=== PATIENT | female | born 1940 | race Caucasian/White ===

== ENCOUNTER 2023-05-24 10:51 | Outpatient (OUT) | payer MEDICARE, SELFPAY ==
[2023-05-24 11:10] LABS: Basophils Percent Auto 0.4 % (0.2-2.0); Eosinophils Absolute Auto 0.2 10^3/uL (0.0-0.7); Eosinophils Percent Auto 4.1 % (0.9-7.0); Hematocrit 39.9 % (36.0-48.0); Hemoglobin 12.9 g/dL (12.0-16.0); Lymphocytes Absolute Auto 1.4 10^3/uL (1.2-3.8); Lymphocytes Percent Auto 29.4 % (20.5-60.0); Mean Corpuscular HGB Conc 32.3 g/dL (29.9-35.2); Mean Corpuscular Hemoglobin 27.2 pg (26.7-34.0); Mean Platelet Volume 10.2 fL (9.5-13.5); Monocytes Absolute Auto 0.4 10^3/uL (0.3-0.8); Monocytes Percent Auto 8.8 % (1.7-12.0); Neutrophils Absolute Auto 2.7 10^3/uL (1.4-6.5); Neutrophils Percent Auto 57.3 % (43.0-75.0); Platelet Count 203 10^3/uL (150-450); Red Blood Count 4.75 10^6/uL (4.20-5.40); Red Cell Distribution Width 13.5 % (11.0-15.0); White Blood Count 4.7 10^3/uL (4.0-11.0)
[2023-05-24 11:42] LABS: Estimated Average Glucose 114 mg/dL; Glycohemoglobin A1C 5.6 % (4.5-6.2)
[2023-05-24 11:46] LABS: Microalbumin Urine Random <1.3 mg/dL (<=30.0)
[2023-05-24 11:56] LABS: Alanine Aminotransferase 19 U/L (14-59); Albumin Globulin Ratio 0.9; Albumin Level 3.7 g/dL (3.4-5.0); Alkaline Phosphatase 98 U/L (46-116); Aspartate Amino Transferase 16 U/L (15-37); BUN Creatinine Ratio 12.5; Bilirubin Direct 0.1 mg/dL (0.0-0.2); Bilirubin Total 0.7 mg/dL (0.2-1.0); Calcium 8.9 mg/dL (8.5-10.1); Carbon Dioxide 32.7 mmol/L (21.0-32.0); Chloride 102 mmol/L (98-107); Chol HDL Ratio 2.3; Cholesterol 135 mg/dL (<=200); Estimated GFR (African America >60 (>=60); Estimated GFR (Non-African Ame >60 (>=60); Free T3 2.48 pg/mL (2.18-3.98); Globulin 3.9 g/dL; Glucose 114 mg/dL (74-106); HDL Cholesterol 58 mg/dL (40-60); LDL Cholesterol Calculated 64.4 mg/dL; Potassium 3.7 mmol/L (3.5-5.1); Sodium 138 mmol/L (136-145); Thyroid Stimulating Hormone 3.017 uIU/mL (0.358-3.740); Total Protein 7.6 g/dL (6.4-8.2); Triglycerides 63 mg/dL (<=150); VLDL CHOLESTEROL 12.6 mg/dL
[2023-05-24 13:19] LABS: Free T4 0.99 ng/dL (0.76-1.46)
== END 2023-05-24 10:52 | disposition home or self-care (01) ==
LOC: LAB 10:51
PROVIDERS: PCP Family Medicine; Visit Provider Family Medicine
DX: E11.65 Type 2 diabetes mellitus with hyperglycemia (principal); E55.9 Vitamin D deficiency, unspecified; I10 Essential (primary) hypertension; Z79.899 Other long term (current) drug therapy; E03.9 Hypothyroidism, unspecified
CPT/HCPCS: 36415; 80048; 80061; 80076; 82043; 82306; 83036; 84439; 84443; 84481; 85025

== ENCOUNTER 2023-11-15 10:31 | Outpatient (OUT) | payer MEDICARE, SELFPAY ==
--- NOTE | 2023-11-15 10:36 | XR_ITS ---
The [address] [address] Patient Name: YSEI BRADFORD MRN: [id number] date: 1940 Sex: F Assigned Patient Location: [facility] Current Patient Location: RAD Accession/Order Number: [id number] Exam Date: 11/15/2023 10:40 Report Date: 11/15/2023 11:13 At the request of: DILIP REYES Procedure: XR foot LT min 3V PROCEDURE: XR foot LT min 3V COMPARISON: None. HISTORY: Left Foot Pain M79.672 FINDINGS: BONES:Lucency and cortical discontinuity identified along the distal diaphysis of the third metatarsal best seen on image #3. No additional fracture or dislocation. Mild enthesopathic spurring plantar calcaneus SOFT TISSUES:Negative. No visible soft tissue swelling. EFFUSION:None visible. OTHER: Vascular calcifications. Call results initiated through operations XR/XR foot LT min 3V IMPRESSION: Acute extra-articular fracture neck of the third metatarsal Electronically authenticated by: JASMEET COOL Date: 11/15/2023 11:13
== END 2023-11-15 10:32 | disposition home or self-care (01) ==
PROVIDERS: PCP Family Medicine; Visit Provider Family Medicine
DX: M79.672 Pain in left foot (principal); S92.335A Nondisplaced fracture of third metatarsal bone, left foot, initial encounter for closed fracture
CPT/HCPCS: 73630

== ENCOUNTER 2023-12-08 13:40 | Outpatient (OUT) | payer MEDICARE, SELFPAY ==
--- NOTE | 2023-12-08 | XR_ITS ---
The [address] [address] Patient Name: YESI BRADFORD MRN: [id number] date: 1940 Sex: F Assigned Patient Location: Current Patient Location: Accession/Order Number: [id number] Exam Date: 12/08/2023 13:45 Report Date: 12/09/2023 07:08 At the request of: LIZBET MILIAN Procedure: XR foot LT min 3V PROCEDURE: XR foot LT min 3V HISTORY: LEFT FOOT PAIN COMPARISON: XR foot left 11/15/2023 FINDINGS: BONES:Subacute fracture involving the neck of the third metatarsal with callus formation along the margins. Relatively normal alignment is maintained. Mild degenerative changes of the first metatarsophalangeal joint. Small calcaneal plantar spur and mild flattening of plantar arch. SOFT TISSUES:No visible soft tissue swelling. EFFUSION:None visible. OTHER: Negative. XR/XR foot LT min 3V IMPRESSION: 1. Stable alignment and ongoing changes of early bone healing involving third metatarsal fracture. Electronically authenticated by: KYAW WAHL Date: 12/09/2023 07:08
== END 2023-12-08 13:41 | disposition home or self-care (01) ==
LOC: EC 13:40
PROVIDERS: PCP Family Medicine; Visit Provider Physician Assistant
DX: M84.375D Stress fracture, left foot, subsequent encounter for fracture with routine healing (principal)
CPT/HCPCS: 73630

== ENCOUNTER 2023-12-29 09:51 | Outpatient (OUT) | payer MEDICARE, SELFPAY ==
--- NOTE | 2023-12-29 | XR_ITS ---
The [address] [address] Patient Name: YESI BRADFORD MRN: [id number] date: 1940 Sex: F Assigned Patient Location: Current Patient Location: Accession/Order Number: [id number] Exam Date: 12/29/2023 09:58 Report Date: 12/30/2023 07:18 At the request of: LIZBET MILIAN Procedure: XR foot LT min 3V PROCEDURE: XR foot LT min 3V HISTORY: LEFT FOOT PAIN ; recent third metatarsal stress fracture COMPARISON: XR foot left 12/08/2023 FINDINGS: BONES:Stable alignment and increasing callus formation involving prior fracture of the third metatarsal neck. Multifocal mild degenerative joint disease. SOFT TISSUES:No visible soft tissue swelling. EFFUSION:None visible. OTHER: Negative. XR/XR foot LT min 3V IMPRESSION: 1. Stable alignment and ongoing bone healing of third metatarsal neck fracture. Electronically authenticated by: KYAW WAHL Date: 12/30/2023 07:18
== END 2023-12-29 09:52 | disposition home or self-care (01) ==
LOC: EC 09:51
PROVIDERS: PCP Family Medicine; Visit Provider Physician Assistant
DX: M84.375D Stress fracture, left foot, subsequent encounter for fracture with routine healing (principal)
CPT/HCPCS: 73630

== ENCOUNTER 2024-01-26 09:58 | Outpatient (OUT) | payer MEDICARE, SELFPAY ==
--- NOTE | 2024-01-26 | XR_ITS ---
The [address] [address] Patient Name: YESI BRADFORD MRN: [id number] date: 1940 Sex: F Assigned Patient Location: Current Patient Location: Accession/Order Number: [id number] Exam Date: 01/26/2024 09:59 Report Date: 01/27/2024 06:35 At the request of: LIZBET MILIAN Procedure: XR foot LT min 3V PROCEDURE: XR foot LT min 3V HISTORY: LEFT FOOT PAIN ; follow-up third metatarsal stress fracture COMPARISON: XR foot left 12/29/2023 FINDINGS: BONES:Increasing callus formation along margin of distal third metatarsal and increasing density of the fracture line. Normal alignment is maintained. Grossly stable multifocal mild degenerative joint disease. SOFT TISSUES:No visible soft tissue swelling. EFFUSION:None visible. OTHER: Negative. XR/XR foot LT min 3V IMPRESSION: 1. Stable alignment and ongoing bone healing of third metatarsal fracture. Electronically authenticated by: KYAW WAHL Date: 01/27/2024 06:35
--- OUTSIDE RECORDS SUMMARY | 2024-01-26 10:15 | XMS_ITS | CCD ---
Author Organization [facility] Care Team Providers Care Pulley Mortiser Operator Name Role Phone Chandler Quezada Unavailable ALGHOTHANI, MOHAMAD Admitting Unavailable ALGHOTHANI, MOHAMAD Attending Unavailable NADERER, DR KEN Hughes Primary Care Unavailable [place], DR JASMEET Mcelroy Consulting Unavailable ALGHOTHANI, MOHAMAD Consulting Unavailable FAWWAD, VASQUEZ H Admitting Unavailable FAWWAD, VASQUEZ H Attending Unavailable NADERER, DR KEN Hughes Primary Care Unavailable FAWWAD, VASQUEZ H Consulting Unavailable FAWWAD, VASQUEZ H Admitting Unavailable FAWWAD, VASQUEZ H Attending Unavailable NADERER, DR KEN Hughes Primary Care Unavailable ANJUEBAMIE, DR KYAW Vigil Consulting Unavailable FAWWAD, VASQUEZ H Consulting Unavailable FAWWAD, VASQUEZ H Admitting Unavailable FAWWAD, VASQUEZ H Attending Unavailable NADERER, DR KEN Hughes Primary Care Unavailable SILVINA, DR JASMEET Mcelroy Consulting Unavailable FAWWAD, VASQUEZ H Consulting Unavailable NADERER, DR KEN Hughes Admitting Unavailable NADERER, DR KEN Hughes Attending Unavailable NADERER, DR KEN Hughes Primary Care Unavailable NADERER, DR KEN Hughes Consulting Unavailable NADERER, DR KEN Hughes Admitting Unavailable NADERER, DR KEN Hughes Attending Unavailable NADEREYaritza, DR KEN Hughes Primary Care Unavailable NADEREYaritza, DR KEN Hughes Consulting Unavailable NADEREYaritza, KEN Attending Unavailable Herminio NGUYEN, Seema Hughes Unavailable Ken Reyes MD Primary Care Provider [phone] JODI JIMENEZ Referring Unavailable Allergies Allergy Classification Reported Allergen(s) Allergy Type Date of Onset Reaction(s) Facility (2 sources) atorvastatin; Translations: [ATORVASTATIN] Drug Allergy 2 Unknown [facility] Repository (2 sources) Lisinopril; Translations: [LISINOPRIL] Drug Allergy 2 Unknown [facility] Repository (3 sources) atorvastatin Drug Allergy 4 Diarrhea [facility] (3 sources) Lisinopril Propensity to adverse reactions 4 Cough [facility] Medications Current Medications Medication Drug Class(es) Dates Sig (Normalized) Sig (Original) [id number] actuat albuterol 0.09 mg/actuat metered dose inhaler (5 sources) beta2-Adrenergic Agonist Start: 10-17-2023 take 2 puff(s) by inhalation every four hours for wheezing albuterol HFA (Ventolin HFA) 90 mcg/act inhaler Indications: Mild persistent asthma, uncomplicated (CMS/HCC) Inhale 2 puffs every 4 (four) hours if needed for shortness of breath or wheezing 8.5 g 3 10/17/2023 Active Start: 10-17-2023 take 2 puff(s) by in halation every four hours for wheezing albuterol HFA (Ventolin HFA) 90 mcg/act inhaler Indications: Mild persistent asthma, uncomplicated (CMS/HCC) Inhale 2 puffs every 4 (four) hours if needed for shortness of breath or wheezing 8.5 g 3 10/17/2023 Active End: 10-17-2023 take 2 puff(s) by inhalation every four hours for wheezing albuterol HFA (Ventolin HFA) 90 mcg/act inhaler Inhale 2 puffs every 4 (four) hours if needed for shortness of breath or wheezing 0 10/17/2023 Discontinued (Reorder) amLODIPine 10 mg oral tablet (1 source) Dihydropyridine Calcium Channel Joao take 1 tablet by mouth every twenty-four hours amLODIPine Besylate 10 MG 1 tablet Orally Once a day Active atorvastatin 20 mg oral tablet (2 sources) HMG-CoA Reductase Inhibitor Start: 023 take 1 tablet by mouth at bedtime atorvastatin (Lipitor) 20 MG tablet Take 20 mg by mouth at bedtime 0 05/04/2023 Active betamethasone 0.5 mg/ml / clotrimazole 10 mg/ml topical cream (2 sources) Azole Antifungal, Corticosteroid Start: clotrimazole-betam ethasone (Lotrisone) cream Indications: Candidal skin infection Apply topically 2 (two) times a day 60 g 0 10/17/2023 Active Start: 10-17-2023 clotrimazole-b etamethasone (Lotrisone) cream Indications: Candidal skin infection Apply topically 2 (two) times a day 60 g 0 10/17/2023 Active carvedilol 25 mg oral tablet (4 sources) alpha-Adrenergic Joao, beta-Adrenergic Joao take 1 tablet by mouth in the morning carvedilol (Coreg) 25 MG tablet Take 1 tablet by mouth in the morning and 1 tablet in the evening. Take with meals. 0 Active cetirizine hydrochloride 10 mg oral tablet (3 sources) Histamine-1 Receptor Antagonist take 1 tablet by mouth in the morning cetirizine (ZyrTEC) 10 MG tablet Take 1 tablet by mouth in the morning. 0 Active cholecalciferol 0.05 mg oral tablet (3 sources) Vitamin D take 1 tablet by mouth in the morning cholecalciferol (Vitamin D-3) 50 MCG (2000 UT) tablet Take 1 tablet by mouth in the morning. 0 Active fluconazole 200 mg oral tablet (2 sources) Azole Antifungal Start : 10-17 End: 10-31 take 1 tablet by mouth in the morning fluconazole (Diflucan) 200 MG tablet Indications: Candidal skin infection Take 1 tablet (200 mg) by mouth in the morning for 14 days. 14 tablet 0 10/17/2023 10/31/2023 Active FLUoxetine 10 mg oral capsule (1 source) Serotonin Reuptake Inhibitor take 1 capsule by mouth every twenty-four hours FLUoxetine HCl 10 MG 1 capsule Orally Once a day Active fluticasone propionate 0.05 mg/actuat metered dose nasal spray (3 sources) Corticosteroid take 2 spray(s) nasal route in the morning fluticasone (Flonase) 50 MCG/ACT nasal spray Administer 2 sprays into each nostril in the morning. Shake gently. Before first use, prime pump. After use, clean tip and replace cap.. 0 Active hydroCHLOROthiazide 25 mg oral tablet (1 source) Thiazide Diuretic take 1 tablet by mouth every twenty-four hours hydroCHLOROthiazide 25 MG 1 tablet in the morning Orally Once a day Active levothyroxine sodium 0.05 mg oral tablet (4 sources) l-Thyroxine take 1 tablet by mouth before mealtime levothyroxine (Synthroid, Levoxyl) 50 MCG tablet Take 1 tablet by mouth in the morning. Take before meals. 0 Active take 1 tablet by erika th once daily in the morning Levothyroxine Sodium 50 MCG 1 tablet in the morning on an empty stomach Orally Once a day Active montelukast 10 mg oral tablet (4 sources) Leukotriene Receptor Antagonist take 1 tablet by mouth at bedtime montelukast (Singulair) 10 MG tablet Take 1 tablet by mouth at bedtime 0 Active predniSONE 50 mg oral tablet (2 sources) Start: 4 End: 4 take 1 tablet by mouth in the morning predniSONE (Deltasone) 50 MG tablet Indications: Mild persistent asthma, uncomplicated (CMS/HCC) Take 1 tablet (50 mg) by mouth in the morning for 6 days. 6 tablet 0 10/17/2023 10/23/2023 Active Problems Active Problems Problem Classification Problem Date Documented Date Episodic/Chronic Asthma (5 sources) Uncomplicated mild persistent asthma; Translations: [Mild persistent asthma, uncomplicated] Onset: 4 10-17-2023 Chronic Cardiac dysrhythmias (2 sources) Palpitations; Translations: [Palpitations] Onset: 4 Episodic Conditions associated with dizziness or vertigo (3 sources) Vertigo; Translations: [Dizziness and giddiness] Onset: 4 10-17-2023 Episodic Delirium, dementia, and amnestic and other cognitive disorders (1 source) Postconcussional syndrome; Translations: [POSTCONCUSSIONAL SYNDROME] Onset: 2 Chronic Diabetes mellitus with complications (3 sources) Type 2 diabetes mellitus; Translations: [Type 2 diabetes mellitus with hyperglycemia] Onset: 4 10-17-2023 Chronic Diabetes mellitus without complication (1 source) Type 2 diabetes mellitus without complications; Translations: [TYPE 2 DM WITHOUT COMPLICATIONS] Onset: 2 Chronic Essential hypertension (5 sources) Essential hypertension; Translations: [Essential (primary) hypertension] Onset: 2 10-17-2023 Chronic Heart valve disorders (1 source) Rheumatic tricuspid insufficiency; Translations: [RHEUMATIC TRICUSPID INSUFFICIENCY] Onset: 2 Chronic Hypertension with complications and secondary hypertension (6 sources) Secondary hypertension; Translations: [Secondary hypertension, unspecified] Onset: 2 Resolved: 2 Chronic Mood disorders (3 sources) Recurrent major depressive episodes, mild ; Translations: [Major depressive disorder, recurrent, mild] Onset: 4 10-17-2023 Chronic Mycoses (4 sources) Candidiasis of skin; Translations: [Candidiasis of skin and nail] Onset: 4 10-17-2023 Episodic Nutritional deficiencies (7 sources) Vitamin D deficiency, unspecified; Translations: [Vitamin D deficiency] Onset: 2 Chronic Occlusion or stenosis of precerebral arteries (1 source) Occlusion and stenosis of right carotid artery; Translations: [OCCLUSION AND STENOSIS RT CAROTID ART] Onset: 2 Chronic Other nutritional; endocrine; and metabolic disorders (1 source) Obesity, unspecified; Translations: [OBESITY UNSPECIFIED] Onset: 2 Chronic Other screening for suspected conditions (not mental disorders or infectious disease) (4 sources) Abnormal electrocardiogram [ECG] [EKG]; Translations: [ABNORMAL ELECTROCARDIOGRAM] Onset: 2 Episodic Peripheral and visceral atherosclerosis (5 sources) Bilateral renal artery stenosis; Translations: [Atherosclerosis of renal artery] Onset: 2 Resolved: 2 Chronic Spondylosis; intervertebral disc disorders; other back problems (3 sources) Degeneration of lumbar intervertebral disc; Translations: [Other intervertebral disc degeneration, lumbar region] Onset: 4 10-17-2023 Chronic Syncope (4 sources) Syncope and collapse; Translations: [Syncope and collapse] Onset: 2 10-17-2023 Episodic Thyroid disorders (7 sources) Hypothyroidism, unspecified; Translations: [Hypothyroidism] Onset: 2 Chronic Unclassified (3 sources) CONTACT W/AND (SUSP) EXPOS COVID-19; Translations: [CONTACT W/AND (SUSP) EXPOS COVID-19] Onset: 2 Past or Other Problems Problem Classification Problem Date Documented Da te Episodic/Chronic Other aftercare (1 source) Other buttermaker (current) drug therapy; Translations: [OTH SHELTER CURRENT DRUG THERAPY] Onset: 10-27-2021 Episodic Residual codes; unclassified (4 sources) Disorientation, unspecified; Translations: [DISORIENTATION UNSPECIFIED] Onset: 01-21-2022 Episodic Unclassified (1 source) CONTACT W/AND (SUSP) EXPOS COVID-19; Translations: [CONTACT W/AND (SUSP) EXPOS COVID-19] Onset: 09-28-2021 Results Test Name Value Interpretation Reference Range Facility ECHOCARDIO M/2D COMPLETEon 1 ECHOCARDIO M/2D COMPLETE Patient: RENATE BRADFORD Exam Date: 06/16/2022 : 1940 Gender:F Ordering : LUCI JULES Admission #: [id number] Family : DR KEN REYES . Order #: [id number] CLICK HERE TO VIEW EXAM ECHOCARDIOGRAM REPORT PROCEDURE: CARDIO PULMONARY ECHOCARDIO M/2D COMP INDICATIONS: Syncope, Abnormal EKG COMPARISON: None. DESCRIPTION: COMPLETE ECHOCARDIOGRAM Real-time transthoracic echocardiography with 2D, M-mode, spectral and color flow Doppler performed. QUALITY: Technical quality was good. LEFT VENTRICLE: Normal chamber size. Normal left ventricular wall thickness. LV EF: Global left ventricular systolic function is hyperdynamic; visually estimated ejection fraction is 65 to 70%. No significant wall motion abnormalities. DIASTOLIC: Grade 2, moderate diastolic dysfunction. ATRIAL SEPTUM: Inadequately seen. LEFT ATRIUM: Mild dilatation. RIGHT ATRIUM: Normal chamber size. RIGHT VENTRICLE: Normal chamber size. Normal right ventricular systolic function. TRICUSPID VALVE: Normal mobility and thickness. No stenosis with mild regurgitation. Mild pulmonary hypertension. RVSP 44mmHg MITRAL VALVE: Normal mobility and thickness. No mitral valve prolapse. No evidence of mitral valve stenosis. Mild mitral annular calcification. Trivial mitral regurgitation. AORTIC VALVE: Normal trileaflet appearance. Thickened aortic valve. Normal leaflet mobility. No evidence of aortic valve stenosis. No aortic regurgitation. AORTIC ROOT: Normal diameter and appearance. PULMONIC VALVE: Normal thickness and mobility. No stenosis. Mild regurgitation. PERICARDIUM: Anterior free space; trivial effusion versus fat pad. IVC: Collapses with inspirations. Normal size. CONCLUSION: Global left ventricular systolic function is hyperdynamic; visually estimated ejection fraction 65 to 70%. No significant wall motion abnormalities. Grade 2, moderate diastolic dysfunction. The left atrium is mildly dilated. The right ventricle is normal in size and systolic function. Mild tricuspid regurgitation. Mildly elevated right-sided pressures. Mild pulmonic regurgitation. Anterior free space; trivial effusion versus fat pad. Adult Echocardiography Procedure Report Left Ventricle LVEDD (3.7 - 5.6 cm): 4.14 cm LVESD (2.2 - 4.0 cm): 2.60 cm LVIVS thickness (0.6 - 1.2 cm): 0.73 cm LVPW thickness (0.5 - 1.0 cm): 0.86 cm e': 0.08 m/s E - e': 11.84 LVOT Max Gradient: 2.61 mm[Hg] Peak Velocity (LVOT): 0.81 m/s Mean Velocity (LVOT): 0.54 m/s LVOT Diameter 1.95 cm Left Ventricular Ejection Fraction: 67.66 %, 67.66 % Left Atrium LA Volume Index (2D A2C): 62.12 ml, 62.12 ml Left Atrium Systolic Dimension: 2.38 cm Mitral Valve MV E to A Ratio: 0.81 Mitral Valve A-Wave Peak Velocity: 1.13 m/s Mitral Valve E-Wave Peak Velocity: 0.92 m/s Right Ventricle RV Internal Diastolic Dimension: 3.17 cm Aorta AO Root Diam: 2.22 cm Ascending Ao Diam: 2.46 cm Aortic Valve AoV Area (Peak Cristopher): 1.99 cm2, 1.99 cm2 AoV Area (VTI): 2.30 cm2, 2.30 cm2 Peak Velocity(Antegrade Flow): 1.21 m/s Peak Gradient(Antegrade Flow): 5.90 mm[Hg] Mean Velocity(Antegrade Flow): 0.78 m/s Mean Gradient(Antegrade Flow): 2.86 mm[Hg] Velocity Time Integral: 29.64 cm Tricuspid Valve Peak Velocity (Regurgitant Flow): 2.41 m/s, 2.74 m/s, 3.21 m/s Peak Velocity: 0.58 m/s Pulmonic Valve Mean Gradient: 2.17 mm[Hg], 2.20 mm[Hg] Mean Velocity: 0.67 m/s, 0.72 m/s Peak Velocity: 1.07 m/s, 0.94 m/s Peak Gradient: 4.61 mm[Hg], 3.53 mm[Hg] Right Atrium Right Atrium Systolic Pressure: 40.00 ml, 40.00 ml Dictated by: Monet Walter M.D. on 06/16/2022 at 14:53 Approved by: Monet Walter M.D. on 06/16/2022 at 14:58 Normal [facility] NM STRESS/REST MULTIon 06-16 NM STRESS/REST MULTI Patient: RENATE BRADFORD Exam Date: 06/16/2022 : 1940 Gender:F Ordering : LUCI JULES Admission #: [id number] Family : Order #: [id number] CLICK HERE TO VIEW EXAM RADIOLOGY REPORT PROCEDURE: RADIONUCLIDE IMAGING STRESS/REST MULTI COMPARISON: None. INDICATIONS: Electrocardiogram abnormal 94.31, syncope and collapse R55 TECHNIQUE: Exam Description: Rest/Stress one day protocol gated SPECT Rest Imagin.7 mCi Tc-99m Cardiolite IV on 06/16/2022 Stress Imaging 32.3 mCi Tc-99m Cardiolite IV on 06/16/2022 Exercise Protocol: 0.4 mg Lexiscan given IV Heart Rate (bpm): Rest: 77 Max: 100 PMHR: 72 Blood Pressure: Rest: 140/90 Max: 168/90 Symptoms: Rest and peak stress ECG findings were abnormal and the exercise portion of the study was abnormal per attending physician Dr. Baptiste due to EKG changes, worsening ST segment downsloping and depression in inferolateral leads. For more details please see separate cardiac stress test report. FINDINGS: QUALITY OF STUDY: Excellent. PERFUSION DEFECT: None. LOCATION: N/A SIZE: N/A. SEVERITY: N/A. TYPE: N/A. WALL MOTION: Normal. LV SIZE: Normal. 41 mL. TID / TCD: None; 0.7 LVEF: Normal. Calculated EF 84%. SUMMARY: Myocardial perfusion imaging study is NORMAL. CONCLUSION: 1. No reversible ischemia 2. Abnormal exercise test secondary to EKG changes Dictated by: Jasmeet Cool MD on 06/16/2022 at 12:51 Approved by: Jasmeet Cool MD on 06/16/2022 at 12:52 Normal [facility] US CAROTID ART BILon US CAROTID ART GLENN EXAMINATION: US CAROTID ART GLENN HISTORY: Syncope and collapse COMPARISON: No relevant comparison available. TECHNIQUE: Duplex Doppler ultrasound analysis of carotid and vertebral arteries. . Bilateral carotid arterial duplex examination was performed using B-mode, color flow and spectral analysis. Carotid stenosis is reported according to validated velocity parameters, similar to NASCET criteria. FINDINGS: RIGHT CAROTID ARTERY Minimal atherosclerotic plaque Subclavian: PSV: 98.4 cm/s cm/s EDV: 9.9 cm/s cm/s CCA: Prox: PSV: 68.6 cm/s cm/s EDV: 13.6 cm/s cm/s Mid: PSV: 87.5 cm/s cm/s EDV: 15.0 cm/s cm/s Distal: PSV: 62.9 cm/s cm/s EDV: 11.1 cm/s cm/s BULB: PSV: 51.3 cm/s cm/s EDV: 12.4 cm/s cm/s ICA: Prox: PSV: 117.3 cm/s cm/s EDV: 30.1 cm/s cm/s Mid: PSV: 153.0 cm/s cm/s EDV: 28.8 cm/s cm/s Distal: PSV: 117.5 cm/s cm/s EDV: 36.7 cm/s cm/s ECA: PSV: 62.9 cm/s cm/s EDV: 6.0 cm/s cm/s VERTEBRAL: PSV: 53.8 cm/s cm/s EDV: 16.3 cm/s cm/s ICA/CCA ratio: PSV: 2.4 EDV: 2.6 LEFT CAROTID ARTERY Normal atherosclerotic plaque Subclavian: PSV: 124.0 cm/s cm/s EDV: 12.0 cm/s CCA: Prox: PSV: 80.1 cm/s cm/s EDV: 13.9 cm/s Mid: PSV: 73.7 cm/s cm/s EDV: 15.5 cm/s Distal: PSV: 73.7 cm/s cm/s EDV: 13.9 cm/s BULB: PSV: 51.3 cm/s cm/s EDV: 13.7 cm/s ICA: Prox: PSV: 91.4 cm/s cm/s EDV: 3.4 cm/s Mid: PSV: 78.4 cm/s cm/s EDV: 21.5 cm/s Distal: PSV: 101.7 cm/s cm/s EDV: 35.7 cm/s ECA: PSV: 88.8 cm/s cm/s EDV: 6.0 cm/s VERTEBRAL: PSV: 25.9 cm/s cm/s EDV: 5.1 cm/s ICA/CCA ratio: PSV: 1.4 EDV: 2.6 IMPRESSION: 50% flow stenosis mid right internal carotid artery 0-49% flow stenosis left internal carotid artery Spectral Doppler US Thresholds (Reference: Howie EG, et al. Radiology 2000; 214:247-252) Stenosis (%) PSV (cm/sec) VICA/VCCA 0-49 <150 <2.5 50-69 150-225 2.5-4.0 >70 >225 >4.0 Electronically authenticated by: JASMEET COOL Date: 2022-06-16 16:04 Normal [facility] FREE T3on 03-01-2022 FREE T3 1.97 pg/mlL Critically low 2.18-3.98 [facility] Comment on above: Performed By: #### T SH, FT3 #### [facility] [address] [place] [address] Dr. Dina Gilbert TSHon 03-01-2022 TSH 1.842 uIU/mL Normal 0.358-3.740 [facility] Comment on above: Performed By: #### T SH, FT3 #### [facility] [address] [place] [address] ABDOMEN W CONon 2 CT ABDOMEN W CON EXAMINATION: CT ABDOMEN W CON HISTORY: Secondary hypertension ; abnormal laboratory values for kidneys COMPARISON: No relevant comparison available. TECHNIQUE: CT images were created with IV contrast. Axial, Coronal, and Sagittal images. Dose reduction techniques were achieved by using automated exposure control and/or adjustment of mA and/or kV according to patient size and/or use of iterative reconstruction technique FINDINGS: LUNG BASES: No visible pulmonary or pleural disease. LIVER: No enlargement, atrophy, abnormal density, or significant focal lesion. BILIARY: Cholecystectomy. PANCREAS: No lesion, fluid collection, ductal dilatation, or atrophy. SPLEEN: No enlargement or focal lesion. ADRENALS: No mass or enlargement. KIDNEYS: Mild uniform thinning of the renal cortex bilaterally. No mass, obstruction, or calcification. Moderate marked narrowing of the renal arteries at their origins secondary to atherosclerotic plaque. BOWEL/MESENTERY: No visible mass, obstruction, or bowel wall thickening. AORTA/VASCULAR: Moderate atherosclerotic disease of aorta. Moderate atherosclerotic narrowing at origin of celiac axis; mild at origin of superior mesenteric artery. RETROPERITONEUM: No mass or adenopathy. ABDOMINAL WALL: No mass or hernia. BONES: No bony lesion or fracture. OTHER: Negative. IMPRESSION: 1. Uniform mild thinning of the renal cortex bilaterally. 2. Moderate-marked narrowing of the renal arteries secondary to atherosclerotic plaque. Electronically authenticated by: KYAW WAHL Date: 2022-02-02 10:40 Normal [facility] PROF CHEM 8 (BAS METB)on Anion gap [Moles/Vol] 11.7 mmol/L Normal [facility] Comment on above: Performed By: #### B MP #### [facility] [address] [address] [address] Dina Gilbert Calcium [Mass/Vol] 8.8 mg/dL Normal 8.5-10.1 [facility] Comment on above: Performed By: #### B MP #### [facility] [address] [address] [address] Dina Gilbert Chloride [Moles/Vol] 97 mmol/L Critically low 98-107 [facility] Comment on above: Performed By: #### B MP #### [facility] [address] [address] [address] Dina Gilbert CO2 [Moles/Vol] 31.4 mmol/L Normal 21.0-32.0 [facility] Comment on above: Performed By: #### B MP #### [facility] [address] [address] [address] Dina Gilbert Creatinine [Mass/Vol] 0.84 mg/dL Normal 0.55-1.02 [facility] Comment on above: Performed By: #### B MP #### [facility] [address] [address] [address] Dina Gilbert EGFR-AF MALAWIAN >60 Normal >=60 [facility] Comment on above: Performed By: #### B MP #### [facility] [address] [place] [address] Dr. Dina Gilbert EGFR-NON AF MALAWIAN >60 Normal >=60 [facility] Comment on above: Performed By: #### B MP #### [facility] [address] [address] [address] Dina Gilbert Glucose [Mass/Vol] 126 mg/dL Critically high 74-106 [facility] Comment on above: Performed By: #### B MP #### [facility] [address] [address] [address] Dina Gilbert Potassium [Moles/Vol] 4.1 mmol/L Normal 3.5-5.1 [facility] Comment on above: Performed By: #### B MP #### [facility] [address] [address] [address] Dina Gilbert Sodium [Moles/Vol] 136 mmol/L Normal 136-145 [facility] Comment on above: Performed By: #### B MP #### [facility] [address] [place] [address] Dr. Dina Gilbert Urea nitrogen [Mass/Vol] 23.0 mg/dL Critically high 7.0-18.0 [facility] Comment on above: Performed By: #### B MP #### [facility] [address] [place] [address] Dr. Dina Gilbert Urea nitrogen/Creatinine [Mass ratio] 27.3 mg/mg Normal [facility] Comment on above: Performed By: #### B MP #### [facility] [address] [place] [address] Dr. Dina Gilbert MRI BRAIN WO CONon MRI BRAIN WO CON EXAMINATION: MRI BRA IN WO CON, 01/21/2022 8:23 AM EDT HISTORY: Disorientated , postconcussion vertigo, confusion, head trauma COMPARISON: None. TECHNIQUE: MRI of the brain was performed without IV contrast. FINDINGS: CEREBRUM: No edema, hemorrhage, mass, acute infarction. Moderate, age-appropriate atrophy. Mild to moderate scattered hyperintense foci are present, typical for a patient of this age, most commonly caused by small vessel ischemic changes. CEREBELLUM: No edema, hemorrhage, mass, acute infarction, or inappropriate atrophy. BRAINSTEM: No edema, hemorrhage, mass, acute infarction, or inappropriate atrophy. CSF SPACES: Ventricles, cisterns, and sulci are appropriate for age. No hydrocephalus, subarachnoid hemorrhage, or mass. SKULL: No mass or other significant visible lesion. SINUSES: Limited views demonstrate no significant mucosal thickening or fluid. ORBITS: Limited views are unremarkable. OTHER: Asymmetrically small left vertebral artery. Incidental right grade 1 AICA vascular loop IMPRESSION: No acute infarct Mild to moderate white matter disease and atrophy. Chronic small vessel ischemic changes are favored Electronically authenticated by: JASMEET COOL Date: 2022-01-21 09:32 Normal [facility] CBC AUTO DIFFon 10-22-2021 BASO # 0.0 103/ul Normal 0.0-0.1 [facility] Comment on above: Performed By: #### T MICKIE, FT3 #### [facility] [address] [place] [address] Dr. Dina Gilbert Basophils/100 WBC (Bld) 0.3 % Normal 0.2-2.0 [facility] Comment on above: Performed By: #### T MICKIE, FT3 #### [facility] [address] [place] [address] Dr. Dina Gilbert EO # 0.3 103/ul Normal 0.0-0.7 [facility] Comment on above: Performed By: #### T MICKIE, FT3 #### [facility] [address] [place] [address] Dr. Dina Gilbert Eosinophils/100 WBC (Bld) 3.6 % Normal 0.9-7.0 [facility] Comment on above: Performed By: #### T MICKIE, FT3 #### [facility] [address] [place] [address] Dr. Dina Gilbert Erythrocyte distribution width (RBC) [Ratio] 13.2 % Normal 11.0-15.0 [facility] Comment on above: Performed By: #### T MICKIE, FT3 #### [facility] [address] [place] [address] Dr. Dina Gilbert Hematocrit (Bld) [Volume fraction] 37.5 % Normal 36.0-48.0 [facility] Comment on above: Performed By: #### T SH, FT3 #### [facility] [address] [place] [address] Dr. Dina Gilbert Hemoglobin (Bld) [Mass/Vol] 12.1 g/dL Normal 12.0-16.0 [facility] Comment on above: Performed By: #### T , FT3 #### [facility] [address] [place] [address] Dr. Dina Gilbert IG # 0.01 10e3/ul Normal 0.00-0.03 [facility] Comment on above: Performed By: #### T , FT3 #### [facility] [address] [place] [address] Dr. Dina Gilbert IG % 0.1 % Normal 0.0-0.5 [facility] Comment on above: Performed By: #### T , FT3 #### [facility] [address] [place] [address] Dr. Dina Gilbert LYMPH # 1.8 103/ul Normal 1.2-3.8 [facility] Comment on above: Performed By: #### T , FT3 #### [facility] [address] [place] [address] Dr. Dina Gilbert Lymphocytes/100 WBC (Bld) 24.6 % Normal 20.5-60.0 [facility] Comment on above: Performed By: #### T , FT3 #### [facility] [address] [place] [address] Dr. Dina Gilbert MANUAL DIFF REQ NO Normal [facility] Comment on above: Performed By: #### T , FT3 #### [facility] [address] [place] [address] Dr. Dina Gilbert MCH (RBC) [Entitic mass] 28.1 pg Normal 26.7-34.0 [facility] Comment on above: Performed By: #### T SH, FT3 #### [facility] [address] [place] [address] Dr. Dina Gilbert MCHC (RBC) [Mass/Vol] 32.3 g/dL Normal 29.9-35.2 [facility] Comment on above: Performed By: #### T SH, FT3 #### [facility] [address] [place] [address] Dr. Dina Gilbert MCV (RBC) [Entitic vol] 87.0 fL Normal 81.0-99.0 [facility] Comment on above: Performed By: #### T SH, FT3 #### [facility] [address] [place] [address] Dr. Dina Gilbert MONO # 0.6 103/ul Normal 0.3-0.8 [facility] Comment on above: Performed By: #### T SH, FT3 #### [facility] [address] [place] [address] Dr. Dina Gilbert Monocytes/100 WBC (Bld) 8.0 % Normal 1.7-12.0 [facility] Comment on above: Performed By: #### T SH, FT3 #### [facility] [address] [place] [address] Dr. Dina Gilbert NEUT # 4.5 103/ul Normal 1.4-6.5 [facility] Comment on above: Performed By: #### T SH, FT3 #### [facility] [address] [place] [address] Dr. Dina Gilbert Neutrophils/100 WBC (Bld) 63.4 % Normal 43.0-75.0 [facility] Comment on above: Performed By: #### T SH, FT3 #### [facility] [address] [place] [address] Dr. Dina Gilbert Platelet mean volume (Bld) [Entitic vol] 10.1 fL Normal 9.5-13.5 [facility] Comment on above: Performed By: #### T SH, FT3 #### [facility] [address] [place] [address] Dr. Dina Gilbert PLT 219 103/ul Normal 150-450 [facility] Comment on above: Performed By: #### T SH, FT3 #### [facility] [address] [place] [address] Dr. Dina Gilbert RBC 4.31 106/ul Normal 4.20-5.40 [facility] Comment on above: Performed By: #### T SH, FT3 #### [facility] [address] [place] [address] Dr. Dina Gilbert WBC 7.2 103/ul Normal 4.0-11.0 [facility] Comment on above: Performed By: #### T SH, FT3 #### [facility] [address] [place] [address] Dr. Dina Gilbert GLYCOHEMOGLOBIN A1Con 2021 ADA RECOMMENDATION ADA THERAPEUTIC TARG ET 6.0 - 7.0 ACTION SUGGESTED > 7.0 Normal [facility] Comment on above: Performed By: #### A 1C #### [facility] [address] [place] [address] Dr. Dina Gilbert Glucose [Mass/Vol] 131 mg/dL Normal [facility] Comment on above: Performed By: #### A 1C #### [facility] [address] [place] [address] Dr. Dina Gilbert HbA1c (Bld) [Mass fraction] 6.2 % Critically high <=6.0 [facility] Comment on above: Performed By: #### A 1C #### [facility] [address] [place] [address] Dr. Dina Gilbert LIPID PROFILEon 10-22-2021 CHOL-HDL RATIO NORM SEE BELOW Normal [facility] Comment on above: Result Comment: 3.3 - 4.4 LOW RISK 4.4 - 7.1 AVERAGE RISK 7.1 - 11.0 MODERATE RISK >11.0 HIGH RISK Performed By: #### T SH, FT3 #### [facility] [address] [place] [address] Dr. Dina Gilbert Cholesterol [Mass/Vol] 193 mg/dL Normal <=200 [facility] Comment on above: Performed By: #### T SH, FT3 #### [facility] [address] [address] [address] Dina Gilbert Cholesterol in HDL [Mass/Vol] 53 mg/dL Normal [facility] Comment on above: Performed By: #### T SH, FT3 #### [facility] [address] [address] [address] Dina Gilbert Cholesterol in LDL [Mass/Vol] 114.8 mg/dL Normal [facility] Comment on above: Performed By: #### T SH, FT3 #### [facility] [address] [address] [address] Dina Gilbert Cholesterol.total/Ch olesterol in HDL [Mass ratio] 3.6 {ratio} Normal [facility] Comment on above: Performed By: #### T SH, FT3 #### [facility] [address] [place] [address] Dr. Dina Gilbert HDL NORMAL > or = 60 mg/dl - LO W CARDIOVASCULAR RISK <40 mg/dl - HIGH CARDIOVASCULAR RISK Normal [facility] Comment on above: Performed By: #### T SH, FT3 #### [facility] [address] [place] [address] Dr. Dina Gilbert LDL CALC NORMAL SEE BELOW Normal [facility] Comment on above: Result Comment: <100 mg/dl OPTIMAL 100 - 129 mg/dl NEAR OR ABOVE OPTIMAL 130 - 159 mg/dl BORDERLINE HIGH 160 - 189 mg/dl HIGH >190 mg/dl VERY HIGH Performed By: #### T SH, FT3 #### [facility] [address] [address] [address] Dina Gilbert Triglyceride [Mass/Vol] 126 mg/dL Normal <=150 [facility] Comment on above: Performed By: #### T SH, FT3 #### [facility] [address] [place] [address] Dr. Dina Gilbert VLDL CALC 25.2 mg/dL Normal [facility] Comment on above: Performed By: #### T SH, FT3 #### [facility] [address] [place] [address] Dr. Dina Gilbert LIVER PROFILEon 10-22-2021 Albumin [Mass/Vol] 3.6 g/dL Normal 3.5-5.0 [facility] Comment on above: Performed By: #### T MICKIE, FT3 #### [facility] [address] [place] [address] Dr. Dina Gilbert Albumin/Globulin [Mass ratio] 1.0 {ratio} Normal [facility] Comment on above: Performed By: #### T MICKIE, FT3 #### [facility] [address] [place] [address] Dr. Dina Gilbert ALP [Catalytic activity/Vol] 80 U/L Normal 38-126 [facility] Comment on above: Performed By: #### T MICKIE, FT3 #### [facility] [address] [place] [address] Dr. Dina Gilbert ALT [Catalytic activity/Vol] 16 U/L Normal 9-52 [facility] Comment on above: Performed By: #### Felix CORADO, FT3 #### [facility] [address] [place] [address] Dr. Dina Gilbert AST [Catalytic activity/Vol] 11 U/L Critically low 14-36 [facility] Comment on above: Performed By: #### Felix CORADO, FT3 #### [facility] [address] [place] [address] Dr. Dina Gilbert BILI, CONJUGATED 0.0 mg/dL Normal 0.0-0.3 [facility] Comment on above: Performed By: #### Felix CORADO, FT3 #### [facility] [address] [place] [address] Dr. Dina Gilbert Bilirubin [Mass/Vol] 0.3 mg/dL Normal 0.2-1.3 [facility] Comment on above: Performed By: #### Felix CORADO, FT3 #### [facility] [address] [place] [address] Dr. Dina Gilbert Globulin (S) [Mass/Vol] 3.6 g/dL Normal [facility] Comment on above: Performed By: #### Felix CORADO, FT3 #### [facility] [address] [place] [address] Dr. Dina Gilbert Protein [Mass/Vol] 7.2 g/dL Normal 6.1-8.2 [facility] Comment on above: Performed By: #### T SH, FT3 #### [facility] [address] [place] [address] Dr. Dina Gilbert PROF CHEM 8 (BAS METB)on Anion gap [Moles/Vol] 9.5 mmol/L Normal [facility] Comment on above: Performed By: #### T SH, FT3 #### [facility] [address] [place] [address] Dr. Dina Gilbert Calcium [Mass/Vol] 8.5 mg/dL Normal 8.4-10.2 [facility] Comment on above: Performed By: #### T SH, FT3 #### [facility] [address] [place] [address] Dr. Dina Gilbert Chloride [Moles/Vol] 101 mmol/L Normal 98-107 [facility] Comment on above: Performed By: #### T SH, FT3 #### [facility] [address] [place] [address] Dr. Dina Gilbert CO2 [Moles/Vol] 29.7 mmol/L Normal 22.0-30.0 [facility] Comment on above: Performed By: #### T SH, FT3 #### [facility] [address] [place] [address] Dr. Dina Gilbert Creatinine [Mass/Vol] 0.74 mg/dL Normal 0.52-1.04 [facility] Comment on above: Performed By: #### T SH, FT3 #### [facility] [address] [place] [address] Dr. Dina Gilbert EGFR-AF MALAWIAN >60 Normal >=60 [facility] Comment on above: Performed By: #### T SH, FT3 #### [facility] [address] [place] [address] Dr. Dina Gilbert EGFR-NON AF MALAWIAN >60 Normal >=60 [facility] Comment on above: Performed By: #### T SH, FT3 #### [facility] [address] [place] [address] Dr. Dina Gilbert Glucose [Mass/Vol] 130 mg/dL Critically high 74-106 [facility] Comment on above: Performed By: #### T SH, FT3 #### [facility] [address] [place] [address] Dr. Dina Gilbert Potassium [Moles/Vol] 4.2 mmol/L Normal 3.4-5.0 [facility] Comment on above: Performed By: #### T SH, FT3 #### [facility] [address] [place] [address] Dr. Dina Gilbert Sodium [Moles/Vol] 136 mmol/L Critically low 137-145 [facility] Comment on above: Performed By: #### T SH, FT3 #### [facility] [address] [place] [address] Dr. Dina Gilbert Urea nitrogen [Mass/Vol] 10.0 mg/dL Normal 7.0-17.0 [facility] Comment on above: Performed By: #### T SH, FT3 #### [facility] [address] [place] [address] Dr. Dina Gilbert Urea nitrogen/Creatinine [Mass ratio] 13.5 mg/mg Normal [facility] Comment on above: Performed By: #### T SH, FT3 #### [facility] [address] [place] [address] Dr. Dina Gilbert TSHon 10-22-2021 TSH 5.232 uIU/mL Critically high 0.470-4.680 [facility] Comment on above: Performed By: #### T SH, FT3 #### [facility] [address] [place] [address] Dr. Dina Gilbert TSH RANGE SEE BELOW Normal [facility] Comment on above: Result Comment: <0.3 4 UIU/ml HYPERTHYROID 0.34-5.60 UIU/ml EUTHYROID >5.60 UIU/ml HYPOTHYROID Performed By: #### T SH, FT3 #### [facility] [address] [place] [address] Dr. Dina Gilbert VITAMIN D 25 OHon 10-22-2021 VIT D 25-OH 90.4 ng/mL Normal [facility] Comment on above: Performed By: #### T SH, FT3 #### [facility] [address] [place] [address] Dr. Dina Gilbert VIT D RANGES SEE BELOW Normal [facility] Comment on above: Result Comment: <20 ng/mL Vit D deficient 20 - <30 ng/mL Vit D insufficient 30 - 100 ng/mL Vit D sufficient >100 ng/mL Potential Toxicity Performed By: #### T SH, FT3 #### [facility] [address] [address] [address] Dina Gilbert Covid-19 PCR ([facility])on 09-12 SARS-CoV-2 (COVID-19) RNA OBED+probe Ql (Unsp spec) Not detected Normal NOT DETECTED [facility] Comment on above: Result Comment: This test is not yet approved or cleared by the [place] FDA. When there are no FDA-approved or cleared tests available, and other criteria are met, FDA can make tests available under an emergency access mechanism called an Emergency Use Authorization (EUA). The EUA for this test is supported by the [place] of Health and Human Service's (HHS's) declaration that circumstances exist to justify the emergency use of in vitro diagnostics for the detection and/or diagnosis of the virus that causes COVID-19. This EUA will remain in effect (meaning this test can be used) for the duration of the COVID-19 declaration justifying emergency of IVDs, unless it is terminated or revoked by FDA (after which the test may no longer be used). When diagnostic testing is negative, the possibility of a false negative should be considered in the context of a patient's recent exposures and the presence of clinical signs and symptoms consistent with SARS-CoV-2. Performed By: #### C VDTBH #### [facility] [address] [place] [address] Dr. Dina Gilbert Vital Signs Date Time Vital Sign Value Performing Clinician Facility 10-17-2023 10:19-0500 Body height 154.9 cm Ken Reyes MD Work Phone: [facility] 10-17-2023 10:19-0500 Body mass index (BMI) [Ratio] 31.18 kg/m2 Ken Reyes MD Work Phone: [facility] 10-17-2023 10:19-0500 Body temperature 97.3 [degF] Ken Reyes MD Work Phone: [facility] 10-17-2023 10:19-0500 Body weight 74.84 kg Ken Reyes MD Work Phone: [facility] 10-17-2023 10:19-0500 Diastolic blood pressure 70 mm[Hg] Ken Reyes MD Work Phone: [facility] 10-17-2023 10:19-0500 Heart rate 87 /min Ken Reyes MD Work Phone: [facility] 10-17-2023 10:19-0500 SaO2% (BldA) [Mass fraction] 98 % Ken Reyes MD Work Phone: [facility] 10-17-2023 10:19-0500 Systolic blood pressure 130 mm[Hg] Ken Reyes MD Work Phone: [facility] 03-10-2022 17:00-0400 Body height 154.94 cm Chandler Blevinshunter Other [facility] Other 03-10-2022 17:00-0400 Body mass index (BMI) [Ratio] 32.46 kg/m2 Steveakin Felicityhunter Other [facility] Other 03-10-2022 17:00-0400 Body temperature 96.3 [degF] Chandler Rafynoelle Other [facility] Other 03-10-2022 17:00-0400 Body weight 77.93 kg Steveakin Rafynoelle Other [facility] Other 03-10-2022 17:00-0400 Diastolic blood pressure 81 mm[Hg] Chandler Quezada Other [facility] Other 03-10-2022 17:00-0400 Respiratory rate 20 /min Chandler Quezada Other [facility] Other 03-10-2022 17:00-0400 SaO2% (BldA) [Mass fraction] 99 % Chandler Quezada Other [facility] Other 03-10-2022 17:00-0400 Systolic blood pressure 122 mm[Hg] Chandler Quezada Other [facility] Other Encounters Encounter Date Encounter Type Care Provider Facility Start: 01-16-2024 ambulatory [facility] Start: 10-17-2023 Mayda flowsjohanny Reyes MD Work Phone: [facility] Start: 10-17-2023 Mayda Reyes MD Work Phone: [facility] Start: 10-17-2023 End: 10-17-2023 ambulatory KEN REYES Not Available Start: 10-17-2023 End: 10-17-2023 Office outpatient visit 15 minutes Ken Reyes MD Work Phone: [facility] Comment on above: Candidal skin infect ion (Primary Dx); Mild persistent asthma, uncomplicated (CMS/HCC) Start: 06-16-2022 End: 06-17-2022 ambulatory LUCI JULES Facility:[facility] Start: 03-10-2022 End: 03-10-2022 ambulatory Chandler Quezada Other [facility] Other Start: 03-10-2022 Office outpatient ne w 30 minutes Chandler Quezada [facility] Start: 03-01-2022 End: 03-02-2022 ambulatory SHAIKH Tejas MARTINEZ Facility:[facility] Start: 02-02-2022 End: 02-03-2022 ambulatory SHAIKH Tejas MARTINEZ Facility:[facility] Start: 01-21-2022 End: 01-22-2022 ambulatory SHAIKH Tejas MARTINEZ Facility:[facility] Start: 10-22-2021 End: 10-23-[address] KEN REYES Facility:[facility] Start: 09-28-2021 End: 09-28-[address] KEN REYES Facility:[facility] Plan of Treatment Date Care Activity Detail Author Start: 11-21-2023 End: 11-21-2023 Patient encounter procedure 11/21/2023 10:00 AM EDT Office Visit [facility] [address] [place] [address] Ken Reyes MD [address] [place] [id number] [facility] Start: 10-17-2023 End: 10-17-2023 Patient encounter procedure 10/17/2023 10:15 AM EST Office Visit [facility] [address] [place] [address] Ken Reyes MD [address] [place] [id number] Arrived [facility] Comment on above: Arrived Start: 1958 Urine screening for protein Diabetes: Urine Protein Screening [facility] Start: 1949 Glaucoma screening Diabetes: R etinopathy Screening [facility] Start: 1939 Hemoglobin A1c measurement Diabetes: Hemoglobin A1C [facility] Start: 1939 Medicare Annual Well ness (AWV) Medicare Annual Wellness (AWV) [facility] Payers Date Payer Category Payer Medicare [employer] MEDICARE ADVANTAGE [facility] MEDICARE ADVANTAGE [id number] 2022-Present [address] [place] [address] [id number] 1960 Medicare [id number] 1939 Unknown [id number] 3 1939 Unknown [id number] 3 1939 Unknown [id number] 3 1939 Unknown [id number] 3 1939 Unknown [id number] 3 1939 Unknown [id number] 3 1939 Unknown [id number] 59 Social History Date Type Detail Facility Unknown if ever smoked [facility] Other Start: 10-10-2023 End: 10-17-2023 Sex Assigned At [facility] Other Start: 10-10-2023 Tobacco smoking status [facility] Never smoked tobacco [facility] Start: 10-10-2023 Tobacco use and exposure Smokeless tobacco non-user [facility] Start: 10-10-2023 End: 10-17-2023 History of Social function [facility] Start: 1940 Sex Assigned At Not on file [facility] History of Present illness Narrative 10-17-2023 Ken Reyes MD - 10/17/2023 11:00 AM Elliott Reyes MD - 10/17/2023 10:59 AM Elliott Reyes MD - 10/17/2023 10:15 AM EST Note Date & Type Note Facility 10-17-2023 History of Presen t illness Narrative Associated Problem(s): Mild persistent asthma, uncomplicated ([facility]) Increased SOB and treat with prednisone. Use albuterol PRN. Associated Problem(s): Candidal skin infection Skin appears to be yeast and treat with oral diflucan and cream Subjective Patient ID: Renate Bradford is a 83 y.o. female who presents for Rash (On chest). C/o rash on chest for 2 months. Initially on mid chest and spread. Now rash under breasts and on side. Rash very red and skin irritated. Very itchy and hard to stop scratching. Tried multiple OTC creams and no change in rash. Rash continues to spread and never had in the past. C/o worsening asthma over past few months. Increased SOB with exertion and mild chest tightness. Symptoms worse with activity and exertion. Review of Systems Respiratory: Positive for cough and shortness of breath. Negative for wheezing. Cardiovascular: Negative for chest pain and palpitations. Gastrointestinal: Negative for abdominal pain, diarrhea, nausea and vomiting. Genitourinary: Negative for dysuria. Objective Physical Exam Constitutional: General: She is not in acute distress. Appearance: Normal appearance. HENT: Head: Normocephalic. Right Ear: Tympanic membrane normal. Left Ear: Tympanic membrane normal. Eyes: Extraocular Movements: Extraocular movements intact. Pupils: Pupils are equal, round, and reactive to light. Cardiovascular: Rate and Rhythm: Normal rate and regular rhythm. Heart sounds: No murmur heard. No friction rub. No gallop. Pulmonary: Effort: Pulmonary effort is normal. Breath sounds: Normal breath sounds. No wheezing, rhonchi or rales. Abdominal: General: Bowel sounds are normal. There is no distension. Palpations: Abdomen is soft. Tenderness: There is no abdominal tenderness. There is no guarding or rebound. Musculoskeletal: Cervical back: Neck supple. Right lower leg: No edema. Left lower leg: No edema. Neurological: Mental Status: She is alert. Assessment/Plan Problem List Items Addressed This Visit Mild persistent asthma, uncomplicated (CMS/HCC) Increased SOB and treat with prednisone. Use albuterol PRN. 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 Patient has had normal aldosterone and renin levels as per PCP notes. Patient has been feeling dizzy with readings of blood pressure below 100/60. I will reduce Norvasc to 5 mg p.o. daily. I will continue same other blood pressure medication I will do 24-hour fractionated metanephrine level. I asked the patient to continue monitoring blood pressure at home Feb, Bilateral renal artery stenosis (ICD-10 - I70.1) This was evident by CT IV contrast of pelvis and abdomen. There is no need for angioplasty as of now since her creatinine is stable and her blood pressure is well controlled [facility] Other Evaluation note Note Date & Type Note Facility Evaluation note Diagnosis Candidal skin infection- Primary Mild persistent asthma, uncomplicated (CMS/HCC) documented in this encounter [facility] History general Narrative - Reported Note Date & Type Note Facility History general Narrative - Reported Type Medical History HYPOTHYROIDISM Medical History HYPERTENSION Medical History VITAMIN D DEFICIENCY Medical History SEASONAL ALLERGIC RH INITIS DUE TO POLLEN Medical History MILD ASTHMA Medical History MDD MAJOR DEPRESSIVE DISORDER Medical History TYPE 2 DIABETES JAVID ITUS WITHOUT COMPLICATION WITHOUT LONG-TERM CURRENT USE OF INSULIN Medical History OBESITY Medical History VITAMIN B12 DEFICIENCY Medical History POST CONCUSSION VERTIGO Surgical History HYSTERECTOMY Surgical History RIGHT KNEE REPLACEMENT Surgical History RIGHT ELBOW NERVE Hospitalization History SEE ABOVE [facility] Other Summary Purpose Family History No Family History Records FoundNo Family History Records FoundNo Family History Records Found Advance Directives No Advanced Directives Records FoundNo Advanced Directives Records FoundNo Advanced Directives Records Found Additional Source Comments REASON FOR VISIT (unrecogniz ed section and content) Reason Comments Rash On chest INFORMATION SOURCE (unrecogn ized section and content) DATE CREATED AUTHOR 06/19/2022 [facility] DATE CREATED AUTHOR AUTHOR'S ORGANIZ ATION 10/17/2023 [facility] EPIC DATE CREATED AUTHOR AUTHOR'S ORGANIZ ATION 01/17/2024 [facility] Care Teams (unrecognized sec tion and content) Pulley Mortiser Operator Relationship Specialty Start Date End Date Seema Durham MD [address] [place] [address] PCP - External PCP Family Medicine 02/19/23 Ken Reyes MD [address] [place] [address] PCP - General Family Medicine 10/10/23 Pulley Mortiser Operator Relationship Specialty Start Date End Date Seema Durham MD [address] [place] [address] PCP - External PCP Family Medicine 02/19/23 Ken Reyes MD [address] [place] [address] PCP - General Family Medicine 10/10/23 FOR RECORDS PERTAINING TO PATIENTS WHO ARE OR HAVE BEEN ENROLLED IN A CHEMICAL DEPENDENCY/SUBSTANCEABUSE PROGRAM, SOME INFORMATION MAY BE OMITTED. This clinical summary was aggregated from multiple sources. Caution should be exercised in using it in the provision of clinical care. This summary normalizes information from multiple sources, and as a consequence, information in this document may materially change the coding, format and clinical context of patient data. In addition, data may be omitted in some cases. CLINICAL DECISIONS SHOULD BE BASED ON THE PRIMARY CLINICAL RECORDS. [facility] [employer] [facility]. provides no warranty or guarantee of the accuracy or completeness of information in this document.
== END 2024-01-26 09:59 | disposition home or self-care (01) ==
LOC: EC 09:58
PROVIDERS: PCP Family Medicine; Visit Provider Physician Assistant
DX: M84.375D Stress fracture, left foot, subsequent encounter for fracture with routine healing (principal); S92.335D Nondisplaced fracture of third metatarsal bone, left foot, subsequent encounter for fracture with routine healing
CPT/HCPCS: 73630

== ENCOUNTER 2024-03-22 08:04 | Outpatient (OUT) | payer MEDICARE, SELFPAY ==
--- NOTE | 2024-03-22 | XR_ITS ---
The [address] [address] Patient Name: YESI BRADFORD MRN: [id number] date: 1940 Sex: F Assigned Patient Location: Current Patient Location: Accession/Order Number: [id number] Exam Date: 03/22/2024 10:00 Report Date: 03/23/2024 07:57 At the request of: LIZBET MILIAN Procedure: XR foot LT min 3V PROCEDURE: XR foot LT min 3V COMPARISON: 01/26/2024 HISTORY: LEFT FOOT PAIN FINDINGS: BONES:No acute fracture or dislocation. Hallux valgus. Moderate degenerative changes with joint space narrowing marginal osteophyte formation. Plantar enthesopathic spurring of the calcaneus SOFT TISSUES:Negative. No visible soft tissue swelling. EFFUSION:None visible. OTHER: Negative. XR/XR foot LT min 3V IMPRESSION: Moderate degenerative changes with hallux valgus Electronically authenticated by: JASMEET COOL Date: 03/23/2024 07:57
== END 2024-03-22 08:05 | disposition home or self-care (01) ==
PROVIDERS: PCP Family Medicine; Visit Provider Physician Assistant
DX: M84.375D Stress fracture, left foot, subsequent encounter for fracture with routine healing (principal); M20.12 Hallux valgus (acquired), left foot
CPT/HCPCS: 73630

== ENCOUNTER 2024-05-31 12:49 | Outpatient (OUT) | payer MEDICARE, SELFPAY ==
--- OUTSIDE RECORDS SUMMARY | 2024-05-31 13:03 | XMS_ITS | CCD ---
Author Organization [facility] Care Team Providers Care Overnight Stocker Name Role Phone Chandler Quezada Unavailable ALGHOLEO MOHAMAD Admitting Unavailable JUDAHTHULI MOHAMAD Attending Unavailable NADERER, DR KEN Hughes Primary Care Unavailable SILVINA, DR JASMEET Mcelroy Consulting Unavailable ALGHOTHANI, MOHAMAD Consulting Unavailable FAWWAD, VASQUEZ H Admitting Unavailable FAWWAD, VASQUEZ H Attending Unavailable NADERER, DR KEN Hughes Primary Care Unavailable FAWWAD, VASQEUZ H Consulting Unavailable FAWWAD, VASQUEZ H Admitting Unavailable FAWWAD, VASQUEZ H Attending Unavailable NADERER, DR KEN Hughes Primary Care Unavailable ANJUEBER, DR KYAW Vigil Consulting Unavailable FAWWAD, VASQUEZ [...] Unavailable NADERER, DR KEN Hughes Consulting Unavailable Seema Durham MD Unavailable [phone] Ken Roman MD Primary Care Provider JODI JIMENEZ Referring Unavailable BARBARAJODI Whitehead Referring Unavailable BARBARAJODI Whitehead Referring Unavailable BARBARAJODI Whitehead Referring Unavailable BARBARAJODI Referring Unavailable BARBARA, JODI Referring Unavailable BARBARA, JODI Referring Unavailable JODI JIMENEZ Referring Unavailable KEN REYES Attending Unavailable KEN REYES Attending Unavailable KEN REYES Attending Unavailable Allergies Allergy Classification Reported Allergen(s) Allergy Type Date of Onset Reaction(s) Facility (2 sources) atorvastatin; Translations: [ATORVASTATIN] Drug Allergy 2 Unknown [facility] Repository (2 sources) Lisinopril; Translations: [LISINOPRIL] Drug Allergy 2 Unknown [facility] (3 sources) atorvastatin Drug Allergy 4 Diarrhea [facility] (3 sources) Lisinopril Propensity to adverse reactions 4 Cough [facility] Medications Current Medications Medication Drug Class(es) Dates Sig (Normalized) Sig (Original) [id number] actuat albuterol 0.09 mg/actuat metered dose [...] cream (2 sources) Azole Antifungal, Corticosteroid Start: 024 clotrimazole-betam ethasone (Lotrisone) cream Indications: Candidal skin [...] te Episodic/Chronic Other aftercare (1 source) Other exterminator helper (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 Order #: [id number] CLICK HERE TO VIEW EXAM ECHOCARDIOGRAM REPORT [...] Walter M.D. on 06/16/2022 at 14:58 Normal [facility] NM STRESS/REST MULTIon 06-16 NM STRESS/REST MULTI Patient: RENATE BRADFORD Exam Date: 06/16/2022 : 1940 Gender:F Ordering : LUCI JULES Admission #: [id number] Family : Order #: [id number] CLICK HERE TO VIEW EXAM RADIOLOGY REPORT [...] MD on 06/16/2022 at 12:52 Normal [facility] US CAROTID ART BILon 022 US CAROTID ART GLENN EXAMINATION: US CAROTID [...] JASMEET COOL Date: 2022-06-16 16:04 Normal [facility] FREE T3on 03-01-2022 FREE T3 1.97 pg/mlL Critically low 2.18-3.98 [facility] Comment on above: Performed By: #### T SH, FT3 #### [facility] [address] [place] [address] Dr. Dina Gilbert TSHon 03-01-2022 TSH 1.842 uIU/mL Normal 0.358-3.740 [facility] Comment on above: Performed By: #### T SH, FT3 #### [facility] [id number] Dina Gilbert CT ABDOMEN W CONon [...] by: KYAW WAHL Date: 2022-02-02 10:40 Normal [facility] PROF CHEM 8 (BAS METB)on Anion gap [Moles/Vol] 11.7 mmol/L Normal [facility] Comment on above: Performed By: #### B MP #### [facility] [address] [place] [address] Dr. Dina Gilbert Calcium [Mass/Vol] 8.8 mg/dL Normal 8.5-10.1 [facility] Comment on above: Performed By: #### B MP #### [facility] [address] [address] [address] Dina Gilbert Chloride [Moles/Vol] 97 mmol/L Critically low 98-107 [facility] Comment on above: Performed By: #### B MP #### [facility] [address] [address] [address] Dina Gilbert CO2 [Moles/Vol] 31.4 mmol/L Normal 21.0-32.0 [facility] Comment on above: Performed By: #### B MP #### [facility] [address] [address] [address] Dina Gilbert Creatinine [Mass/Vol] 0.84 mg/dL Normal 0.55-1.02 [facility] Comment on above: Performed By: #### B MP #### [facility] [address] [address] [address] Dina Gilbert EGFR-AF CITIZEN [place] >60 Normal >=60 [facility] Comment on above: Performed By: #### B MP #### [facility] [address] [address] [address] Dina Gilbert EGFR-NON AF CITIZEN OF [place] >60 Normal >=60 [facility] Comment on above: Performed By: #### B MP #### [facility] [address] [address] [address] Dina Gilbert Glucose [Mass/Vol] 126 mg/dL Critically high 74-106 [facility] Comment on above: Performed By: #### B MP #### [facility] [address] [place] [address] Dr. Dina Gilbert Potassium [Moles/Vol] 4.1 mmol/L Normal 3.5-5.1 [facility] Comment on above: Performed By: #### B MP #### [facility] [address] [address] [address] Dina Gilbert Sodium [Moles/Vol] 136 mmol/L Normal 136-145 [facility] Comment on above: Performed By: #### B MP #### [facility] [address] [address] [address] Dina Gilbert Urea nitrogen [Mass/Vol] 23.0 mg/dL Critically high 7.0-18.0 [facility] Comment on above: Performed By: #### B MP #### [facility] [address] [address] [address] Dina Gilbert Urea nitrogen/Creatinine [Mass ratio] 27.3 mg/mg Normal [facility] Comment on above: Performed By: #### B MP #### [facility] [address] [place] [address] Dr. Dina Gilbert MRI BRAIN WO CONon 2 MRI BRAIN WO CON EXAMINATION: MRI BRA [...] JASMEET COOL Date: 2022-01-21 09:32 Normal [facility] CBC AUTO DIFFon 10-22-2021 BASO # 0.0 103/ul Normal 0.0-0.1 [facility] Comment on above: Performed By: #### T MICKIE, FT3 #### [facility] [address] [place] [address] Dr. Dina Gilbert Basophils/100 WBC (Bld) 0.3 % Normal 0.2-2.0 [facility] Comment on above: Performed By: #### T MICKIE, FT3 #### [facility] [address] [place] [address] Dr. Dina Gilbert EO # 0.3 103/ul Normal 0.0-0.7 [facility] Comment on above: Performed By: #### T MICKIE, FT3 #### [facility] [address] [place] [address] Dr. Dina Gilbert Eosinophils/100 WBC (Bld) 3.6 % Normal 0.9-7.0 [facility] Comment on above: Performed By: #### T MICKIE, FT3 #### [facility] [address] [place] [address] Dr. Dina Gilbert Erythrocyte distribution width (RBC) [Ratio] 13.2 % Normal 11.0-15.0 [facility] Comment on above: Performed By: #### T SH, FT3 #### [facility] [address] [place] [address] Dr. Dina Gilbert Hematocrit (Bld) [Volume fraction] 37.5 % Normal 36.0-48.0 [facility] Comment on above: Performed By: #### T SH, FT3 #### [facility] [address] [place] [address] Dr. Dina Gilbert Hemoglobin (Bld) [Mass/Vol] 12.1 g/dL Normal 12.0-16.0 [facility] Comment on above: Performed By: #### T SH, FT3 #### [facility] [address] [place] [address] Dr. Dina Gilbert IG # 0.01 10e3/ul Normal 0.00-0.03 [facility] Comment on above: Performed By: #### T , FT3 #### [facility] [address] [place] [address] Dr. Dina Gilbert IG % 0.1 % Normal 0.0-0.5 [facility] Comment on above: Performed By: #### T , FT3 #### [facility] [address] [place] [address] Dr. Dina Gilbert LYMPH # 1.8 103/ul Normal 1.2-3.8 [facility] Comment on above: Performed By: #### T , FT3 #### [facility] [address] [place] [address] Dr. Dina Gilbert Lymphocytes/100 WBC (Bld) 24.6 % Normal 20.5-60.0 [facility] Comment on above: Performed By: #### T SH, FT3 #### [facility] [address] [place] [address] Dr. Dina Gilbert MANUAL DIFF REQ NO Normal [facility] Comment on above: Performed By: #### T SH, FT3 #### [facility] [address] [place] [address] Dr. Dina Gilbert MCH (RBC) [Entitic mass] 28.1 pg Normal 26.7-34.0 [facility] Comment on above: Performed By: #### T SH, FT3 #### [facility] [address] [place] [address] Dr. Dina Gilbert MCHC (RBC) [Mass/Vol] 32.3 g/dL Normal 29.9-35.2 [facility] Comment on above: Performed By: #### T , FT3 #### [facility] [address] [place] [address] Dr. Dina Gilbert MCV (RBC) [Entitic vol] 87.0 fL Normal 81.0-99.0 [facility] Comment on above: Performed By: #### T , FT3 #### [facility] [address] [place] [address] Dr. Dina Gilbert MONO # 0.6 103/ul Normal 0.3-0.8 [facility] Comment on above: Performed By: #### T , FT3 #### [facility] [address] [place] [address] Dr. Dina Gilbert Monocytes/100 WBC (Bld) 8.0 % Normal 1.7-12.0 [facility] Comment on above: Performed By: #### T , FT3 #### [facility] [address] [place] [address] Dr. Dina Gilbert NEUT # 4.5 103/ul Normal 1.4-6.5 [facility] Comment on above: Performed By: #### T , FT3 #### [facility] [address] [place] [address] Dr. Dina Gilbert Neutrophils/100 WBC (Bld) 63.4 % Normal 43.0-75.0 [facility] Comment on above: Performed By: #### T , FT3 #### [facility] [address] [place] [address] Dr. Dina Gilbert Platelet mean volume (Bld) [Entitic vol] 10.1 fL Normal 9.5-13.5 [facility] Comment on above: Performed By: #### T SH, FT3 #### [facility] [address] [place] [address] Dr. Dina Gilbert PLT 219 103/ul Normal 150-450 [facility] Comment on above: Performed By: #### T SH, FT3 #### [facility] [address] [place] [address] Dr. Dina Gilbert RBC 4.31 106/ul Normal 4.20-5.40 [facility] Comment on above: Performed By: #### T SH, FT3 #### [facility] [address] [place] [address] Dr. Dina Gilbert WBC 7.2 103/ul Normal 4.0-11.0 [facility] Comment on above: Performed By: #### T MICKIE, FT3 #### [facility] [address] [place] [address] Dr. Dina Gilbert GLYCOHEMOGLOBIN A1Con 2021 ADA RECOMMENDATION ADA THERAPEUTIC TARG ET 6.0 - 7.0 ACTION SUGGESTED > 7.0 Normal [facility] Comment on above: Performed By: #### A 1C #### [facility] [address] [place] [address] Dr. Dina Gilbert Glucose [Mass/Vol] 131 mg/dL Normal [facility] Comment on above: Performed By: #### A 1C #### [facility] [address] [place] [address] Dr. Dina Gilbert HbA1c (Bld) [Mass fraction] 6.2 % Critically high <=6.0 [facility] Comment on above: Performed By: #### A 1C #### [facility] [address] [place] [address] Dr. Dina Gilbert LIPID PROFILEon 10-22-2021 CHOL-HDL RATIO NORM SEE BELOW Normal [facility] Comment on above: Result Comment: 3.3 - 4.4 LOW RISK 4.4 - 7.1 AVERAGE RISK 7.1 - 11.0 MODERATE RISK >11.0 HIGH RISK Performed By: #### T SH, FT3 #### [facility] [address] [address] [address] Dina Gilbert Cholesterol [Mass/Vol] 193 mg/dL Normal <=200 [facility] Comment on above: Performed By: #### T SH, FT3 #### [facility] [address] [address] [address] Dina Gilbert Cholesterol in HDL [Mass/Vol] 53 mg/dL Normal [facility] Comment on above: Performed By: #### T SH, FT3 #### [facility] [address] [address] [address] Dina Gilbert Cholesterol in LDL [Mass/Vol] 114.8 mg/dL Normal [facility] Comment on above: Performed By: #### T SH, FT3 #### [facility] [address] [place] [address] Dr. Dina Gilbert Cholesterol.total/Ch olesterol in HDL [Mass ratio] 3.6 {ratio} Normal [facility] Comment on above: Performed By: #### T SH, FT3 #### [facility] [address] [address] [address] Dina Gilbert HDL NORMAL > or = 60 mg/dl - LO W CARDIOVASCULAR RISK <40 mg/dl - HIGH CARDIOVASCULAR RISK Normal [facility] Comment on above: Performed By: #### T SH, FT3 #### [facility] [address] [place] [address] Dr. Dina Gilbert LDL CALC NORMAL SEE BELOW Normal [facility] Comment on above: Result Comment: <100 mg/dl OPTIMAL 100 - 129 mg/dl NEAR OR ABOVE OPTIMAL 130 - 159 mg/dl BORDERLINE HIGH 160 - 189 mg/dl HIGH >190 mg/dl VERY HIGH Performed By: #### T SH, FT3 #### [facility] [address] [place] [address] Dr. Dina Gilbert Triglyceride [Mass/Vol] 126 mg/dL Normal <=150 [facility] Comment on above: Performed By: #### T SH, FT3 #### [facility] [address] [address] [address] Dina Gilbert VLDL CALC 25.2 mg/dL Normal [facility] Comment on above: Performed By: #### T SH, FT3 #### [facility] [address] [place] [address] Dr. Dina Gilbert LIVER PROFILEon 10-22-2021 Albumin [Mass/Vol] 3.6 g/dL Normal 3.5-5.0 [facility] Comment on above: Performed By: #### T MICKIE, FT3 #### [facility] [address] [place] [address] Dr. Dina Gilbert Albumin/Globulin [Mass ratio] 1.0 {ratio} Normal [facility] Comment on above: Performed By: #### T MICKIE, FT3 #### [facility] [address] [place] [address] Dr. Dina Gilbert ALP [Catalytic activity/Vol] 80 U/L Normal 38-126 [facility] Comment on above: Performed By: #### T MICKIE, FT3 #### [facility] [address] [place] [address] Dr. Dina Gilbert ALT [Catalytic activity/Vol] 16 U/L Normal 9-52 [facility] Comment on above: Performed By: #### T MICKIE, FT3 #### [facility] [address] [place] [address] Dr. Dina Gilbert AST [Catalytic activity/Vol] 11 U/L Critically low 14-36 [facility] Comment on above: Performed By: #### T MICKIE, FT3 #### [facility] [address] [place] [address] Dr. Dina Gilbetr BILI, CONJUGATED 0.0 mg/dL Normal 0.0-0.3 [facility] Comment on above: Performed By: #### T MICKIE, FT3 #### [facility] [address] [place] [address] Dr. Dina Gilbert Bilirubin [Mass/Vol] 0.3 mg/dL Normal 0.2-1.3 [facility] Comment on above: Performed By: #### T MICKIE, FT3 #### [facility] [address] [place] [address] Dr. Dina Gilbert Globulin (S) [Mass/Vol] 3.6 g/dL Normal [facility] Comment on above: Performed By: #### T SH, FT3 #### [facility] [address] [place] [address] Dr. Dina Gilbert Protein [Mass/Vol] 7.2 g/dL Normal 6.1-8.2 [facility] Comment on above: Performed By: #### T SH, FT3 #### [facility] [address] [place] [address] Dr. Dina Gilbert PROF CHEM 8 (BAS METB)on Anion gap [Moles/Vol] 9.5 mmol/L Normal [facility] Comment on above: Performed By: #### T SH, FT3 #### [facility] [address] [place] [address] Dr. Dina Gilbert Calcium [Mass/Vol] 8.5 mg/dL Normal 8.4-10.2 [facility] Comment on above: Performed By: #### T SH, FT3 #### [facility] [address] [place] [address] Dr. Dina Gilbert Chloride [Moles/Vol] 101 mmol/L Normal 98-107 [facility] Comment on above: Performed By: #### T SH, FT3 #### [facility] [address] [place] [address] Dr. Dina Gilbert CO2 [Moles/Vol] 29.7 mmol/L Normal 22.0-30.0 [facility] Comment on above: Performed By: #### T SH, FT3 #### [facility] [address] [place] [address] Dr. Dina Gilbert Creatinine [Mass/Vol] 0.74 mg/dL Normal 0.52-1.04 [facility] Comment on above: Performed By: #### T SH, FT3 #### [facility] [address] [place] [address] Dr. Dina Gilbert EGFR-AF CITIZ[place] >60 Normal >=60 [facility] Comment on above: Performed By: #### T SH, FT3 #### [facility] [address] [place] [address] Dr. Dina Gilbert EGFR-NON AF CITIZEN OF [place] >60 Normal >=60 [facility] Comment on above: Performed By: #### T SH, FT3 #### [facility] [address] [place] [address] Dr. Dina Gilbert Glucose [Mass/Vol] 130 mg/dL Critically high 74-106 [facility] Comment on above: Performed By: #### T SH, FT3 #### [facility] [address] [place] [address] Dr. Dina Gilbert Potassium [Moles/Vol] 4.2 mmol/L Normal 3.4-5.0 [facility] Comment on above: Performed By: #### T SH, FT3 #### [facility] [address] [place] [address] Dr. Dina Gilbert Sodium [Moles/Vol] 136 mmol/L Critically low 137-145 [facility] Comment on above: Performed By: #### T SH, FT3 #### [facility] [address] [place] [address] Dr. Dina Gilbert Urea nitrogen [Mass/Vol] 10.0 mg/dL Normal 7.0-17.0 [facility] Comment on above: Performed By: #### T SH, FT3 #### [facility] [address] [place] [address] Dr. Dina Gilbert Urea nitrogen/Creatinine [Mass ratio] 13.5 mg/mg Normal [facility] Comment on above: Performed By: #### T SH, FT3 #### [facility] [address] [place] [address] Dr. Dina Gilbert TSHon 10-22-2021 TSH 5.232 uIU/mL Critically high 0.470-4.680 [facility] Comment on above: Performed By: #### T SH, FT3 #### [facility] [address] [place] [address] Dr. Dina Gilbert TSH RANGE SEE BELOW Normal [facility] Comment on above: Result Comment: <0.3 4 UIU/ml HYPERTHYROID 0.34-5.60 UIU/ml EUTHYROID >5.60 UIU/ml HYPOTHYROID Performed By: #### T SH, FT3 #### [facility] [address] [place] [address] Dr. Dina Gilbert VITAMIN D 25 OHon 10-22-2021 VIT D 25-OH 90.4 ng/mL Normal [facility] Comment on above: Performed By: #### T SH, FT3 #### [facility] [address] [place] [address] Dr. Dina Gilbert VIT D RANGES SEE BELOW Normal [facility] Comment on above: Result Comment: <20 ng/mL Vit D deficient 20 - <30 ng/mL Vit D insufficient 30 - 100 ng/mL Vit D sufficient >100 ng/mL Potential Toxicity Performed By: #### T SH, FT3 #### [facility] [address] [place] [address] Dr. Dina Gilbert Covid-19 PCR (CVDTB)on 09-12 SARS-CoV-2 (COVID-19) RNA OBED+probe Ql (Unsp spec) Not detected Normal NOT DETECTED [facility] Comment on above: Result Comment: This test is not yet approved or cleared by the [place] FDA. When there are no FDA-approved or cleared tests available, and other criteria are met, FDA can make tests available under an emergency access mechanism called an Emergency Use Authorization (EUA). The EUA for this test is supported by the Lead Caregiver of Health and Human Service's (HHS's) declaration [...] SARS-CoV-2. Performed By: #### C VDTBH #### [facility] [address] [address] [address] Dina Gilbert Vital Signs Date Time Vital Sign Value Performing Clinician Facility 10-17-2023 10:19-0500 Body height 154.9 cm Ken Reyes MD Work Phone: [facility] 10-17-2023 10:19-0500 Body mass index (BMI) [Ratio] 31.18 kg/m2 Ken Reyes MD Work Phone: [facility] 10-17-2023 10:19-0500 Body temperature 97.3 [degF] Ken Reyes MD Work Phone: [facility] 10-17-2023 10:19-0500 Body weight 74.84 kg Ken Reyes MD Work Phone: [facility] 10-17-2023 10:19-0500 Diastolic blood pressure 70 mm[Hg] Ken Reyes MD Work Phone: [facility] 10-17-2023 10:19-0500 Heart rate 87 /min Ken Reyes MD Work Phone: [facility] 10-17-2023 10:19-0500 SaO2% (BldA) [Mass fraction] 98 % Ken Reyes MD Work Phone: [facility] 10-17-2023 10:19-0500 Systolic blood pressure 130 mm[Hg] Ken Reyes MD Work Phone: [facility] 03-10-2022 17:00-0400 Body height 154.94 cm [employer] Other [facility] Other 03-10-2022 17:00-0400 Body mass index (BMI) [Ratio] 32.46 kg/m2 [employer] Other [facility] Other 03-10-2022 17:00-0400 Body temperature 96.3 [degF] [employer] Other [facility] Other 03-10-2022 17:00-0400 Body weight 77.93 kg Chandler Quezada Other [facility] Other 03-10-2022 17:00-0400 Diastolic blood pressure 81 mm[Hg] Chandler Quezada Other [facility] Other 03-10-2022 17:00-0400 Respiratory rate 20 /min Chandler Quezada Other [facility] Other 03-10-2022 17:00-0400 SaO2% (BldA) [Mass fraction] 99 % Chandler Quezada Other [facility] Other 03-10-2022 17:00-0400 Systolic blood pressure 122 mm[Hg] Chandler Quezada Other [facility] Other Encounters Encounter Date Encounter Type Care Provider Facility Start: 03-01-2024 End: 03-01-2024 ambulatory KEN REYES Not Available Start: 02-23-2024 ambulatory [facility] Start: 01-16-2024 ambulatory [facility] Start: 11-15-2023 End: 11-15-2023 ambulatory KEN REYES Not Available Start: 10-17-2023 Mayda Reyes MD Work Phone: [facility] Start: 10-17-2023 Mayda Reyes MD Work Phone: [facility] Start: 10-17-2023 End: 10-17-2023 Office outpatient visit 15 minutes Ken Reyes MD Work Phone: [facility] Comment on above: Candidal skin infect ion (Primary Dx); Mild persistent asthma, uncomplicated (CMS/HCC) Start: 10-17-2023 End: 10-17-2023 ambulatory KEN REYES Not Available Start: 06-16-2022 End: 06-17-2022 ambulatory LUCI JULES Facility:[facility] Start: 03-10-2022 End: 03-10-2022 ambulatory Chandler Quezada Other [facility] [facility] Other Start: 03-10-2022 Office outpatient ne w 30 minutes Chandler Quezada [facility] Start: 03-01-2022 End: 03-02-2022 ambulatory VASQUEZ H JOSE ARMANDOWAD Facility:[facility] Start: 02-02-2022 End: 02-03-2022 ambulatory VASQUEZ H FAWWAD Facility:[facility] Start: 01-21-2022 End: 01-22-2022 ambulatory VASQUEZ H BRINDAD Facility:[facility] Start: 10-22-2021 End: 10-23-[address] KEN REYES Facility:[facility] Start: 09-28-2021 End: 09-28-[address] KEN REYES Facility:[facility] Plan of Treatment Date Care Activity Detail Author Start: 11-21-2023 End: 11-21-2023 Patient encounter procedure 11/21/2023 10:00 AM EDT Office Visit [facility] [address] [place] [id number] Ken Reyes MD [address] [place] [id number] [facility] Start: 10-17-2023 End: 10-17-2023 Patient encounter procedure 10/17/2023 10:15 AM EST [facility] [address] [place] [address] Ken Reyes MD [address] [place] [phone] Arrived [facility] Comment on above: Arrived Start: 1958 Urine screening for protein Diabetes: Urine Protein Screening [facility] Start: 1949 Glaucoma screening Diabetes: R etinopathy Screening [facility] Start: 1939 Hemoglobin A1c measurement Diabetes: Hemoglobin A1C [facility] Start: 1940 Medicare Annual Well ness (AWV) Medicare Annual Wellness (AWV) [facility] Payers Date Payer Category Payer Medicare [employer] MEDICARE ADVANTAGE [facility] MEDICARE ADVANTAGE [id number] 2022-Present [address] [place] [address] [id number] 1960 Medicare [id number] 1939 Unknown [id number] 3 1939 Unknown [id number] 2.16.840.1.220401.3.579.2.59 3 1939 Unknown [id number] 2.16.840.1.551673.3.579.2.59 3 1939 Unknown [id number] 2.16.840.1.935274.3.579.2.59 3 1939 Unknown [id number] 2.16.840.1.222928.3.579.2.59 3 1939 Unknown [id number] 2.16.840.1.771127.3.579.2.59 3 1939 Unknown [id number] 2.16.840.1.159406.3.579.2.12 59 1939 Unknown [id number] 2.16.840.1.112673.3.579.2.12 59 1940 Unknown [id number] [id number] 59 Social History Date Type Detail Facility Unknown if ever smoked [facility] Other Start: 10-10-2023 End: 10-17-[address] [facility] Other Start: 10-10-2023 Tobacco smoking status NHIS Never smoked tobacco [facility] Start: 10-10-2023 [...] Narrative Associated Problem(s): Mild persistent asthma, uncomplicated ([facility]) Increased SOB and treat with prednisone. Use [...] clotrimazole-betamethasone (Lotrisone) cream documented in this encounter [facility] Evaluation note 03-10-2022 Note Date & Type [...] and her blood pressure is well controlled [facility] Other Evaluation note Note Date & Type [...] RIGHT ELBOW NERVE Hospitalization History SEE ABOVE [facility] Other Summary Purpose Family History No Family [...] pital DATE CREATED AUTHOR AUTHOR'S ORGANIZ ATION 02/24/2024 [facility] DATE CREATED AUTHOR AUTHOR'S ORGANIZ ATION 03/03/2024 [facility] [employer] Care Teams (unrecognized sec tion and content) Overnight Stocker Relationship Specialty Start Date End Date Seema Durham MD [address] [place] [address] PCP - External PCP Family Medicine 02/19/23 Ken Reyes MD [address] [place] [id number] PCP - General Family Medicine 10/10/23 [employer] Relationship Specialty Start Date End Date Seema Durham MD [address] [place] [address] PCP - External PCP Family Medicine 02/19/23 Ken Reyes MD [address] [place] [address] PCP - General Family Medicine 10/10/23 FOR [...] BE BASED ON THE PRIMARY CLINICAL RECORDS. [employer] [facility]. provides no warranty or guarantee of the accuracy or completeness of information in this document.
[2024-05-31 13:13] LABS: Basophils Percent Auto 0.4 % (0.2-2.0); Eosinophils Absolute Auto 0.4 10^3/uL (0.0-0.7); Eosinophils Percent Auto 5.7 % (0.9-7.0); Hematocrit 36.4 % (36.0-48.0); Hemoglobin 11.9 g/dL (12.0-16.0); Immature Granulocytes Abs Auto 0.01 10^3/uL (0.00-0.03); Immature Granulocytes Pct Auto 0.1 % (0.0-0.5); Lymphocytes Absolute Auto 1.8 10^3/uL (1.2-3.8); Mean Corpuscular HGB Conc 32.7 g/dL (29.9-35.2); Mean Corpuscular Hemoglobin 27.5 pg (26.7-34.0); Mean Corpuscular Volume 84.1 fL (81.0-99.0); Mean Platelet Volume 10.3 fL (9.5-13.5); Monocytes Absolute Auto 0.7 10^3/uL (0.3-0.8); Monocytes Percent Auto 8.9 % (1.7-12.0); Neutrophils Absolute Auto 4.7 10^3/uL (1.4-6.5); Neutrophils Percent Auto 60.9 % (43.0-75.0); Platelet Count 198 10^3/uL (150-450); Red Blood Count 4.33 10^6/uL (4.20-5.40); Red Cell Distribution Width 13.8 % (11.0-15.0); White Blood Count 7.7 10^3/uL (4.0-11.0)
[2024-06-05 10:14] LABS: Immunoglobulin E, Total 104 IU/mL (6-495)
== END 2024-05-31 12:50 | disposition home or self-care (01) ==
LOC: CARD 12:50
PROVIDERS: PCP Family Medicine; Visit Provider Internal Medicine
DX: J45.40 Moderate persistent asthma, uncomplicated (principal)
CPT/HCPCS: 36415; 82785; 85025

== ENCOUNTER 2024-06-26 12:47 | Outpatient (OUT) | payer MEDICARE, SELFPAY ==
--- NOTE | 2024-06-26 13:00 | RT_ITS ---
[facility] Test Date: 2024-06-26 Pat Name: YESI BRADFORD Department: Room: - Gender: Female Manager Production: : 1940 Requested By: Adolfo Baptiste Order Number: [id number] Reading MD: Adolfo Baptiste Interpretive Statements Pulmonary function testing was completed according to ATS criteria. Findings were considered accurate and reproducible, with exception of DLCO which did not meet ATS standards. Spirometry (based on pre-bronchodilator values): -FEV1/FVC: Reduced @ 58% -FEV1: Moderately reduced @ 62% -FVC: Reduced @ 79% -There is no significant bronchodilator response. Lung volumes by plethysmography (based on pre-bronchodilator values): -RV: Increased @ 149% -TLC: High normal @ 119% Diffusion capacity: -DLCO: Mild-moderate reduction @ 67% when corrected for Hb 11.9g/dL Flow-volume loop: -Moderate obstructive pattern Impressions: -Spirometry suggests moderate obstruction. An elevated RV suggests air trapping. There is a mild-moderately reduced diffusion capacity. Overall study is compatible with COPD/emphysema. Clinical correlation required. Electronically Signed On 06-26-2024 14:34:07 EDT by Adolfo Baptiste
--- OUTSIDE RECORDS SUMMARY | 2024-06-26 13:08 | XMS_ITS | CCD ---
Author Organization [facility] Care Team Providers Care Grey Roll Man Name Role Phone Chandler Quezada Unavailable JORGE A MOHAMAD Admitting Unavailable YVONNE JULESD Attending Unavailable NADERER, DR KEN Hughes Primary [...] Consulting Unavailable FAWWAD, VASQUEZ H Consulting Unavailable NADEREYaritza, DR KEN Hughes Admitting Unavailable NADERER, DR KEN Hughes Attending Unavailable NADERER, DR KEN Hughes Primary Care Unavailable NADERER, DR KEN Hughes Consulting Unavailable NADERER, DR KEN Hughes Admitting Unavailable NADERER, DR KEN Hughes Attending Unavailable NADERER, DR KEN Hughes Primary Care Unavailable NADERER, DR KEN Hughes Consulting Unavailable Herminio NGUYEN, Seema Hughes Unavailable [phone] Ken Roman MD Primary Care Provider [phone] KEN REYES Attending Unavailable TYLEREREYaritza, KEN Attending Unavailable TYLEREREYaritza, KEN Attending Unavailable BARBARAJODI Whitehead Referring Unavailable BARBARA, JODI Referring Unavailable BARBARA, JODI Referring Unavailable BARBARA, JODI Referring Unavailable ALEXSANDRA GU Referring Unavailable JODI JIMENEZ Referring Unavailable JODI JIMENEZ Referring Unavailable JODI JIMENEZ Referring Unavailable JODI JIMENEZ Referring Unavailable JODI JIMENEZ Referring Unavailable Allergies Allergy Classification Reported Allergen(s) Allergy Type Date of Onset Reaction(s) Facility (2 sources) atorvastatin; Translations: [ATORVASTATIN] Drug Allergy 2 Unknown [facility] Repository (2 sources) Lisinopril; Translations: [LISINOPRIL] Drug Allergy 2 Unknown [facility] Repository (3 sources) atorvastatin Drug Allergy 4 Diarrhea [facility] (3 sources) Lisinopril Propensity to adverse reactions 4 Cough [facility] Medications Current Medications Medication Drug Class(es) Dates Sig (Normalized) Sig (Original) [id number] 200 actuat albuterol 0.09 mg/actuat metered dose [...] persistent asthma, uncomplicated] Onset: 4 10-17-2023 Chronic Conditions associated with dizziness or vertigo (3 [...] Classification Problem Date Documented Da te Episodic/Chronic Cardiac dysrhythmias (2 sources) Palpitations; Translations: [Palpitations] Onset: 02-23-2024 Episodic Other aftercare (1 source) 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 Order #: [id number] CLICK HERE TO VIEW EXAM ECHOCARDIOGRAM REPORT [...] Walter M.D. on 06/16/2022 at 14:58 Normal [facility] NM STRESS/REST MULTIon 06-16 NM STRESS/REST MULTI Patient: RENATE BRADFORD Exam Date: 06/16/2022 : 1940 Gender:F Ordering : LUCI JULES Admission #: [id number] Family : Order #: [id number] CLICK HERE TO VIEW EXAM RADIOLOGY REPORT [...] MD on 06/16/2022 at 12:52 Normal [facility] US CAROTID ART BILon 022 US CAROTID [...] JASMEET COOL Date: 2022-06-16 16:04 Normal [facility] FREE T3on 03-01-2022 FREE T3 1.97 pg/mlL Critically low 2.18-3.98 [facility] Comment on above: Performed By: #### T MICKIE, FT3 #### [facility] [address] [address] [address] Dina Gilbert TSHon 03-01-2022 TSH 1.842 uIU/mL Normal 0.358-3.740 The [facility] Comment on above: Performed By: #### T MICKIE, FT3 #### [facility] [address] [address] [address] ABDOMEN W CONon [...] to atherosclerotic plaque. Electronically authenticated by: KYAW WALH Date: 2022-02-02 10:40 Normal [facility] PROF CHEM 8 (BAS METB)on Anion gap [Moles/Vol] 11.7 mmol/L Normal [facility] Comment on above: Performed By: #### B MP #### [facility] [address] [address] [address] Dina Gilbert Calcium [Mass/Vol] 8.8 mg/dL Normal 8.5-10.1 The [facility] Comment on above: Performed By: #### B MP #### [facility] [address] [address] [address] Dina Gilbert Chloride [Moles/Vol] 97 mmol/L Critically low 98-107 [facility] Comment on above: Performed By: #### B MP #### [facility] [address] [address] [address] Dina Gilbert CO2 [Moles/Vol] 31.4 mmol/L Normal 21.0-32.0 [facility] Comment on above: Performed By: #### B MP #### [facility] [address] [address] [address] Dina Gilbert Creatinine [Mass/Vol] 0.84 mg/dL Normal 0.55-1.02 [facility] Comment on above: Performed By: #### B MP #### [facility] [address] [address] [address] Dina Gilbert EGFR-AF SCOTTISH >60 Normal >=60 [facility] Comment on above: Performed By: #### B MP #### [facility] [address] [place] [address] Dr. Dina Gilbert EGFR-NON AF SCOTTISH >60 Normal >=60 [facility] Comment on above: Performed By: #### B MP #### [facility] [address] [place] [address] Dr. Dina Gilbert Glucose [Mass/Vol] 126 mg/dL Critically high 74-106 [facility] Comment on above: Performed By: #### B MP #### [facility] [address] [place] [address] Dr. Dina Gilbert Potassium [Moles/Vol] 4.1 mmol/L Normal 3.5-5.1 [facility] Comment on above: Performed By: #### B MP #### [facility] [address] [place] [address] Dr. Dina Gilbert Sodium [Moles/Vol] 136 mmol/L Normal 136-145 [facility] Comment on above: Performed By: #### B MP #### [facility] [address] [address] [address] Dina Gilbert Urea nitrogen [Mass/Vol] 23.0 mg/dL Critically high 7.0-18.0 [facility] Comment on above: Performed By: #### B MP #### [facility] [address] [place] [address] Dr. Dina Gilbert Urea nitrogen/Creatinine [Mass ratio] 27.3 mg/mg Normal [facility] Comment on above: Performed By: #### B MP #### [facility] [address] [place] [address] Dr. Dina Gilbert MRI BRAIN WO CONon [...] JASMEET COOL Date: 2022-01-21 09:32 Normal [facility] CBC AUTO DIFFon 10-22-2021 BASO # 0.0 103/ul Normal 0.0-0.1 [facility] Comment on above: Performed By: #### T , FT3 #### [facility] [address] [place] [address] Dr. Dina Gilbert Basophils/100 WBC (Bld) 0.3 % Normal 0.2-2.0 [facility] Comment on above: Performed By: #### T SH, FT3 #### [facility] [address] [address] [address] Dina Gilbert EO # 0.3 103/ul Normal 0.0-0.7 [facility] Comment on above: Performed By: #### T SH, FT3 #### [facility] [address] [place] [address] Dr. Dina Gilbert Eosinophils/100 WBC (Bld) 3.6 % Normal 0.9-7.0 [facility] Comment on above: Performed By: #### T SH, FT3 #### [facility] [address] [place] [address] Dr. Dina Gilbert Erythrocyte distribution width (RBC) [Ratio] 13.2 % Normal 11.0-15.0 [facility] Comment on above: Performed By: #### T SH, FT3 #### [facility] [address] [place] [address] Dr. Dina Gilbert Hematocrit (Bld) [Volume fraction] 37.5 % Normal 36.0-48.0 [facility] Comment on above: Performed By: #### T SH, FT3 #### [facility] [address] [place] [address] Dr. Dina Gilbert Hemoglobin (Bld) [Mass/Vol] 12.1 g/dL Normal 12.0-16.0 [facility] Comment on above: Performed By: #### T SH, FT3 #### [facility] [address] [place] [address] Dr. Dina Gilbert IG # 0.01 10e3/ul Normal 0.00-0.03 [facility] Comment on above: Performed By: #### T SH, FT3 #### [facility] [address] [place] [address] Dr. Dina Gilbert IG % 0.1 % Normal 0.0-0.5 [facility] Comment on above: Performed By: #### T SH, FT3 #### [facility] [address] [place] [address] Dr. Dina Gilbert LYMPH # 1.8 103/ul Normal 1.2-3.8 [facility] Comment on above: Performed By: #### T SH, FT3 #### [facility] [address] [place] [address] Dr. Dina Gilbert Lymphocytes/100 WBC (Bld) 24.6 % Normal 20.5-60.0 [facility] Comment on above: Performed By: #### T SH, FT3 #### [facility] [address] [place] [address] Dr. Dina Gilbert MANUAL DIFF REQ NO Normal [facility] Comment on above: Performed By: #### T SH, FT3 #### [facility] [address] [place] [address] Dr. Dina Gilbert MCH (RBC) [Entitic mass] 28.1 pg Normal 26.7-34.0 [facility] Comment on above: Performed By: #### T SH, FT3 #### [facility] [address] [place] [address] Dr. Dina Gilbert MCHC (RBC) [Mass/Vol] 32.3 g/dL Normal 29.9-35.2 [facility] Comment on above: Performed By: #### T SH, FT3 #### [facility] [address] [place] [address] Dr. Dina Gilbert MCV (RBC) [Entitic vol] 87.0 fL Normal 81.0-99.0 [facility] Comment on above: Performed By: #### T MICKIE, FT3 #### [facility] [address] [place] [address] Dr. Dina Gilbert MONO # 0.6 103/ul Normal 0.3-0.8 [facility] Comment on above: Performed By: #### T SH, FT3 #### [facility] [address] [place] [address] Dr. Dina Gilbert Monocytes/100 WBC (Bld) 8.0 % Normal 1.7-12.0 [facility] Comment on above: Performed By: #### T SH, FT3 #### [facility] [address] [place] [address] Dr. Dina Gilbert NEUT # 4.5 103/ul Normal 1.4-6.5 [facility] Comment on above: Performed By: #### T SH, FT3 #### [facility] [address] [place] [address] Dr. Dina Gilbert Neutrophils/100 WBC (Bld) 63.4 % Normal 43.0-75.0 [facility] Comment on above: Performed By: #### T SH, FT3 #### [facility] [address] [place] [address] Dr. Dina Gilbert Platelet mean volume (Bld) [Entitic vol] 10.1 fL Normal 9.5-13.5 [facility] Comment on above: Performed By: #### T MICKIE, FT3 #### [facility] [address] [place] [address] Dr. Dina Gilbert PLT 219 103/ul Normal 150-450 [facility] Comment on above: Performed By: #### T MICKIE, FT3 #### [facility] [address] [place] [address] Dr. Dina Gilbert RBC 4.31 106/ul Normal 4.20-5.40 [facility] Comment on above: Performed By: #### T MICKIE, FT3 #### [facility] [address] [place] [address] Dr. Dina Gilbert WBC 7.2 103/ul Normal 4.0-11.0 [facility] Comment on above: Performed By: #### T MICKIE, FT3 #### [facility] [address] [place] [address] Dr. Dina Gilbert GLYCOHEMOGLOBIN A1Con 2021 ADA RECOMMENDATION ADA THERAPEUTIC TARG ET 6.0 - 7.0 ACTION SUGGESTED > 7.0 [facility] Comment on above: Performed By: #### A 1C #### [facility] [address] [place] [address] Dr. Dina Gilbert Glucose [Mass/Vol] 131 mg/dL Normal [facility] Comment on above: Performed By: #### A 1C #### [facility] [address] [place] [address] Dr. Dina Gilbert HbA1c (Bld) [Mass fraction] 6.2 % Critically high <=6.0 [facility] Comment on above: Performed By: #### A 1C #### [facility] [address] [place] [address] Dr. Dina Gilbert LIPID PROFILEon 10-22-2021 CHOL-HDL RATIO NORM SEE BELOW Normal [facility] Comment on above: Result Comment: 3.3 - 4.4 LOW RISK 4.4 - 7.1 AVERAGE RISK 7.1 - 11.0 MODERATE RISK >11.0 HIGH RISK Performed By: #### T SH, FT3 #### [facility] [address] [address] [address] Dina Gilbert Cholesterol [Mass/Vol] 193 mg/dL Normal <=200 [facility] Comment on above: Performed By: #### T SH, FT3 #### [facility] [address] [place] [address] Dr. Dina Gilbert Cholesterol in HDL [Mass/Vol] 53 mg/dL Normal [facility] Comment on above: Performed By: #### T SH, FT3 #### [facility] [address] [place] [address] Dr. Dina Gilbert Cholesterol in LDL [Mass/Vol] 114.8 mg/dL Normal [facility] Comment on above: Performed By: #### T SH, FT3 #### [facility] [address] [place] [address] Dr. Dina Gilbert Cholesterol.total/Ch olesterol in HDL [Mass ratio] 3.6 {ratio} Normal [facility] Comment on above: Performed By: #### T SH, FT3 #### [facility] [address] [place] [address] Dr. Dina Gilbert HDL NORMAL > or = 60 mg/dl - LO W CARDIOVASCULAR RISK <40 mg/dl - HIGH CARDIOVASCULAR RISK Normal [facility] Comment on above: Performed By: #### T SH, FT3 #### [facility] [address] [place] [address] Dr. Dina Gilbert LDL CALC NORMAL SEE BELOW Normal [facility] Comment on above: Result Comment: <100 mg/dl OPTIMAL 100 - 129 mg/dl NEAR OR ABOVE OPTIMAL 130 - 159 mg/dl BORDERLINE HIGH 160 - 189 mg/dl HIGH >190 mg/dl VERY HIGH Performed By: #### T SH, FT3 #### [facility] [address] [place] [address] Dr. Dina Gilbert Triglyceride [Mass/Vol] 126 mg/dL Normal <=150 [facility] Comment on above: Performed By: #### T SH, FT3 #### [facility] [address] [address] [address] Dina Gilbert VLDL CALC 25.2 mg/dL Normal [facility] Comment on above: Performed By: #### T SH, FT3 #### [facility] [address] [address] [address] Dina Gilbert LIVER PROFILEon 10-22-2021 Albumin [Mass/Vol] 3.6 g/dL Normal 3.5-5.0 [facility] Comment on above: Performed By: #### T MICKIE, FT3 #### [facility] [address] [address] [address] Dina Gilbert Albumin/Globulin [Mass ratio] 1.0 {ratio} Normal [facility] Comment on above: Performed By: #### T MICKIE, FT3 #### [facility] [address] [place] [address] Dr. Dina Gilbert ALP [Catalytic activity/Vol] 80 U/L Normal 38-126 [facility] Comment on above: Performed By: #### T MICKIE, FT3 #### [facility] [address] [place] [address] Dr. Dina Gilbert ALT [Catalytic activity/Vol] 16 U/L Normal 9-52 [facility] Comment on above: Performed By: #### T MICKIE, FT3 #### [facility] [address] [place] [address] Dr. Dina Gilbert AST [Catalytic activity/Vol] 11 U/L Critically low 14-36 [facility] Comment on above: Performed By: #### T MICKIE, FT3 #### [facility] [address] [place] [address] Dr. Dina Gilbert BILI, CONJUGATED 0.0 mg/dL Normal 0.0-0.3 [facility] Comment on above: Performed By: #### T SH, FT3 #### [facility] [address] [place] [address] Dr. Dina Gilbert Bilirubin [Mass/Vol] 0.3 mg/dL Normal 0.2-1.3 [facility] Comment on above: Performed By: #### T MICKIE, FT3 #### [facility] [address] [address] [address] Dina Gilbert Globulin (S) [Mass/Vol] 3.6 g/dL Normal [facility] Comment on above: Performed By: #### T SH, FT3 #### [facility] [address] [place] [address] Dr. Dina Gilbert Protein [Mass/Vol] 7.2 g/dL Normal 6.1-8.2 [facility] Comment on above: Performed By: #### T SH, FT3 #### [facility] [address] [place] [address] Dr. Dina Gilbert PROF CHEM 8 (BAS METB)on Anion gap [Moles/Vol] 9.5 mmol/L Normal [facility] Comment on above: Performed By: #### T SH, FT3 #### [facility] [address] [place] [address] Dr. Dina Gilbert Calcium [Mass/Vol] 8.5 mg/dL Normal 8.4-10.2 [facility] Comment on above: Performed By: #### T SH, FT3 #### [facility] [address] [place] [address] Dr. Dina Gilbert Chloride [Moles/Vol] 101 mmol/L Normal 98-107 [facility] Comment on above: Performed By: #### T SH, FT3 #### [facility] [address] [place] [address] Dr. Dina Gilbert CO2 [Moles/Vol] 29.7 mmol/L Normal 22.0-30.0 [facility] Comment on above: Performed By: #### T SH, FT3 #### [facility] [address] [place] [address] Dr. Dina Gilbert Creatinine [Mass/Vol] 0.74 mg/dL Normal 0.52-1.04 [facility] Comment on above: Performed By: #### T SH, FT3 #### [facility] [address] [place] [address] Dr. Dina Gilbert EGFR-AF SCOTTISH >60 Normal >=60 [facility] Comment on above: Performed By: #### T SH, FT3 #### [facility] [address] [address] [address] Dina Gilbert EGFR-NON AF SCOTTISH >60 Normal >=60 [facility] Comment on above: Performed By: #### T SH, FT3 #### [facility] [address] [address] [address] Dina Gilbert Glucose [Mass/Vol] 130 mg/dL Critically high 74-106 [facility] Comment on above: Performed By: #### T SH, FT3 #### [facility] [address] [place] [address] Dr. Dina Gilbert Potassium [Moles/Vol] 4.2 mmol/L Normal 3.4-5.0 [facility] Comment on above: Performed By: #### T SH, FT3 #### [facility] [address] [place] [address] Dr. Dina Gilbert Sodium [Moles/Vol] 136 mmol/L Critically low 137-145 [facility] Comment on above: Performed By: #### T SH, FT3 #### [facility] [address] [place] [address] Dr. Dina Gilbert Urea nitrogen [Mass/Vol] 10.0 mg/dL Normal 7.0-17.0 [facility] Comment on above: Performed By: #### T SH, FT3 #### [facility] [address] [place] [address] Dr. Dina Gilbert Urea nitrogen/Creatinine [Mass ratio] 13.5 mg/mg Normal [facility] Comment on above: Performed By: #### T SH, FT3 #### [facility] [address] [place] [address] Dr. Dina Gilbert TSHon 10-22-2021 TSH 5.232 uIU/mL Critically high 0.470-4.680 [facility] Comment on above: Performed By: #### T SH, FT3 #### [facility] [address] [place] [address] Dr. Dina Gilbert TSH RANGE SEE BELOW Normal [facility] Comment on above: Result Comment: <0.3 4 UIU/ml HYPERTHYROID 0.34-5.60 UIU/ml EUTHYROID >5.60 UIU/ml HYPOTHYROID Performed By: #### T SH, FT3 #### [facility] [address] [place] [address] Dr. Dina Gilbert VITAMIN D 25 OHon 10-22-2021 VIT D 25-OH 90.4 ng/mL Normal [facility] Comment on above: Performed By: #### T SH, FT3 #### [facility] [address] [place] [address] Dr. Dina Gilbert VIT D RANGES SEE BELOW Normal [facility] Comment on above: Result Comment: <20 ng/mL Vit D deficient 20 - <30 ng/mL Vit D insufficient 30 - 100 ng/mL Vit D sufficient >100 ng/mL Potential Toxicity Performed By: #### T SH, FT3 #### [facility] [address] [place] [address] Dr. Dina Gilbert Covid-19 PCR ([facility])on 09-12 SARS-CoV-2 (COVID-19) RNA OBED+probe Ql (Unsp spec) Not detected Normal NOT DETECTED [facility] Comment on above: Result Comment: This test is not yet approved or cleared by the [place] FDA. When there are no FDA-approved or cleared tests available, and other criteria are met, FDA can make tests available under an emergency access mechanism called an Emergency Use Authorization (EUA). The EUA for this test is supported by the [place] of Health and Human Service's (HHS's) declaration [...] SARS-CoV-2. Performed By: #### C VDTBH #### [facility] [address] [place] [address] Dr. Dina Gilbert Vital Signs Date Time Vital Sign Value Performing Clinician Facility 10-17-2023 10:19-0500 Body height 154.9 cm Ken Reyes MD Work Phone: [facility] 10-17-2023 10:19-0500 Body mass index (BMI) [Ratio] 31.18 kg/m2 Ken Reyes MD Work Phone: [facility] 10-17-2023 10:19-0500 Body temperature 97.3 [degF] Ken Reyes MD Work Phone: [facility] 10-17-2023 10:19-0500 Body weight 74.84 kg Ken Reyes MD Work Phone: [facility] 10-17-2023 10:19-0500 Diastolic blood pressure 70 mm[Hg] Ken Reyes MD Work Phone: [facility] 10-17-2023 10:19-0500 Heart rate 87 /min Ken Reyes MD Work Phone: [facility] 10-17-2023 10:19-0500 SaO2% (BldA) [Mass fraction] 98 % Ken Reyes MD Work Phone: [facility] 10-17-2023 10:19-0500 Systolic blood pressure 130 mm[Hg] Ken Reyes MD Work Phone: [facility] 03-10-2022 17:00-0400 Body height 154.94 cm [employer] Withingsnoelle Other [facility] Other 03-10-2022 17:00-0400 Body mass index (BMI) [Ratio] 32.46 kg/m2 [employer] Plastio Other [facility] Other 03-10-2022 17:00-0400 Body temperature 96.3 [degF] [employer] Quezada Other [facility] Other 03-10-2022 17:00-0400 Body weight 77.93 kg Chandler Quezada Other [facility] Other 03-10-2022 17:00-0400 Diastolic blood pressure 81 mm[Hg] Chandler Quezada Other [facility] Other 03-10-2022 17:00-0400 Respiratory rate 20 /min Chandler Quezada Other [facility] Other 03-10-2022 17:00-0400 SaO2% (BldA) [Mass fraction] 99 % Chandler Quezada Other [facility] Other 03-10-2022 17:00-0400 Systolic blood pressure 122 mm[Hg] Chandler Quezada Other [facility] Other Encounters Encounter Date Encounter Type Care Provider Facility Start: [facility] Start[facility] 06-06-2024 ambulatory [facility] Start: 03-01-2024 End: 03-01-2024 ambulatory KEN REYES Not Available Start: 02-23-2024 ambulatory [facility] Start: 01-16-2024 ambulatory [facility] Start: 11-15-2023 End: 11-15-2023 ambulatory KEN REYES Not Available Start: 10-17-2023 Mayda Reyes MD Work Phone: [facility] Start: 10-17-2023 Mayda Reyes MD Work Phone: [facility] Start: 10-17-2023 End: 10-17-2023 Office outpatient visit 15 minutes Ken Reyes MD Work Phone: [facility] Comment on above: Candidal skin infect ion (Primary Dx); Mild persistent asthma, uncomplicated ([facility]/H[facility]) Start: 10-17-2023 End: 10-17-2023 ambulatory KEN REYES Not Available Start: 06-16-2022 End: 06-17-2022 ambulatory LUCI JULES Facility:[facility] Start: 03-10-2022 End: 03-10-2022 ambulatory Chandler Hillmannoelle Other [facility] [employer] Other Start: 03-10-2022 Office outpatient ne w 30 minutes Chandler Quezada [facility] Start: 03-01-2022 End: 03-02-2022 ambulatory VASQUEZ H JUAN Facility:[facility] Start: 02-02-2022 End: 02-03-2022 ambulatory VASQUEZ H JUAN Facility:[facility] Start: 01-21-2022 End: 01-22-2022 ambulatory H JUAN Facility:[facility] Start: 10-22-2021 End: 10-23-[address] KEN REYES Facility:[facility] Start: 09-28-2021 End: 09-28-[address] KEN REYES Facility:[facility] Plan of Treatment Date Care Activity Detail Author Start: 11-21-2023 End: 11-21-2023 Patient encounter procedure 11/21/2023 10:00 AM EDT Office Visit [facility] [address] [place] [address] Ken Reyes MD [address] [place] [id number] [facility] Start: 10-17-2023 End: 10-17-2023 Patient encounter procedure 10/17/2023 10:15 AM EST Office Visit [facility] [address] [place] [phone] Ken Reyes MD [address] [place] [address] Arrived [facility] Comment on above: Arrived Start: 1958 Urine screening for protein Diabetes: Urine Protein Screening [facility] Start: 1949 Glaucoma screening Diabetes: R etinopathy Screening [facility] Start: 1939 Hemoglobin A1c measurement Diabetes: Hemoglobin A1C [facility] Start: 1939 Medicare Annual Well ness (AWV) Medicare Annual Wellness (AWV) [facility] Payers Date Payer Category Payer Medicare [employer] MEDICARE ADVANTAGE [facility] MEDICARE ADVANTAGE [id number] 2022-Present [address] [place] [address] [id number] 1959 Medicare [id number] 1939 Unknown [id number] [id number] 3 1939 Unknown [id number] 2.16.840.1.410421.3.579.2.59 3 1939 Unknown [id number] 2.16.840.1.410367.3.579.2.59 3 1939 Unknown [id number] 2.16.840.1.874805.3.579.2.59 3 1939 Unknown [id number] 2.16.840.1.935601.3.579.2.59 3 1939 Unknown [id number] 2.16.840.1.109757.3.579.2.59 3 1939 Unknown [id number] 2.16.840.1.102377.3.579.2.12 59 1939 Unknown [id number] 2.16.840.1.235061.3.579.2.12 59 1939 Unknown [id number] 2.16.840.1.931955.3.579.2.12 59 Social History Date Type Detail Facility Unknown if ever smoked [facility] [employer] Other Start: 10-10-2023 End: 10-17-2023 Sex Assigned At [facility] [employer] Other Start: 10-10-2023 Tobacco smoking status NHIS [...] Narrative Associated Problem(s): Mild persistent asthma, uncomplicated (CMS/HCC) Increased SOB [...] clotrimazole-betamethasone (Lotrisone) cream documented in this encounter [facility] Evaluation note 03-10-2022 Note Date & Type [...] and her blood pressure is well controlled [facility] Other Evaluation note Note Date & Type [...] RIGHT ELBOW NERVE Hospitalization History SEE ABOVE [facility] Other Summary Purpose Family History No Family History Records FoundNo Family History Records FoundNo Family History Records Found Advance Directives No Advanced Directives Records FoundNo Advanced Directives Records FoundNo Advanced Directives Records Found Additional Source Comments REASON FOR VISIT (unrecogniz ed section and content) Reason Comments Rash On chest INFORMATION SOURCE (unrecogn ized section and content) DATE CREATED AUTHOR 06/19/2022 [facility] pital DATE CREATED AUTHOR AUTHOR'S ORGANIZ ATION 03/03/2024 [facility] EPIC DATE CREATED AUTHOR AUTHOR'S ORGANIZ ATION 06/14/2024 [facility] Care Teams (unrecognized sec tion and content) Grey Roll Man Relationship Specialty Start Date End Date Seema Durham MD [address] [place] [address] PCP - External PCP Family Medicine 02/19/23 Ken Reyes MD [address] [place] [address] PCP - General Family Medicine 10/10/23 [employer] Relationship Specialty Start Date End Date Seema Durham MD [address] [place] [address] PCP - External PCP Family Medicine 02/19/23 Ken Reyes MD [address] [facility] [place] [address] PCP - General Family Medicine 10/10/23 FOR [...] BE BASED ON THE PRIMARY CLINICAL RECORDS. [facility] [facility]. provides no warranty or guarantee of the accuracy or completeness of information in this document.
[2024-06-26] MEDS: ALBUTEROL SULFATE 2.5 MG/3 ML VIAL NEB IH (13:34)
== END 2024-06-26 12:48 | disposition home or self-care (01) ==
LOC: CARD 12:48
PROVIDERS: PCP Family Medicine; Visit Provider Internal Medicine
DX: J45.40 Moderate persistent asthma, uncomplicated (principal)
CPT/HCPCS: 94060; 94726; 94729

== ENCOUNTER 2025-06-13 10:06 | Outpatient (OUT) | payer MEDICARE, SELFPAY ==
--- OUTSIDE RECORDS SUMMARY | 2025-05-02 15:07 | XMS_ITS ---
Author Name Auto Generated Organization OHIP Support Name Relationship Address Phone SHRUTHI BRADFORDE Next of Kin Unknown [phone] VONNIE BRADFORDNIE Next of Kin Unknown [phone] BRADFORD SHERMAN Next of Kin Unknown [phone] SANCHEZ, SHERMAN Next of Kin Unknown [phone] BRADFORD, SHERMAN Next of Kin Unknown [phone] BRADFORD, SHERMAN Next of Kin Unknown [phone] BRADFORD, SHERMAN Next of Kin Unknown [phone] BRADFORD, SHERMAN Next of Kin Unknown [phone] BRADFORD, SHERMAN Next of Kin Unknown [phone] BRADFORD, SHERMAN Next of Kin Unknown [phone] SANCHEZ, SHERMAN Next of Kin Unknown [phone] BRADFORD, SHERMAN Next of Kin Unknown [phone] BRADFORD, SHERMAN Next of Kin Unknown [phone] BRADFORD, SHERMAN Next of Kin Unknown [phone] BRADFORD, SHERMAN Next of Kin Unknown [phone] BRADFROD, SHERMAN Next of Kin Unknown [phone] BRADFORD, SHERMAN Next of Kin Unknown [phone] BRADFORD, SHERMAN Next of Kin Unknown [phone] SANCHEZ, SHERMAN Next of Kin Unknown [phone] SANCHEZ, SHERMAN Next of Kin Unknown [phone] SHERMAN BRADFORD Next of Kin Unknown [phone] SANCHEZ, SHERMAN Next of Kin Unknown [phone] SANCHEZ, SHERMAN Next of Kin Unknown [phone] SANCHEZ, SHERMAN Next of Kin Unknown [phone] SANCHEZ, SHERMAN Next of Kin Unknown [phone] SANCHEZ, SHERMAN Next of Kin Unknown [phone] SANCHEZ, SHERMAN Next of Kin Unknown [phone] Care Team Providers Care Digital Product Specialist Name Role Phone DAVIDR, DILIP Attending Unavailable BENJAMIN, NICOLAS Hughes Attending Unavailable NADERER, DILIP Referring Unavailable TIMMIS, KYLEE Lazaro Attending Unavailable NADERER, DILIP Referring Unavailable NADERER, DILIP Attending Unavailable NADERER, DILIP Attending Unavailable TIMMIS, KYLEE Lazaro Attending Unavailable NADERER, DILIP Attending Unavailable NADERER, DILIP Attending Unavailable NADERER, DILIP Attending Unavailable NADERER, DILIP Attending Unavailable NADERER, DILIP Referring Unavailable NADERER, DILIP Primary Care Unavailable NADERER, DILIP Referring Unavailable NADERER, DILIP Primary Care Unavailable NADERER, DILIP Primary Care Unavailable MILLS, JASMEET Attending Unavailable NADERER, DILIP Referring Unavailable NADERER, DILIP Primary Care Unavailable NADERER, DILIP Referring Unavailable NADERER, DILIP Primary Care Unavailable NADERER, DILIP Referring Unavailable NADERER, DILIP Primary Care Unavailable NADERER, DILIP Referring Unavailable NADERER, DILIP Primary Care Unavailable BARBARA, JODI Referring Unavailable BARBARA, JODI Referring Unavailable BARBARA, JODI Referring Unavailable BARBARA, JODI Referring Unavailable BARBARA, JODI Referring Unavailable BARBARA, JODI Referring Unavailable BARBARA, JODI Referring Unavailable BRITTANIE, ALEXSANDRA Referring Unavailable BRITTANIE, ALEXSANDRA Referring Unavailable BARBARA, JODI Referring Unavailable PROBLEMS DATE TYPE CONDITION / CODE ATTENDING STATUS [facility] 02/27/2025 Unknown Pain in left wri st / M25.532(ICD-10) NA Active [facility] 02/27/2025 Unknown Other chronic pa in / G89.29(ICD-10) NA Active [facility] 10/10/2024 Unknown Type 2 diabetes mellitus with hyperglycemia / E11.65(ICD-10) [facility] 10/10/2024 Unknown Essential (prima ry) hypertension / I10(ICD-10) [facility] 10/10/2024 Unknown Other remote computer terminal operator (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) drug therapy / Z79.899(ICD-10) [facility] 10/10/2024 Unknown Hypothyroidism, unspecified / E03.9(ICD-10) [facility] 10/10/2024 Unknown Obesity, class 1 / E66.811(ICD-10) [facility] 10/10/2024 Unknown Other obesity du e to excess calories / E66.09(ICD-10) [facility] 10/10/2024 Unknown Personal history of gestational diabetes / Z86.32(ICD-10) [facility] 08/31/2024 Unknown Elevated blood-pressure reading, without diagnosis of hypertension / R03.0(ICD-10) [facility] 08/31/2024 Unknown Headache, unspec ified / R51.9(ICD-10) [facility] 08/31/2024 Unknown Dizziness and giddiness / R42(ICD-10) [facility], [facility] 08/31/2024 Unknown Headache / FREETEXT(AOF) [facility], [facility] 08/31/2024 Unknown Anxiety / FREETEXT(AOF) [facility], [facility] 08/31/2024 Unknown Head Pressure, Anixety / UNK(Unknown) [facility], [facility] 07/24/2024 Admitting Diagnosis Palpitations / R00.2(ICD-10) [facility] 07/19/2024 Unknown Meniere's diseas e, bilateral / H81.03(ICD-10) [facility] PROCEDURES No Procedure Records Found RESULTS ORDERS ONLY Observed: 04/30/2025 12:00 AM Status: COMPLETED Source: [facility] [id number] Renate Bradford 01/1941 F Date Provider Department Center 04/30/2025 Olivia-ISAIAH BENDER [facility] CARD UT HeartVAS Family History Problem Relation Age of Onset Stroke Mother Family Status - Relation Status Age at Mother HEMOGLOBIN A1C Collected: 04/09/2025 3:05 PM S tatus: COMPLETED Source: [facility] TYPE CODE TESTS RESULT OUT OF RANGE REFERENCE UNITS LAB HBA1C HEMOGLOBIN A1C 6.1 High 4.4-5.6 % Result Comment: ADA Guidelin es Result HgbA1c Normal : less than 5.7 % Prediabetes : 5.7 % to 6.4 % Diabetes : > 6.4 % Use with caution in patients with abnormal hemoglobin variants as the half-life of red blood cells and in vivo glycation rates are affected. LAB EAG EST. AVERAGE GLUCOSE 128 mg/dL Performed By: #### HA1C #### [facility] (TT) [address] [place] [address] VIR XR WRIST LT 2 VWS Observed: 02/27/2025 3:20 PM Status: COMPLETED Source: [facility] XR WRIST LT 2 VWS XR WRIST LT 2 VWS Clinical history:Chronic pain of left wrist Comparison: None. Findings: There is mild first carpometacarpal radiocarpal joint degenerative change. No acute process fracture or dislocation. Osteopenia. Impression: Degenerative changes, mild with osteopenia. No definitive acute process. Finalized by Adelso Fisher MD on 03/01/2025 5:16 AM BASIC METABOLIC PANL Collected: 10/10/2024 7:50 AM Status: COMPLETED Source: [facility] TYPE CODE TESTS RESULT OUT OF RANGE REFERENCE UNITS LAB NA(LOINC) SODIUM 142 134-146 mmol/L LAB K(LOINC) POTASSIUM 3.6 3.5-5.0 mmol/L LAB CL(LOINC) CHLORIDE 105 98-109 mmol/L LAB CO2(LOINC) CARBON DIOXIDE 29 22-32 mmol/L LAB AGAP(LOINC) ANION GAP 8 5-15 mmol/L LAB BUN(LOINC) BLOOD UREA NITROGEN 17 5-27 mg/dL LAB CRET(LOINC) CREATININE 0.76 0.40-1.00 mg/dL Result Comment: METHOD TRACE ABLE TO IDMS STANDARD LAB GLU(LOINC) GLUCOSE 105 High 65-99 mg/dL LAB CA(LOINC) CALCIUM 8.6 8.5-10.5 mg/dL LAB EGFR(LOINC) eGFR (CKD-EPI) NON-RACE DEPENDENT 77 >59 ml/min/1. 73sq.m Result Comment: Reported eGFR is based on the CKD-EPI 2020 equation that does not use a race coefficient. Performed By: #### LAURYN, 2433 1-, LIVR, THYR, CBCA, HA1C #### [facility] ([id number]) [address] [place] [address], [facility] [address] [place] [address] LIPID PROFILE Collected: 10/10/2024 7:50 AM Status: COMPLETED Source: [facility] TYPE CODE TESTS RESULT OUT OF RANGE REFERENCE UNITS LAB CHOL(LOINC) CHOLESTEROL 114 Low 150-200 mg/dL LAB TRIG(LOINC) TRIGLYCERIDE 65 27-150 mg/dL LAB HDL(LOINC) HDL CHOLESTEROL 48 >39 mg/dL Result Comment: HDL <40 mg/dL - High Risk HDL > or = 40mg/dL- Desirable HDL >60 mg/dL - Negative Risk LAB VLDL(LOINC) VERY LOW LIPOPROTEIN 13 0-30 mg/dL LAB LDL(LOINC) LDL (CALC) 53 <130 mg/dL Result Comment: LDL <100 mg/dL - Desirable LDL >160 mg/dL - High Risk LAB CHDL(LOINC) CHOLESTEROL:HDL 2.4 1.0-5.0 Performed By: #### LAURYN, 2433 1-, LIVR, THYR, CBCA, HA1C #### [facility] ([id number]) [address] [place] [address], [address] [address] LIVER PANEL Collected: 10/10/2024 7:50 AM S tatus: COMPLETED Source: [facility] TYPE CODE TESTS RESULT OUT OF RANGE REFERENCE UNITS LAB ALK2(LOINC) ALKALINE PHOSPHATASE 78 39-130 U/L LAB AST2(LOINC) AST 17 0-41 U/L LAB ALT(LOINC) ALT 11 0-31 U/L LAB TBIL2(LOINC) BILIRUBIN, TOTAL 0.6 0.3-1.2 mg /dL LAB DBIL(LOINC) BILIRUBIN,DIRECT 0.1 0.0-0.4 mg/ dL LAB ALB2(LOINC) ALBUMIN 3.9 3.2-5.3 g/dL LAB TP2(LOINC) TOTAL PROTEIN 6.9 6.0-8.0 g/dL Performed By: #### LAURYN, 2433 1-1, LIVR, THYR, CBCA, HA1C #### [facility] ([id number]) [address] [place] [address] THYROID PROFILE Collected: 10/10/2024 7:50 AM Status: COMPLETED Source: [facility] TYPE CODE TESTS RESULT OUT OF RANGE REFERENCE UNITS LAB TSH(LOINC) TSH 6.78 High 0.49-4.67 uIU/mL LAB FT4(INC) FREE T4 0.91 0.61-1.60 ng/dL Performed By: #### LAURYN, 2433 1-1, LIVR, THYR, CBCA, HA1C #### [facility] ([id number]) [address] [place] [address] CBC AND AUTO DIFF Collected: 10/10/2024 7:50 AM Status: COMPLETED Source: [facility] TYPE CODE TESTS RESULT OUT OF RANGE REFERENCE UNITS LAB WBC(LOINC) WBC COUNT 5.9 4.0-11.0 X10E9/L LAB RBC(LOINC) RBC COUNT 4.38 3.80-5.20 X10E12/L LAB HGB(LOINC) HEMOGLOBIN 12.2 11.7-15.5 g/dL LAB HCT(LOINC) HEMATOCRIT 37.1 35-47 % LAB MCV(LOINC) MCV 85 80-100 fL LAB MCH(LOINC) MCH 27.7 27-34 pg LAB MCHC(LOINC) MCHC 32.8 32-36 g/dL LAB RDW(LOINC) RDW 14.4 11.5-15.0 % LAB PLTC(LOINC) PLATELET COUNT 202 150-450 X10E9 /L LAB MPV(LOINC) MPV 9.0 7-12 fL LAB NEUT(LOINC) % NEUTROPHILS 57.9 % LAB LYMP(LOINC) % LYMPHOCYTES 27.2 % LAB MONO(LOINC) % MONOCYTES 8.9 % LAB EOS(LOINC) % EOSINOPHILS 5.3 % LAB BASO(LOINC) % BASOPHILS 0.7 % LAB ANEUT(LOINC) ABSOLUTE NEUTROPHIL 3.4 1.5-6.6 X10E9/L LAB ALYMP(LOINC) ABSOLUTE LYMPHOCYTE 1.6 1.0-3.5 X10E9/L LAB AMONO(LOINC) ABSOLUTE MONOCYTE 0.5 0-0.9 X10E9/L LAB AEOS(LOINC) ABSOLUTE EOSINOPHIL 0.3 0.0-0.4 X10E9/L LAB ABASO(LOINC) ABSOLUTE BASOPHIL 0.0 0.0-0.2 X10E9/L Performed By: #### BMP, 2433 1-1, LIVR, THYR, CBCA, HA1C #### [facility] ([id number]) [address] [place] [address], [address] [place] [address] HGB A1C (GLYCO-HGB) Collected: 10/10/2024 7:50 AM Status: COMPLETED Source: [facility] TYPE CODE TESTS RESULT OUT OF RANGE REFERENCE UNITS LAB HBA1C(LOINC) HEMOGLOBIN A1C 5.9 High 4.4-5.6 % Result Comment: NOTE ADA Guidelines Result HgbA1c Normal : less than 5.7 % Prediabetes : 5.7 % to 6.4 % Diabetes : > 6.4 % Use with caution in patients with abnormal hemoglobin variants as the half-life of red blood cells and in vivo glycation rates are affected. LAB EAG(LOINC) AVERAGE GLUCOSE 123 mg/dL Performed By: #### BMP, 2433 1-1, LIVR, THYR, CBCA, HA1C #### [facility] ([id number]) [address] [facility], [address] [place] [address] MICROALBUMIN - ALBUMIN:CREAT ININE URINE RATIO Collected: 10/10/2024 7:50 AM Status: COMPLETED Source: [facility] TYPE CODE TESTS RESULT OUT OF RANGE REFERENCE UNITS LAB MALB(LOINC) MICROALBUMIN , URINE 1.4 0.0-1.9 mg/dL LAB UCREAT(LOINC) URINE CREAT 160.37 mg/dL LAB MALBC(LOINC) ALB/CREAT RATIO 8.7 0.0-30.0 mg/g creat Performed By: #### MALBU ### # [facility] ([id number]) [address] [facility], [address] [place] [address] 1 HOUR TROP I, HIGH SENSITIVITY Collected: 08/13 8:35 PM Status: COMPLETED Source: [facility] TYPE CODE TESTS RESULT OUT OF RANGE REFERENCE UNITS LAB TNIHS1(LOINC) 1 HOUR TROP I, HIGH SENSITIVITY 9 <16 ng/L Performed By: #### 06382-6 # ### [facility] ([id number]) [address] [place] [address] CT BRAIN WO CONT Observed: 08/31/2024 8:31 PM Status: COMPLETED Source: [facility] CT BRAIN WO CONT HISTORY: An 83-year-old female with the history of the hypertension and neoplasm. Complaining of the headaches. EXAM/TECHNIQUE: Multidetector spiral CT scan of brain is performed. Multiplanar reconstruction images are reformatted. All CT scans at this facility use dose modulation, iterative reconstruction, and/or weight based dosing when appropriate to reduce radiation dose to as low as reasonably achievable. COMPARISON: Comparison is made with the CT scan of the brain of 01/08/2022. FINDINGS: The ventricular system is normal in size and configuration. There is mild degree of generalized atrophy. There is normal differentiation of diana and white matters. There is no evidence of intracranial hemorrhage or acute pathology. The cerebellum and brainstem are unremarkable. No mass effect, midline shift of the structures or extra-axial fluid collections are noted. The calvarium is intact. There are vascular calcifications. The visualized paranasal sinuses and mastoid air cells are clear. IMPRESSION: * No evidence of intracranial hemorrhage or acute pathology. Finalized by Scottie Parr MD on 08/31/2024 8:43 PM CBC AND AUTO DIFF Collected: 08/31/2024 6:00 PM Status: COMPLETED Source: [facility] TYPE CODE TESTS RESULT OUT OF RANGE REFERENCE UNITS LAB WBC(LOINC) WBC COUNT 9.2 4.0-11.0 X10E9/L LAB RBC(LOINC) RBC COUNT 4.83 3.80-5.20 X10E12/L LAB HGB(LOINC) HEMOGLOBIN 13.5 11.7-15.5 g/dL LAB HCT(LOINC) HEMATOCRIT 40.6 35-47 % LAB MCV(LOINC) MCV 84 80-100 fL LAB MCH(LOINC) MCH 28.0 27-34 pg LAB MCHC(LOINC) MCHC 33.3 32-36 g/dL LAB RDW(LOINC) RDW 14.2 11.5-15.0 % LAB PLTC(LOINC) PLATELET COUNT 215 150-450 X10E9 /L LAB MPV(LOINC) MPV 8.7 7-12 fL LAB NEUT(LOINC) % NEUTROPHILS 70.3 % LAB LYMP(LOINC) % LYMPHOCYTES 19.7 % LAB MONO(LOINC) % MONOCYTES 7.0 % LAB EOS(LOINC) % EOSINOPHILS 2.4 % LAB BASO(LOINC) % BASOPHILS 0.6 % LAB ANEUT(LOINC) ABSOLUTE NEUTROPHIL 6.5 1.5-6.6 X10E9/L LAB ALYMP(LOINC) ABSOLUTE LYMPHOCYTE 1.8 1.0-3.5 X10E9/L LAB AMONO(LOINC) ABSOLUTE MONOCYTE 0.6 0-0.9 X10E9/L LAB AEOS(LOINC) ABSOLUTE EOSINOPHIL 0.2 0.0-0.4 X10E9/L LAB ABASO(LOINC) ABSOLUTE BASOPHIL 0.1 0.0-0.2 X10E9/L Performed By: #### CBCA, CMP , 26740-3, 93582-0 #### [facility] ([id number]) [address] [place] [address] COMPREHENSIVE METABOLIC PANEL Collected: 2023 6:00 PM Status: COMPLETED Source: [facility] TYPE CODE TESTS RESULT OUT OF RANGE REFERENCE UNITS LAB NA(LOINC) SODIUM 137 134-146 mmol/L LAB K(LOINC) POTASSIUM 3.9 3.5-5.0 mmol/L LAB CL(LOINC) CHLORIDE 102 98-109 mmol/L LAB CO2(LOINC) CARBON DIOXIDE 25 22-32 mmol/L LAB AGAP(LOINC) ANION GAP 10 5-15 mmol/L LAB BUN(LOINC) BLOOD UREA NITROGEN 13 5-27 mg/dL LAB CRET(LOINC) CREATININE 0.69 0.40-1.00 mg/dL Result Comment: METHOD TRACE ABLE TO IDMS STANDARD LAB GLU(LOINC) GLUCOSE 119 High 65-99 mg/dL LAB CA(LOINC) CALCIUM 9.3 8.5-10.5 mg/dL LAB TP(LOINC) TOTAL PROTEIN 8.1 High 6.0-8.0 g/dL LAB ALB(LOINC) ALBUMIN 4.5 3.2-5.3 g/dL LAB ALK(LOINC) ALKALINE PHOSPHATASE 89 39-130 U/L LAB AST(LOINC) AST 22 0-41 U/L LAB ALT1(LOINC) ALT 15 0-31 U/L LAB TBIL(LOINC) BILIRUBIN,TOTAL 1.0 0.3-1.2 mg/d L LAB EGFR(LOINC) eGFR (CKD-EPI) NON-RACE DEPENDENT 86 >59 ml/min/1 .73sq.m Result Comment: Reported eGFR is based on the CKD-EPI 202 equation that does not use a race coefficient. Performed By: #### MARGIE REYES , 60003-7, 53340-7 #### [facility] ([id number]) [address] [place] [address] MAGNESIUM Collected: 08/31/2024 6:00 PM S tatus: COMPLETED Source: [facility] TYPE CODE TESTS RESULT OUT OF RANGE REFERENCE UNITS LAB MG(LOINC) MAGNESIUM 2.1 1.8-2.6 mg/dL Performed By: #### CBCSaul, CMP , 41206-6, 88969-2 #### [facility] ([id number]) [address] [place] [address] TROPONIN I, HIGH SENSITIVITY Collected: 024 6:00 PM Status: COMPLETED Source: [facility] TYPE CODE TESTS RESULT OUT OF RANGE REFERENCE UNITS LAB TNIHS(LOINC) TROPONIN I, HIGH SENSITIVITY 8 <16 ng/L Performed By: #### ERIC, CMP , 27578-6, 25266-9 #### [facility] ([id number]) [address] [place] [address] ALLERGIES DATE TYPE / CODE NAME / CODE REACTION SEVERITY SOURCE 05/04/2022 DRUG INGREDI/28882440 3(SNOMED CT) ATORVASTATIN [facility] 05/04/2022 DRUG INGREDI/27810365 3(SNOMED CT) LISINOPRIL [facility] Drug Class/878773004( SNOMED CT) NO KNOWN ALLERGIES [facility] ENCOUNTERS ADMIT/DISCHARGE ACCOUNT NUMBER ADMITTING ENCOUNTER CLASS LOCATION SOURCE 05/02/2025 [id number] Ambulatory Building:[facility] 04/09/2025 [id number] Ambulatory Building:PF M _LAB [facility] 04/09/2025/04/09/20 [id number] Ambulatory Building:[facility] 03/27/2025 [id number] Ambulatory Building:[facility] 02/27/2025/02/28/20 [id number] Ambulatory Building:PFM _XR [facility] 02/27/2025/02/28/20 [id number] Ambulatory Building:[facility] 01/21/2025 [id number] Ambulatory Building:[facility] 01/07/2025/01/08/20 [id number] Ambulatory Building:[facility] 12/13/2024/12/14/19 25 [id number] Ambulatory Building:[facility] 12/12/2024/12/13/19 25 [id number] Ambulatory Building:E NT [facility] 12/11/2024/12/12/19 25 [id number] Ambulatory Building:CIE NT [facility] 12/05/2024/12/06/19 25 [id number] Ambulatory Building:NOM S AUD [facility] 11/30/2024 [id number] Ambulatory Building:[facility] 10/10/2024 [id number] Ambulatory Building:[facility] 10/10/2024/10/10/19 25 [id number] Ambulatory Building:[facility] 10/08/2024/10/08/19 25 [id number] Ambulatory Building:[facility] 10/08/2024/10/08/19 25 [id number] Ambulatory Building:[facility] 09/18/2024/09/18/19 25 [id number] Ambulatory Building:[facility] 08/31/2024/08/31/20 24 [id number] Emergency Building:PBP _ERRoom: EC 11Bed: 11 [facility] 08/29/2024 [id number] Ambulatory Building:[facility] 08/23/2024 [id number] Ambulatory Building:[facility] 08/17/2024 [id number] Ambulatory Building:[facility] 08/07/2024 [id number] Ambulatory Building:[facility] 07/24/2024 [id number] Ambulatory Building:[facility] 07/19/2024 [id number] Ambulatory Building:[address] 07/17/2024 [id number] Ambulatory Building:[facility] 07/05/2024/07/05/20 24 [id number] Ambulatory Building:[facility] Medical [facility] PAYERS ENCOUNTER GUARANTOR PAYER SUBSCRIBER SOURCE 05/02/2025 Primary Insurance:[place] MEDICAREPolicy Number: [id number] Date:2024-09-12 RENATE ALFONSOOB: [id number] [place] [address] [facility] 04/09/2025 RENATE ZAMORAMANDOB: [id number] [address] [place] [address]Oth: (HP) [place] Insurance:[place]ITE[place] Number: [id number] Date:2024-09-12 RENATE ZAMORAMANDOB: [id number] [address] [address] [facility] 04/09/2025 RENATE ZAMORAMANDOB: [id number] STATE [address] [address]Qho: (HP) (WP) Primary Insurance:[place] MEDICARE ADVANTAGEPolicy Number: [id number] Date:2024-09-12 RENATE ZAMORAMANDOB: [id number] STATE [address] [address] [facility] 02/27/2025 RENATEALESHIA ZAMORAMANDOB: [id number] STATE [address] [address]Mcg: (HP) Primary Insurance:LARR[place]ITEPolicy Number: [id number] Date:2024-09-12 RENATE ZAMORAMANDOB: [id number] STATE [address] [address] [facility] 02/27/2025 RENATEALESHIA ZAMORAMANDOB: [id number] STATE [address] [address]Ayn: (HP) (WP) Primary Insurance:[place] MEDICARE ADVANTAGEPolicy Number: [id number] Date:2024-09-12 RENATE ZAMORAMANDOB: [id number] STATE [address] [address] [facility] 01/21/2025 Primary Insurance:[place] MEDICAREPolicy Number: [id number] Date:2024-09-12 RENATE ALFONSOOB: [id number] [place] [address] [facility] 01/07/2025 RENATE ALFONSOOB: [address] [address]Yaa: (HP) (WP) Primary Insurance:[place] MEDICARE ADVANTAGEPolicy Number: [id number] Date:2024-09-12 RENATE ALFONSOOB: [id number] [id number] [place] [address] [facility] 12/13/2024 RENATE ALFONSOOB: [address] [address]Xaj: (HP) (WP) Primary Insurance:[place] MEDICARE ADVANTAGEPolicy Number: [id number] Date:2024-09-12 RENATE ALFONSOOB: [id number] [address] [address] [facility] 12/12/2024 RENATE ZAMORAMANDOB: [address] [address]Szf: (HP) (WP) Primary Insurance:[place] MEDICARE ADVANTAGEPolicy Number: [id number] Date:2024-09-12 RENATE ALFONSOOB: [id number] [address] [place] [address] [facility] 12/11/2024 RENATE ZAMORAMANDOB: [address] [address]Wii: (HP) (WP) Primary Insurance:[place] MEDICARE ADVANTAGEPolicy Number: [id number] Date:2024-09-12 RENATE ZAMORAMANDOB: [id number] [address] [place] [address] [facility] 12/05/2024 RENATEALESHIA ZAMORAMANDOB: [id number] [address] [place] [address]Psz: (HP) (WP) Primary Insurance:[place] MEDICARE ADVANTAGEPolicy Number: [id number] Date:2024-09-12 RENATE ZAMORAMANDOB: [id number] [address] [address] [facility] 11/30/2024 Primary Insurance:[place] MEDICAREPolicy Number: [id number] Date:2024-09-12 RENATE ALFONSOOB: [id number] [place] [address] [facility] 10/10/2024 Primary Insurance:[place] MEDICAREPolicy Number: [id number] Date:2024-09-12 RENATE ZAMORAMANDOB: [id number] [place] [address] [facility] 10/10/2024 RENATE ZAMORAMANDOB: [id number] STATE [address] [address]Zwn: () [place] Number: [id number] Date:2024-09-12 RENATE ZAMORAMANDOB: [id number] [address] [address] [facility] 10/08/2024 RENATE ZAMORAMANDOB: [id number] STATE [address] [address]Lnc: (HP) Primary Insurance:[place]ITEPolicy Number: [id number] Date:2024-09-12 RENATE ZAMORAMANDOB: [id number] [address] [address] [facility] 10/08/2024 RENATE ZAMORAMANDOB: STATE [address] [address]Jgk: (HP) (WP) Primary Insurance:[place] MEDICARE ADVANTAGEPolicy Number: [id number] Date:2024-09-12 RENATEALESHIA ZAMORAMANDOB: [id number] [address] [address] [facility] 09/18/2024 RENATE ZAMORAMANDOB: STATE [address] [address]Yxl: (HP) (WP) Primary Insurance:[employer] MED[employer]ARE ADVANTAGEPolicy Number: [id number] Date:2022-11-10 RENATE ZAMORAMANDOB: [id number] STATE [address] [address] [facility] 08/31/2024 RENATE ZAMORAMANDOB: STATE [address] [address]Ond: (HP) Primary Insurance:[employer] MEDICARE ADVANTAGEPolicy Number: [id number] Date:2021-09-12 RENATE ZAMORAMANDOB: [id number] [address] [address]Cur: (HP) Select [facility] 08/17/2024 RENATE ZAMORAMANDOB: STATE [address] [address]Adk: (HP) Primary Insurance:ANTHEM MEDICARE ADVANTAGEPolicy Number: [id number] Date:2021-09-12 RENATE ZAMORAMANDOB: [id number] [place], [place] [address]Zaw: (HP) [facility] 08/07/2024 Primary Insurance:ANTHEM MEDICARE ADVANTAGEPolicy Number: [id number] Date:2021-09-12 RENATE Jessica NOAHCHRISTIANOOB: [id number] [place] [address] [facility] 07/19/2024 RENATE Jessica NOAHCHRISTIANOOB: [id number] [address] [place] [address]Cah: (HP) Primary Insurance:ANTHEM MEDICARE ADVANTAGEPolicy Number: [id number] Date:2021-09-12 RENATE Jessica NOAHCHRISTIANOOB: [id number] [place], [place] [address]Rsd: (HP) [facility] 07/05/2024 RENATE ALFONSOOB: [id number] STATE [address] [address]Tlo: (HP) (WP) Primary Insurance:ANTHEM MEDICARE ADVANTAGEPolicy Number: [id number] Date:2022-11-10 RENATE ALFONSOOB: [id number] [address] [address] [facility] EPIC
--- OUTSIDE RECORDS SUMMARY | 2025-06-13 10:13 | XMS_ITS | Clinical Summary ---
Author Organization Nanoference tem Address [id number] [address] [place] [address] Care Team Providers Care Kiln Stacker Name Role Phone Ken Quach MD Primary Care Provider [phone] Allergies No known active allergies Medications albuterol (PROVENTIL HFA;VENTOLIN HFA) 90 mcg/actuation inhaler Inhale 2 puffs every 6 (six) hours as needed for wheezing. Active montelukast (SINGULAIR) 10 mg tabletIndications :Mild intermittent asthma without complication Take 1 tablet (10 mg total) by mouth nightly. 30 tablet 5 8 Active levothyroxine (SYNTHROID, LEVOTHROID) 50 MCG tablet Take 1 tablet (50 mcg total) by mouth in the morning. Active aspirin 81 mg Take 1 tablet (81 mg total) by mouth in the morning. Active FLUoxetine (PROzac) 10 mg capsule Take 1 capsule (10 mg total) by mouth in the morning. Active atorvastatin (LIPITOR) 20 mg tablet Take 1 tablet (20 mg total) by mouth in the morning. Active docusate sodium (COLACE) 100 mg capsule Take 1 capsule (100 mg total) by mouth every 12 (twelve) hours. 20 capsule 2 Active ibuprofen (MOTRIN) 600 mg tablet Take 1 tablet (600 mg total) by mouth every 6 (six) hours as needed for pain. 30 tablet 2 Active carvediloL (COREG) 25 mg tablet Take 1 tablet (25 mg total) by mouth every morning before breakfast. Active albuterol (PROVENTIL HFA;VENTOLIN HFA) 90 mcg/actuation inhalerIndication s:Bronchitis Inhale 1-2 puffs every 6 (six) hours as needed for wheezing. With spacer and instruct 18 g 3 Active benzonatate (TESSALON PERLES) 100 mg capsule Take 2 capsules (200 mg total) by mouth 3 (three) times a day as needed for cough. 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 Mild intermittent asthma without complication Pulmonary infiltrate in right lung on CXR 2017 Encounters Date Type Department Care Team Description 04/09/2025 Travel from Last 3 Months Immunizations Immunization Administration Dates Next Due Tdap 12/31/2021 Family History Medical History Relation Name Comments Diabetes Father Heart disease Father Hypertension Father Diabetes Mother Hypertension Mother Relation Name Status Comments Father Mother Social History Tobacco Use Types Packs/Day Years Used Date Smoking Tobacco: Former Smokeless Tobacco: Never Tobacco Cessation:Counseling Given: Not Answered Alcohol Use Standard Drinks/Week Comments No 0 (1 standard drink = 0.6 oz pur e alcohol) Childcare Answer Date Recorded Childcare Unknown 02/21/2019 Employment Answer Date Recorded Employment Unknown 02/21/2019 Hunger Screening Answer Date Recorded Within the past 12 months we worried whether our food would run out before we got money to buy more. Never True 08/31/2024 Within the past 12 months th e food we bought just didn't last and we didn't have money to get more. Never True 08/31/2024 Purpose - Life Answer Date Recorded Purpose and direction in life Unknown Comments No Sex and Gender Information Value Date Recorded Sex Assigned at Not on file Legal Sex Female 11:33 AM EDT Gender Identity Not on file Sexual Orientation Not on file Last Filed Vital Signs Vital Sign Reading Time Taken Comments Blood Pressure 172/86 08/31/2024 9:45 PM EST Pulse 73 08/31/2024 9:15 PM EST Temperature 36.7 C (98.1 F) 08/31/2024 5:50 PM EST Respiratory Rate 18 08/31/2024 9:15 PM EST Oxygen Saturation 95% 08/31/2024 9:45 PM EST Inhaled Oxygen Concentration - - Weight 77.1 kg (170 lb) 08/31/2024 5:50 PM EST Height 154.9 cm (5' 1 ) 08/31/2024 5:50 PM EST Body Mass Index 32.12 08/31/2024 5:50 PM EST Plan of Treatment Health Maintenance Due Date Last Done Comments Depression Screening 1951 Fall Risk Screening 2004 COVID-19 Vaccine (5 - 2024-2 6 season) 2025 08/12/2023, 07/09/2021, 10/23/2020, Additional history exists Influenza Vaccine 05/13/2025 07/31/2023, , 08/01/2017, Additional history exists Tobacco Screening 08/31/2025 08/31/2024 DTaP,Tdap and Td Vaccines (2 - Td or Tdap) 01/01/2032 12/31/2021 Zoster (Shingles) Vaccine Completed 03/19/2024, Medical Devices Not on file Procedures Procedure Name Priority Date/Time Associated Diagnosis Comments HEMOGLOBIN A1C Routine 04/09/2025 3:05 PM EDT Type 2 diabetes mellitus with hyperglycemia ([facility]) from Last 3 Months Results * (ABNORMAL) Hemoglobin A1c (04/09/2025 3:05 PM EDT) HEMOGLOBIN A1C 6.1(H) 4.4 - 5.6 % 04/09/2025 6:47 PM EDT [facility] Comment: ADA Guidelines Result HgbA1c Normal : less than 5.7 % Prediabetes : 5.7 % to 6.4 % Diabetes : > 6.4 % Use with caution in patients with abnormal hemoglobin variants as the half-life of red blood cells and in vivo glycation rates are affected. EST. AVERAGE GLUCOSE 128 mg/dL 04/09/2025 6:47 PM EDT [facility] Blood Venous blood / Unknown Venipuncture / Unknown 04/09/2025 3:05 PM EDT 04/09/2025 3:05 PM EDT us Ken Quach MD LAB BLOOD ORDERABLES Final Resul t [facility] [address] [place] [address], [place] [phone] from Last 3 Months Insurance [facility] MEDICARE Care Teams Kiln Stacker Relationship Specialty Start Date End Date Ken Quach MD [address] [place] [address] PCP - General Family Medicine 04/09/25
--- OUTSIDE RECORDS SUMMARY | 2025-06-13 10:13 | XMS_ITS | Encounter Summary ---
Author Organization [facility] Address [address] [place] [address] Care Team Providers Care Paper Coating Machine Operator Name Role Phone Seema Durham MD Unavailable Ken Quach MD Primary Care Provider [phone] Encounter Details Date Type Department Care Team (Late st Contact Info) Description 03/01/2025 [facility] [address] [place] [address] Ken Quach MD [address] [place] [address] XR wrist 1 or 2 views left Social History Tobacco Use Types Packs/Day Years Used Date Smoking Tobacco: Never Smokeless Tobacco: Never Alcohol Use Standard Drinks/Week Comments Never 0 (1 standard drink = 0.6 oz pur e alcohol) B1300 Health Literacy Answer Date Recor ded How often do you need to hav e someone help you when you read instructions, pamphlets, or other written material from your doctor or pharmacy? Never 02/28/2024 Social Connection and Isolat ion Panel [NHANES] Answer Date Recorded In a typical week, how many times do you talk on the phone with family, friends, or neighbors? More than three times a week 02/28/2024 How often do you get togethe r with friends or relatives? More than three times a week 02/28/2024 How often do you attend [facility] or holiness services? More than 4 times per year 02/28/2024 Do you belong to any clubs o r organizations such as hinduism groups, unions, fraternal or athletic groups, or school groups? Yes 02/28/2024 How often do you attend meet ings of the clubs or organizations you belong to? More than 4 times per year 02/28/2024 Are you , , di vorced, , never , or living with a partner? 02/28/2024 AUDIT-C Answer Date Recorded Q1: How often do you have a drink containing alcohol? Never 02/28/2024 Q2: How many drinks containi ng alcohol do you have on a typical day when you are drinking? Patient does not drink Q3: How often do you have si x or more drinks on one occasion? Never 02/28/2024 Overall Financial Resource Strain (CARDIA) Answe r Date Recorded How hard is it for you to pa y for the very basics like food, housing, medical care, and heating? Not hard at all 02/28/2024 PHQ-2 Answer Date Recorded Patient Health Questionnaire-2 Score 0 10/08/2024 [facility] - Occupational Stress Questionnaire Answer Date Recorded Do you feel stress - tense, restless, nervous, or anxious, or unable to sleep at night because your mind is troubled all the time - these days? Not at all 02/28/2024 Exercise Vital Sign Answer Date Recorde d On average, how many days pe r week do you engage in moderate to strenuous exercise (like a brisk walk)? 3 days 02/28/2024 On average, how many minutes do you engage in exercise at this level? 20 min 02/28/2024 Hunger Vital Sign Answer Date Recorded Within the past 12 months, y ou worried that your food would run out before you got the money to buy more. Never true 02/28/20 24 Within the past 12 months, t he food you bought just didn't last and you didn't have money to get more. Never true 02/28/2024 PRAPARE - Transportation Answer Date Re corded In the past 12 months, has l ack of transportation kept you from medical appointments or from getting medications? No 02/10 In the past 12 months, has l ack of transportation kept you from meetings, work, or from getting things needed for daily living? No 02/28/2024 Housing Stability Vital Sign Answer Rito e Recorded In the last 12 months, was t here a time when you were not able to pay the mortgage or rent on time? No 02/28/2024 Number of Times Moved in the Last Year Not on fi le 02/28/2024 At any time in the past 12 m [facility], were you homeless or living in a skilled nursing (including now)? No 02/28/2024 Comments Unknown Sex and Gender Information Value Date Recorded Sex Assigned at Not on file Legal Sex Female 6:36 PM EDT Gender Identity Not on file Sexual Orientation Not on file documented as of this encounter Plan of Treatment Not on file documented as of this encounter Visit Diagnoses Not on filedocumented in this encounter Additional Health Concerns Assessment Noted Time PHQ-9 Depression Total Score: 0 10/08/19 25 1:00 PM EST documented as of this encounter Care Teams Paper Coating Machine Operator Relationship Specialty Start Date End Date Seema Durham MD [address] [place] [phone] PCP - External PCP Family Medicine 02/19/23 Ken Quach MD [address] [place] [address] PCP - General Family Medicine 10/10/23 documented as of this encounter
--- OUTSIDE RECORDS SUMMARY | 2025-06-13 10:13 | XMS_ITS | Encounter Summary ---
Author Organization [facility] Address [address] [place] [address] Care Team Providers Care Entry Level Java Developer Name Role Phone Seema Durham MD Unavailable [phone] Ken Quach MD Primary Care Provider [phone] Encounter Details Date Type Department Care Team (Late st Contact Info) Description 06/26/2024 Clinisync Result Encounter [facility] External Department Unsolicited Provider, Generic External Data Social History Tobacco Use Types Packs/Day Years Used Date Smoking Tobacco: Never Smokeless Tobacco: Never B1300 Health Literacy Answer Date Recor ded [...] week 02/28/2024 How often do you attend chur ch or jewish services? More than 4 times per year 02/28/2024 Do you belong to any clubs o r organizations such as presybeterian groups, unions, fraternal or athletic groups, or [...] Date Recorded Patient Health Questionnaire-2 Score 0 10/17/2023 [facility] - Occupational Stress Questionnaire Answer Date Recorded [...] any time in the past 12 m [facility], were you homeless or living in a senior living (including now)? No 02/28/2024 Comments Unknown Sex and Gender Information Value Date Recorded Sex Assigned at Not on file Legal Sex Female 6:36 PM EDT Gender Identity Not on file Sexual Orientation Not on file documented as of this encounter Plan of Treatment Not on file documented as of this encounter Procedures Procedure Name Priority Date/Time Associated Diagnosis Comments RT PULMONARY FUNCTION TEST 06/26/2024 12:54 PM EDT documented in this encounter Results * RT PULMONARY FUNCTION TEST (06/26/2024 12:54 PM EDT) Anatomical Region Laterality Modality Other 06/26/2024 12:5 4 PM EDT Narrative 06/26/2024 2:34 PM EDT [place] [id number] Respiratory Report Signed Patient: RENATE BRADFORD MR#: [id number] : 1940 Acct:[id number] Age/Sex: 83 / F ADM Date: 06/26/24 Loc: CARD Attending Dr: Adolfo Baptiste D.O. Ordering Physician: Adolfo Baptiste D.O. Date of Service: 06/26/24 Procedure(s): RT pulmonary function test Accession Number(s): [id number] cc: [facility] Test Date: 2024-06-26 Pat Name: RENATE BRADFORD Department: Room: - Gender: Female Furniture Finisher Helper: : 1940 Requested By: Adolfo Baptiste Order Number: [id number] Reading MD: Adolfo Baptiste Interpretive Statements Pulmonary function testing was completed according to ATS criteria. Findings were considered accurate and reproducible, with exception of DLCO which did not meet ATS standards. Spirometry (based on pre-bronchodilator values): -FEV1/FVC: Reduced @ 58% -FEV1: Moderately reduced @ 62% -FVC: Reduced @ 79% -There is no significant bronchodilator response. Lung volumes by plethysmography (based on pre-bronchodilator values): -RV: Increased @ 149% -TLC: High normal @ 119% Diffusion capacity: -DLCO: Mild-moderate reduction @ 67% when corrected for Hb 11.9g/dL Flow-volume loop: -Moderate obstructive pattern Impressions: -Spirometry suggests moderate obstruction. An elevated RV suggests air trapping. There is a mild-moderately reduced diffusion capacity. Overall study is compatible with COPD/emphysema. Clinical correlation required. Electronically Signed On 06-26-2024 14:34:07 EDT by Adolfo Baptiste Dictated By: Adolfo Baptiste D.O. Signed By: 06/26/24 1434 06/26/24 1434 DD/ 1254 TD/TT: Insurance Risk Surveyor: Procedure Note Radiology, Radiologist, MD - 06/26/2024 [place] [address] Respiratory Report Signed Patient: RENATE BRADFORD R#: [id number] : 1940Acct:[id number] Age/Sex: 83 / FADM Date: 06/26/24 Loc: CARD Attending Dr: Adolfo Baptiste D.O. Ordering Physician: Adolfo Baptiste D.O. Date of Service: 06/26/24 Procedure(s): RT pulmonary function test Accession Number(s): [id number] cc: The [facility] Test Date: 2024-06-26 Pat Name: RENATE BRADFORD Department: Room: - Gender: Female Furniture Finisher Helper: : 1940 Requested By: Adolfo Baptiste Order Number: [id number] Reading MD: Adolfo Baptiste Interpretive Statements Pulmonary function testing was completed according to ATS criteria.Findings were considered accurate and reproducible, with exception of DLCO whichdid not meet ATS standards. Spirometry (based on pre-bronchodilator values): -FEV1/FVC: Reduced @ 58% -FEV1: Moderately reduced @ 62% -FVC: Reduced @ 79% -There is no significant bronchodilator response. Lung volumes by plethysmography (based on pre-bronchodilator values): -RV: Increased @ 149% -TLC: High normal @ 119% Diffusion capacity: -DLCO: Mild-moderate reduction @ 67% when corrected for Hb 11.9g/dL Flow-volume loop: -Moderate obstructive pattern Impressions: -Spirometry suggests moderate obstruction. An elevated RV suggests air trapping. There is a mild-moderately reduced diffusion capacity. Overall study is compatible with COPD/emphysema. Clinical correlation required. Electronically Signed On 06-26-2024 14:34:07 EDT by Adolfo Baptiste Dictated By: Adolfo Baptiste D.O. Signed By:06/26/24 1434 06/26/24 1434 DD/ 1254 TD/TT: Insurance Risk Surveyor: us Generic External Data Provider [facility] Final Result documented in this encounter Visit Diagnoses Not on filedocumented in this encounter Care Teams Entry Level Java Developer Relationship Specialty Start Date End Date Seema Durham MD [address] [place] [address] PCP - External PCP Family Medicine 02/19/23 Ken Quach MD [address] [place] [phone] PCP - General Family Medicine 10/10/23 documented as of this encounter
--- OUTSIDE RECORDS SUMMARY | 2025-06-13 10:13 | XMS_ITS | Encounter Summary ---
Author Organization [facility] Address [address] [place] [address] Care Team Providers Care Service Coordinator Name Role Phone Seema Durham MD Unavailable [phone] Ken Quach MD Primary Care Provider [phone] Aicha Alvarado LPN Unavailable Unavailable Encounter Details Date Type Department Care Team (Late st Contact Info) Description 12/30/2023 Clinisync Result Encounter [facility] External Department Unsolicited Provider, Generic External Data Social History Tobacco Use Types Packs/Day Years Used Date Smoking Tobacco: Never Smokeless Tobacco: Never PHQ-2 Answer Date Recorded Patient Health Questionnaire-2 Score 0 10/17/2023 Comments Unknown Sex and Gender Information Value Date Recorded Sex Assigned at Not on file Legal Sex Female 6:36 PM EDT Gender Identity Not on file Sexual Orientation Not on file documented as of this encounter Plan of Treatment Not on file documented as of this encounter Procedures Procedure Name Priority Date/Time Associated Diagnosis Comments XR FOOT LT MIN 3V 12/30/2023 7:1 8 AM EDT documented in this encounter Results * XR FOOT LT MIN 3V (12/30/2023 7:18 AM EDT) Anatomical Region Laterality Modality Other 12/30/2023 7:18 AM EDT Narrative 12/30/2023 7:20 AM EDT The [address] [address] XRay Report Signed Patient: RENATE BRADFORD MR#: [id number] : 1940 Acct:[id number] Age/Sex: 83 / F ADM Date: 12/29/23 Loc: EC Attending Dr: Lizbet Milian Ordering Physician: Lizbet Milian Date of Service: 12/29/23 Procedure(s): XR foot LT min 3V Accession Number(s): [id number] cc: Lizbet Milian; Ken Quach M.D. The [address] [id number] Patient Name: RENATE BRADFORD MRN: [id number] date: 1940 Sex: F Assigned Patient Location: EC Current Patient Location: Accession/Order Number: [id number] Exam Date: 12/29/2023 09:58 Report Date: 12/30/2023 07:18 At the request of: LIZBET MILIAN Procedure: XR foot LT min 3V PROCEDURE: XR foot LT min 3V HISTORY: LEFT FOOT PAIN ; recent third metatarsal stress fracture COMPARISON: XR foot left 12/08/2023 FINDINGS: BONES:Stable alignment and increasing callus formation involving prior fracture of the third metatarsal neck. Multifocal mild degenerative joint disease. SOFT TISSUES:No visible soft tissue swelling. EFFUSION:None visible. OTHER: Negative. XR/XR foot LT min 3V IMPRESSION: 1. Stable alignment and ongoing bone healing of third metatarsal neck fracture. Electronically authenticated by: OMI GAMBOA Date: 12/30/2023 07:18 Dictated By: Omi Gamboa M.D. Signed By: 12/30/23719 DD/ 7 TD/TT: Account Manager Employee Benefits: Procedure Note Radiology, Radiologist, MD - 12/30/2023 [place] [address] XRay Report Signed Patient: RENATE BRADFORD JMR#: [id number] : 1940Acct:[id number] Age/Sex: 83 / FADM Date: 12/29/23 Loc: EC Attending Dr: Lizbet Milian Ordering Physician: Lizbet Milian Date of Service: 12/29/23 Procedure(s): XR foot LT min 3V Accession Number(s): [id number] cc: Lizbet Milian; Ken Quach M.D. The [place] [id number] Patient Name: RENATE BRADFORD MRN: [id number] date: 1940 Sex: F Assigned Patient Location: Current Patient Location: Accession/Order Number: [id number] Exam Date: 12/29/2023 09:58 Report Date: 12/30/2023 07:18 At the request of: LIZBET MILIAN Procedure: XR foot LT min 3V PROCEDURE: XR foot LT min 3V HISTORY: LEFT FOOT PAIN ; recent third metatarsal stress fracture COMPARISON: XR foot left 12/08/2023 FINDINGS: BONES:Stable alignment and increasing callus formation involving prior fracture of the third metatarsal neck. Multifocal mild degenerative joint disease. SOFT TISSUES:No visible soft tissue swelling. EFFUSION:None visible. OTHER: Negative. XR/XR foot LT min 3V IMPRESSION: 1. Stable alignment and ongoing bone healing of third metatarsal neck fracture. Electronically authenticated by: OMI GAMBOA Date: 12/30/2023 07:18 Dictated By: Omi Gamboa M.D. Signed By:12/30/23719 DD/ 7 TD/TT: Account Manager Employee Benefits: Generic External Data Provider [facility] Final Result documented in this encounter Visit Diagnoses Not on filedocumented in this encounter Care Teams Service Coordinator Relationship Specialty Start Date End Date Seema Durham MD [address] [place] [address] PCP - External PCP Family Medicine 02/19/23 Ken Quach MD [address] [place] [address] PCP - General Family Medicine 10/10/23 Aicha Alvarado LPN Licensed Practical Nurse Family Medicine 12/29/23 documented as of this encounter
--- OUTSIDE RECORDS SUMMARY | 2025-06-13 10:13 | XMS_ITS | Encounter Summary ---
Author Organization [facility] Address [address] [place] [address] Care Team Providers Care Sash Sticker Name Role Phone Seema Durham MD Unavailable [phone] Ken Quach MD Primary Care Provider [phone] Encounter Details Date Type Department Care Team (Late st Contact Info) Description 03/23/2024 Clinisync Result Encounter [facility] External Department Unsolicited [...] often do you attend chur ch or advent services? More than 4 times per year 02/28/2024 Do you belong to any clubs o r organizations such as christianity groups, unions, fraternal or athletic groups, or [...] Recorded Patient Health Questionnaire-2 Score 0 10/17/2023 [facility] - Occupational Stress Questionnaire Answer Date Recorded [...] any time in the past 12 m [facility], were you homeless or living in a assisted (including now)? No 02/28/2024 Comments Unknown Sex [...] Diagnosis Comments XR FOOT LT MIN 3V 03/23/2024 7:5 7 AM EDT documented in this encounter Results * XR FOOT LT MIN 3V (03/23/2024 7:57 AM EDT) Anatomical Region Laterality Modality Other 03/23/2024 7:57 AM EDT Narrative 03/23/2024 8:00 [place] [address] XRay Report Signed Patient: RENATE BRADFORD MR#: [id number] : 1940 Acct:[id number] Age/Sex: 83 / F ADM Date: 03/22/24 Loc: EC Attending Dr: Lizbet Milian Ordering Physician: Lizbet Milian Date of Service: 03/22/24 Procedure(s): XR foot LT min 3V Accession Number(s): [id number] cc: Lizbet Milian; Ken Quach M.D. The [address] [id number] Patient Name: RENATE BRADFORD MRN: [id number] date: 1940 Sex: F Assigned Patient Location: Current Patient Location: Accession/Order Number: [id number] Exam Date: 03/22/2024 10:00 Report Date: 03/23/2024 07:57 At the request of: LIZBET MILIAN Procedure: XR foot LT min 3V PROCEDURE: XR foot LT min 3V COMPARISON: 01/26/2024 HISTORY: LEFT FOOT PAIN FINDINGS: BONES:No acute fracture or dislocation. Hallux valgus. Moderate degenerative changes with joint space narrowing marginal osteophyte formation. Plantar enthesopathic spurring of the calcaneus SOFT TISSUES:Negative. No visible soft tissue swelling. EFFUSION:None visible. OTHER: Negative. XR/XR foot LT min 3V IMPRESSION: Moderate degenerative changes with hallux valgus Electronically authenticated by: JASMEET COOL Date: 03/23/2024 07:57 Dictated By: Jasmeet Cool M.D. Signed By: 03/23/24 0800 DD/ 0757 TD/TT: Dispatcher Radio: Procedure Note Radiology, Radiologist, MD - 03/23/2024 [place] [address] XRay Report Signed Patient: RENATE BRADFORD JMR#: [id number] : 1940Acct:[id number] Age/Sex: 83 / FADM Date: 03/22/24 Loc: Attending Dr: Lizbet Milian Ordering Physician: Lizbet Milian Date of Service: 03/22/24 Procedure(s): XR foot LT min 3V Accession Number(s): [id number] cc: Lizbet Milian; Ken Quach M.D. The [place] [id number] Patient Name: RENATE BRADFORD MRN: [id number] date: 1940 Sex: F Assigned Patient Location: Current Patient Location: Accession/Order Number: [id number] Exam Date: 03/22/2024 10:00 Report Date: 03/23/2024 07:57 At the request of: LIZBET MILIAN Procedure: XR foot LT min 3V PROCEDURE: XR foot LT min 3V COMPARISON: 01/26/2024 HISTORY: LEFT FOOT PAIN FINDINGS: BONES:No acute fracture or dislocation. Hallux valgus. Moderatedegenerative changes with joint space narrowing marginal osteophyte formation. Plantar enthesopathic spurring of the calcaneus SOFT TISSUES:Negative. No visible soft tissue swelling. EFFUSION:None visible. OTHER: Negative. XR/XR foot LT min 3V IMPRESSION: Moderate degenerative changes with hallux valgus Electronically authenticated by: JASMEET COOL Date: 03/23/2024 07:57 Dictated By: Jasmeet Cool M.D. Signed By:03/23/24 0800 DD/ 0757 TD/TT: Dispatcher Radio: us Generic External Data Provider [facility] Final Result documented in this encounter Visit Diagnoses Not on filedocumented in this encounter Care Teams Sash Sticker Relationship Specialty Start Date End Date Seema Durham MD [address] [place] [address] PCP - External PCP Family Medicine 02/19/23 Ken Quach MD [address] [place] [phone] PCP - General Family Medicine 10/10/23 documented as of this encounter
--- OUTSIDE RECORDS SUMMARY | 2025-06-13 10:13 | XMS_ITS | Encounter Summary ---
Author Organization [facility] Address [address] [place] [address] Care Team Providers Care Ball Fringe Machine Operator Name Role Phone Seema Durham MD Unavailable [phone] Ken Quach MD Primary Care Provider [phone] Encounter Details Date Type Department Care Team (Late st Contact Info) Description 03/01/2025 External Result Encounter [facility] [address] [place] [address] Ken Quach MD [address] [facility] [place] [address] Social History Tobacco Use Types Packs/Day Years [...] week 02/28/2024 How often do you attend [facility] or jew services? More than 4 times per year 02/28/2024 Do you belong to any clubs o r organizations such as oriental orthodox groups, unions, fraternal or athletic groups, or [...] Recorded Patient Health Questionnaire-2 Score 0 10/08/2024 [facility] - Occupational Stress Questionnaire Answer Date [...] any time in the past 12 m [facility], were you homeless or living in a longterm (including now)? No 02/28/2024 Comments Unknown Sex and Gender Information Value Date Recorded Sex Assigned at Not on file Legal Sex Female 6:36 PM EDT Gender Identity Not on file Sexual Orientation Not on file documented as of this encounter Plan of Treatment Not on file documented as of this encounter Procedures Procedure Name Priority Date/Time Associated Diagnosis Comments XR WRIST 1-2 VIEWS LEFT 03/01/2025 5:17 AM EDT documented in this encounter Results * XR wrist 1 or 2 views left (03/01/2025 5:17 AM EDT) Anatomical Region Laterality Modality Upper Extremities, Wrist Left Radiogr aphic Imaging 03/01/2025 5:17 AM EDT Narrative 03/01/2025 5:16 AM EDT THIS EXAM WAS PERFORMED AT [facility] XR WRIST LT 2 VWS Clinical history:Chronic pain of left wrist Comparison: None. Findings: There is mild first carpometacarpal radiocarpal joint degenerative change. No acute process fracture or dislocation. Osteopenia. Impression: Degenerative changes, mild with osteopenia. No definitive acute process. Finalized by Adelso Fisher MD on 03/01/2025 5:16 AM Procedure Note Radiology, Radiologist, MD - 03/01/2025 THIS EXAM WAS PERFORMED AT [facility] XR WRIST LT 2 VWS Clinical history:Chronic pain of left wrist Comparison: None. Findings: There is mild first carpometacarpal radiocarpal joint degenerative change.No acute process fracture or dislocation. Osteopenia. Impression: Degenerative changes, mild with osteopenia. No definitive acute process. Finalized by Adelso Fisher MD on 03/01/2025 5:16 AM Ken Quach MD IMG XR PROCEDURES Final Result documented in this encounter Visit Diagnoses Not on filedocumented in this encounter Additional Health Concerns Assessment Noted Time PHQ-9 Depression Total Score: 0 10/08/19 25 1:00 PM EST documented as of this encounter Care Teams Ball Fringe Machine Operator Relationship Specialty Start Date End Date Seema Durham MD [address] [place] [address] PCP - External PCP Family Medicine 02/19/23 Ken Quach MD [address] [place] [address] PCP - General Family Medicine 10/10/23 documented as of this encounter
--- OUTSIDE RECORDS SUMMARY | 2025-06-13 10:13 | XMS_ITS | Clinical Summary ---
Author Organization [facility] Address [address] [place] [address] Care Team Providers Care Graphic Production Artist Name Role Phone Seema Durham MD Unavailable [phone] Ken Quach MD Primary Care Provider [phone] Allergies Active Allergy Reactions Criticality Noted Date Comments Lisinopril Cough 10/10/2023 Medications cholecalciferol (Vitamin D-3) 50 MCG (1999) tabletIndications: Vitamin D deficiency Take 1 tablet (50 mcg) by mouth Daily 90 tablet 3 4 Active losartan (Cozaar) 50 MG tabletIndications: Essential hypertension, benign Take 1 tablet (50 mg) by mouth in the morning and 1 tablet (50 mg) before bedtime. 60 tablet 5 5 Active NIFEdipine XL (Procardia XL) 30 MG 24 hr tabletIndications: Essential hypertension, benign Take 1 tablet (30 mg) by mouth Daily Do not crush, chew, or split. 30 tablet 2 5 Active levothyroxine (Synthroid, Levoxyl) 50 MCG tabletIndications: Adult hypothyroidism TAKE 1 TABLET BY MOUTH IN THE MORNING BEFORE MEAL 90 tablet 5 Active carvedilol (Coreg) 25 MG tabletIndications: Essential hypertension, benign Take 1 tablet by mouth twice daily 180 tablet 5 Active atorvastatin (Lipitor) 20 MG tabletIndications: Type 2 diabetes mellitus with hyperglycemia, without long-term current use of insulin (HCC) TAKE 1 TABLET BY MOUTH AT BEDTIME 90 tablet 5 Active Fluticasone-Umecli din-Vilant (Trelegy Ellipta) 100-62.5-25 MCG/ACT aerosol powder Inhale Active meclizine (Antivert) 25 MG tabletIndications: Vertigo TAKE 1 TABLET BY MOUTH 4 TIMES DAILY NEEDED FOR DIZZINESS 60 tablet Active Active Problems Problem Noted Date Diagnosed Date DDD (degenerative disc disease), cervical 2024 Assessment & Plan (04/09/2025 2:37 PM EDT): Pain stable and continue with increased activity. Use OTC PRN. Postmenopausal 04/09/2025 Primary osteoarthritis, left wrist 02/27/2025 Assessment & Plan (04/09/2025 2:37 PM EDT): Pain stable and continue with increased activity. Use OTC PRN. Assessment & Plan (02/27/2025 2:43 PM EDT): Increased pain and bump at base of wrist. Likely OA. Check x-ray. Start prednisone. Use OTC PRN. Calcified granuloma of lung 12/12/2024 Calcified lymph nodes 12/12/2024 Diastolic dysfunction 12/12/2024 emt intermediate (current) use of inhaled steroids 10/2024 Non-allergic rhinitis 12/12/2024 Assessment & Plan (12/13/2024 5:09 PM EDT): Continued symptoms and add nasal steroid. Other secondary pulmonary hypertension Medicare annual wellness visit, subsequent 10/08 Assessment & Plan (10/08/2024 2:06 PM EST): Due for labs. Discussed proper diet and regular aerobic exercise. Need aerobic exercise 5-6 days a week for 30 minutes at a time. Smaller portions and limit total calories. Tetanus every 10 years. Advised not to smoke. Encounter for long-term current use of medicatio n 07/05/2024 Class 1 obesity due to exces s calories with serious comorbidity and body mass index (BMI) of 32.0 to 32.9 in adult 07/05/2024 Assessment & Plan (07/05/2024 3:21 PM EDT): Weight loss indicated Seasonal allergic rhinitis due to pollen 024 Assessment & Plan (11/15/2023 10:07 AM EST): Symptoms recently worse and resume medication. Adult hypothyroidism 10/17/2023 Assessment & Plan (01/07/2025 2:30 PM EDT): No signs of low thyroid and continue medication. Assessment & Plan (07/05/2024 3:21 PM EDT): No signs of low thyroid and continue medication. Assessment & Plan (03/01/2024 1:59 PM EDT): No signs of low thyroid and continue medication. Essential hypertension, benign 10/17/2023 Assessment & Plan (02/27/2025 2:43 PM EDT): BP elevated and add procardia. Continue to monitor PRN. Discussed DASH diet. Assessment & Plan (01/07/2025 2:30 PM EDT): BP slowly improving and continue medication. Continue to monitor PRN. Discussed DASH diet. Assessment & Plan (12/13/2024 5:09 PM EDT): BP elevated and increase losartan to BID. Continue to monitor PRN. Discussed DASH diet. Assessment & Plan (10/08/2024 2:06 PM EST): BP remains elevated and increase losartan. Continue to monitor PRN. Discussed DASH diet. Assessment & Plan (09/18/2024 12:16 PM EST): BP elevated and potential side effects with norvasc and stop. Add losartan and continue coreg. Monitor BP PRN. Discussed DASH diet. Assessment & Plan (07/05/2024 3:22 PM EDT): BP elevated today but previously controlled and monitor PRN. Assessment & Plan (03/01/2024 1:59 PM EDT): BP elevated today but previously controlled and monitor PRN. Assessment & Plan (11/15/2023 10:07 AM EST): BP slightly elevated likely related to pain. Monitor PRN. DDD (degenerative disc disease), lumbar 10/17/19 Assessment & Plan (04/09/2025 2:37 PM EDT): Pain stable and continue with increased activity. Use OTC PRN. Mild persistent asthma, uncomplicated 10/17/2023 Assessment & Plan (04/09/2025 2:41 PM EDT): Symptoms controlled with trelegy. Follow with pulmonology. Assessment & Plan (01/07/2025 2:30 PM EDT): Symptoms controlled with trelegy. Follow with pulmonology. Assessment & Plan (07/05/2024 3:22 PM EDT): Symptoms controlled with trelegy. Follow with pulmonology. Assessment & Plan (03/01/2024 1:59 PM EDT): Symptoms controlled with trelegy. Check PFTs and refer to pulmonology. Assessment & Plan (10/17/2023 11:00 AM EST): Increased SOB and treat with prednisone. Use albuterol PRN. Renal artery stenosis 10/17/2023 Type 2 diabetes mellitus wit h hyperglycemia, without long-term current use of insulin 10/17/2023 Assessment & Plan (04/09/2025 2:41 PM EDT): Reports BS controlled and due for A1C. Stick to ADA diet and limit carbs. Assessment & Plan (01/07/2025 2:30 PM EDT): Not checking BS but last A1C 5.9. Stick to ADA diet and limit carbs. Assessment & Plan (10/08/2024 2:06 PM EST): Not checking BS and due for A1C. Stick to ADA diet and limit carbs. Assessment & Plan (07/05/2024 3:22 PM EDT): Not checking BS and due for A1C. Stick to ADA diet and limit carbs. Assessment & Plan (03/01/2024 1:59 PM EDT): Not checking BS and due for A1C. Stick to ADA diet and limit carbs. Vertigo 10/17/2023 Assessment & Plan (09/18/2024 12:17 PM EST): Continued symptoms and start meclizine daily in am. Use PRN during the day. Refer to ENT. Assessment & Plan (07/05/2024 3:22 PM EDT): Recent symptoms and start meclizine. Refer to vestibular rehab. Vitamin D deficiency 10/17/2023 Resolved Problems Problem Noted Date Diagnosed Date Resolved Date Left foot pain 11/15/2023 03/01/2024 Assessment & Plan (11/15/2023 10:05 AM EST): Pain after increased activity and likely OA. Check x-ray. Start prednisone. Ice and elevated PRN. If no improvement will need PT. Major depressive disorder, r ecurrent episode, mild 10/17/2023 03/01/2024 Syncope and collapse 10/17/2023 024 Candidal skin infection 10/17/2023 03/0 01/2024 Assessment & Plan (10/17/2023 10:59 AM EST): Skin appears to be yeast and treat with oral diflucan and cream Encounters Date Type Department Care Team Description 05/01/2025 Refill [facility] [address] [place] [address] Ken Quach MD Vertigo 04/10/2025 Results Follow-Up [facility] [address] [place] [address] Ken Quach MD Hemoglobin A1c 04/09/2025 2:00 PM EDT Office Visit [facility] [address] [facility] [place] [place] [phone] Ken Quach MD Type 2 diabetes mellitus with hyperglycemia, without long-term current use of insulin (HCC) (Primary Dx); Primary osteoarthritis, left wrist; DDD (degenerative disc disease), cervical; Degeneration of intervertebral disc of lumbar region with discogenic back pain; Mild persistent asthma, uncomplicated (HCC); Postmenopausal 04/09/2025 External Result Encounter [facility] External Department Unsolicited Ken Quach MD 04/09/2025 Bamboo flowsheet [facility] [address] [place] [address] Ken Quach MD 03/29/2025 [facility] [address] [facility] [place] [phone] Ken Quach MD Vertigo from Last 3 Months Family History Medical History Relation Name Comments Diabetes Father Heart failure Father Diabetes Mother Hypertension Mother Stroke Mother Relation Name Status Comments Father Mother Social History Tobacco Use Types Packs/Day Years Used Date Smoking Tobacco: Never Smokeless Tobacco: Never Tobacco Cessation:Counseling Given: Not Answered Alcohol Use Standard Drinks/Week Comments Never 0 [...] week 02/28/2024 How often do you attend [facility] or church services? More than 4 times per year 02/28/2024 Do you belong to any clubs o r organizations such as lutheran groups, unions, fraternal or athletic groups, or [...] Recorded Patient Health Questionnaire-2 Score 0 10/08/2024 [facility] - Occupational Stress Questionnaire Answer Date Recorded [...] any time in the past 12 m [facility], were you homeless or living in a jail (including now)? No 02/28/2024 Comments Unknown Sex and Gender Information Value Date Recorded Sex Assigned at Not on file Legal Sex Female 6:36 PM EDT Gender Identity Not on file Sexual Orientation Not on file Last Filed Vital Signs Vital Sign Reading Time Taken Comments Blood Pressure 140/78 04/09/2025 1:56 PM EDT Pulse 82 04/09/2025 1:56 PM EDT Temperature 36.2 C (97.1 F) 04/09/2025 1:56 PM EDT Respiratory Rate 18 04/09/2025 1:56 PM EDT Oxygen Saturation 96% 04/09/2025 1:56 PM EDT Inhaled Oxygen Concentration - - Weight 79.8 kg (176 lb) 04/09/2025 1:56 PM EDT Height 154.9 cm (5' 1 ) 04/09/2025 1:56 PM EDT Body Mass Index 33.25 04/09/2025 1:56 PM EDT Plan of Treatment Health Maintenance Due Date Last Done Comments Influenza Vaccine (#1) 2025 3, 06/20/2019, 08/01/2017, Additional history exists Pneumococcal Vaccine: 65+ Years Completed 3, 11/01/2016 Procedures Procedure Name Priority Date/Time Associated Diagnosis Comments HEMOGLOBIN A1C Routine 04/09/2025 3:05 PM EDT from Last 3 Months Results * (ABNORMAL) Hemoglobin A1c (04/09/2025 3:05 PM EDT) HEMOGLOBIN A1C 6.1(H) 4.4 - 5.6 % [facility] Comment: ADA Guidelines Result HgbA1c Normal : less than 5.7 % Prediabetes : 5.7 % to 6.4 % Diabetes : > 6.4 % Use with caution in patients with abnormal hemoglobin variants as the half-life of red blood cells and in vivo glycation rates are affected. AVERAGE GLUCOSE 128 mg/dL [facility] Comment: PERFORMED AT [facility] [address],[place] [address] 04/09/2025 3:05 PM EDT 04/09/2025 5:49 PM EDT us Ken Quach MD LAB BLOOD ORDERABLES Final Resul t [facility] from Last 3 Months Insurance [employer] Care Teams Graphic Production Artist Relationship Specialty Start Date End Date Seema Durham MD [address] [place] [address] PCP - External PCP Family Medicine 02/19/23 Ken Quach MD [address] [place] [address] PCP - General Family Medicine 10/10/23
--- OUTSIDE RECORDS SUMMARY | 2025-06-13 10:13 | XMS_ITS | Encounter Summary ---
Author Organization [facility] Address [address] [place] [address] Care Team Providers Care Blister Packaging Machine Operator Name Role Phone Seema Durham MD Unavailable [phone] Ken Quach MD Primary Care Provider [phone] Encounter Details Date Type Department Care Team (Late st Contact Info) Description 04/10/2025 Results [facility] [address] [place] [address] Ken Quach MD [address] [facility] [place] [address] Hemoglobin A1c Social History Tobacco Use Types Packs/Day Years [...] week 02/28/2024 How often do you attend [facility] or adventism services? More than 4 times per year 02/28/2024 Do you belong to any clubs o r organizations such as buddhism groups, unions, fraternal or athletic groups, or [...] Recorded Patient Health Questionnaire-2 Score 0 10/08/2024 [facility]at [facility] - Occupational Stress Questionnaire Answer Date Recorded [...] any time in the past 12 m [facility], were you homeless or living in a retirement (including now)? No 02/28/2024 Comments Unknown Sex [...] documented as of this encounter Care Teams Blister Packaging Machine Operator Relationship Specialty Start Date End Date Seema Durham MD [address] [place] [phone] PCP - External PCP Family Medicine 02/19/23 Ken Quach MD [address] [place] [address] PCP - General Family Medicine 10/10/23 documented as of this encounter
--- OUTSIDE RECORDS SUMMARY | 2025-06-13 10:14 | XMS_ITS | Encounter Summary ---
Author Organization [facility] Address [address] [place] [address] Care Team Providers Care Objective C Developer Name Role Phone Seema Durham MD Unavailable [phone] Ken Quach MD Primary Care Provider Aicha Alvarado LPN Unavailable Unavailable Encounter Details Date Type Department Care Team (Late st Contact Info) Description 11/24/2023 Orders Only [facility] [address] [place] [address] Ken Quach MD [address] [place] [address] Social History Tobacco Use Types Packs/Day Years [...] on filedocumented in this encounter Care Teams Objective C Developer Relationship Specialty Start Date End Date Seema Durham MD [address] [place] [address] PCP - External PCP Family Medicine 02/19/23 Ken Quach MD [address] [place] [address] PCP - General Family Medicine 10/10/23 Aicha Alvarado LPN Licensed Practical Nurse Family Medicine 12/29/23 documented as of this encounter
--- OUTSIDE RECORDS SUMMARY | 2025-06-13 10:14 | XMS_ITS | Encounter Summary ---
Author Organization [facility] Address [address] [place] [address] Care Team Providers Care Unload Associate Name Role Phone Seema Durham MD Unavailable [phone] Dilip Reyes MD Primary Care Provider Aicha Alvarado LPN Unavailable Unavailable Encounter Details Date Type Department Care Team (Late st Contact Info) Description 11/15/2023 Clinisync Result Encounter [facility] External Department Unsolicited Dilip Reyes MD [address] [place] [address] Social History Tobacco Use Types Packs/Day Years [...] Diagnosis Comments XR FOOT LT MIN 3V 11/15/2023 11: 13 AM EST documented in this encounter Results * XR FOOT LT MIN 3V (11/15/2023 11:13 AM EST) Anatomical Region Laterality Modality Other 11/15/2023 11:1 3 AM EST Narrative 11/15/2023 11:15 AM EST The [place] [id number] XRay Report Signed Patient: RENATE BRADFORD MR#: [id number] : 1940 Acct:[id number] Age/Sex: 83 / F ADM Date: 11/15/23 Loc: [facility] Attending Dr: Dilip Reyes M.D. Ordering Physician: Dilip Reyes M.D. Date of Service: 11/15/23 Procedure(s): XR foot LT min 3V Accession Number(s): [id number] cc: Dilip Reyes M.D. The [place] [address] Patient Name: RENATE BRADFORD MRN: [id number] date: 1940 Sex: F Assigned Patient Location: [facility] Current Patient Location: [facility] Accession/Order Number: [id number] Exam Date: 11/15/2023 10:40 Report Date: 11/15/2023 11:13 At the request of: DILIP REYES Procedure: XR foot LT min 3V PROCEDURE: XR foot LT min 3V COMPARISON: None. HISTORY: Left Foot Pain M79.672 FINDINGS: BONES:Lucency and cortical discontinuity identified along the distal diaphysis of the third metatarsal best seen on image #3. No additional fracture or dislocation. Mild enthesopathic spurring plantar calcaneus SOFT TISSUES:Negative. No visible soft tissue swelling. EFFUSION:None visible. OTHER: Vascular calcifications. Call results initiated through operations XR/XR foot LT min 3V IMPRESSION: Acute extra-articular fracture neck of the third metatarsal Electronically authenticated by: JASMEET COOL Date: 11/15/2023 11:13 Dictated By: Jasmeet Cool M.D. Signed By: 11/15/23 1115 DD/ 1113 TD/TT: Ear Nose Throat Physician: Procedure Note Radiology, Radiologist, MD - 11/15/[address] [address] XRay Report Signed Patient: RENATE BRADFORD JMR#: [id number] : 1940Acct:[id number] Age/Sex: 83 / FADM Date: 11/15/23 Loc: RAD Attending Dr: Dilip Reyes M.D. Ordering Physician: Dilip Reyes M.D. Date of Service: 11/15/23 Procedure(s): XR foot LT min 3V Accession Number(s): [id number] cc: Dilip Reyes M.D. [place] [id number] Patient Name: RENATE BRADFORD MRN: [id number] date: 1940 Sex: F Assigned Patient Location: RAD Current Patient Location: RAD Accession/Order Number: [id number] Exam Date: 11/15/2023 10:40 Report Date: 11/15/2023 11:13 At the request of: DILIP REYES Procedure: XR foot LT min 3V PROCEDURE: XR foot LT min 3V COMPARISON: None. HISTORY: Left Foot Pain M79.672 FINDINGS: BONES:Lucency and cortical discontinuity identified along the distaldiaphysis of the third metatarsal best seen on image #3. No additional fracture or dislocation. Mild enthesopathic spurring plantar calcaneus SOFT TISSUES:Negative. No visible soft tissue swelling. EFFUSION:None visible. OTHER: Vascular calcifications. Call results initiated through operations XR/XR foot LT min 3V IMPRESSION: Acute extra-articular fracture neck of the third metatarsal Electronically authenticated by: JASMEET COOL Date: 11/15/2023 11:13 Dictated By: Jasmeet Cool M.D. Signed By:11/15/23 1115 DD/ 1113 TD/TT: Ear Nose Throat Physician: Dilip Reyes MD [facility] Final Result documented in this encounter Visit Diagnoses Not on filedocumented in this encounter Care Teams Unload Associate Relationship Specialty Start Date End Date Seema Durham MD [address] [place] [phone] PCP - External PCP Family Medicine 02/19/23 Dilip Reyes MD [address] [place] [address] PCP - General Family Medicine 10/10/23 Aicha Alvarado LPN Licensed Practical Nurse Family Medicine 12/29/23 documented as of this encounter
--- OUTSIDE RECORDS SUMMARY | 2025-06-13 10:14 | XMS_ITS | Encounter Summary ---
Author Organization [facility] Address [address] [place] [address] Care Team Providers Care Metal Patternmaker Name Role Phone Seema Durham MD Unavailable [phone] Ken Quach MD Primary Care Provider [phone] Aicha Alvarado LPN Unavailable Unavailable Encounter Details Date Type Department Care Team (Late st Contact Info) Description 12/09/2023 Clinisync Result Encounter [facility] External Department Unsolicited [...] Diagnosis Comments XR FOOT LT MIN 3V 12/09/2023 7:0 8 AM EDT documented in this encounter Results * XR FOOT LT MIN 3V (12/09/2023 7:08 AM EDT) Anatomical Region Laterality Modality Other 12/09/2023 7:08 AM EDT Narrative 12/09/2023 7:11 AM EDT The [address] [address] XRay Report Signed Patient: RENATE BRADFORD MR#: [id number] : 1940 Acct:[id number] Age/Sex: 83 / F ADM Date: 12/08/23 Loc: EC Attending Dr: Lizbet Milian Ordering Physician: Lizbet Milian Date of Service: 12/08/23 Procedure(s): XR foot LT min 3V Accession Number(s): [id number] cc: Lizbet Milian; Ken Quach M.D. The [place] [id number] Patient Name: RENATE BRADFORD MRN: [id number] date: 1940 Sex: F Assigned Patient Location: Current Patient Location: Accession/Order Number: [id number] Exam Date: 12/08/2023 13:45 Report Date: 12/09/2023 07:08 At the request of: LIZBET MILIAN Procedure: XR foot LT min 3V PROCEDURE: XR foot LT min 3V HISTORY: LEFT FOOT PAIN COMPARISON: XR foot left 11/15/2023 FINDINGS: BONES:Subacute fracture involving the neck of the third metatarsal with callus formation along the margins. Relatively normal alignment is maintained. Mild degenerative changes of the first metatarsophalangeal joint. Small calcaneal plantar spur and mild flattening of plantar arch. SOFT TISSUES:No visible soft tissue swelling. EFFUSION:None visible. OTHER: Negative. XR/XR foot LT min 3V IMPRESSION: 1. Stable alignment and ongoing changes of early bone healing involving third metatarsal fracture. Electronically authenticated by: OMI GAMBOA Date: 12/09/2023 07:08 Dictated By: Omi Gamboa M.D. Signed By: 12/09/2311 DD/ 0708 TD/TT: Billboard Poster Helper: Procedure Note Radiology, Radiologist, - 12/09/2023 [place] [address] XRay Report Signed Patient: RENATE BRADFORD JMR#: [id number] : 1940Acct:[id number] Age/Sex: 83 / FADM Date: 12/08/23 Loc: EC Attending Dr: Lizbet Milian Ordering Physician: Lizbet Milian Date of Service: 12/08/23 Procedure(s): XR foot LT min 3V Accession Number(s): [id number] cc: Lizbet Milian; Ken Quach M.D. [place] [id number] Patient Name: RENATE BRADFORD MRN: [facility]:[id number] date: 1940 Sex: F Assigned Patient Location: EC Current Patient Location: Accession/Order Number: [id number] Exam Date: 12/08/2023 13:45 Report Date: 12/09/2023 07:08 At the request of: LIZBET MILIAN Procedure: XR foot LT min 3V PROCEDURE: XR foot LT min 3V HISTORY: LEFT FOOT PAIN COMPARISON: XR foot left 11/15/2023 FINDINGS: BONES:Subacute fracture involving the neck of the third metatarsal withcallus formation along the margins. Relatively normal alignment is maintained.Mild degenerative changes of the first metatarsophalangeal joint. Smallcalcaneal plantar spur and mild flattening of plantar arch. SOFT TISSUES:No visible soft tissue swelling. EFFUSION:None visible. OTHER: Negative. XR/XR foot LT min 3V IMPRESSION: 1. Stable alignment and ongoing changes of early bone healing involvingthird metatarsal fracture. Electronically authenticated by: OMI GAMBOA Date: 12/09/2023 07:08 Dictated By: Omi Gamboa M.D. Signed By:12/09/23710 DD/ 7 TD/TT: Billboard Poster Helper: us Generic External Data Provider [facility] Final Result documented in this encounter Visit Diagnoses Not on filedocumented in this encounter Care Teams Metal Patternmaker Relationship Specialty Start Date End Date Seema Durham MD [address] [place] [address] PCP - External PCP Family Medicine 02/19/23 Ken Quach MD [address] [place] [address] PCP - General Family Medicine 10/10/23 Aicha Alvarado LPN Licensed Practical Nurse Family Medicine 12/29/23 documented as of this encounter
== END 2025-06-13 10:07 | disposition home or self-care (01) ==
PROVIDERS: PCP Family Medicine; Visit Provider Family Medicine
DX: M85.88 Other specified disorders of bone density and structure, other site (principal); Z78.0 Asymptomatic menopausal state
CPT/HCPCS: 77080

== ENCOUNTER 2025-06-25 10:29 | Outpatient (OUT) | payer MEDICARE, SELFPAY ==
--- OUTSIDE RECORDS SUMMARY | 2025-06-25 10:33 | XMS_ITS | Clinical Summary ---
Author Organization [employer] Address [id number] [address] [place] [address] Care Team Providers Care Galvanizer Zinc Name Role Phone Ken Quach MD Primary Care Provider Allergies No known active allergies Medications albuterol [...] 2 diabetes mellitus with hyperglycemia ([facility]) from Last 3 Months Results * (ABNORMAL) Hemoglobin A1c (04/09/2025 3:05 PM EDT) HEMOGLOBIN A1C 6.1(H) 4.4 - 5.6 % 04/09/2025 6:47 PM EDT [facility] Comment: ADA Guidelines Result HgbA1c Normal : less than 5.7 % Prediabetes : 5.7 % to 6.4 % Diabetes : > 6.4 % Use with caution in patients with abnormal hemoglobin variants as the half-life of red blood cells and in vivo glycation rates are affected. EST. AVERAGE GLUCOSE 128 mg/dL 04/09/2025 6:47 PM EDT [facility] Blood Venous blood / Unknown Venipuncture / Unknown 04/09/2025 3:05 PM EDT 04/09/2025 3:05 PM EDT us Ken Quach MD LAB BLOOD ORDERABLES Final Resul t [facility] [address] [place] [address], [place] [phone] from Last 3 Months Insurance [facility] MEDICARE Care Teams Galvanizer Zinc Relationship Specialty Start Date End Date Ken Quach MD [address] [place] [address] PCP - General Family Medicine 04/09/25
--- OUTSIDE RECORDS SUMMARY | 2025-06-25 10:33 | XMS_ITS | Encounter Summary ---
Author Organization [facility] Address [address] [place] [address] Care Team Providers Care Corn Crop Supervisor Name Role Phone Seema Durham MD Unavailable [phone] Ken Quach MD Primary Care Provider [phone] Aicha Alvarado LPN Unavailable Unavailable Encounter Details [...] EDT Narrative 12/30/2023 7:20 AM EDT The [address] [address] XRay Report Signed Patient: RENATE BRADFORD MR#: [id number] : 1940 Acct:[id number] Age/Sex: 83 / F ADM Date: 12/29/23 Loc: EC Attending Dr: Lizbet Milian Ordering Physician: Lizbet Milian Date of Service: 12/29/23 Procedure(s): XR foot LT min 3V Accession Number(s): [id number] cc: Lizbet Milian; Ken Quach M.D. The [address] [id number] Patient Name: RENATE BRADFORD MRN: [id number] date: 1940 Sex: F Assigned Patient Location: EC Current Patient Location: Accession/Order Number: [id number] Exam Date: 12/29/2023 09:58 Report Date: 12/30/2023 [...] M.D. Signed By: 12/30/23719 DD/ 7 TD/TT: Poured Wall Foreman: Procedure Note Radiology, Radiologist, MD - 12/30/2023 [place] [address] XRay Report Signed Patient: RENATE BRADFORD JMR#: [id number] : 1940Acct:[id number] Age/Sex: 83 / FADM Date: 12/29/23 Loc: EC Attending Dr: Lizbet Milian Ordering Physician: Lizbet Milian Date of Service: 12/29/23 Procedure(s): XR foot LT min 3V Accession Number(s): [id number] cc: Lizbet Milian; Ken Quach M.D. The [place] [id number] Patient Name: RENATE BRADFORD MRN: [id number] date: 1940 Sex: F Assigned Patient Location: Current Patient Location: Accession/Order Number: [id number] Exam Date: 12/29/2023 09:58 Report Date: 12/30/2023 [...] Gamboa M.D. Signed By:12/30/23719 DD/ 7 TD/TT: Poured Wall Foreman: Generic External Data Provider [facility] Final Result documented in this encounter Visit Diagnoses Not on filedocumented in this encounter Care Teams Corn Crop Supervisor Relationship Specialty Start Date End Date Seema Durham MD [address] [place] [address] PCP - External PCP Family Medicine 02/19/23 Ken Quach MD [address] [place] [address] PCP - General Family Medicine 10/10/23 Aicha Alvarado LPN Licensed Practical Nurse Family Medicine 12/29/23 documented as of this encounter
--- OUTSIDE RECORDS SUMMARY | 2025-06-25 10:33 | XMS_ITS | Clinical Summary ---
Author Organization [facility] Address [address] [place] [address] Care Team Providers Care Cutter And Paster Press Clippings Name Role Phone Ken Quach MD Primary Care Provider Allergies Active Allergy Reactions Criticality Noted Date Comments Atorvastatin 05/04/2022 Lisinopril 05/04/2022 Medications amLODIPine (Norvasc) 5 mg tablet Take by mouth 1 (one) time each day. Active aspirin 81 mg EC tablet Take 81 mg by mouth in the morning. Active carvedilol (Coreg) 25 mg tablet Take by mouth in the morning. Active FLUoxetine (PROzac) 10 mg capsule Take 10 mg by mouth in the morning. Active hydroCHLOROthiazid e (HYDRODiuril) 25 mg tablet Take 25 mg by mouth in the morning. Active levothyroxine (Synthroid, Levoxyl) 50 mcg tablet Take 50 mcg by mouth before breakfast. Active montelukast (Singulair) 10 mg tablet Take 10 mg by mouth at bedtime. Active cholecalciferol, vitamin D3, (VITAMIN D3 ORAL) Take 125 mg by mouth. Active albuterol 90 mcg/actuation inhaler Inhale 1-2 puffs every 6 (six) hours if needed. 3 Active albuterol 2.5 mg /3 mL (0.083 %) nebulizer solution 3 Active aspirin 81 mg chewable tabletIndications: Coronary artery disease, unspecified vessel or lesion type, unspecified whether angina present, unspecified whether [place] or transplanted heart CHEW ONE TABLET BY MOUTH DAILY 90 tablet 3 3 Active atorvastatin (Lipitor) 20 mg tabletIndications: Hyperlipidemia, unspecified hyperlipidemia type Take 1 tablet (20 mg) by mouth at bedtime. 90 tablet 3 3 Active cetirizine (ZyrTEC) 10 mg tablet Take 1 tablet by mouth in the morning. Active clotrimazole-betam ethasone (Lotrisone) cream Apply topically twice a day. 4 Active fluticasone (Flonase) 50 mcg/actuation nasal spray 2 sprays in the morning. Active Active Problems Problem Noted Date Diagnosed Date Left foot pain 11/15/2023 Overview (05/02/2024): Last Assessment & Plan: Pain after increased activity and likely OA. Check x-ray. Start prednisone. Ice and elevated PRN. If no improvement will need PT. Candidal skin infection 10/17/2023 11/08/19 24 Overview (11/08/2023): Last Assessment & Plan: Skin appears to be yeast and treat with oral diflucan and cream Major depressive disorder, recurrent episode, mi ld 10/17/2023 11/08/2023 Renal artery stenosis 10/17/2023 11/08/2023 Vitamin D deficiency 10/17/2023 11/08/2023 Pleuritic chest pain 08/18/2022 Overview (08/18/2022): Labs Reviewed CBC WITH AUTO DIFFERENTIAL - Abnormal; Notable for the following components: Result Value Hematocrit 34.7 (*) All other components within normal limits COMPREHENSIVE METABOLIC PANEL - Abnormal; Notable for the following components: Sodium 133 (*) Chloride 94 (*) Glucose 122 (*) All other components within normal limits D-DIMER - Abnormal; Notable for the following components: D-dimer 288 (*) All other components within normal limits POCT NURSING URINE MACROSCOPIC UA - Abnormal; Notable for the following components: Hemoglobin JOAO Trace (*) All other components within normal limits SARS/FLU A+B/RSV BY NAAT/MOLECULAR (M4RT COLLECTION TUBE) MAGNESIUM TROPONIN I B-TYPE NATRIURETIC PEPTIDE TROPONIN I ER EXTRA URINE POCT NURSING URINE MACROSCOPIC UA Assessment & Plan (08/18/2022 2:12 PM EST): Recent evaluation in ED for pleuritic chest pain, troponin levels were normal, no acute changes noted on diagnostic testing- EKG, CT chest, CXR F/U with PCP Encounter for loop recorder check 08/18/2022 Assessment & Plan (08/18/2022 3:16 PM EST): Loop recorder site well healed Message sent to Device nurse Servando Gonzalez RN at [facility] to see if there are any transmissions or concerns for this pt. Paroxysmal ventricular tachycardia 07/02/2022 Overview (07/02/2022): Added automatically from request for surgery [id number] Assessment & Plan (08/18/2022 1:47 PM EST): Continue coreg Essential hypertension, benign 05/04/2022 Assessment & Plan (08/18/2022 2:12 PM EST): Hypertension is uncontrolled today in office- but she states at home b/p was getting low and causing lightheadedness/ pre syncope therefore she stopped amlodipine. States at home b/p is 110-120/60-70 Renal function normal at recent ED evaluation Vertigo 05/04/2022 Assessment & Plan (08/18/2022 3:16 PM EST): No syncope since last visit Mild persistent asthma 05/04/2022 Obesity 05/04/2022 Syncope and collapse 05/04/2022 Degeneration of intervertebral disc 04/07/2022 Hypothyroidism 04/07/2022 Major depressive disorder 04/07/2022 Type 2 diabetes mellitus 04/07/2022 Hypertensive disorder 04/07/2022 Lightheadedness 04/07/2022 Chronic seasonal allergic rhinitis 12/08/2017 11/08/2023 Pulmonary granuloma 12/08/2017 11/08/2023 Pulmonary infiltrate in right lung on CXR 201711/08/2023 Encounters Date Type Department Care Team Description 04/30/2025 1:30 PM EDT Ancillary Procedure [facility] [address] [place] [address] Awareness of heartbeats 04/30/2025 Orders Only [facility] [address] [place] [address] Frank Martines MD from Last 3 Months Immunizations Immunization Administration Dates Next Due Influenza Whole 06/21/2012 Influenza, injectable, quadrivalent, preservativ e free 06/20/2019,07/14/2015 Influenza, seasonal, injectable 08/01/2017 Pneumococcal Conjugate PCV 13 11/01/2016 Tdap 12/31/2021 Family History Medical History Relation Name Comments Stroke Mother Relation Name Status Comments Mother Social History Tobacco Use Types Packs/Day Years Used Date Smoking Tobacco: Former Cigarettes Smokeless Tobacco: Never Alcohol Use Standard Drinks/Week Comments Not Currently 0 (1 standard drink = 0.6 oz pur e alcohol) [place] Safety & Environment Answer Date Rec orded Fear of Current or Ex-Partner Not on file Emotionally Abused Not on file 11/03/2023 Physically Abused Not on file 11/03/2023 Sexually Abused Not on file 11/03/2023 Physically or Sexually Abused Not on file Comments No Sex and Gender Information Value Date Recorded Sex Assigned at Choose not to disclose 9:48 PM EDT Legal Sex Female 10:31 PM EDT Gender Identity Choose not to disclose 9:48 PM EDT Sexual Orientation Choose not to disclose 2024 9:48 PM EDT Last Filed Vital Signs Vital Sign Reading Time Taken Comments Blood Pressure 169/89 11/09/2022 11:08 AM EST Pulse 87 11/09/2022 11:08 AM EST Temperature - - Respiratory Rate 16 07/19/2022 2:38 PM EST Oxygen Saturation 97% 07/19/2022 2:38 PM EST Inhaled Oxygen Concentration - - Weight 77.3 kg (170 lb 6.4 oz) 11/09/2022 11:08 AM EST Height 154.9 cm (5' 1 ) 11/09/2022 11:08 AM EST Body Mass Index 32.2 11/09/2022 11:08 AM EST Plan of Treatment Health Maintenance Due Date Last Done Comments Medicare Annual Wellness (AWV) 1940 Diabetes: Retinopathy Screening 1949 Depression Screening 1951 Zoster Vaccines (1 of 2) 1989 Fall Risk Screening 2004 Pneumococcal Vaccine: 50+ Years (2 of 2 - PPSV23, PCV20, or PCV21) 12/27/2016 11/01/2016 COVID-19 Vaccine ( season) 2025 Influenza Vaccine (#1) 2025 9, 08/01/2017, 07/14/2015, Additional history exists Diabetes: Hemoglobin A1C 07/10/2025 04/09/2025, 09/13 Diabetes: Urine Protein Screening 10/10/2025 10/10/2024 Adult Tetanus 01/01/2032 12/31/2021 HIB Vaccines Aged Out No longer eligi ble based on patient's age to complete this topic HPV Vaccines Aged Out No longer eligi ble based on patient's age to complete this topic IPV Vaccines Aged Out No longer eligi ble based on patient's age to complete this topic Meningococcal B Vaccine Aged Out No l onger eligible based on patient's age to complete this topic Meningococcal Vaccine Aged Out No jaquan ethan eligible based on patient's age to complete this topic Rotavirus Vaccines Aged Out No longer eligible based on patient's age to complete this topic Medical Devices Implanted Type Area Manager Recovery Device Identifier Shelf Expiration Date Model / Serial / Lot Monitor,Cardi ac,Mobile,Lux dx - [id number] - [id number] Implanted:Qty : 1 on 07/19/2022 by Deepak Baker MD at [facility] Implantable Loop Recorder [employer] [id number] 12/18/2023 [id number] / [id number] / Procedures Procedure Name Priority Date/Time Associated Diagnosis Comments CARDIAC DEVICE CHECK CHECK - REMOTE Routine 05/02/2025 3:08 PM EDT Awareness of heartbeats CARDIAC DEVICE CHECK - REMOTE - LOOP RECORDER (ILR) Routine 04/30/2025 12:00 AM EDT CARDIAC DEVICE CHECK CHECK - REMOTE Routine 03/27/2025 4:50 PM EDT Awareness of heartbeats from Last 3 Months Results * CARDIAC DEVICE CHECK - REMOTE - LOOP RECORDER (ILR) (05/02/2025 3:08 PM EDT) Only the most recent of2 resultswithin the time period is included. us Derick Hussein MD CV IMPLANTABLE CARDIAC DEVICE ME OCEDURES Final Result CPACS * Cardiac device check - Remote loop recorder (ILR) (04/30/2025 12:00 AM EDT) Anatomical Region Laterality Modality Other 04/30/2025 us Frank Martines MD CV IMPLANTABLE CARDIAC DEVICE PROCEDURES Final Result from Last 3 Months Insurance [employer] MEDICARE Care Teams Cutter And Paster Press Clippings Relationship Specialty Start Date End Date Ken Quach MD [address] [place] [address] PCP - General 05/04/22
--- OUTSIDE RECORDS SUMMARY | 2025-06-25 10:33 | XMS_ITS | Encounter Summary ---
Author Organization [facility] Address [address] [place] [address] Care Team Providers Care Plastic Surgery Manager Name Role Phone Ken Quach MD Primary Care Provider [phone] Encounter Details Date Type Department Care Team (Late st Contact Info) Description 02/27/2025 Orders Only [facility] [address] [place] [address] Frank Martines MD [address] [place] [address] Social History Tobacco Use Types Packs/Day Years [...] not to disclose 2024 9:48 PM EDT documented as of this encounter Plan of Treatment Not on file documented as of this encounter Procedures Procedure Name Priority Date/Time Associated Diagnosis Comments CARDIAC DEVICE CHECK - REMOTE - LOOP RECORDER (ILR) Routine 02/27/2025 12:00 AM EDT documented in this encounter Results * Cardiac device check - Remote loop recorder (ILR) (02/27/2025 12:00 AM EDT) Anatomical Region Laterality Modality Other 02/27/2025 Frank Martines MD CV IMPLANTABLE CARDIAC DEVICE PROCEDURES Final Result documented in this encounter Visit Diagnoses Not on filedocumented in this encounter Care Teams Plastic Surgery Manager Relationship Specialty Start Date End Date Ken Quach MD [address] [place] [address] PCP - General 05/04/22 documented as of this encounter
--- OUTSIDE RECORDS SUMMARY | 2025-06-25 10:33 | XMS_ITS | Encounter Summary ---
Author Organization [facility] Address [address] [place] [address] Care Team Providers Care Machine Rigger Name Role Phone Seema Durham MD Unavailable [phone] Ken Quach MD Primary Care Provider [phone] Encounter Details Date Type Department Care Team (Late st Contact Info) Description 03/01/2025 External Result Encounter [facility] [address] [place] [address] Ken Quach MD [address] [facility] [place] [address] Social History Tobacco Use Types Packs/Day Years [...] or pharmacy? Never 02/28/2024 Social Connection and Isolation Panel Answer Date Recorded In a typical week, how many times do you talk on the phone with family, friends, or neighbors? More than three times a week 02/28/2024 How often do you get togethe r with friends or relatives? More than three times a week 02/28/2024 How often do you attend [facility] or tenriism services? More than 4 times per year 02/28/2024 Do you belong to any clubs o r organizations such as mormon groups, unions, fraternal or athletic groups, or [...] Recorded Patient Health Questionnaire-2 Score 0 10/08/2024 [facility] - Occupational Stress [...] any time in the past 12 m [facility], were you homeless or living in a group home (including now)? No 02/28/2024 Comments Unknown Sex [...] AM EDT THIS EXAM WAS PERFORMED AT [facility] XR WRIST LT 2 VWS Clinical history:Chronic pain of left wrist Comparison: None. Findings: There is mild first carpometacarpal radiocarpal joint degenerative change. No acute process fracture or dislocation. Osteopenia. Impression: Degenerative changes, mild with osteopenia. No definitive acute process. Finalized by Adelso Fisher MD on 03/01/2025 5:16 AM Procedure Note Radiology, Radiologist, MD - 03/01/2025 THIS EXAM WAS PERFORMED AT [facility] XR WRIST LT 2 VWS Clinical history:Chronic [...] documented as of this encounter Care Teams Machine Rigger Relationship Specialty Start Date End Date Seema Durham MD [address] [place] [address] PCP - External PCP Family Medicine 02/19/23 Ken Quach MD [address] [place] [address] PCP - General Family Medicine 10/10/23 documented as of this encounter
--- OUTSIDE RECORDS SUMMARY | 2025-06-25 10:33 | XMS_ITS | Encounter Summary ---
Author Organization [facility] Address [address] [place] [address] Care Team Providers Care Attendant Lodging Facilities Name Role Phone Seema Durham MD Unavailable [phone] Ken Quach MD Primary Care Provider [phone] Encounter Details Date Type Department Care Team (Late st Contact Info) Description 04/10/2025 Results Follow-Up [facility] [address] [place] [address] Ken Quach MD [address] [facility] [place] [address] Hemoglobin A1c Social History Tobacco Use Types [...] 02/28/2024 How often do you attend [facility] or judaism services? More than 4 times per year 02/28/2024 Do you belong to any clubs o r organizations such as zoroastrian groups, unions, fraternal or athletic groups, or [...] Recorded Patient Health Questionnaire-2 Score 0 10/08/2024 [facility] Occupat ional Health - Occupational [...] any time in the past 12 m [facility], were you homeless or living in a long-term (including now)? No 02/28/2024 Comments Unknown Sex [...] documented as of this encounter Care Teams Attendant Lodging Facilities Relationship Specialty Start Date End Date Seema Durham MD [address] [place] [address] PCP - External PCP Family Medicine 02/19/23 Ken Quach MD [address] [place] [address] PCP - General Family Medicine 10/10/23 documented as of this encounter
--- OUTSIDE RECORDS SUMMARY | 2025-06-25 10:33 | XMS_ITS | Encounter Summary ---
Author Organization [facility] Address [address] [place] [address] Care Team Providers Care Cleaner Signs Name Role Phone Seema Durham MD Unavailable [phone] Ken Quach MD Primary Care Provider [phone] Aicha Alvarado LPN Unavailable Unavailable Encounter Details [...] EDT Narrative 12/09/2023 7:11 AM EDT The [address] [address] XRay Report Signed Patient: RENATE BRADFORD MR#: [id number] : 1940 Acct:[id number] Age/Sex: 83 / F ADM Date: 12/08/23 Loc: EC Attending Dr: Lizbet Milian Ordering Physician: Lizbet Milian Date of Service: 12/08/23 Procedure(s): XR foot LT min 3V Accession Number(s): [id number] cc: Lizbet Milian; Ken Quach M.D. The [place] [id number] Patient Name: RENATE BRADFORD MRN: TBH:[id number] date: 1940 Sex: F Assigned Patient Location: Current Patient Location: Accession/Order Number: [id number] Exam Date: 12/08/2023 13:45 Report Date: 12/09/2023 [...] M.D. Signed By: 12/09/2311 DD/ 0708 TD/TT: Chief Merchandising Officer: Procedure Note Radiology, Radiologist, - 12/09/2023 [place] [address] XRay Report Signed Patient: RENATE BRADFORD JMR#: [id number] : 1940Acct:[id number] Age/Sex: 83 / FADM Date: 12/08/23 Loc: EC Attending Dr: Lizbet Milian Ordering Physician: Lizbet Milian Date of Service: 12/08/23 Procedure(s): XR foot LT min 3V Accession Number(s): [id number] cc: Lizbet Milian; Ken Quach M.D. [place] [id number] Patient Name: RENATE BRADFORD MRN: [facility]:[id number] date: 1940 Sex: F Assigned Patient Location: EC Current Patient Location: Accession/Order Number: [id number] Exam Date: 12/08/2023 13:45 Report Date: 12/09/2023 [...] [place] M.D. Signed By:12/09/23710 DD/ 7 TD/TT: Chief Merchandising Officer: us Generic External Data Provider [facility] Final Result documented in this encounter Visit Diagnoses Not on filedocumented in this encounter Care Teams Cleaner Signs Relationship Specialty Start Date End Date Seema Durham MD [address] [place] [address] PCP - External PCP Family Medicine 02/19/23 Ken Quach MD [address] [place] [address] PCP - General Family Medicine 10/10/23 Aicha Alvarado LPN Licensed Practical Nurse Family Medicine 12/29/23 documented as of this encounter
--- OUTSIDE RECORDS SUMMARY | 2025-06-25 10:33 | XMS_ITS | Encounter Summary ---
Author Organization [facility] Address [address] [place] [address] Care Team Providers Care Food Dehydrator Operator Name Role Phone Seema Durham MD Unavailable [phone] Ken Quach MD Primary Care Provider [phone] Encounter Details Date Type Department Care Team (Late st Contact Info) Description 01/27/2024 Clinisync Result Encounter [facility] External Department Unsolicited [...] Diagnosis Comments XR FOOT LT MIN 3V 01/27/2024 6:3 5 AM EDT documented in this encounter Results * XR FOOT LT MIN 3V (01/27/2024 6:35 AM EDT) Anatomical Region Laterality Modality Other 01/27/2024 6:35 AM EDT Narrative 01/27/2024 6:38 AM EDT The [address] [address] XRay Report Signed Patient: RENATE BRADFORD MR#: [id number] : 1940 Acct:[id number] Age/Sex: 83 / F ADM Date: 01/26/24 Loc: EC Attending Dr: Lizbet Milian Ordering Physician: Lizbet Milian Date of Service: 01/26/24 Procedure(s): XR foot LT min 3V Accession Number(s): [id number] cc: Lizbet Milian; Ken Quach M.D. The [address] [address] Patient Name: RENATE BRADFORD MRN: TBH:[id number] date: 1940 Sex: F Assigned Patient Location: Current Patient Location: Accession/Order Number: [id number] Exam Date: 01/26/2024 09:59 Report Date: 01/27/2024 06:35 At the request of: LIZBET MILIAN Procedure: XR foot LT min 3V PROCEDURE: XR foot LT min 3V HISTORY: LEFT FOOT PAIN ; follow-up third metatarsal stress fracture COMPARISON: XR foot left 12/29/2023 FINDINGS: BONES:Increasing callus formation along margin of distal third metatarsal and increasing density of the fracture line. Normal alignment is maintained. Grossly stable multifocal mild degenerative joint disease. SOFT TISSUES:No visible soft tissue swelling. EFFUSION:None visible. OTHER: Negative. XR/XR foot LT min 3V IMPRESSION: 1. Stable alignment and ongoing bone healing of third metatarsal fracture. Electronically authenticated by: OMI GAMBOA Date: 01/27/2024 06:35 Dictated By: Omi Gamboa M.D. Signed By: 01/27/24 0638 DD/ 0635 TD/TT: Television Maintenance Worker: Procedure Note Radiology, Radiologist, MD - 01/27/2024 [place] [address] XRay Report Signed Patient: RENATE BRADFORD JMR#: [id number] : 1940Acct:[id number] Age/Sex: 83 / FADM Date: 01/26/24 Loc: EC Attending Dr: Lizbet Milian Ordering Physician: Lizbet Milian Date of Service: 01/26/24 Procedure(s): XR foot LT min 3V Accession Number(s): [id number] cc: Lizbet Milian; Ken Quach M.D. The [place] [id number] Patient Name: RENATE BRADFORD MRN: TBH:[id number] date: 1940 Sex: F Assigned Patient Location: Current Patient Location: Accession/Order Number: [id number] Exam Date: 01/26/2024 09:59 Report Date: 01/27/2024 06:35 At the request of: LIZBET MILIAN Procedure: XR foot LT min 3V PROCEDURE: XR foot LT min 3V HISTORY: LEFT FOOT PAIN ; follow-up third metatarsal stress fracture COMPARISON: XR foot left 12/29/2023 FINDINGS: BONES:Increasing callus formation along margin of distal third metatarsaland increasing density of the fracture line. Normal alignment is maintained. Grossly stable multifocal mild degenerative joint disease. SOFT TISSUES:No visible soft tissue swelling. EFFUSION:None visible. OTHER: Negative. XR/XR foot LT min 3V IMPRESSION: 1. Stable alignment and ongoing bone healing of third metatarsal fracture. Electronically authenticated by: OMI GAMBOA Date: 01/27/2024 06:35 Dictated By: Omi Gamboa M.D. Signed By:01/27/2438 DD/ TD/TT: Television Maintenance Worker: Generic External Data Provider [facility] Final Result documented in this encounter Visit Diagnoses Not on filedocumented in this encounter Care Teams Food Dehydrator Operator Relationship Specialty Start Date End Date Seema Durham MD [address] [place] [address] PCP - External PCP Family Medicine 02/19/23 Ken Quach MD [address] [place] [address] PCP - General Family Medicine 10/10/23 documented as of this encounter
--- OUTSIDE RECORDS SUMMARY | 2025-06-25 10:33 | XMS_ITS | Encounter Summary ---
Author Organization [facility] Address [address] [place] [address] Care Team Providers Care Laborer Cook House Name Role Phone Seema Durham MD Unavailable [phone] Ken Quach MD Primary Care Provider [phone] Encounter Details Date Type Department Care Team (Late st Contact Info) Description 03/01/2025 Results Follow-Up [facility] [address] [place] [address] Ken Quach MD [address] [place] [address] XR wrist 1 or 2 views left [...] week 02/28/2024 How often do you attend [facility] or congregation services? More than 4 times per year 02/28/2024 Do you belong to any clubs o r organizations such as mandaeism groups, unions, fraternal or athletic groups, or [...] Recorded Patient Health Questionnaire-2 Score 0 10/08/2024 [facility] of Occupat ional [facility] - Occupational Stress Questionnaire Answer [...] documented as of this encounter Care Teams Laborer Cook House Relationship Specialty Start Date End Date Seema Durham MD [address] [place] [address] PCP - External PCP Family Medicine 02/19/23 Ken Quach MD [address] [place] [address] PCP - General Family Medicine 10/10/23 documented as of this encounter
--- OUTSIDE RECORDS SUMMARY | 2025-06-25 10:33 | XMS_ITS | Encounter Summary ---
Author Organization [facility] Address [address] [place] [address] Care Team Providers Care Top Polisher Name Role Phone Seema Durham MD Unavailable [phone] Ken Quach MD Primary Care Provider [phone] Encounter Details Date Type Department Care Team [...] often do you attend chur ch or buddhism services? More than 4 times per year 02/28/2024 Do you belong to any clubs o r organizations such as mosque groups, unions, fraternal or athletic groups, or [...] Recorded Patient Health Questionnaire-2 Score 0 10/17/2023 [facility] - Occupational Stress Questionnaire Answer Date [...] any time in the past 12 m [facility], were you homeless or living in a fdc (including now)? No 02/28/2024 Comments Unknown Sex [...] EDT Narrative 03/23/2024 8:00 [place] [address] XRay Report Signed Patient: RENATE BRADFORD MR#: [id number] : 1940 Acct:[id number] Age/Sex: 83 / F ADM Date: 03/22/24 Loc: Attending Dr: Lizbet Milian Ordering Physician: Lizbet Milian Date of Service: 03/22/24 Procedure(s): XR foot LT min 3V Accession Number(s): [id number] cc: Lizbet Milian; Ken Quach M.D. The [place] [address] Patient Name: RENATE BRADFORD MRN: TBH:[id number] date: 1940 Sex: F Assigned Patient Location: Current Patient Location: Accession/Order Number: [id number] Exam Date: 03/22/2024 10:00 Report Date: 03/23/2024 [...] Signed By: 03/23/24 0800 DD/ 0757 TD/TT: Transportation Aid: Procedure Note Radiology, Radiologist, MD - 03/23/2024 [place] [address] XRay Report Signed Patient: RENATE BRADFORD JMR#: [id number] : 1940Acct:[id number] Age/Sex: 83 / FADM Date: 03/22/24 Loc: Attending Dr: Lizbet Milian Ordering Physician: Lizbet Milian Date of Service: 03/22/24 Procedure(s): XR foot LT min 3V Accession Number(s): [id number] cc: Lizbet Milian; Ken Quach M.D. The [place] [id number] Patient Name: RENATE BRADFORD MRN: [id number] date: 1940 Sex: F Assigned Patient Location: Current Patient Location: Accession/Order Number: [id number] Exam Date: 03/22/2024 10:00 Report Date: 03/23/2024 [...] M.D. Signed By:03/23/24 0800 DD/ 0757 TD/TT: Transportation Aid: us Generic External Data Provider [facility] Final Result documented in this encounter Visit Diagnoses Not on filedocumented in this encounter Care Teams Top Polisher Relationship Specialty Start Date End Date Seema Durham MD [address] [place] [address] PCP - External PCP Family Medicine 02/19/23 Ken Quach MD [address] [place] [address] PCP - General Family Medicine 10/10/23 documented as of this encounter
--- OUTSIDE RECORDS SUMMARY | 2025-06-25 10:33 | XMS_ITS | Encounter Summary ---
Author Organization [facility] Address [address] [place] [address] Care Team Providers Care Topper Press Operator Automatic Name Role Phone Seema Durham MD Unavailable [phone] Ken Quach MD Primary Care Provider [phone] Encounter Details Date Type Department Care Team [...] often do you attend chur ch or scientologist services? More than 4 times per year 02/28/2024 Do you belong to any clubs o r organizations such as yarsani groups, unions, fraternal or athletic groups, or [...] Recorded Patient Health Questionnaire-2 Score 0 10/17/2023 [facility] - Occupational Stress Questionnaire Answer Date [...] any time in the past 12 m [facility], were you homeless or living in a alf (including now)? No 02/28/2024 Comments Unknown Sex [...] PM EDT Narrative 06/26/2024 2:34 [place] [address] Respiratory Report Signed Patient: RENATE BRADFORD MR#: [id number] : 1940 Acct:[id number] Age/Sex: 83 / F ADM Date: 06/26/24 Loc: CARD Attending Dr: Adolfo Baptiste D.O. Ordering Physician: Adolfo Baptiste D.O. Date of Service: 06/26/24 Procedure(s): RT pulmonary function test Accession Number(s): [id number] cc: [facility] Test Date: 2024-06-26 Pat Name: RENATE BRADFORD Department: Room: - Gender: Female Warehouse Stocker: : 1940 Requested By: Adolfo Baptiste Order Number: [id number] Reading MD: Adolfo Baptiste Interpretive Statements Pulmonary [...] 06/26/24 1434 06/26/24 1434 DD/ 1254 TD/TT: Analytical Engineer: Procedure Note Radiology, Radiologist, MD - 06/26/2024 [place] [address] Respiratory Report Signed Patient: RENATE BRADFORD R#: [id number] : 1940Acct:[id number] Age/Sex: 83 / FADM Date: 06/26/24 Loc: CARD Attending Dr: Adolfo Baptiste D.O. Ordering Physician: Adolfo Baptiste D.O. Date of Service: 06/26/24 Procedure(s): RT pulmonary function test Accession Number(s): [id number] cc: The [facility] Test Date: 2024-06-26 Pat Name: RENATE BRADFORD Department: Room: - Gender: Female Warehouse Stocker: : 1940 Requested By: Adolfo Baptiste Order Number: [id number] Reading MD: Adolfo Baptiste Interpretive Statements Pulmonary [...] By:06/26/24 1434 06/26/24 1434 DD/ 1254 TD/TT: Analytical Engineer: us Generic External Data Provider [facility] Final Result documented in this encounter Visit Diagnoses Not on filedocumented in this encounter Care Teams Topper Press Operator Automatic Relationship Specialty Start Date End Date Seema Durham MD [address] [place] [address] PCP - External PCP Family Medicine 02/19/23 Ken Quach MD [address] [place] [address] PCP - General Family Medicine 10/10/23 documented as of this encounter
--- OUTSIDE RECORDS SUMMARY | 2025-06-25 10:33 | XMS_ITS | Encounter Summary ---
Author Organization [facility] Address [address] [place] [address] Care Team Providers Care Jerker Name Role Phone Ken Quach MD Primary Care Provider [phone] Reason for Visit * Reason Comments Med Refill Encounter Details Date Type Department Care Team (Late st Contact Info) Description 03/31/2023 Refill [facility] at [facility] [address] [place] [address] Krzysztof Salinas MD [address] [facility] [address] [place] [address] Hyperlipidemia, unspecified hyperlipidemia type Social History Tobacco Use Types Packs/Day Years Used Date Smoking Tobacco: Former Cigarettes Smokeless Tobacco: Never Alcohol Use Standard Drinks/Week Comments Not Currently 0 (1 standard drink = 0.6 oz pur e alcohol) Comments No Sex and Gender Information Value Date Recorded Sex Assigned at Choose not to disclose 9:48 PM EDT Legal Sex Female 10:31 PM EDT Gender Identity Choose not to disclose 9:48 PM EDT Sexual Orientation Choose not to disclose 2024 9:48 PM EDT documented as of this encounter Plan of Treatment Not on file documented as of this encounter Visit Diagnoses Diagnosis Hyperlipidemia, unspecified hyperlipidemia type documented in this encounter Care Teams Jerker Relationship Specialty Start Date End Date Ken Quach MD [address] [place] [address] PCP - General 05/04/22 documented as of this encounter
--- OUTSIDE RECORDS SUMMARY | 2025-06-25 10:33 | XMS_ITS | Encounter Summary ---
Author Organization [facility] Address [address] [place] [address] Care Team Providers Care Stonemason Helper Name Role Phone Seema Durham MD Unavailable [phone] Ken Quach MD Primary Care Provider [phone] Aicha Alvarado LPN Unavailable Unavailable Encounter Details Date Type Department Care Team (Late st Contact Info) Description 11/24/2023 Orders Only [facility] [address] [place] [address] Ken Quach MD [address] [place] [address] Social History Tobacco Use Types Packs/Day Years [...] on filedocumented in this encounter Care Teams Stonemason Helper Relationship Specialty Start Date End Date Seema Durham MD [address] [place] [address] PCP - External PCP Family Medicine 02/19/23 Ken Quach MD [address] [place] [address] PCP - General Family Medicine 10/10/23 Aicha Alvarado LPN Licensed Practical Nurse Family Medicine 12/29/23 documented as of this encounter
--- OUTSIDE RECORDS SUMMARY | 2025-06-25 10:33 | XMS_ITS | Encounter Summary ---
Author Organization [facility] Address [address] [place] [address] Care Team Providers Care Immigration Manager Name Role Phone Ken Quach MD Primary Care Provider [phone] Reason for Visit * Reason Comments Med Refill Encounter Details Date Type Department Care Team (Late st Contact Info) Description 04/01/2023 Refill [facility] Heart at [facility] [address] [place] [address] Krzysztof Salinas MD [address] [facility] [address] [place] [address] Coronary artery disease, unspecified vessel or lesion type, unspecified whether angina present, unspecified whether [place] or transplanted heart Social History Tobacco Use Types Packs/Day Years [...] as of this encounter Visit Diagnoses Diagnosis Coronary artery disease, unspecified vessel or lesion type, unspecified whether angina present, unspecified whether [place] or transplanted heart documented in this encounter Care Teams Immigration Manager Relationship Specialty Start Date End Date Ken Quach MD [address] [place] [address] PCP - General 05/04/22 documented as of this encounter
--- OUTSIDE RECORDS SUMMARY | 2025-06-25 10:33 | XMS_ITS | Encounter Summary ---
Author Organization [facility] Address [address] [place] [address] Care Team Providers Care Donkey Engine Firer/Fireman Name Role Phone Seema Durham MD Unavailable [phone] Dilip Reyes MD Primary Care Provider [phone] Aicha Alvarado LPN Unavailable Unavailable Encounter Details Date Type Department Care Team (Late st Contact Info) Description 11/15/2023 Clinisync Result Encounter [facility] External Department Unsolicited Dilip Reyes MD [address] [place] [address] Social History Tobacco Use Types Packs/Day Years [...] EST Narrative 11/15/2023 11:15 AM EST The [place] [id number] XRay Report Signed Patient: RENATE BRADFORD MR#: [id number] : 1940 Acct:[id number] Age/Sex: 83 / F ADM Date: 11/15/23 Loc: [facility] Attending Dr: Dilip Reyes M.D. Ordering Physician: Dilip Reyes M.D. Date of Service: 11/15/23 Procedure(s): XR foot LT min 3V Accession Number(s): [id number] cc: Dilip Reyes M.D. The [place] [address] Patient Name: RENATE BARDFORD MRN: [id number] date: 1940 Sex: F Assigned Patient Location: [facility] Current Patient Location: [facility] Accession/Order Number: [id number] Exam Date: 11/15/2023 10:40 Report Date: 11/15/2023 [...] Signed By: 11/15/23 1115 DD/ 1113 TD/TT: Accounting Methods Analyst: Procedure Note Radiology, Radiologist, MD - 11/15/[address] [address] XRay Report Signed Patient: RENATE BRADFORD JMR#: [id number] : 1940Acct:[id number] Age/Sex: 83 / FADM Date: 11/15/23 Loc: RAD Attending Dr: Dilip Reyes M.D. Ordering Physician: Dilip Reyes M.D. Date of Service: 11/15/23 Procedure(s): XR foot LT min 3V Accession Number(s): [id number] cc: Dilip Reyes M.D. [place] [id number] Patient Name: RENATE BRADFORD MRN: [id number] date: 1940 Sex: F Assigned Patient Location: RAD Current Patient Location: RAD Accession/Order Number: [id number] Exam Date: 11/15/2023 10:40 Report Date: 11/15/2023 [...] M.D. Signed By:11/15/23 1115 DD/ 1113 TD/TT: Accounting Methods Analyst: Dilip Reyes MD [facility] Final Result documented in this encounter Visit Diagnoses Not on filedocumented in this encounter Care Teams Donkey Engine Firer/Fireman Relationship Specialty Start Date End Date Seema Durham MD [address] [place] [address] PCP - External PCP Family Medicine 02/19/23 Dilip Reyes MD [address] [place] [address] PCP - General Family Medicine 10/10/23 Aicha Alvarado LPN Licensed Practical Nurse Family Medicine 12/29/23 documented as of this encounter
--- OUTSIDE RECORDS SUMMARY | 2025-06-25 10:33 | XMS_ITS | Encounter Summary ---
Author Organization [facility] Address [address] [place] [address] Care Team Providers Care Water Taxi Ferry Operator Name Role Phone Ken Quach MD Primary Care Provider [phone] Encounter Details Date Type Department Care Team (Late st Contact Info) Description 12/27/2024 Orders Only [facility] [address] [place] [address] Frank Martines MD [address] [place] [address] Social History Tobacco Use Types [...] - REMOTE - LOOP RECORDER (ILR) Routine 12/27/2024 12:00 AM EDT documented in this encounter Results * Cardiac device check - Remote loop recorder (ILR) (12/27/2024 12:00 AM EDT) Anatomical Region Laterality Modality Other 12/27/2024 Frank Martines MD CV IMPLANTABLE CARDIAC DEVICE PROCEDURES Final Result documented in this encounter Visit Diagnoses Not on filedocumented in this encounter Care Teams Water Taxi Ferry Operator Relationship Specialty Start Date End Date Ken Quach MD [address] [place] [address] PCP - General 05/04/22 documented as of this encounter
--- OUTSIDE RECORDS SUMMARY | 2025-06-25 10:33 | XMS_ITS | Clinical Summary ---
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 10/2024 Non-allergic [...] Care Team Description 05/01/2025 Refill [facility] [address] [place] [address] Ken Quach MD Vertigo 04/10/2025 Results Follow-Up [facility] [address] [place] [address] Ken Quach MD Hemoglobin A1c 04/09/2025 2:00 PM EDT Office Visit [facility] [address] [facility] [place] [place] [phone] Ken Quach MD Type 2 diabetes mellitus with hyperglycemia, without long-term current use of insulin (HCC) (Primary Dx); Primary osteoarthritis, left wrist; DDD (degenerative disc disease), cervical; Degeneration of intervertebral disc of lumbar region with discogenic back pain; Mild persistent asthma, uncomplicated (HCC); Postmenopausal 04/09/2025 External Result Encounter [facility] External Department Unsolicited Ken Quach MD 04/09/2025 Bamboo flowsheet [facility] [address] [place] [phone] Ken Quach MD 03/29/2025 [facility] [address] [facility] [place] [phone] Ken Quach MD Vertigo from Last 3 [...] week 02/28/2024 How often do you attend [facility] or church services? More than 4 times per year 02/28/2024 Do you belong to any clubs o r organizations such as sikhism groups, unions, fraternal or athletic groups, or [...] Recorded Patient Health Questionnaire-2 Score 0 10/08/2024 [facility] - Occupational Stress Questionnaire Answer [...] any time in the past [address] [facility], were you homeless or living in a correction (including now)? No 02/28/2024 Comments Unknown Sex [...] GLUCOSE 128 mg/dL [facility] Comment: PERFORMED AT [facility] [address],[place] [address] 04/09/2025 3:05 PM EDT 04/09/2025 5:49 PM EDT us Ken Quach MD LAB BLOOD ORDERABLES Final Resul t [facility] from Last 3 Months Insurance [employer] Care Teams Dealmaker Relationship Specialty Start Date End Date Seema Durham MD [address] [place] [address] PCP - External PCP Family Medicine 02/19/23 Ken Quach MD [address] [place] [address] PCP - General Family Medicine 10/10/23
--- OUTSIDE RECORDS SUMMARY | 2025-06-25 10:34 | XMS_ITS | CCD ---
Author Organization [facility] Care Team Providers Care Equestrian Trainer Name Role Phone Chandler Quezada Unavailable JORGE A MOHAMAD Admitting Unavailable YVONNE JULESD Attending Unavailable NADEREYaritza, DR KEN Hughes Primary Care Unavailable HIALEAH, DR JASMEET Mcelroy Consulting Unavailable ALGHOTHANI, MOHAMAD Consulting Unavailable FAWWAD, VASQUEZ H Admitting Unavailable FAWWAD, VASQUEZ H Attending Unavailable NADERER, DR KEN Hughes Primary Care Unavailable FAWWAD, VASQUEZ H Consulting Unavailable FAWWAD, VASQUEZ H Admitting Unavailable FAWWAD, VASQUEZ H Attending Unavailable NADERER, DR KEN Hughes Primary Care Unavailable VISH, DR KYAW Vigil Consulting Unavailable FAWWAD, VASQUEZ H Consulting Unavailable FAWWAD, VASQUEZ H Admitting Unavailable FAWWAD, VASQUEZ H Attending Unavailable NADERER, DR KEN Hughes Primary Care Unavailable SILVINA, DR JASMEET Mcelroy Consulting Unavailable FAWWAD, VASQUEZ H Consulting Unavailable NADEREYaritza, DR KEN Hughes Admitting Unavailable NADERER, DR KEN Hughes Attending Unavailable NADERER, DR KEN Hughes Primary Care Unavailable NADERER, DR KEN Hughes Consulting Unavailable NADEREYaritza, DR KEN Hughes Admitting Unavailable NADERER, DR KEN Hughes Attending Unavailable NADEREYaritza, DR KEN Hughes Primary Care Unavailable NADERER, DR KEN Hughes Consulting Unavailable Herminio NGUYEN, Seema Hughes Unavailable [phone] Ken Roman MD Primary Care Provider KEN REYES Primary Care Unavailable JASMEET MILLS Attending Unavailable NADEZEKIEL, KEN Attending Unavailable VANDANA WANG Attending Unavailable NADEREKEN Vigil Referring Unavailable SAVITA ARELLANO Attending Unavailable NADERER, KEN Referring Unavailable TIMMIS, SAVITA Lazaro Attending Unavailable NADERER, KEN Attending Unavailable NADERER, KEN Attending Unavailable NADERER, KEN Attending Unavailable NADERER, KEN Attending Unavailable NADERER, KEN Attending Unavailable NADERER, KEN Attending Unavailable NADERER, KEN Referring Unavailable NADERER, KEN Primary Care Unavailable NADERER, KEN Referring Unavailable NADERER, KEN Primary Care Unavailable NADERER, KEN Referring Unavailable NADERER, KEN Primary Care Unavailable NADERER, KEN Referring Unavailable NADERER, KEN Primary Care Unavailable NADERER, KEN Referring Unavailable NADERER, KEN Primary Care Unavailable NADERER, KEN Referring Unavailable NADERER, KEN Primary Care Unavailable BRITTANIE, ALEXSANDRA Referring Unavailable BARBARA, JODI Referring Unavailable BARBARA, JODI Referring Unavailable BARBARA, JODI Referring Unavailable BARBARA, JODI Referring Unavailable BARBARA, JODI Referring Unavailable BARBARA, JODI Referring Unavailable BARBARA, JODI Referring Unavailable BARBARA, JODI Referring Unavailable BRITTANIE, ALEXSANDRA Referring Unavailable BRITTANIE, ALEXSANDRA Referring Unavailable BARBARA, JODI Referring Unavailable Allergies Allergy Classification Reported Allergen(s) Allergy Type Date of Onset Reaction(s) Facility (2 sources) atorvastatin; Translations: [ATORVASTATIN] Drug Allergy 2 Unknown [facility] Repository (2 sources) Lisinopril; Translations: [LISINOPRIL] Drug Allergy 2 Unknown [facility] Repository (17 sources) atorvastatin Drug Allergy 4 Diarrhea [facility] (20 sources) Lisinopril Propensity to adverse reactions 4 Cough [facility] Medications Current Medications Medication Drug Class(es) Dates Sig (Normalized) Sig (Original) [id number] 200 actuat albuterol 0.09 mg/actuat metered dose [...] or wheezing 0 10/17/2023 Discontinued (Reorder) amLODIPine 5 mg oral tablet (4 sources) Dihydropyridine Calcium Channel Joao Start: 09-01-2024 End: 09-18-2024 take 1 tablet by mouth once daily amLODIPine (Norvasc) 5 MG tablet Take 5 mg by mouth Daily 09/01/2024 09/18/2024 Discontinued take 1 tablet by erika th every twenty-four hours amLODIPine Besylate 10 MG 1 tablet Orall y Once a day Active atorvastatin 20 mg oral tablet (20 sources) HMG-CoA Reductase Inhibitor Start: 03-08-2025 take 1 tablet by mouth at bedtime atorvastatin (Lipitor) 20 MG tablet Indications: Type 2 diabetes mellitus with hyperglycemia, without long-term current use of insulin ([facility]) TAKE 1 TABLET BY MOUTH AT BEDTIME 90 tablet 03/08/2025 Active Start: 03-01-2024 take 1 tablet by erika th at bedtime atorvastatin (Lipitor) 20 MG tablet Indications: Type 2 diabetes mellitus with hyperglycemia, without long-term current use of insulin ([facility]) Take 1 tablet (20 mg) by mouth at bedtime 90 tablet 3 03/01/2024 Active Start: 05-04-2023 take 1 tablet by erika th at bedtime atorvastatin (Lipitor) 20 MG tablet Take 20 mg by mouth at bedtime 0 05/04/2023 Active betamethasone 0.5 mg/ml / clotrimazole 10 mg/ml topical cream (2 sources) Azole Antifungal, Corticosteroid Start: 10-17-2023 clotrimazole-betamethasone (Lotrisone) cream Indications: Candidal skin infection Apply topically 2 (two) times a day 60 g 0 10/17/2023 Active Start: 10-17-2023 clotrimazole-b etamethasone (Lotrisone) cream Indications: Candidal skin infection Apply topically 2 (two) times a day 60 g 0 10/17/2023 Active carvedilol 25 mg oral tablet (20 sources) alpha-Adrenergic Joao, beta-Adrenergic Joao Start: 03-08-2025 take 1 tablet by mouth twice daily carvedilol (Coreg) 25 MG tablet Indications: Essential hypertension, benign Take 1 tablet by mouth twice daily 180 tablet 03/08/2025 Active Start: 03-01-2024 take 1 tablet by erika th in the morning carvedilol (Coreg) 25 MG tablet Indications: Essential hypertension, benign Take 1 tablet (25 mg) by mouth in the morning and 1 tablet (25 mg) in the evening. Take with meals. 180 tablet 3 03/01/2024 Active take 1 tablet by erika th in the morning carvedilol (Coreg) 25 MG [...] 0 Active cholecalciferol 0.05 mg oral tablet (20 sources) Vitamin D Start: 024 take 1 tablet by mouth once daily cholecalciferol (Vitamin D-3) 50 MCG (1999 UT) tablet Indications: Vitamin D deficiency Take 1 tablet (50 mcg) by mouth Daily 90 tablet 3 03/01/2024 Active take 1 tablet by mouth in the mo rning cholecalciferol (Vitamin D-3) 50 MCG (2000 UT) tablet Take 1 tablet by mouth in the morning. 0 Active fluconazole 200 mg oral tablet (2 sources) Azole Antifungal Start: 10-17-2023 End: 10-31-2023 take 1 tablet by mouth in the [...] clean tip and replace cap.. 0 Active 30 actuat fluticasone furoate 0.1 mg/actuat / umeclidinium 0.0625 mg/actuat / vilanterol 0.025 mg/actuat dry powder inhaler (3 sources) Anticholinergic, Corticosteroid, beta2-Adrenergic Agonist Fluticasone-Umeclidi n- Vilant (Trelegy Ellipta) 100-62.5-25 MCG/ACT aerosol powder Inhale Active hydroCHLOROthiazide 25 mg oral tablet (1 source) Thiazide Diuretic take 1 tablet by mouth every twenty-four hours hydroCHLOROthiazide 25 MG 1 tablet in the morning Orally Once a day Active levothyroxine sodium 0.05 mg oral tablet (20 sources) l-Thyroxine Start: 03-08-2025 take 1 tablet by mouth before mealtime levothyroxine (Synthroid, Levoxyl) 50 MCG tablet Indications: Adult hypothyroidism TAKE 1 TABLET BY MOUTH IN THE MORNING BEFORE MEAL 90 tablet 03/08/2025 Active Start: 03-01-2024 take 1 tablet by erika th before mealtime levothyroxine (Synthroid) 50 MCG tablet Indications: Adult hypothyroidism Take 1 tablet (50 mcg) by mouth in the morning. Take before meals. 90 tablet 3 03/01/2024 Active take 1 tablet by erika th before mealtime levothyroxine (Synthroid, Levoxyl) 50 MCG tablet Take 1 tablet by mouth in the morning. Take before meals. 0 Active take 1 tablet by erika th once daily in the morning Levothyroxine Sodium 50 MCG 1 tablet in the morning on an empty stomach Orally Once a day Active losartan potassium 50 mg oral tablet (20 sources) Angiotensin 2 Receptor Joao Start: 10-08-2024 End: 12-13-2024 take 1 tablet by mouth in the morning losartan (Cozaar) 50 MG tablet Indications: Essential hypertension, benign Take 1 tablet (50 mg) by mouth in the morning and 1 tablet (50 mg) before bedtime. 60 tablet 5 12/13/2024 Active Start: 09-18-2024 End: 10-08-2024 take 1 tablet by mouth once daily losartan (Cozaar) 25 MG tablet Indications: Essential hypertension, benign (CMS/HCC) Take 1 tablet (25 mg) by mouth Daily 30 tablet 5 09/18/2024 10/08/2024 Discontinued (Reorder) meclizine hydrochloride 25 mg oral tablet (20 sources) Antiemetic Start: 04-01-2025 take 1 tablet by mouth four times daily as needed for dizziness meclizine (Antivert) 25 MG tablet Indications: Vertigo TAKE 1 TABLET BY MOUTH 4 TIMES DAILY NEEDED FOR DIZZINESS 60 tablet 04/01/2025 Active Start: 02-11-2025 take 1 tablet by erika th four times daily as needed for dizziness meclizine (Antivert) 25 MG tablet Indications: Vertigo TAKE 1 TABLET BY MOUTH 4 TIMES DAILY NEEDED FOR DIZZINESS 60 tablet 02/11/2025 Active Start: 07-05-2024 End: 09-18-2024 take 1 tablet by mouth four times daily as needed for dizziness meclizine (Antivert) 25 MG tablet Indications: Vertigo Take 1 tablet (25 mg) by mouth 4 (four) times a day as needed for dizziness 60 tablet 2 09/18/2024 Active montelukast 10 mg oral tablet (4 sources) Leukotriene Receptor Antagonist take 1 tablet by mouth at bedtime montelukast (Singulair) 10 MG tablet Take 1 tablet by mouth at bedtime 0 Active NIFEdipine 30 mg osmotic 24 hr extended release oral tablet (6 sources) Dihydropyridine Calcium Channel Joao Start: 02-28-20 take 1 tablet by mouth once daily NIFEdipine XL (Procardia XL) 30 MG 24 hr tablet Indications: Essential hypertension, benign Take 1 tablet (30 mg) by mouth Daily Do not crush, chew, or split. 30 tablet 2 02/27/2025 Active predniSONE 50 mg oral tablet (4 sources) Start: 02-28-20 End: 03-05-20 take 1 tablet by mouth once daily predniSONE (Deltasone) 50 MG tablet Indications: Chronic pain of left wrist Take 1 tablet (50 mg) by mouth Daily for 6 days 6 tablet 02/27/2025 03/05/2025 Active Start: 10-17-2023 End: 10-23-2023 take 1 tablet by mouth in the morning predniSONE (Deltasone) 50 MG tablet Indications: Mild persistent asthma, uncomplicated (CMS/HCC) Take 1 tablet (50 mg) by mouth in the morning for 6 days. 6 tablet 0 10/17/2023 10/23/2023 Active Trelegy Ellipta 200-62.5-25 MCG/ACT aerosol powder (7 sources) Start: 02-02-2024 End: 09-18-2024 take 1 puff(s) by inhalation once daily Trelegy Ellipta 200-62.5-25 MCG/ACT aerosol powder INHALE 1 PUFF ONCE DAILY 02/02/2024 09/18/2024 Discontinued Start: 02-02-2024 take 1 puff(s) by in halation once daily Trelegy Ellipta 200-62.5-25 MCG/ACT aerosol powder INHALE 1 PUFF ONCE DAILY 02/02/2024 Active Problems Active Problems Problem Classification Problem Date Documented Date Episodic/Chronic Anxiety disorders (1 source) Anxiety Onset: 4 Chronic Asthma (20 sources) Uncomplicated mild persistent asthma; Translations: [Mild persistent asthma, uncomplicated] Onset: 4 10-17-2023 Chronic Conditions associated with dizziness or vertigo (1 source) Meniere's disease, bilateral; Translations: [Meniere's disease, bilateral] Onset: 4 Chronic Delirium, dementia, and amnestic and other cognitive disorders (1 source) Postconcussional syndrome; Translations: [POSTCONCUSSIONAL SYNDROME] Onset: 2 Chronic Diabetes mellitus with complications (20 sources) Type 2 diabetes mellitus; Translations: [Type 2 diabetes mellitus with hyperglycemia] Onset: 4 10-17-2023 Chronic Diabetes mellitus without complication (1 source) Type 2 diabetes mellitus without complications; Translations: [TYPE 2 DM WITHOUT COMPLICATIONS] Onset: 2 Chronic Essential hypertension (20 sources) Essential hypertension; Translations: [Essential (primary) hypertension] Onset: 2 10-17-2023 Chronic Headache; including migraine (1 source) Headache Onset: 4 Episodic Headache; including migraine (1 source) Headache; including migraine; Translations: [Headache, unspecified] Onset: 4 Heart valve disorders (1 source) Rheumatic tricuspid insufficiency; Translations: [RHEUMATIC TRICUSPID INSUFFICIENCY] Onset: 2 Chronic Hypertension with complications and secondary hypertension (6 sources) Secondary hypertension; Translations: [Secondary hypertension, unspecified] Onset: 2 Resolved: 2 Chronic Nutritional deficiencies (20 sources) Vitamin D deficiency, unspecified; Translations: [Vitamin D deficiency] Onset: 2 Chronic Occlusion or stenosis of precerebral arteries (1 source) Occlusion and stenosis of right carotid artery; Translations: [OCCLUSION AND STENOSIS RT CAROTID ART] Onset: 2 Chronic Osteoarthritis (5 sources) Osteoarthritis of joint of left wrist; Translations: [Primary osteoarthritis, left wrist] Onset: 5 04-09-2025 Chronic Other and ill-defined heart disease (14 sources) Diastolic dysfunction; Translations: [Other ill-defined heart diseases] Onset: 5 12-12-2024 Chronic Other circulatory disease (1 source) Elevated blood-pressure reading, without diagnosis of hypertension; Translations: [Elevated blood-pressure reading, without diagnosis of hypertension] Onset: 4 Episodic Other diseases of veins and lymphatics (14 sources) Calcified lymph nodes; Translations: [Other specified noninfective disorders of lymphatic vessels and lymph nodes] Onset: 5 12-12-2024 Chronic Other ear and sense organ disorders (1 source) Sensorineural hearing loss, bilateral; Translations: [Sensorineural hearing loss, bilateral] 12-05-2024 Chronic Other nervous system disorders (1 source) Other chronic pain; Translations: [Other chronic pain] Onset: 5 Chronic Other non-traumatic joint disorders (5 sources) Chronic pain of left upper limb; Translations: [Pain in left wrist] Onset: 5 02-27-2025 Episodic Other non-traumatic joint disorders (1 source) Pain in left wrist; Translations: [Pain in left wrist] Onset: 5 Episodic Other nutritional; endocrine; and metabolic disorders (1 source) Obesity, unspecified; Translations: [OBESITY UNSPECIFIED] Onset: 2 Chronic Other nutritional; endocrine; and metabolic disorders (20 sources) Obesity caused by energy imbalance; Translations: [Class 1 obesity due to excess calories with serious comorbidity and body mass index (BMI) of 33.0 to 33.9 in adult] Onset: 4 07-05-2024 Chronic Other nutritional; endocrine; and metabolic disorders (1 source) Other obesity due to excess calories; Translations: [Other obesity due to excess calories] Onset: 5 Chronic Other screening for suspected conditions (not mental disorders or infectious disease) (4 sources) Abnormal electrocardiogram [ECG] [EKG]; Translations: [ABNORMAL ELECTROCARDIOGRAM] Onset: 2 Episodic Other upper respiratory disease (20 sources) Allergic rhinitis due to pollen; Translations: [Allergic rhinitis due to pollen] Onset: 4 11-15-2023 Chronic Other upper respiratory disease (16 sources) Non-allergic rhinitis; Translations: [Chronic rhinitis] Onset: 5 12-12-2024 Chronic Peripheral and visceral atherosclerosis (20 sources) Bilateral renal artery stenosis; Translations: [Atherosclerosis of renal artery] Onset: 2 Resolved: 2 Chronic Pulmonary heart disease (14 sources) Secondary pulmonary hypertension; Translations: [Other secondary pulmonary hypertension] Onset: 5 12-12-2024 Chronic Residual codes; unclassified (5 sources) Postmenopausal state; Translations: [Asymptomatic menopausal state] Onset: 5 04-09-2025 Episodic Spondylosis; intervertebral disc disorders; other back problems (20 sources) Degeneration of lumbar intervertebral disc; Translations: [Other intervertebral disc degeneration, lumbar region] Onset: 4 10-17-2023 Chronic Thyroid disorders (20 sources) Hypothyroidism, unspecified; Translations: [Hypothyroidism] Onset: 2 Chronic Unclassified (3 sources) CONTACT W/AND (SUSP) EXPOS COVID-19; Translations: [CONTACT W/AND (SUSP) EXPOS COVID-19] Onset: 2 Unclassified (1 source) Head Pressure, Anixety Onset: 4 Unclassified (1 source) Obesity, class 1; Translations: [Obesity, class 1] Onset: 5 Past or Other Problems Problem Classification Problem Date Documented Da te Episodic/Chronic Cardiac dysrhythmias (2 sources) Palpitations; Translations: [Palpitations] Onset: 06-12-2024 Episodic Conditions associated with dizziness or vertigo (20 sources) Vertigo; Translations: [Dizziness and giddiness] Onset: 10-17-2023 Resolved: 03-01-2024 10-17-2023 Episodic Diabetes or abnormal glucose tolerance complicating ; childbirth; or the puerperium (1 source) Personal history of gestational diabetes; Translations: [Personal history of gestational diabetes] Onset: 10-10-2024 Episodic Mood disorders (20 sources) Recurrent major depressive episodes, mild ; Translations: [Major depressive disorder, recurrent, mild] Onset: 10-17-2023 Resolved: 03-01-2024 10-17-2023 Chronic Mood disorders (20 sources) Mood disorders Onset: 10-08-2024 10-08-2024 Mycoses (20 sources) Candidiasis of skin; Translations: [Candidiasis of skin and nail] Onset: 10-17-2023 Resolved: 11-15-2023 10-17-2023 Episodic Other aftercare (2 sources) Other lobsterman (current) drug therapy; Translations: [OTH MCC CURRENT DRUG THERAPY] Onset: 10-27-2021 Episodic Other aftercare (20 sources) Long-term current use of drug therapy; Translations: [Other lobsterman (current) drug therapy] Onset: 07-05-2024 07-05-2024 Episodic Other aftercare (14 sources) Long-term current use of inhaled steroid; Translations: [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] Onset: 12-12-2024 12-12-2024 Episodic Other connective tissue disease (20 sources) Pain in left foot; Translations: [Pain in left foot] Onset: 11-15-2023 Resolved: 03-01-2024 03-01-2024 Episodic Other lower respiratory disease (14 sources) Calcified granuloma of lung; Translations: [Other disorders of lung] Onset: 12-12-2024 12-12-2024 Episodic Residual codes; unclassified (4 sources) Disorientation, unspecified; Translations: [DISORIENTATION UNSPECIFIED] Onset: 01-21-2022 Episodic Syncope (20 sources) Syncope and collapse; Translations: [Syncope and collapse] Onset: 06-18-2022 Resolved: 03-01-2024 10-17-2023 Episodic Unclassified (1 source) CONTACT W/AND (SUSP) EXPOS COVID-19; Translations: [CONTACT W/AND (SUSP) EXPOS COVID-19] Onset: 09-28-2021 Results Test Name Value Interpretation Reference Range Facility Orders Onlyon 04-30-2025 Orders Only [id number] Loreta Bradford 1940 F Date Provider Department [place] 04/30/2025 [facility] CARD [facility] Family History Problem Relation Age of Onset Stroke Mother Family Status - Relation Status Age at Mother Normal [facility] HEMOGLOBIN A1Con 04-09-2025 Glucose [Mass/Vol] 128 mg/dL Normal [facility] Comment on above: Performed By: #### H A1C #### [facility] ([facility]) [address] [place] [address] VIR HbA1c (Bld) [Mass fraction] 6.1 % High 4.4-5.6 [facility] Comment on above: Result Comment: ADA Guidelines Result HgbA1c Normal : less than 5.7 % Prediabetes : 5.7 % to 6.4 % Diabetes : > 6.4 % Use with caution in patients with abnormal hemoglobin variants as the half-life of red blood cells and in vivo glycation rates are affected. Performed By: #### H A1C #### [facility] ([facility]) [address] [place] [address] VIR HbA1c (Bld) [Mass fraction]o n 04-09-2025 Average glucose Estimated from glycated hemoglobin (Bld) [Mass/Vol] 128 mg/dL [facility] Comment on above: PERFORMED AT [place] [address],[place] [address] Interpretation and review of laboratory results Abnormal [facility] Hemoglobin A1con 04-09-2025 HbA1c (Bld) [Mass fraction] 6.1 % High 4.4 - 5.6 % [facility] Comment on above: ADA Guidelines Result HgbA1c Normal : less than 5.7 % Prediabetes : 5.7 % to 6.4 % Diabetes : > 6.4 % Use with caution in patients with abnormal hemoglobin variants as the half-life of red blood cells and in vivo glycation rates are affected. XR WRIST LT 2 VWSon 03-01-20 25 XR WRIST LT 2 VWS XR WRIST LT 2 VWS XR WRIST LT 2 VWS Clinical history:Chronic pain of left wrist Comparison: None. Findings: There is mild first carpometacarpal radiocarpal joint degenerative change. No acute process fracture or dislocation. Osteopenia. Impression: Degenerative changes, mild with osteopenia. No definitive acute process. Finalized by Adelso Fisher MD on 03/01/2025 5:16 AM Normal [facility] Auditory function testson Right Ear: Mild to moderate sensorineural hearing loss above 4K Hz Left Ear: Mild sensorineural hearing loss at 250 Hz and above 4K Hz [facility] BASIC METABOLIC PANLon 10-10 Anion gap [Moles/Vol] 8 mmol/L Normal 5-15 [facility] Comment on above: Performed By: #### T HYR, BMP, 84781-6, LIVR, CBCA, HA1C #### [facility] ([id number]) [address], [address] [place] [address] Calcium [Mass/Vol] 8.6 mg/dL Normal 8.5-10.5 [facility] Comment on above: Performed By: #### T HYR, BMP, 67117-6, LIVR, CBCA, HA1C #### [facility] ([id number]) [address] [place] [address] Chloride [Moles/Vol] 105 mmol/L Normal 98-109 [facility] Comment on above: Performed By: #### T HYR, BMP, 63779-7, LIVR, CBCA, HA1C #### [facility] ([id number]) [address] [address] [address] [address] [address] [place] [address] CO2 [Moles/Vol] 29 mmol/L Normal 22-32 [facility] Comment on above: Performed By: #### T HYR, BMP, 73906-4, LIVR, CBCA, HA1C #### [facility] ([id number]) [address] [place] [address] Creatinine [Mass/Vol] 0.76 mg/dL Normal 0.40-1.00 [facility] Comment on above: Result Comment: METH OD TRACEABLE TO IDMS STANDARD Performed By: #### T HYR, BMP, 86656-5, LIVR, CBCA, HA1C #### [facility] ([id number]) [address] [facility] [address] [address] [place] [address] GFR/1.73 sq M.predicted among non-blacks MDRD (S/P/Bld) [Vol rate/Area] 77 mL/min/{1.73_m2} Normal >59 [facility] Comment on above: Result Comment: Reported eGFR is based on the CKD-EPI 2020 equation that does not use a race coefficient. Performed By: #### T HYR, BMP, 11692-7, LIVR, CBCA, HA1C #### [facility] ([id number]) [address] [address] [place] [address] Glucose [Mass/Vol] 105 mg/dL High 65-99 [facility] Comment on above: Performed By: #### T HYR, BMP, 62555-3, LIVR, CBCA, HA1C #### [facility] ([id number]) [address] [address] [place] [address] Potassium [Moles/Vol] 3.6 mmol/L Normal 3.5-5.0 [facility] Comment on above: Performed By: #### T HYR, BMP, 73900-9, LIVR, CBCA, HA1C #### [facility] ([id number]) [address] [place] [address] Sodium [Moles/Vol] 142 mmol/L Normal 134-146 [facility] Comment on above: Performed By: #### T HYR, BMP, 23349-0, LIVR, CBCA, HA1C #### [facility] ([id number]) [address] [place] [address] Urea nitrogen [Mass/Vol] 17 mg/dL Normal 5-27 [facility] Comment on above: Performed By: #### T HYR, BMP, 40123-6, LIVR, CBCA, HA1C #### [facility] ([id number]) [address] [place] [address] Basic metabolic 1998 panelon 10-10-2024 Anion gap [Moles/Vol] 8 mmol/L 5 - 15 mmol/L [facility] Calcium [Mass/Vol] 8.6 mg/dL 8.5 - 10. 5 mg/dL [facility] Chloride [Moles/Vol] 105 mmol/L 98 - 10 9 mmol/L [facility] CO2 [Moles/Vol] 29 mmol/L 22 - 32 mmol/L [facility] Creatine [Mass/Vol] 0.76 mg/dL 0.40 - 1 .00 mg/dL [facility] Comment on above: METHOD TRACEABLE TO IDCT STANDARD GFR/1.73 sq M.predicted among non-blacks MDRD (S/P/Bld) [Vol rate/Area] 77 mL/min/{1.73_m2} - PINF [facility] Comment on above: Reported eGFR is based on the CKD-EPI 2020 equation that does not use a race coefficient. PERFORMED AT [facility] [address],[place] [address] Glucose [Mass/Vol] 105 mg/dL High 65 - 99 mg/dL [facility] Potassium [Moles/Vol] 3.6 mmol/L 3.5 - 5.0 mmol/L [facility] Sodium [Moles/Vol] 142 mmol/L 134 - 146 mmol/L [facility] Urea nitrogen [Mass/Vol] 17 mg/dL 5 - 27 mg/dL [facility] CBC AND AUTO DIFFon 10-10-19 ABSOLUTE BASOPHIL 0.0 X10E9/L Normal 0.0-0.2 [facility] Comment on above: Performed By: #### T HYR, BMP, 30253-6, LIVR, CBCA, HA1C #### [facility] ([id number]) [address], [address] [place] [address] ABSOLUTE NEUTROPHIL 3.4 X10E9/L Normal 1.5-6.6 [facility] Comment on above: Performed By: #### T HYR, BMP, 74424-5, LIVR, CBCA, HA1C #### [facility] ([id number]) [address], [address] [place] [address] Basophils/100 WBC (Bld) 0.7 % Normal [facility] Comment on above: Performed By: #### T HYR, BMP, 05268-4, LIVR, CBCA, HA1C #### [facility] ([id number]) [address], [facility] [address] [place] [address] Eosinophils (Bld) [#/Vol] 0.3 10*3/uL Normal 0.0-0.4 [facility] Comment on above: Performed By: #### T HYR, BMP, 52257-9, LIVR, CBCA, HA1C #### [facility] ([id number]) [address], [address] [place] [address] Eosinophils/100 WBC (Bld) 5.3 % Normal [facility] Comment on above: Performed By: #### T HYR, BMP, 55453-9, LIVR, CBCA, HA1C #### [facility] ([id number]) [address], [address] [place] [address] Erythrocyte distribution width (RBC) [Ratio] 14.4 % Normal 11.5-15.0 [facility] Comment on above: Performed By: #### T HYR, BMP, 35614-3, LIVR, CBCA, HA1C #### [facility] ([id number]) [address] [address] [place] [address] Hematocrit (Bld) [Volume fraction] 37.1 % Normal 35-47 [facility] Comment on above: Performed By: #### T HYR, BMP, 87994-9, LIVR, CBCA, HA1C #### [facility] ([id number]) [address] [address] [place] [address] Hemoglobin (Bld) [Mass/Vol] 12.2 g/dL Normal 11.7-15.5 [facility] Comment on above: Performed By: #### T HYR, BMP, 95884-2, LIVR, CBCA, HA1C #### [facility] ([id number]) [address], [address] [address] Lymphocytes (Bld) [#/Vol] 1.6 10*3/uL Normal 1.0-3.5 [facility] Comment on above: Performed By: #### T HYR, BMP, 05121-3, LIVR, CBCA, HA1C #### [facility] ([id number]) [address] [address] Lymphocytes/100 WBC (Bld) 27.2 % Normal [facility] Comment on above: Performed By: #### T HYR, BMP, 87822-4, LIVR, CBCA, HA1C #### [facility] ([id number]) [address] [address] [place] [address] MCH (RBC) [Entitic mass] 27.7 pg Normal 27-34 [facility] Comment on above: Performed By: #### T HYR, BMP, 46182-1, LIVR, CBCA, HA1C #### [facility] ([id number]) [address], [address] [place] [address] MCHC (RBC) [Mass/Vol] 32.8 g/dL Normal 32-36 [facility] Comment on above: Performed By: #### T HYR, BMP, 58576-8, LIVR, CBCA, HA1C #### [facility] ([id number]) [address], [address] [place] [address] MCV (RBC) [Entitic vol] 85 fL Normal 80-100 [facility] Comment on above: Performed By: #### T HYR, BMP, 87013-6, LIVR, CBCA, HA1C #### [facility] ([id number]) [address], [facility] [address] [place] [address] Monocytes (Bld) [#/Vol] 0.5 10*3/uL Normal 0-0.9 [facility] Comment on above: Performed By: #### T HYR, BMP, 03018-9, LIVR, CBCA, HA1C #### [facility] ([id number]) [address] [address] [place] [address] Monocytes/100 WBC (Bld) 8.9 % Normal [facility] Comment on above: Performed By: #### T HYR, BMP, 80847-0, LIVR, CBCA, HA1C #### [facility] ([id number]) [address], [address] [place] [address] Neutrophils/100 WBC (Bld) 57.9 % Normal [facility] Comment on above: Performed By: #### T HYR, BMP, 75009-0, LIVR, CBCA, HA1C #### [facility] ([id number]) [address], [address] [place] [address] Platelet mean volume (Bld) [Entitic vol] 9.0 fL Normal 7-12 [facility] Comment on above: Performed By: #### T HYR, BMP, 22174-6, LIVR, CBCA, HA1C #### [facility] ([id number]) [address], [address] [place] [address] Platelets (Bld) [#/Vol] 202 10*3/uL Normal 150-450 [facility] Comment on above: Performed By: #### T HYR, BMP, 24808-1, LIVR, CBCA, HA1C #### [facility] ([id number]) [address], [address] [place] [address] RBC COUNT 4.38 X10E12/L Normal 3.80-5.20 [facility] Comment on above: Performed By: #### T HYR, BMP, 97407-3, LIVR, CBCA, HA1C #### [facility] ([id number]) [address], [address] [address] WBC (Bld) [#/Vol] 5.9 10*3/uL Normal 4.0-11.0 [facility] Comment on above: Performed By: #### T HYR, BMP, 82988-1, LIVR, CBCA, HA1C #### [facility] ([id number]) [address], [address] [place] [address] HGB A1C (GLYCO-HGB)on 2024 Glucose [Mass/Vol] 123 mg/dL Normal [facility] Comment on above: Performed By: #### T HYR, BMP, 78458-6, LIVR, CBCA, HA1C #### [facility] ([id number]) [address] [address] [place] [address] HbA1c (Bld) [Mass fraction] 5.9 % High 4.4-5.6 [facility] Comment on above: Result Comment: NOTE ADA Guidelines Result HgbA1c Normal : less than 5.7 % Prediabetes : 5.7 % to 6.4 % Diabetes : > 6.4 % Use with caution in patients with abnormal hemoglobin variants as the half-life of red blood cells and in vivo glycation rates are affected. Performed By: #### T HYR, BMP, 72416-9, LIVR, CBCA, HA1C #### [facility] ([id number]) [address], [address] [place] [address] Hepatic function 2000 panelo n 10-10-2024 Albumin [Mass/Vol] 3.9 g/dL 3.2 - 5.3 g/dL [facility] ALP [Catalytic activity/Vol] 78 U/L 39 - 130 U/L [facility] ALT No additional P-5'-P [Catalytic activity/Vol] 11 U/L 0 - 31 U/L [facility] AST [Catalytic activity/Vol] 17 U/L 0 - 41 U/L [facility] Bilirubin [Mass/Vol] 0.6 mg/dL 0.3 - 1 .2 mg/dL [facility] Bilirubin.direct [Mass/Vol] 0.1 mg/dL 0.0 - 0.4 mg/dL [facility] Protein [Mass/Vol] 6.9 g/dL 6.0 - 8.0 g/dL [facility] Comment on above: PERFORMED AT [facility] [address],[place] [address] LIVER PANELon 10-10-2024 Albumin [Mass/Vol] 3.9 g/dL Normal 3.2-5.3 [facility] Comment on above: Performed By: #### T HYR, BMP, 25673-9, LIVR, CBCA, HA1C #### [facility] ([id number]) [address], [address] [place] [address] ALP [Catalytic activity/Vol] 78 U/L Normal 39-130 [facility] Comment on above: Performed By: #### T HYR, BMP, 68177-7, LIVR, CBCA, HA1C #### [facility] ([id number]) [address], [address] [place] [address] ALT [Catalytic activity/Vol] 11 U/L Normal 0-31 [facility] Comment on above: Performed By: #### T HYR, BMP, 77188-6, LIVR, CBCA, HA1C #### [facility] ([id number]) [address] [address] AST [Catalytic activity/Vol] 17 U/L Normal 0-41 [facility] Comment on above: Performed By: #### T HYR, BMP, 60003-8, LIVR, CBCA, HA1C #### [facility] ([id number]) [address] [address] Bilirubin [Mass/Vol] 0.6 mg/dL Normal 0.3-1.2 [facility] Comment on above: Performed By: #### T HYR, BMP, 28021-0, LIVR, CBCA, HA1C #### [facility] ([id number]) [address] [address] Bilirubin.direct [Mass/Vol] 0.1 mg/dL Normal 0.0-0.4 [facility] Comment on above: Performed By: #### T HYR, BMP, 98675-7, LIVR, CBCA, HA1C #### [facility] ([id number]) [address] [address] Protein [Mass/Vol] 6.9 g/dL Normal 6.0-8.0 [facility] Comment on above: Performed By: #### T HYR, BMP, 70790-2, LIVR, CBCA, HA1C #### [facility] ([id number]) [address] [address] Lipid 1996 panelon 5 Cholesterol [Mass/Vol] 114 mg/dL Low 150 - 200 mg/dL [facility] Cholesterol in HDL [Mass/Vol] 48 mg/dL 39 - PINF mg/dL [facility] Comment on above: HDL <40 mg/dL - High Risk HDL > or = 40mg/dL- Desirable HDL >60 mg/dL - Negative Risk Cholesterol in HDL/Total Cholesterol [Mass ratio] 2.4 {ratio} 1.0 - 5.0 [facility] Comment on above: PERFORMED AT [facility] [address] [facility],[place] [address] Cholesterol in LDL [Mass/Vol] 53 mg/dL NINF - 130 mg/dL [facility] Comment on above: LDL <100 mg/dL - Desirable LDL >160 mg/dL - High Risk Cholesterol in VLDL [Mass/Vol] 13 mg/dL 0 - 30 mg/dL [facility] Triglyceride [Mass/Vol] 65 mg/dL 27 - 150 mg/dL [facility] Cholesterol [Mass/Vol] 114 mg/dL Low 150-200 [facility] Comment on above: Performed By: ###Dennis GALEANO, LAURYN, 54696-1, LIVR, CBCA, HA1C #### [facility] ([id number]) [address], [address] [place] [address] Cholesterol in HDL [Mass/Vol] 48 mg/dL Normal >39 [facility] Comment on above: Result Comment: HDL <40 mg/dL - High Risk HDL > or = 40mg/dL- Desirable HDL >60 mg/dL - Negative Risk Performed By: #### T HYR, BMP, 62374-4, LIVR, CBCA, HA1C #### [facility] ([id number]) [address], [address] [place] [address] Cholesterol in LDL [Mass/Vol] 53 mg/dL Normal <130 [facility] Comment on above: Result Comment: LDL <100 mg/dL - Desirable LDL >160 mg/dL - High Risk Performed By: #### T HYR, BMP, 28395-0, LIVR, CBCA, HA1C #### [facility] ([id number]) [address] [address] [place] [address] Cholesterol in VLDL [Mass/Vol] 13 mg/dL Normal 0-30 [facility] Comment on above: Performed By: #### T HYR, BMP, 23406-7, LIVR, CBCA, HA1C #### [facility] ([id number]) [address], [facility] [address] [place] [address] CHOLESTEROL:HDL 2.4 Normal 1.0-5.0 [facility] Comment on above: Performed By: #### T HYR, BMP, 69477-2, LIVR, CBCA, HA1C #### [facility] ([id number]) [address] [address] [place] [address] Triglyceride [Mass/Vol] 65 mg/dL Normal 27-150 [facility] Comment on above: Performed By: #### T HYR, BMP, 09431-4, LIVR, CBCA, HA1C #### [facility] ([id number]) [address] [address] [place] [address] MICROALBUMIN - ALBUMIN:CREAT ININE URINE RATIOon 10-10-2024 ALB/CREAT RATIO 8.7 mg/g creat Normal 0.0-30.[address] [facility] Comment on above: Performed By: #### M ALBU #### [facility] ([id number]) [address] [place] [address] Albumin DL <= 20 mg/L (U) [Mass/Vol] 1.4 mg/dL Normal 0.0-1.9 [facility] Comment on above: Performed By: #### M ALBU #### [facility] ([id number]) [address] [facility] [address] [place] [address] URINE CREAT 160.37 mg/dL Normal [facility] Comment on above: Performed By: #### M ALBU #### [facility] ([id number]) [address] [facility] [address] [place] [address] No Panel Informationon 10-10 Interpretation and review of laboratory results Abnormal [facility] THYROID PROFILEon 10-10-2024 Free T4 [Mass/Vol] 0.91 ng/dL Normal 0.61-1.60 [facility] Comment on above: Performed By: #### T HYR, BMP, 42350-4, LIVR, CBCA, HA1C #### [facility] ([id number]) [address] [facility] [address] [place] [address] TSH 6.78 uIU/mL High 0.49-4.67 [facility] Comment on above: Performed By: #### T HYR, BMP, 12711-1, LIVR, CBCA, HA1C #### [facility] ([id number]) [address] [address] [place] [address] CBC AND AUTO DIFFon 12-20-20 24 ABSOLUTE BASOPHIL 0.1 X10E9/L Normal 0.0-0.2 [facility] Comment on above: Performed By: #### C BCA, CMP, 48618-4, 58403-0 #### [facility] ([id number]) [address] [facility] [place] [address] ABSOLUTE NEUTROPHIL 6.5 X10E9/L Normal 1.5-6.6 [facility] Comment on above: Performed By: #### C BCA, CMP, , 56930-2 #### [facility] ([id number]) [address] [place] [address] Basophils/100 WBC (Bld) 0.6 % Normal [facility] Comment on above: Performed By: #### C BCA, CMP, 99412-3, 48281-3 #### [facility] ([id number]) [address] [place] [address] Eosinophils (Bld) [#/Vol] 0.2 10*3/uL Normal 0.0-0.4 [facility] Comment on above: Performed By: #### C BCA, CMP, , 14661-9 #### [facility] ([id number]) [address] [place] [address] Eosinophils/100 WBC (Bld) 2.4 % Normal [facility] Comment on above: Performed By: #### C BCA, CMP, , 38997-7 #### [facility] ([id number]) [address] [place] [address] Erythrocyte distribution width (RBC) [Ratio] 14.2 % Normal 11.5-15.0 [facility] Comment on above: Performed By: #### C BCA, CMP, , 04094-9 #### [facility] ([id number]) [address] [place] [address] Hematocrit (Bld) [Volume fraction] 40.6 % Normal 35-47 [facility] Comment on above: Performed By: #### C BCA, CMP, , 62756-9 #### [facility] ([id number]) [address] [place] [address] Hemoglobin (Bld) [Mass/Vol] 13.5 g/dL Normal 11.7-15.5 [facility] Comment on above: Performed By: #### C BCA, CMP, 28427-2, 98425-3 #### [facility] ([id number]) [address] [place] [address] Lymphocytes (Bld) [#/Vol] 1.8 10*3/uL Normal 1.0-3.5 [facility] Comment on above: Performed By: #### C MARGIE CHAWLA, , 51806-3 #### [facility] ([id number]) [address] [place] [address] Lymphocytes/100 WBC (Bld) 19.7 % Normal [facility] Comment on above: Performed By: #### C MARGIE CHAWLA, , 02559-1 #### [facility] ([id number]) [address] [place] [address] MCH (RBC) [Entitic mass] 28.0 pg Normal 27-34 [facility] Comment on above: Performed By: #### C MARGIE CHAWLA, , 35604-1 #### [facility] ([id number]) [address] [place] [address] MCHC (RBC) [Mass/Vol] 33.3 g/dL Normal 32-36 [facility] Comment on above: Performed By: #### C MARGIE CHAWLA, , 92889-3 #### [facility] ([id number]) [address] [address] MCV (RBC) [Entitic vol] 84 fL Normal 80-100 [facility] Comment on above: Performed By: #### C MARGIE CHAWLA, , 71517-3 #### [facility] ([id number]) [address] [address] Monocytes (Bld) [#/Vol] 0.6 10*3/uL Normal 0-0.9 [facility] Comment on above: Performed By: #### C BCA CMP, , 87344-4 #### [facility] ([id number]) [address] [place] [address] Monocytes/100 WBC (Bld) 7.0 % Normal [facility] Comment on above: Performed By: #### C MARGIE CHAWLA, , 83348-5 #### [facility] ([id number]) [address] [place] [address] Neutrophils/100 WBC (Bld) 70.3 % Normal [facility] Comment on above: Performed By: #### C BCA, CMP, , 27875-9 #### [facility] ([id number]) [address] [address] Platelet mean volume (Bld) [Entitic vol] 8.7 fL Normal 7-12 [facility] Comment on above: Performed By: #### C BCA, CMP, , 37485-7 #### [facility] ([id number]) [address] [place] [address] Platelets (Bld) [#/Vol] 215 10*3/uL Normal 150-450 [facility] Comment on above: Performed By: #### C BCA, CMP, , 97298-2 #### [facility] ([id number]) [address] [place] [address] RBC COUNT 4.83 X10E12/L Normal 3.80-5.20 [facility] Comment on above: Performed By: #### C BCA, CMP, , 44433-9 #### [facility] ([id number]) [address] [place] [address] WBC (Bld) [#/Vol] 9.2 10*3/uL Normal 4.0-11.0 [facility] Comment on above: Performed By: #### C BCA, CMP, , 25770-2 #### [facility] ([id number]) [address] [place] [address] COMPREHENSIVE METABOLIC PANE Ciro 08-31-2024 Albumin [Mass/Vol] 4.5 g/dL Normal 3.2-5.3 [facility] Comment on above: Performed By: #### C BCA, CMP, , 05390-7 #### [facility] ([id number]) [address] [place] [address] ALP [Catalytic activity/Vol] 89 U/L Normal 39-130 [facility] Comment on above: Performed By: #### C BCA, CMP, , 10719-6 #### [facility] ([id number]) [address] [address] ALT [Catalytic activity/Vol] 15 U/L Normal 0-31 [facility] Comment on above: Performed By: #### C BCA, CMP, , 28584-5 #### [facility] ([id number]) [address] [address] Anion gap [Moles/Vol] 10 mmol/L Normal 5-15 [facility] Comment on above: Performed By: #### C BCA, CMP, , 52394-4 #### [facility] ([id number]) [address] [place] [address] AST [Catalytic activity/Vol] 22 U/L Normal 0-41 [facility] Comment on above: Performed By: #### C BCA, CMP, , 93139-8 #### [facility] ([id number]) [address] [place] [address] Bilirubin [Mass/Vol] 1.0 mg/dL Normal 0.3-1.2 [facility] Comment on above: Performed By: #### C BCA, CMP, , 78850-9 #### [facility] ([id number]) [address] [place] [address] Calcium [Mass/Vol] 9.3 mg/dL Normal 8.5-10.5 [facility] Comment on above: Performed By: #### C BCA, CMP, , 25320-8 #### [facility] ([id number]) [address] [place] [address] Chloride [Moles/Vol] 102 mmol/L Normal 98-109 [facility] Comment on above: Performed By: #### C BCA, CMP, , 22420-5 #### [facility] ([id number]) [address] [facility] [place] [address] CO2 [Moles/Vol] 25 mmol/L Normal 22-32 [facility] Comment on above: Performed By: #### C MARGIE CHAWLA, , 82025-4 #### [facility] ([id number]) [address] [facility] [place] [place] [address] Creatinine [Mass/Vol] 0.69 mg/dL Normal 0.40-1.00 [facility] Comment on above: Result Comment: METH OD TRACEABLE TO IDMS STANDARD Performed By: #### C CAMMY [facility], , 56541-8 #### [facility] ([id number]) [address] [facility] [place] [place] [address] GFR/1.73 sq M.predicted among non-blacks MDRD (S/P/Bld) [Vol rate/Area] 86 mL/min/{1.73_m2} Normal >59 [facility] Comment on above: Result Comment: Reported eGFR is based on the CKD-EPI 2020 equation that does not use a race coefficient. Performed By: #### C CAMMY [facility], , 22091-2 #### [facility] ([id number]) [address] [facility] [place] [address] Glucose [Mass/Vol] 119 mg/dL High 65-99 [facility] Comment on above: Performed By: #### C CAMMY [facility], , 28031-3 #### [facility] ([id number]) [address] [place] [address] Potassium [Moles/Vol] 3.9 mmol/L Normal 3.5-5.0 [facility] Comment on above: Performed By: #### C CAMMY [facility], , 30812-3 #### [facility] ([id number]) [address] [place] [address] Protein [Mass/Vol] 8.1 g/dL High 6.0-8.0 [facility] Comment on above: Performed By: #### C BCA, CMP, 45922-2, 81797-3 #### [facility] ([id number]) [address] [facility] [place] [place] [address] Sodium [Moles/Vol] 137 mmol/L Normal 134-146 [facility] Comment on above: Performed By: #### C BCA, CMP, 79770-7, 87660-1 #### [facility] ([id number]) [address] [facility] [place] [address] Urea nitrogen [Mass/Vol] 13 mg/dL Normal 5-27 [facility] Comment on above: Performed By: #### C BCA, CMP, 53455-5, 50355-4 #### [facility] ([id number]) [address] [facility] [place] [place] [address] CT BRAIN WO CONTon CT BRAIN WO CONT CT BRAIN WO CONT HISTORY: An 83-year-old [...] Scottie Parr MD on 08/31/2024 8:43 PM Normal [facility] MAGNESIUMon 08-31-2024 Magnesium [Mass/Vol] 2.1 mg/dL Normal 1.8-2.6 [facility] Comment on above: Performed By: #### C BCA, CMP, 24471-0, 70121-8 #### [facility] ([id number]) [address] [facility] [place] [address] Troponin I.cardiac High sens itivity method [Mass/Vol]on 08-31-2024 1 HOUR TROP I, HIGH SENSITIVITY 9 ng/L Normal <16 [facility] Comment on above: Performed By: #### 8 [id number] #### [facility] ([id number]) [address] [facility] [place] [address] TROPONIN I, HIGH SENSITIVITY 8 ng/L Normal <16 [facility] Comment on above: Performed By: #### C CAMMY, CMP, 03975-0, 59525-8 #### [facility] ([id number]) [address] [facility] [place] [address] ALL CBC WITH AUTO DIFFon BASOPHILS ABSOLUTE AUTO 0.0 [facility] Basophils/100 WBC (Bld) 0.4 % 0.2 - 2.0 % [facility] Eosinophils/100 WBC (Bld) 5.7 % 0.9 - 7.0 % [facility] Erythrocyte distribution width (RBC) [Ratio] 13.8 % 11.0 - 15.0 % [facility] Hematocrit (Bld) [Volume fraction] 36.4 % 36.0 - 48.0 % [facility] Hemoglobin (Bld) [Mass/Vol] 11.9 g/dL Low 12.0 - 16.0 g/dL [facility] IMMATURE GRANULOCYTES ABS AUTO 0.01 [facility] Immature granulocytes/100 WBC (Bld) 0.1 % 0.0 - 0.5 % [facility] Interpretation and review of laboratory results Abnormal [facility] LYMPHOCYTES ABSOLUTE AUTO 1.8 [facility] Lymphocytes/100 WBC (Bld) 24.0 % 20.5 - 60.0 % [facility] MCH (RBC) [Entitic mass] 27.5 pg 26.7 - 34.0 pg [facility] MCHC (RBC) [Mass/Vol] 32.7 g/dL 29.9 - 35.2 g/dL [facility] MCV (RBC) [Entitic vol] 84.1 fL 81.0 - 99.0 fL [facility] MONOCYTES ABSOLUTE AUTO 0.7 [facility] Monocytes/100 WBC (Bld) 8.9 % 1.7 - 12.0 % [facility] NEUTROPHILS ABSOLUTE AUTO 4.7 [facility] Neutrophils/100 WBC (Bld) 60.9 % 43.0 - 75.0 % [facility] System Platelet mean volume (Bld) [Entitic vol] 10.3 fL 9.5 - 13.5 fL [facility] EO # 0.4 [facility] TBH PLT 198 [facility] TB RBC 4.33 [facility] WBC 7.7 [facility] CLINISYNC [facility] ECHOCARDIO M/2D COMPLETEon 1 ECHOCARDIO M/2D COMPLETE Patient: RENATE BRADFORD Exam Date: 06/16/2022 : 1940 Gender:F Ordering : LUCI JULES Admission #: [id number] Family : DR KEN REYES . Order #: [id number] CLICK HERE TO VIEW EXAM ECHOCARDIOGRAM REPORT [...] Walter M.D. on 06/16/2022 at 14:58 Normal [facility] NM STRESS/REST MULTIon 06-16 NM STRESS/REST MULTI Patient: RENATE BRADFORD Exam Date: 06/16/2022 : 1940 Gender:F Ordering : LUCI JULES Admission #: [id number] Family : Order #: [id number] CLICK HERE TO VIEW EXAM RADIOLOGY REPORT [...] MD on 06/16/2022 at 12:52 Normal [facility] US CAROTID ART BILon -05-2 022 US CAROTID ART GLENN EXAMINATION: US [...] JASMEET COOL Date: 2022-06-16 16:04 Normal [facility] FREE T3on 03-01-2022 FREE T3 1.97 pg/mlL Critically low 2.18-3.98 [facility] Comment on above: Performed By: #### T MICKIE, FT3 #### [facility] [address] [place] [address] Dr. Dina Gilbert TSHon 03-01-2022 TSH 1.842 uIU/mL Normal 0.358-3.[address] [facility] Comment on above: Performed By: #### T MICKIE, FT3 #### [facility] [address] [place] [address] ABDOMEN W CONon [...] KYAW WAHL Date: 2022-02-02 10:40 Normal [facility] PROF CHEM 8 (BAS METB)on Anion gap [Moles/Vol] 11.7 mmol/L Normal [facility] Comment on above: Performed By: #### B MP #### [facility] [address] [address] [address] Dina Gilbert Calcium [Mass/Vol] 8.8 mg/dL Normal 8.5-10.1 [facility] Comment on above: Performed By: #### B MP #### [facility] [address] [address] [address] Dina Gilbert Chloride [Moles/Vol] 97 mmol/L Critically low 98-107 [facility] Comment on above: Performed By: #### B MP #### [facility] [address] [address] [address] Dina Gilbert CO2 [Moles/Vol] 31.4 mmol/L Normal 21.0-32.0 [facility] Comment on above: Performed By: #### B MP #### [facility] [address] [address] [address] Dina Gilbert Creatinine [Mass/Vol] 0.84 mg/dL Normal 0.55-1.02 [facility] Comment on above: Performed By: #### B MP #### [facility] [address] [address] [address] Dina Gilbert EGFR-AF SWAZI >60 Normal >=60 [facility] Comment on above: Performed By: #### B MP #### [facility] [address] [address] [address] Dina Giblert EGFR-NON AF SWAZI >60 Normal >=60 [facility] Comment on above: Performed By: #### B MP #### [facility] [address] [address] [address] Dina Gilbert Glucose [Mass/Vol] 126 mg/dL Critically high 74-106 [facility] Comment on above: Performed By: #### B MP #### [facility] [address] [address] [address] Dina Gilbert Potassium [Moles/Vol] 4.1 mmol/L Normal 3.5-5.1 [facility] Comment on above: Performed By: #### B MP #### [facility] [address] [address] [address] Dina Gilbert Sodium [Moles/Vol] 136 mmol/L Normal 136-145 [facility] Comment on above: Performed By: #### B MP #### [facility] [address] [address] [address] Dina Gilbert Urea nitrogen [Mass/Vol] 23.0 mg/dL Critically high 7.0-18.0 [facility] Comment on above: Performed By: #### B MP #### [facility] [address] [address] [address] Dina Gilbert Urea nitrogen/Creatinine [Mass ratio] 27.3 mg/mg Normal [facility] Comment on above: Performed By: #### B MP #### [facility] [address] [place] [address] Dr. Dina Gilbert MRI BRAIN WO CONon [...] JASMEET COOL Date: 2022-01-21 09:32 Normal [facility] CBC AUTO DIFFon 10-22-2021 BASO # 0.0 103/ul Normal 0.0-0.1 [facility] Comment on above: Performed By: #### T , FT3 #### [facility] [address] [place] [address] Dr. Dian Gilbert Basophils/100 WBC (Bld) 0.3 % Normal 0.2-2.0 [facility] Comment on above: Performed By: #### T , FT3 #### [facility] [address] [place] [address] Dr. Dina Gilbert EO # 0.3 103/ul Normal 0.0-0.7 [facility] Comment on above: Performed By: #### T SH, FT3 #### [facility] [address] [address] [address] Dina Gilbert Eosinophils/100 WBC (Bld) 3.6 % Normal 0.9-7.0 [facility] Comment on above: Performed By: #### T , FT3 #### [facility] [address] [place] [address] Dr. Dina Gilbert Erythrocyte distribution width (RBC) [Ratio] 13.2 % Normal 11.0-15.0 [facility] Comment on above: Performed By: #### T SH, FT3 #### [facility] [address] [place] [address] Dr. Dina Gilbert Hematocrit (Bld) [Volume fraction] 37.5 % Normal 36.0-48.0 [facility] Comment on above: Performed By: #### T SH, FT3 #### [facility] [address] [place] [address] Dr. Dina Gilbert Hemoglobin (Bld) [Mass/Vol] 12.1 g/dL Normal 12.0-16.0 [facility] Comment on above: Performed By: #### T SH, FT3 #### [facility] [address] [place] [address] Dr. Dina Gilbert IG # 0.01 10e3/ul Normal 0.00-0.03 [facility] Comment on above: Performed By: #### T SH, FT3 #### [facility] [address] [place] [address] Dr. Dina Gilbert IG % 0.1 % Normal 0.0-0.5 [facility] Comment on above: Performed By: #### T SH, FT3 #### [facility] [address] [place] [address] Dr. Dina Gilbert LYMPH # 1.8 103/ul Normal 1.2-3.8 [facility] Comment on above: Performed By: #### T MICKIE, FT3 #### [facility] [address] [place] [address] Dr. Dina Gilbert Lymphocytes/100 WBC (Bld) 24.6 % Normal 20.5-60.0 [facility] Comment on above: Performed By: #### T SH, FT3 #### [facility] [address] [place] [address] Dr. Dina Gilbert MANUAL DIFF REQ NO Normal [facility] Comment on above: Performed By: #### T SH, FT3 #### [facility] [address] [place] [address] Dr. Dina Gilbert MCH (RBC) [Entitic mass] 28.1 pg Normal 26.7-34.0 [facility] Comment on above: Performed By: #### T MICKIE, FT3 #### [facility] [address] [place] [address] Dr. Dina Gilbert MCHC (RBC) [Mass/Vol] 32.3 g/dL Normal 29.9-35.2 [facility] Comment on above: Performed By: #### T MICKIE, FT3 #### [facility] [address] [place] [address] Dr. Dina Gilbert MCV (RBC) [Entitic vol] 87.0 fL Normal 81.0-99.0 [facility] Comment on above: Performed By: #### T MICKIE, FT3 #### [facility] [address] [place] [address] Dr. Dina Gilbert MONO # 0.6 103/ul Normal 0.3-0.8 [facility] Comment on above: Performed By: #### T MICKIE, FT3 #### [facility] [address] [place] [address] Dr. Dina Gilbert Monocytes/100 WBC (Bld) 8.0 % Normal 1.7-12.0 [facility] Comment on above: Performed By: #### T MICKIE, FT3 #### [facility] [address] [place] [address] Dr. Dina Gilbert NEUT # 4.5 103/ul Normal 1.4-6.5 [facility] Comment on above: Performed By: #### T MICKIE, FT3 #### [facility] [address] [place] [address] Dr. Dina Gilbert Neutrophils/100 WBC (Bld) 63.4 % Normal 43.0-75.0 [facility] Comment on above: Performed By: #### T MICKIE, FT3 #### [facility] [address] [place] [address] Dr. Dina Gilbert Platelet mean volume (Bld) [Entitic vol] 10.1 fL Normal 9.5-13.5 [facility] Comment on above: Performed By: #### T MICKIE, FT3 #### [facility] [address] [place] [address] Dr. Dina Gilbert PLT 219 103/ul Normal 150-450 [facility] Comment on above: Performed By: #### T MICKIE, FT3 #### [facility] [address] [place] [address] Dr. Dina Gilebrt RBC 4.31 106/ul Normal 4.20-5.40 [facility] Comment on above: Performed By: #### T MICKIE, FT3 #### [facility] [address] [place] [address] Dr. Dina Gilbert WBC 7.2 103/ul Normal 4.0-11.0 [facility] Comment on above: Performed By: #### T MICKIE, FT3 #### [facility] [address] [place] [address] Dr. Dina Gilbert GLYCOHEMOGLOBIN A1Con 2021 ADA RECOMMENDATION ADA THERAPEUTIC TARG ET 6.0 - 7.0 ACTION SUGGESTED > 7.0 Normal [facility] Comment on above: Performed By: #### A 1C #### [facility] [address] [place] [address] Dr. Dina Gilbert Glucose [Mass/Vol] 131 mg/dL Normal [facility] Comment on above: Performed By: #### A 1C #### [facility] [address] [place] [address] Dr. Dina Gilbert HbA1c (Bld) [Mass fraction] 6.2 % Critically high <=6.0 [facility] Comment on above: Performed By: #### A 1C #### [facility] [address] [place] [address] Dr. Dina Gilbert LIPID PROFILEon 10-22-2021 CHOL-HDL RATIO NORM SEE BELOW Normal [facility] Comment on above: Result Comment: 3.3 - 4.4 LOW RISK 4.4 - 7.1 AVERAGE RISK 7.1 - 11.0 MODERATE RISK >11.0 HIGH RISK Performed By: #### T MICKIE, FT3 #### [facility] [address] [place] [address] Dr. Dina Gilbert Cholesterol [Mass/Vol] 193 mg/dL Normal <=200 [facility] Comment on above: Performed By: #### T SH, FT3 #### [facility] [address] [address] [address] Dina Gilbert Cholesterol in HDL [Mass/Vol] 53 mg/dL Normal [facility] Comment on above: Performed By: #### T SH, FT3 #### [facility] [address] [address] [address] Dina Gilbert Cholesterol in LDL [Mass/Vol] 114.8 mg/dL Normal [facility] Comment on above: Performed By: #### T SH, FT3 #### [facility] [address] [place] [address] Dr. Dina Gilbert Cholesterol.total/Ch olesterol in HDL [Mass ratio] 3.6 {ratio} Normal [facility] Comment on above: Performed By: #### T SH, FT3 #### [facility] [address] [place] [address] Dr. Dina Gilbert HDL NORMAL > or = 60 mg/dl - LO W CARDIOVASCULAR RISK <40 mg/dl - HIGH CARDIOVASCULAR RISK Normal [facility] Comment on above: Performed By: #### T SH, FT3 #### [facility] [address] [place] [address] Dr. Dina Gilbert LDL CALC NORMAL SEE BELOW Normal [facility] Comment on above: Result Comment: <100 mg/dl OPTIMAL 100 - 129 mg/dl NEAR OR ABOVE OPTIMAL 130 - 159 mg/dl BORDERLINE HIGH 160 - 189 mg/dl HIGH >190 mg/dl VERY HIGH Performed By: #### T SH, FT3 #### [facility] [address] [place] [address] Dr. Dina Gilbert Triglyceride [Mass/Vol] 126 mg/dL Normal <=150 [facility] Comment on above: Performed By: #### T SH, FT3 #### [facility] [address] [place] [address] Dr. Dina Gilbert VLDL CALC 25.2 mg/dL Normal [facility] Comment on above: Performed By: #### T SH, FT3 #### [facility] [address] [place], [place] [id number] Dr. Dina Gilbert LIVER PROFILEon 10-22-2021 Albumin [Mass/Vol] 3.6 g/dL Normal 3.5-5.0 [facility] Comment on above: Performed By: #### T SH, FT3 #### [facility] [address] [place] [address] Dr. Dina Gilbert Albumin/Globulin [Mass ratio] 1.0 {ratio} Normal [facility] Comment on above: Performed By: #### T MICKIE, FT3 #### [facility] [address] [address] [address] Dina Gilbert ALP [Catalytic activity/Vol] 80 U/L Normal 38-126 [facility] Comment on above: Performed By: #### T MICKIE, FT3 #### [facility] [address] [place] [address] Dr. Dina Gilbert ALT [Catalytic activity/Vol] 16 U/L Normal 9-52 [facility] Comment on above: Performed By: #### T MICKIE, FT3 #### [facility] [address] [place] [address] Dr. Dina Gilbert AST [Catalytic activity/Vol] 11 U/L Critically low 14-36 [facility] Comment on above: Performed By: #### T MICKIE, FT3 #### [facility] [address] [place] [address] Dr. Dina Gilbert BILI, CONJUGATED 0.0 mg/dL Normal 0.0-0.3 [facility] Comment on above: Performed By: #### T MICKIE, FT3 #### [facility] [address] [place] [address] Dr. Dina Gilbert Bilirubin [Mass/Vol] 0.3 mg/dL Normal 0.2-1.3 [facility] Comment on above: Performed By: #### T MICKIE, FT3 #### [facility] [address] [place] [address] Dr. Dina Gilbert Globulin (S) [Mass/Vol] 3.6 g/dL Normal [facility] Comment on above: Performed By: #### T MICKIE, FT3 #### [facility] [address] [place] [address] Dr. Dina Gilbert Protein [Mass/Vol] 7.2 g/dL Normal 6.1-8.2 [facility] Comment on above: Performed By: #### T SH, FT3 #### [facility] [address] [place] [address] Dr. Dina Gilbert PROF CHEM 8 (BAS METB)on Anion gap [Moles/Vol] 9.5 mmol/L Normal [facility] Comment on above: Performed By: #### T SH, FT3 #### [facility] [address] [place] [address] Dr. Dina Gilbert Calcium [Mass/Vol] 8.5 mg/dL Normal 8.4-10.2 [facility] Comment on above: Performed By: #### T SH, FT3 #### [facility] [address] [place] [address] Dr. Dina Gilbert Chloride [Moles/Vol] 101 mmol/L Normal 98-107 [facility] Comment on above: Performed By: #### T SH, FT3 #### [facility] [address] [place] [address] Dr. Dina Gilbert CO2 [Moles/Vol] 29.7 mmol/L Normal 22.0-30.0 [facility] Comment on above: Performed By: #### T SH, FT3 #### [facility] [address] [place] [address] Dr. Dina Gilbert Creatinine [Mass/Vol] 0.74 mg/dL Normal 0.52-1.04 [facility] Comment on above: Performed By: #### T SH, FT3 #### [facility] [address] [place] [address] Dr. Dina Gilbert EGFR-AF SWAZI >60 Normal >=60 [facility] Comment on above: Performed By: #### T SH, FT3 #### [facility] [address] [place] [address] Dr. Dina Gilbert EGFR-NON AF SWAZI >60 Normal >=60 [facility] Comment on above: Performed By: #### T SH, FT3 #### [facility] [address] [place] [address] Dr. Dina Gilbert Glucose [Mass/Vol] 130 mg/dL Critically high 74-106 [facility] Comment on above: Performed By: #### T SH, FT3 #### [facility] [address] [place] [address] Dr. Dina Gilbert Potassium [Moles/Vol] 4.2 mmol/L Normal 3.4-5.0 [facility] Comment on above: Performed By: #### T SH, FT3 #### [facility] [address] [place] [address] Dr. Dina Gilbert Sodium [Moles/Vol] 136 mmol/L Critically low 137-145 [facility] Comment on above: Performed By: #### T SH, FT3 #### [facility] [address] [place] [address] Dr. Dina Gilbert Urea nitrogen [Mass/Vol] 10.0 mg/dL Normal 7.0-17.0 [facility] Comment on above: Performed By: #### T SH, FT3 #### [facility] [address] [place] [address] Dr. Dina Gilbert Urea nitrogen/Creatinine [Mass ratio] 13.5 mg/mg Normal [facility] Comment on above: Performed By: #### T SH, FT3 #### [facility] [address] [place] [address] Dr. Dina Gilbert TSHon 10-22-2021 TSH 5.232 uIU/mL Critically high 0.470-4.680 [facility] Comment on above: Performed By: #### T SH, FT3 #### [facility] [address] [place] [address] Dr. Dina Gilbert TSH RANGE SEE BELOW Normal [facility] Comment on above: Result Comment: <0.3 4 UIU/ml HYPERTHYROID 0.34-5.60 UIU/ml EUTHYROID >5.60 UIU/ml HYPOTHYROID Performed By: #### T SH, FT3 #### [facility] [address] [place] [address] Dr. Dina Gilbert VITAMIN D 25 OHon 10-22-2021 VIT D 25-OH 90.4 ng/mL Normal [facility] Comment on above: Performed By: #### T SH, FT3 #### [facility] [address] [place], [place] [address] Dr. Dina Gilbert VIT D RANGES SEE BELOW Normal [facility] Comment on above: Result Comment: <20 ng/mL Vit D deficient 20 - <30 ng/mL Vit D insufficient 30 - 100 ng/mL Vit D sufficient >100 ng/mL Potential Toxicity Performed By: #### T SH, FT3 #### [facility] [address] [place] [address] Dr. Dina Gilbert [facility]12 SARS-CoV-2 (COVID-19) RNA OBED+probe Ql (Unsp spec) Not detected Normal NOT DETECTED [facility] Comment on above: Result Comment: This test is not yet approved or cleared by the [place] FDA. When there are no FDA-approved or cleared tests available, and other criteria are met, FDA can make tests available under an emergency access mechanism called an Emergency Use Authorization (EUA). The EUA for this test is supported by the Retail Shift Supervisor of Health and Human Service's (HHS's) declaration [...] SARS-CoV-2. Performed By: #### C VDTBH #### [facility] [address] [place] [address] Dr. Dina Gilbert Vital Signs Date Time Vital Sign Value Performing Clinician Facility 04-09-2025 13:56-0400 Body height 154.9 cm Ken Reyes MD Work Phone: [facility] 04-09-2025 13:56-0400 Body mass index (BMI) [Ratio] 33.25 kg/m2 Ken Reyes MD Work Phone: [facility] 04-09-2025 13:56-0400 Body temperature 97.11 [degF] Ken Reyes MD Work Phone: [facility] 04-09-2025 13:56-0400 Body weight 79.83 kg Ken Reyes MD Work Phone: [facility] 04-09-2025 13:56-0400 Diastolic blood pressure 78 mm[Hg] Ken Reyes MD Work Phone: [facility] 04-09-2025 13:56-0400 Heart rate 82 /min Ken Reyes MD Work Phone: [facility] 04-09-2025 13:56-0400 Respiratory rate 18 /min Ken Reyes MD Work Phone: [facility] 04-09-2025 13:56-0400 SaO2% (BldA) [Mass fraction] 96 % Ken Reyes MD Work Phone: [facility] 04-09-2025 13:56-0400 Systolic blood pressure 140 mm[Hg] Ken Reyes MD Work Phone: [facility] 02-27-2025 13:53-0400 Body height 154.9 cm Ken Reyes MD Work Phone: [facility] 02-27-2025 13:53-0400 Body mass index (BMI) [Ratio] 33.82 kg/m2 Ken Reyes MD Work Phone: [facility] 02-27-2025 13:53-0400 Body temperature 97.11 [degF] Ken Reyes MD Work Phone: [facility] 02-27-2025 13:53-0400 Body weight 81.19 kg Ken Reyes MD Work Phone: [facility] 02-27-2025 13:53-0400 Diastolic blood pressure 94 mm[Hg] Ken Reyes MD Work Phone: [facility] 02-27-2025 13:53-0400 Heart rate 82 /min Ken Reyes MD Work Phone: [facility] 02-27-2025 13:53-0400 Respiratory rate 20 /min Ken Reyes MD Work Phone: [facility] 02-27-2025 13:53-0400 SaO2% (BldA) [Mass fraction] 95 % Ken Reyes MD Work Phone: [facility] 02-27-2025 13:53-0400 Systolic blood pressure 200 mm[Hg] Ken Reyes MD Work Phone: [facility] 01-07-2025 13:52-0400 Body height 154.9 cm Ken Reyes MD Work Phone: [facility] 01-07-2025 13:52-0400 Body mass index (BMI) [Ratio] 33.07 kg/m2 Ken Reyes MD Work Phone: [facility] 01-07-2025 13:52-0400 Body temperature 97.3 [degF] Ken Reyes MD Work Phone: [facility] 01-07-2025 13:52-0400 Body weight 79.38 kg Ken Reyes MD Work Phone: [facility] 01-07-2025 13:52-0400 Diastolic blood pressure 80 mm[Hg] Ken Reyes MD Work Phone: [facility] 01-07-2025 13:52-0400 Heart rate 85 /min Ken Reyes MD Work Phone: [facility] 01-07-2025 13:52-0400 Respiratory rate 20 /min Ken Reyes MD Work Phone: [facility] 01-07-2025 13:52-0400 SaO2% (BldA) [Mass fraction] 96 % Ken Reyes MD Work Phone: [facility] 01-07-2025 13:52-0400 Systolic blood pressure 156 mm[Hg] Ken Reyes MD Work Phone: [facility] 12-13-2024 14:09-0400 Body height 154.9 cm Ken Reyes MD Work Phone: [facility] 12-13-2024 14:09-0400 Body mass index (BMI) [Ratio] 32.69 kg/m2 Ken Reyes MD Work Phone: [facility] 12-13-2024 14:09-0400 Body temperature 97.11 [degF] Ken Reyes MD Work Phone: [facility] 12-13-2024 14:09-0400 Body weight 78.47 kg Ken Reyes MD Work Phone: [facility] 12-13-2024 14:09-0400 Diastolic blood pressure 84 mm[Hg] Ken Reyes MD Work Phone: [facility] 12-13-2024 14:09-0400 Heart rate 56 /min Ken Reyes MD Work Phone: [facility] 12-13-2024 14:09-0400 Respiratory rate 20 /min Ken Reyes MD Work Phone: [facility] 12-13-2024 14:09-0400 SaO2% (BldA) [Mass fraction] 97 % Ken Reyes MD Work Phone: [facility] 12-13-2024 14:09-0400 Systolic blood pressure 168 mm[Hg] Ken Reyes MD Work Phone: [facility] 12-12-2024 14:45-0400 Body height 154.9 cm Savita Arellano MD Work Phone: [facility] 12-12-2024 14:45-0400 Body mass index (BMI) [Ratio] 33.25 kg/m2 Savita Arellano MD Work Phone: [facility] 12-12-2024 14:45-0400 Body weight 79.83 kg Savita Arellano MD Work Phone: [facility] 12-12-2024 14:45-0400 Diastolic blood pressure 100 mm[Hg] Savita Arellano MD Work Phone: [facility] 12-12-2024 14:45-0400 Heart rate 88 /min Savita Arellano MD Work Phone: [facility] 12-12-2024 14:45-0400 Systolic blood pressure 222 mm[Hg] Savita Arellano MD Work Phone: [facility] 12-11-2024 13:49-0400 Body height 154.9 cm Savita Arellano MD Work Phone: [facility] 12-11-2024 13:49-0400 Body mass index (BMI) [Ratio] 33.25 kg/m2 Savita Arellano MD Work Phone: [facility] 12-11-2024 13:49-0400 Body weight 79.83 kg Savita Arellano MD [facility] System 12-11-2024 13:49-0400 Diastolic blood pressure 80 mm[Hg] Savita Arellano MD Work Phone: [facility] 12-11-2024 13:49-0400 Heart rate 75 /min Savita Arellano MD Work Phone: [facility] 12-11-2024 13:49-0400 Systolic blood pressure 159 mm[Hg] Savita Arellano MD Work Phone: [facility] 10-08-2024 13:34-0500 Body height 154.9 cm Ken Reyes MD Work Phone: [facility] 10-08-2024 13:34-0500 Body mass index (BMI) [Ratio] 32.69 kg/m2 Ken Reyes MD Work Phone: [facility] 10-08-2024 13:34-0500 Body temperature 97.11 [degF] Ken Reyes MD Work Phone: [facility] 10-08-2024 13:34-0500 Body weight 78.47 kg Ken Reyes MD Work Phone: [facility] 10-08-2024 13:34-0500 Diastolic blood pressure 68 mm[Hg] Ken Reyes MD Work Phone: [facility] 10-08-2024 13:34-0500 Heart rate 87 /min Ken Reyes MD Work Phone: [facility] 10-08-2024 13:34-0500 Respiratory rate 22 /min Ken Reyes MD Work Phone: [facility] 10-08-2024 13:34-0500 SaO2% (BldA) [Mass fraction] 97 % Ken Reyes MD Work Phone: [facility] 10-08-2024 13:34-0500 Systolic blood pressure 164 mm[Hg] Ken Reyes MD Work Phone: [facility] 09-18-2024 11:54-0500 Body height 154.9 cm Ken Reyes MD Work Phone: [facility] 09-18-2024 11:54-0500 Body mass index (BMI) [Ratio] 32.31 kg/m2 Ken Reyes MD Work Phone: [facility] 09-18-2024 11:54-0500 Body temperature 96.01 [degF] Ken Reyes MD Work Phone: [facility] 09-18-2024 11:54-0500 Body weight 77.56 kg Ken Reyes MD Work Phone: [facility] 09-18-2024 11:54-0500 Diastolic blood pressure 70 mm[Hg] Ken Reyes MD Work Phone: [facility] 09-18-2024 11:54-0500 Heart rate 86 /min Ken Reyes MD Work Phone: [facility] 09-18-2024 11:54-0500 Respiratory rate 20 /min Ken Reyes MD Work Phone: [facility] 09-18-2024 11:54-0500 SaO2% (BldA) [Mass fraction] 97 % Ken Reyes MD Work Phone: [facility] 09-18-2024 11:54-0500 Systolic blood pressure 150 mm[Hg] Ken Reyes MD Work Phone: [facility] 07-05-2024 14:54-0400 Body height 154.9 cm Ken Reyes MD Work Phone: [facility] 07-05-2024 14:54-0400 Body mass index (BMI) [Ratio] 33.25 kg/m2 Ken Reyes MD Work Phone: [facility] 07-05-2024 14:54-0400 Body temperature 97.3 [degF] Ken Reyes MD Work Phone: [facility] 07-05-2024 14:54-0400 Body weight 79.83 kg Ken Reyes MD Work Phone: [facility] 07-05-2024 14:54-0400 Diastolic blood pressure 40 mm[Hg] Ken Reyes MD Work Phone: [facility] 07-05-2024 14:54-0400 Heart rate 88 /min Ken Reyes MD Work Phone: [facility] 07-05-2024 14:54-0400 Respiratory rate 22 /min Ken Reyes MD Work Phone: [facility] 07-05-2024 14:54-0400 SaO2% (BldA) [Mass fraction] 95 % Ken Reyes MD Work Phone: [facility] 07-05-2024 14:54-0400 Systolic blood pressure 168 mm[Hg] Ken Reyes MD Work Phone: [facility] 10-17-2023 10:19-0500 Body height 154.9 cm Ken Reyes MD Work Phone: [facility] 10-17-2023 10:19-0500 Body mass index (BMI) [Ratio] 31.18 kg/m2 Ken Reyes MD Work Phone: [facility] 10-17-2023 10:19-0500 Body temperature 97.3 [degF] Ken Reyes MD Work Phone: [facility] 10-17-2023 10:19-0500 Body weight 74.84 kg Ken Reyes MD Work Phone: [facility] 10-17-2023 10:19-0500 Diastolic blood pressure 70 mm[Hg] Ken Reyes MD Work Phone: [facility] 10-17-2023 10:19-0500 Heart rate 87 /min Ken Reyes MD Work Phone: [facility] 10-17-2023 10:19-0500 SaO2% (BldA) [Mass fraction] 98 % Ken Reyes MD Work Phone: [facility] 10-17-2023 10:19-0500 Systolic blood pressure 130 mm[Hg] Ken Reyes MD Work Phone: [facility] 03-10-2022 17:00-0400 Body height 154.94 cm [employer] Other [employer] Other 03-10-2022 17:00-0400 Body mass index (BMI) [Ratio] 32.46 kg/m2 [employer] Other [facility] Other 03-10-2022 17:00-0400 Body temperature 96.3 [degF] [employer] Other [facility] Other 03-10-2022 17:00-0400 Body weight 77.93 kg Chandler Quezada Other [facility] Other 03-10-2022 17:00-0400 Diastolic blood pressure 81 mm[Hg] Chandler Quezada Other [facility] Other 03-10-2022 17:00-0400 Respiratory rate 20 /min Chandler Quezada Other [facility] Other 03-10-2022 17:00-0400 SaO2% (BldA) [Mass fraction] 99 % Chandler Quezada Other [employer] Other 03-10-2022 17:00-0400 Systolic blood pressure 122 mm[Hg] Chandler Quezada Other [employer] Other Encounters Encounter Date Encounter Type Care Provider Facility Start: [facility]02[facility] Start: 04-09-2025 ambulatory KEN REYES [facility] Start: 04-09-2025 End: 04-09-2025 Bamboo flowsheet Ken Reyes MD Work Phone: [facility] Start: 04-09-2025 End: 04-09-2025 [facility] flowsheet Ken Reyes MD Work Phone: [facility] Start: 04-09-2025 End: 04-09-2025 External Result Encounter Ken Reyes MD Work Phone: [facility] Unsolicited Start: 04-09-2025 End: 04-09-2025 Office outpatient visit 25 minutes Ken Reyes MD Work Phone: [facility] Comment on above: Type 2 diabetes kristen itus with hyperglycemia, without long-term current use of insulin (HCC) (Primary Dx); Primary osteoarthritis, left wrist; DDD (degenerative disc disease), cervical; Degeneration of intervertebral disc of lumbar region with discogenic back pain; Mild persistent asthma, uncomplicated (HCC); Postmenopausal Start: 04-09-2025 End: 04-09-2025 ambulatory KEN REYES Not Available Start: 03-27-2025 ambulatory ALEXSANDRA GU [facility] Start: 02-27-2025 End: 02-27-2025 ambulatory KEN REYES [facility] Start: 02-27-2025 End: 02-27-2025 Bamboo flowsheet Ken Reyes MD Work Phone: [facility] Start: 02-27-2025 End: 02-27-2025 Bamboo flowsheet Ken Reyes MD Work Phone: [facility] Start: 02-27-2025 End: 02-27-2025 Office outpatient visit 15 minutes Ken Reyes MD Work Phone: [facility] Comment on above: Essential hypertensi on, benign (Primary Dx); Chronic pain of left wrist Start: 02-27-2025 End: 02-27-2025 ambulatory KEN REYES Not Available Start: 01-21-2025 ambulatory JODI JIMENEZ [facility] Start: 01-07-2025 End: 01-07-2025 Bamboo flowsheet Ken Reyes MD Work Phone: [facility] Start: 01-07-2025 End: 01-07-2025 Bamboo flowsjohanny Reyes MD Work Phone: [facility] Start: 01-07-2025 End: 01-07-2025 Office outpatient visit 25 minutes Ken Reyes MD Work Phone: [facility] Comment on above: Type 2 diabetes kristen itus with hyperglycemia, without long-term current use of insulin (CMS/HCC) (Primary Dx); Essential hypertension, benign (CMS/HCC); Mild persistent asthma, uncomplicated (CMS/HCC); Adult hypothyroidism (CMS/HCC) Start: 01-07-2025 End: 01-07-2025 ambulatory KEN REYES Not Available Start: 12-13-2024 End: 12-13-2024 Office outpatient visit 15 minutes Ken Reyes MD Work Phone: [facility] Comment on above: Essential hypertensi on, benign (CMS/HCC) (Primary Dx); Non-allergic rhinitis Start: 12-13-2024 End: 12-13-2024 ambulatory KEN REYES Not Available Start: 12-12-2024 End: 12-12-2024 Office outpatient visit 15 minutes Savita Arellano MD Work Phone: [facility] Comment on above: Dizziness and giddin ess (Primary Dx); Essential hypertension, benign (CMS/HCC) Start: 12-12-2024 End: 12-12-2024 ambulatory SAVITA H TIMMIS Not Available Start: 12-12-2024 End: 12-12-2024 Bamboo flowsjohanny Arellano MD Work Phone: [facility] Start: 12-12-2024 End: 12-12-2024 Bamboo flowsheet Savita Arellano MD Work Phone: [facility] Start: 12-11-2024 End: 12-11-2024 Bamboo flowsjohanny Arellano MD Work Phone: [facility] Start: 12-11-2024 End: 12-11-2024 Bamboo flowsjohanny Arellano MD Work Phone: [facility] Start: 12-11-2024 End: 12-11-2024 Office outpatient new 45 minutes Savita Arellano MD Work Phone: [facility] Comment on above: Vertigo Start: 12-11-2024 End: 12-11-2024 ambulatory SAVITA H TIMMIS Not Available Start: 12-05-2024 End: 12-05-2024 Bamboo flowsheet Vandana Wang [facility] Work Phone: [facility] Start: 12-05-2024 End: 12-05-2024 Bamboo flowsheet Vandana Saul Wang [facility]-A Work Phone: [facility] Start: 12-05-2024 End: 12-05-2024 Clinical Support Vandana A Kathleen CCC-A Work Phone: [facility] Comment on above: 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 (Primary Dx); Dizziness Start: 11-30-2024 ambulatory [facility] Start: 10-10-2024 End: 10-10-2024 External Result Encounter Ken Reyes MD Work Phone: [facility] Unsolicited Start: 10-10-2024 End: 10-10-2024 External Result Encounter Ken Reyes MD Work Phone: [facility] Unsolicited Start: 10-10-2024 ambulatory [facility] Start: 10-10-2024 End: 10-10-2024 ambulatory [facility] Start: 10-08-2024 End: 10-08-2024 [facility] Start: 10-08-2024 End: 10-08-2024 Bamboo flowsheet Ken Reyes MD Work Phone: [facility] Start: 10-08-2024 End: 10-08-2024 Bamboo flowsheet Ken Reyes MD Work Phone: [facility] Start: 10-08-2024 End: 10-08-2024 Patient encounter procedure Ken Reyes MD Work Phone: [facility] Work Phone: Start: 10-08-2024 End: 10-08-2024 Postop follow up visit related to original px Ken Reyes MD Work Phone: [facility] Comment on above: Medicare annual well ness visit, subsequent (Primary Dx); Type 2 diabetes mellitus with hyperglycemia, without long-term current use of insulin (CMS/HCC); Adult hypothyroidism (CMS/HCC); Class 1 obesity due to excess calories with serious comorbidity and body mass index (BMI) of 32.0 to 32.9 in adult; Encounter for long-term current use of medication; Essential hypertension, benign (CMS/HCC) Start: 10-08-2024 End: 10-08-2024 ambulatory KEN REYES Not Available Start: 09-18-2024 End: 09-18-2024 BamCoverooo TappInheet Ken Reyes MD Work Phone: [facility] Start: 09-18-2024 End: 09-18-2024 GoodGuideheet Ken Reyes MD Work Phone: [facility] Start: 09-18-2024 End: 09-18-2024 Office outpatient visit 25 minutes Ken Reyes MD Work Phone: [facility] Comment on above: Essential hypertensi on, benign (CMS/HCC) (Primary Dx); Vertigo Start: 09-18-2024 End: 09-18-2024 ambulatory KEN REYES Not Available Start: 08-31-2024 End: 08-31-2024 Emergency department patient visit [facility] Start: 08-29-2024 ambulatory [facility] Start: 08-23-2024 ambulatory [facility] Start: 08-17-2024 ambulatory [facility] Start: 08-07-2024 ambulatory [facility] Start: 07-24-2024 ambulatory [facility] Start: 07-19-2024 ambulatory [facility] Start: 07-17-2024 [facility] Start: 07-05-2024 End: 07-05-2024 Office outpatient visit 25 minutes Ken Reyes MD Work Phone: [facility] Comment on above: Type 2 diabetes kristen itus with hyperglycemia, without long-term current use of insulin (CMS/HCC) (Primary Dx); Essential hypertension, benign (CMS/HCC); Vertigo; Mild persistent asthma, uncomplicated (CMS/HCC); Adult hypothyroidism (CMS/HCC); Encounter for long-term current use of medication; Class 1 obesity due to excess calories with serious comorbidity and body mass index (BMI) of 33.0 to 33.9 in adult Start: 07-05-2024 End: 07-05-2024 ambulatory KEN REYES Not Available Start: 07-05-2024 End: 07-05-2024 Bamboo flowsheet Ken Reyes MD Work Phone: [facility] Start: 07-05-2024 End: 07-05-2024 Bamboo flowsheet Ken Reyes MD Work Phone: [facility] Start: 06-12-2024 ambulatory ALEXSANDRA GU [facility] Start: 06-06-2024 ambulatory JODI [facility] Start: 05-31-2024 End: 05-31-2024 Clinisync Result Encounter Generic External Data Provider [facility] Unsolicited Start: 05-31-2024 End: 05-31-2024 Clinisync Result Encounter Generic External Data Provider [facility] Unsolicited Start: 10-17-2023 Bamboo flowsheet Ken Reyes MD Work Phone: [facility] Start: 10-17-2023 Bamboo flowsheet Ken Reyes MD Work Phone: [facility] Start: 10-17-2023 End: 10-17-2023 Office outpatient visit 15 minutes Ken Reyes MD Work Phone: [facility] Comment on above: Candidal skin infect ion (Primary Dx); Mild persistent asthma, uncomplicated (CMS/HCC) Start: 06-16-2022 End: 06-17-2022 ambulatory LUCI JULES Facility:[facility] Start: 03-10-2022 End: 03-10-2022 ambulatory Chandler Quezada Other [facility] Other Start: 03-10-2022 Office outpatient ne w 30 minutes Chandler Quezada [facility] Start: 03-01-2022 End: 03-02-2022 ambulatory SHAIKH Tejas MARTINEZ Facility:[facility] Start: 02-02-2022 End: 02-03-2022 ambulatory SHAIKH Tejas MARTINEZ Facility:[facility] Start: 01-21-2022 End: 01-22-2022 ambulatory SHAIKH Tejas MARTINEZ Facility:[facility] Start: 10-22-2021 End: 10-23-[address] KEN REYES Facility:[facility] Start: 09-28-2021 End: 09-28-[address] KEN REYES Facility:[facility] Procedures Date Procedure Procedure Detail Performing Clinician Start: 04-09-2025 Hemoglobin glycosyla marcus a1c Ken Reyes MD Work Phone: Start: 12-05-2024 AUDITORY FUNCTION TESTS Vandana Saul Wang [facility] Work Phone: Start: 10-10-2024 Basic metabolic pane l calcium total Ken Reyes MD Work Phone: Start: 10-10-2024 Lipid panel Ken beltran MD Work Phone: Start: 05-31-2024 ALL CBC WITH AUTO DIFF Generic External Data Provider Plan of Treatment Date Care Activity Detail Author Start: 10-14-2025 End: 10-14-2025 Patient encounter procedure 10/14/2025 1:00 PM EST Office Visit [facility] [address] [place] [phone] Ken Reyes MD [address] [place] [phone] [facility] Start: 10-10-2025 Urine screening for protein Diabetes: Urine Protein Screening [facility] Start: 10-08-2025 Medicare Annual Well ness (AWV) Medicare Annual Wellness (AWV) [facility] Start: 07-05-2025 Medicare Annual Well ness (AWV) Medicare Annual Wellness (AWV) [facility] Start: 05-13-2025 Influenza vaccination [facility] Start: 04-09-2025 End: 04-09-2026 DXA Skeletal system Views for bone density DEXA bone density Imaging Routine Postmenopausal Expected: 04/09/2025, Expires: 04/09/2026 [facility] Comment on above: Expected: 04/09/2025 , Expires: 04/09/2026 Start: 04-09-2025 Hemoglobin A1c measurement Selene betes: Hemoglobin A1C [facility] Start: 04-09-2025 End: 04-09-2026 Hemoglobin A1c/Hemoglobin.total in Blood Hemoglobin A1c Lab Routine Type 2 diabetes mellitus with hyperglycemia, without long-term current use of insulin (HCC) Expected: 04/09/2025 (Approximate), Expires: 04/09/2026 [facility] Work Phone: Comment on above: Expected: 04/09/2025 (Approximate), Expires: 04/09/2026 Start: 04-09-2025 End: 04-09-2025 Patient encounter procedure [facility] Comment on above: Arrived Start: 04-08-2025 End: 04-08-2025 Patient encounter procedure 04/08/2025 1:15 PM EDT Office Visit [facility] [address] [place] [phone] Ken Reyes MD [address] [place] [phone] [facility] Start: 02-27-2025 End: 02-27-2026 XR Wrist - left 2 Views XR wrist 1 or 2 views left Imaging Routine Chronic pain of left wrist Expected: 02/27/2025, Expires: 02/27/2026 [facility] Work Phone: Comment on above: Expected: 02/27/2025 , Expires: 02/27/2026 Start: 02-27-2025 End: 02-27-2025 Patient encounter procedure 02/27/2025 1:45 PM EDT Office Visit [facility] [address] [place] [phone] Ken Reyes MD [address] [place] [address] Arrived [facility] Comment on above: Arrived Start: 01-07-2025 End: 01-07-2025 Patient encounter procedure [facility] Comment on above: Arrived Start: 12-12-2024 End: 12-12-2024 Patient encounter procedure 12/12/2024 3:00 PM EDT Office Visit [facility] [address] [place] [address] Savita Arellano MD [address] [facility] [address] [place] [address] Arrived [facility] Comment on above: Arrived Start: 12-11-2024 End: 12-11-2024 Patient encounter procedure [facility] Comment on above: Vertigo Start: 12-05-2024 End: 12-05-2024 Clinical Support [facility] Comment on above: Arrived Start: 10-08-2024 End: 10-08-2025 Basic metabolic 1998 panel - Serum or Plasma Basic metabolic panel Lab Routine Essential hypertension, benign (CMS/HCC) Expected: 10/08/2024 (Approximate), Expires: 10/08/2025 [facility] Comment on above: Expected: 10/08/2024 (Approximate), Expires: 10/08/2025 Start: 10-08-2024 End: 10-08-2025 CBC W Auto Differential panel - Blood CBC and differential Lab Routine Encounter for long-term current use of medication Expected: 10/08/2024 (Approximate), Expires: 10/08/2025 [facility] Comment on above: Expected: 10/08/2024 (Approximate), Expires: 10/08/2025 Start: 10-08-2024 End: 10-08-2025 Hemoglobin A1c/Hemoglobin.total in Blood Hemoglobin A1c Lab Routine Type 2 diabetes mellitus with hyperglycemia, without long-term current use of insulin (CMS/HCC) Expected: 10/08/2024 (Approximate), Expires: 10/08/2025 [facility] Comment on above: Expected: 10/08/2024 (Approximate), Expires: 10/08/2025 Start: 10-08-2024 End: 10-08-2025 Hepatic function 2000 panel - Serum or Plasma Hepatic function panel Lab Routine Encounter for long-term current use of medication Expected: 10/08/2024 (Approximate), Expires: 10/08/2025 [facility] Comment on above: Expected: 10/08/2024 (Approximate), Expires: 10/08/2025 Start: 10-08-2024 End: 10-08-2025 Lipid 1996 panel - Serum or Plasma Lipid panel Lab Routine Type 2 diabetes mellitus with hyperglycemia, without long-term current use of insulin ([facility]) Expected: 10/08/2024 (Approximate), Expires: 10/08/2025 [facility] Comment on above: Expected: 10/08/2024 (Approximate), Expires: 10/08/2025 Start: 10-08-2024 End: 10-08-2025 Microalbumin/Creatinine panel in random Urine Microalbumin / creatinine, urine ratio Lab Routine Type 2 diabetes mellitus with hyperglycemia, without long-term current use of insulin (CMS/HCC) Expected: 10/08/2024 (Approximate), Expires: 10/08/2025 [facility] Work Phone: Comment on above: Expected: 10/08/2024 (Approximate), Expires: 10/08/2025 Start: 10-08-2024 End: 10-08-2025 Thyrotropin [Units/volume] in Serum or Plasma TSH Lab Routine Adult hypothyroidism ([facility]) Class 1 obesity due to excess calories with serious comorbidity and body mass index (BMI) of 32.0 to 32.9 in adult Expected: 10/08/2024 (Approximate), Expires: 10/08/2025 [facility] Comment on above: Expected: 10/08/2024 (Approximate), Expires: 10/08/2025 Start: 10-08-2024 End: 10-08-2025 Thyroxine (T4) free [Mass/volume] in Serum or Plasma T4, free Lab Routine Adult hypothyroidism (CMS/HCC) Expected: 10/08/2024 (Approximate), Expires: 10/08/2025 [facility] Comment on above: Expected: 10/08/2024 (Approximate), Expires: 10/08/2025 Start: 10-08-2024 End: 10-08-2024 Patient encounter procedure [facility] Comment on above: Arrived Start: 09-18-2024 End: 09-18-2024 Patient encounter procedure 09/18/2024 11:45 AM EST Office Visit [facility] [address] [place] [address] Ken Reyes MD [address] [place] [phone] Arrived [facility] Comment on above: Arrived Start: 08-21-2024 End: 08-21-2024 Patient encounter procedure 08/21/2024 9:45 AM EST Office Visit [facility] [address] [place] [address] Ken Reyes MD [address] [place] [phone] [facility] Start: 07-05-2024 End: 07-05-2024 Patient encounter procedure 07/05/2024 2:30 PM EDT Office Visit [facility] [address] [place] [address] Kne Reyes MD [address] [place] [phone] Arrived [facility] Comment on above: Arrived Start: 07-05-2024 End: 07-05-2025 Albumin, urine, random Albumin, urine, random Lab Routine Type 2 diabetes mellitus with hyperglycemia, without long-term current use of insulin ([facility]) Expected: 07/05/2024 (Approximate), Expires: 07/05/2025 [facility] Work Phone: Comment on above: Expected: 07/05/2024 (Approximate), Expires: 07/05/2025 Start: 07-05-2024 End: 07-05-2025 Basic metabolic 1998 panel - Serum or Plasma Basic metabolic panel Lab Routine Encounter for long-term current use of medication Expected: 07/05/2024 (Approximate), Expires: 07/05/2025 [facility] Comment on above: Expected: 07/05/2024 (Approximate), Expires: 07/05/2025 Start: 07-05-2024 End: 07-05-2025 CBC W Auto Differential panel - Blood CBC and differential Lab Routine Encounter for long-term current use of medication Expected: 07/05/2024 (Approximate), Expires: 07/05/2025 [facility] Comment on above: Expected: 07/05/2024 (Approximate), Expires: 07/05/2025 Start: 07-05-2024 End: 07-05-2025 Hemoglobin A1c/Hemoglobin.total in Blood Hemoglobin A1c Lab Routine Type 2 diabetes mellitus with hyperglycemia, without long-term current use of insulin (CMS/HCC) Expected: 07/05/2024 (Approximate), Expires: 07/05/2025 [facility] Comment on above: Expected: 07/05/2024 (Approximate), Expires: 07/05/2025 Start: 07-05-2024 End: 07-05-2025 Hepatic function 2000 panel - Serum or Plasma Hepatic function panel Lab Routine Encounter for long-term current use of medication Expected: 07/05/2024 (Approximate), Expires: 07/05/2025 [facility] Comment on above: Expected: 07/05/2024 (Approximate), Expires: 07/05/2025 Start: 07-05-2024 End: 07-05-2025 Lipid 1996 panel - Serum or Plasma Lipid panel Lab Routine Type 2 diabetes mellitus with hyperglycemia, without long-term current use of insulin (CMS/HCC) Expected: 07/05/2024 (Approximate), Expires: 07/05/2025 [facility] Comment on above: Expected: 07/05/2024 (Approximate), Expires: 07/05/2025 Start: 07-05-2024 End: 07-05-2025 Thyrotropin [Units/volume] in Serum or Plasma TSH Lab Routine Adult hypothyroidism (CMS/HCC) Class 1 obesity due to excess calories with serious comorbidity and body mass index (BMI) of 33.0 to 33.9 in adult Expected: 07/05/2024 (Approximate), Expires: 07/05/2025 [facility] Comment on above: Expected: 07/05/2024 (Approximate), Expires: 07/05/2025 Start: 07-05-2024 End: 07-05-2025 Thyroxine (T4) free [Mass/volume] in Serum or Plasma T4, free Lab Routine Adult hypothyroidism (CMS/HCC) Expected: 07/05/2024 (Approximate), Expires: 07/05/2025 [facility] Comment on above: Expected: 07/05/2024 (Approximate), Expires: 07/05/2025 Start: 07-05-2024 End: 07-05-2025 Triiodothyronine (T3) Free [Mass/volume] in Serum or Plasma T3, free Lab Routine Adult hypothyroidism (CMS/HCC) Expected: 07/05/2024 (Approximate), Expires: 07/05/2025 [facility] Comment on above: Expected: 07/05/2024 (Approximate), Expires: 07/05/2025 Start: 05-24-2024 Urine screening for protein Diabetes: Urine Protein Screening [facility] Start: 05-13-2024 Influenza vaccination Influenza Vacc ine (#1) [facility] Start: 11-21-2023 End: 11-21-2023 Patient encounter procedure 11/21/2023 10:00 AM EDT Office Visit [facility] [address] [place] [address] Ken Reyes MD [address] [place] [phone] [facility] Start: 10-17-2023 End: 10-17-2023 Patient encounter procedure 10/17/2023 10:15 AM EST Office Visit [facility] [address] [place] [address] Ken Reyes MD [address] [place] [phone] Arrived [facility] Comment on above: Arrived Start: 1958 Urine screening for protein Diabetes: Urine Protein Screening [facility] Start: 1949 Glaucoma screening Diabetes: R etinopathy Screening [facility] Start: 1939 Hemoglobin A1c measurement Selene betes: Hemoglobin A1C [facility] Start: 1939 Medicare Annual Well ness (AWV) Medicare Annual Wellness (AWV) [facility] Healthcare Immunizations Immunization Date Immunization Notes Care Provider Fa cility 07-31-2023 influenza virus vacc ine, unspecified formulation Generic Provider [facility] Payers Date Payer Category Payer Medicare [id number] 2022 Medicare (Managed Care) 1.2. [id number] 2004 Medicare [id number] 1959 Medicare [id number] 2. [id number] 1939 Unknown [id number] 2.16.84 0.1.277193.3.579.2.593 1939 Unknown [id number] 2.16.84 0.1.808360.3.579.2.593 1939 Unknown [id number] 2.16.84 0.1.516127.3.579.2.593 1939 Unknown [id number] 2.16.84 0.1.162097.3.579.2.593 1939 Unknown [id number] 2.16.84 0.1.608182.3.579.2.593 1939 Unknown [id number] 2.16.84 0.1.162111.3.579.2.593 1939 Unknown [id number] 2.16.8 40.1.603844.3.579.2.1286 1939 Unknown [id number] 2.16.8 40.1.555114.3.579.2.1259 1939 Unknown [id number] 2.16.8 40.1.967411.3.579.2.1258 1939 Unknown [id number] 2.16.84 0.1.234805.3.579.2.1259 1939 Unknown [id number] 2.16.84 0.1.590827.3.579.2.1258 1939 Unknown [id number] 2.16.84 0.1.572741.3.579.2.1258 1939 Unknown [id number] 2.16.84 0.1.299176.3.579.2.1258 1939 Unknown [id number] 2.16.84 0.1.071709.3.579.2.1258 1939 Unknown [id number] 2.16.84 0.1.123301.3.579.2.1258 1939 Unknown [id number] 2.16.84 0.1.257196.3.579.2.1258 1939 Unknown [id number] 2.16.84 0.1.735132.3.579.2.1258 1939 Unknown [id number] 2.16. 840.1.817990.3.579.2.1285 1939 Unknown [id number] 2.16. 840.1.017834.3.579.2.1285 1939 Unknown [id number] 2.16. 840.1.898863.3.579.2.1285 1939 Unknown [id number] 2.16. 840.1.312731.3.579.2.1285 1939 Unknown [id number] 2.16.8 40.1.951437.3.579.2.1285 1939 Unknown [id number] 2.16.8 40.1.529636.3.579.2.1286 Social History Date Type Detail Facility Unknown if ever smoked [id number] Start: 10-10-2023 End: 02-28-2024 Sex Assigned At [id number] Start: 10-10-2023 Tobacco smoking status NHIS Never smoked tobacco [facility] Start: 10-10-2023 Tobacco use and exposure Smokeless tobacco non-user [facility] Start: 10-10-2023 End: 02-28-2024 History of Social function [facility] Start: 1940 Sex Assigned At Not on file [facility] How often do you nee d to have someone help you when you read instructions, pamphlets, or other written material from your doctor or pharmacy [SILS] Never [facility] Do you belong to any clubs or organizations such as protestant groups, unions, fraternal or athletic groups, or school groups? Yes [facility] Are you now , , , , never or living with a partner? [facility] How often to you hav e a drink containing alcohol? Never [facility] Do you feel stress - tense, restless, nervous, or anxious, or unable to sleep at night because your mind is troubled all the time - these days [OSQ] Not at all [facility] (I/We) worried wheth er (my/our) food would run out before (I/we) got money to buy more. Never true [facility] In the past 12 month s, was there a time when you were not able to pay the mortgage or rent on time? No [facility] Start: 12-11-2024 End: 04-09-2025 Alcoholic beverage intake Lifetime non-drinker (finding) [facility] Clinical Notes 03-10-2022 to 04-09-2025 Ken Reyes MD - 04/09/2025 2:41 PM Bharati Reyes MD - 04/09/2025 2:41 PM Bharati Reyes MD - 04/09/2025 2:37 PM Bharati Reyes MD - 04/09/2025 2:37 PM EDT Note Date & Type Note Facility 04-09-2025 History of Presen t illness Narrative Associated Problem(s): Mild persistent asthma, uncomplicated (HCC) Symptoms controlled with trelegy. Follow with pulmonology. Associated Problem(s): Type 2 diabetes mellitus with hyperglycemia, without long-term current use of insulin (HCC) Reports BS controlled and due for A1C. Stick to ADA diet and limit carbs. Associated Problem(s): Primary osteoarthritis, left wrist Pain stable and continue with increased activity. Use OTC PRN. Associated Problem(s): DDD (degenerative disc disease), lumbar Pain stable and continue with increased activity. Use OTC PRN. Associated Problem(s): DDD (degenerative disc disease), cervical Pain stable and continue with increased activity. Use OTC PRN. Images from the original note were not included. Subjective Patient ID: Renate Bradford is a 84 y.o. female who presents for Arm Pain (From wrist to shoulder blade). Follow up DM, HTN, OA, and asthma. Patient stable today. Checking BS and thinks okay but forgot log. Tries to eat well and stick to ADA diet. Denies signs of elevated BS such as polyuria, polyphagia or polydipsia. Checking BP PRN and typically controlled. BP normal today. Taking medication daily and tolerating without side effects. OA unchanged. Pain in wrist, neck, and low back. Pain worse with activity. Using aleve PRN and tolerable. Asthma controlled with trelegy. No SOB or cough with exertion. Using albuterol PRN and helps. Review of Systems Respiratory: Negative for cough, shortness of breath and wheezing. Cardiovascular: Negative for chest pain and [...] Assessment/Plan Problem List Items Addressed This Visit DDD (degenerative disc disease), lumbar Pain stable and continue with increased activity. Use OTC PRN. Type 2 diabetes mellitus with hyperglycemia, without long-term current use of insulin (HCC) - Primary Reports BS controlled and due for A1C. Stick to ADA diet and limit carbs. Relevant Orders Hemoglobin A1c Primary osteoarthritis, left wrist Pain stable and continue with increased activity. Use OTC PRN. DDD (degenerative disc disease), cervical Pain stable and continue with increased activity. Use OTC PRN. Postmenopausal Relevant Orders DEXA bone density documented in this encounter [facility] 02-27-2025 History of Presen t illness Narrative Associated Problem(s): Essential hypertension, benign BP elevated and add procardia. Continue to monitor PRN. Discussed DASH diet. Associated Problem(s): Chronic pain of left wrist Increased pain and bump at base of wrist. Likely OA. Check x-ray. Start prednisone. Use OTC PRN. Images from the original note were not included. Subjective Patient ID: Renate Bradford is a 84 y.o. female who presents for Follow-up (Losing use of left arm and hand). C/o elevated BP and pain in left wrist. Checking BP PRN and typically elevated. BP very elevated today. Taking medication daily and tolerating without side effects. BP was improving but now starting to elevate again. C/o pain in left wrist for weeks. Noticed a bump over wrist at base of thumb. Very tender with touch or bump. Pain to lift and avoiding use of arm. No numbness or tingling but often pain shoots into hand and fingers. Review of Systems Respiratory: Negative for cough, shortness of breath and wheezing. Cardiovascular: Negative for chest pain and [...] Assessment/Plan Problem List Items Addressed This Visit Essential hypertension, benign - Primary BP elevated and add procardia. Continue to monitor PRN. Discussed DASH diet. Relevant Medications NIFEdipine XL (Procardia XL) 30 MG 24 hr tablet Chronic pain of left wrist Increased pain and bump at base of wrist. Likely OA. Check x-ray. Start prednisone. Use OTC PRN. Relevant Medications predniSONE (Deltasone) 50 MG tablet Other Relevant Orders XR wrist 1 or 2 views left documented in this encounter [facility] 01-07-2025 History of Presen t illness Narrative Associated Problem(s): Type 2 diabetes mellitus with hyperglycemia, without long-term current use of insulin (CMS/HCC) Not checking BS but last A1C 5.9. Stick to ADA diet and limit carbs. Associated Problem(s): Mild persistent asthma, uncomplicated (CMS/HCC) Symptoms controlled with trelegy. Follow with pulmonology. Associated Problem(s): Essential hypertension, benign (CMS/HCC) BP slowly improving and continue medication. Continue to monitor PRN. Discussed DASH diet. Associated Problem(s): Adult hypothyroidism (CMS/HCC) No signs of low thyroid and continue medication. Images from the original note were not included. Subjective Patient ID: Renate Bradford is a 84 y.o. female who presents for Follow-up (3m/) and Arm Pain (Arthritis pain in left arm and wrist). Follow up DM, HTN, asthma, and hypothyroid. Not checking BS away from office. Tries to eat well and stick to ADA diet. Denies signs of elevated BS such as polyuria, polyphagia or polydipsia. Last A1C 5.9. Checking BP PRN and improving. BP elevated today at 156/80. Typically 130-150 at home with diastolic in 70-80s. Taking medication daily and tolerating without side effects. Asthma controlled. Taking inhalers daily. Mild SOB with exertion but no cough. Seen by pulmonology and recently had PFTs. No signs of low thyroid. Denies fatigue or change in nails, hair, or skin. Taking medication daily. Arm Pain Pertinent negatives include no chest pain. Review of Systems Respiratory: Negative for cough, shortness of breath and wheezing. Cardiovascular: Negative for chest pain and [...] Assessment/Plan Problem List Items Addressed This Visit Adult hypothyroidism (CMS/HCC) No signs of low thyroid and continue medication. Essential hypertension, benign (CMS/HCC) BP slowly improving and continue medication. Continue to monitor PRN. Discussed DASH diet. Mild persistent asthma, uncomplicated (CMS/HCC) Symptoms controlled with trelegy. Follow with pulmonology. Type 2 diabetes mellitus with hyperglycemia, without long-term current use of insulin (CMS/HCC) - Primary Not checking BS but last A1C 5.9. Stick to ADA diet and limit carbs. documented in this encounter [facility] 12-13-2024 History of Presen t illness Narrative Associated Problem(s): Non-allergic rhinitis Continued symptoms and add nasal steroid. Associated Problem(s): Essential hypertension, benign (CMS/HCC) BP elevated and increase losartan to BID. Continue to monitor PRN. Discussed DASH diet. Images from the original note were not included. Subjective Patient ID: Renate Bradford is a 84 y.o. female who presents for Hypertension (Bp running high). Concerned of elevated blood pressure. Seen at ENT and BP 239/79 on wrist cuff. Repeat on automated arm cuff and 220/100. Advised to follow up with PCP. Checking at home and elevated. BP 139-153/81-90. BP elevated today at 168/84. Taking medication daily and tolerating without side effects. C/o worsening allergy symptoms. Increased congestion and rhinorrhea. MARCIAL and sinus pressure along with postnasal drip. Taking zyrtec but still symptoms. Review of Systems Respiratory: Negative for cough, shortness of breath and wheezing. Cardiovascular: Negative for chest pain and [...] Assessment/Plan Problem List Items Addressed This Visit Essential hypertension, benign (CMS/HCC) - Primary BP elevated and increase losartan to BID. Continue to monitor PRN. Discussed DASH diet. Relevant Medications losartan (Cozaar) 50 MG tablet Non-allergic rhinitis Continued symptoms and add nasal steroid. documented in this encounter [facility] 12-12-2024 History of Presen t illness Narrative Subjective Patient ID: Renate Bradford is a 84 y.o. female who presents for Vertigo F/U for [place]-Hallpike after stopping meclizine Family History Problem Relation Name Age of Onset Hypertension Mother Stroke Mother Diabetes Mother Heart failure Father Diabetes Father Active Ambulatory Problems Diagnosis Date Noted Adult hypothyroidism (CMS/HCC) 10/17/2023 Essential hypertension, benign (CMS/HCC) 10/17/2023 DDD (degenerative disc disease), lumbar 10/17/2023 Mild persistent asthma, uncomplicated (CMS/HCC) 10/17/2023 Renal artery stenosis (CMS/HCC) 10/17/2023 Type 2 diabetes mellitus with hyperglycemia, without long-term current use of insulin (CMS/HCC) 10/17/2023 Vertigo 10/17/2023 Vitamin D deficiency 10/17/2023 Seasonal allergic rhinitis due to pollen 11/15/2023 Encounter for long-term current use of medication 07/05/2024 Class 1 obesity due to excess calories with serious comorbidity and body mass index (BMI) of 32.0 to 32.9 in adult 07/05/2024 Medicare annual wellness visit, subsequent 10/08/2024 Calcified granuloma of lung 12/12/2024 Calcified lymph nodes 12/12/2024 Diastolic dysfunction 12/12/2024 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 12/12/2024 Non-allergic rhinitis 12/12/2024 Other secondary pulmonary hypertension 12/12/2024 Resolved Ambulatory Problems Diagnosis Date Noted Major depressive disorder, recurrent episode, mild (HCC) (CMS/HCC) 10/17/2023 Syncope and collapse 10/17/2023 Candidal skin infection 10/17/2023 Left foot pain 11/15/2023 Past Medical History: Diagnosis Date At standard risk for fall Benign essential hypertension (CMS/HCC) Chronic left shoulder pain Encounter for long-term (current) use of medications MDD (major depressive disorder), recurrent episode, mild (HCC) (CMS/HCC) Mild persistent asthma without complication (CMS/HCC) Neck pain, chronic Obesity with body mass index (BMI) of 30.0 to 39.9 Renal artery stenosis, [place], bilateral (CMS/HCC) Statin declined Past Surgical History: Procedure Laterality Date CT ANGIOGRAM HEART CORONARY 08/07/2022 CT ANGIOGRAM TAVR 08/07/2022 CT ANGIOGRAM HEART CORONARY 01/15/2022 CT ANGIOGRAM TAVR 01/15/2022 HYSTERECTOMY 2003 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 Take with meals. 180 tablet 3 cholecalciferol (Vitamin D-3) 50 MCG (1999) tablet Take 1 tablet (50 mcg) by mouth Daily 90 tablet 3 levothyroxine (Synthroid) 50 MCG tablet Take 1 tablet (50 mcg) by mouth in the morning. Take before meals. 90 tablet 3 losartan (Cozaar) 50 MG tablet Take 1 tablet (50 mg) by mouth Daily 30 tablet 5 meclizine (Antivert) 25 MG tablet Take 1 tablet (25 mg) by mouth 4 (four) times a day as needed for dizziness 60 tablet 2 No current facility-administered medications on file prior to visit. Objective Last Recorded Vitals Vitals: 12/12/24 1445 BP: (!) 239/79 Pulse: 88 ENT Physical Exam Constitutional Appearance: patient appears well-developed, well-nourished and well-groomed, Communication/Voice: communication appropriate for developmental age; vocal quality normal; Constitutional comments: [place]-Hallpike negative. Assessment/Plan Diagnoses and all orders for this visit: Dizziness and giddiness Essential hypertension, benign (CMS/HCC) Clyde Hallpike negative. Given instructions for Hernandez-Darhoff exercises. F/U if recurs. Will have Sergio Dacosta evaluate if recurs as well. BP 220/100 today. Pt to contact Dr Reyes for tx. documented in this encounter [facility] 12-11-2024 History of Presen t illness Narrative Subjective Patient ID: Renate Bradford is a 84 y.o. female who presents for Vertigo (Audio 12/05/24) Pt reports when she rolls to the RT in bed she gets vertigo. Pt has had a couple months. Had similar spells in the past. Had 7 weeks vest rehab at [facility]. 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 Review of Systems All other systems reviewed and are negative. Family History Problem Relation Name Age of Onset Hypertension Mother Stroke Mother Diabetes Mother Heart failure Father Diabetes Father Active Ambulatory Problems Diagnosis Date Noted Adult hypothyroidism ([facility]) 10/17/2023 Essential hypertension, benign (CMS/HCC) 10/17/2023 DDD (degenerative disc disease), lumbar 10/17/2023 Mild persistent asthma, uncomplicated (CMS/HCC) 10/17/2023 Renal artery stenosis (CMS/HCC) 10/17/2023 Type 2 diabetes mellitus with hyperglycemia, without long-term current use of insulin (CMS/HCC) 10/17/2023 Vertigo 10/17/2023 Vitamin D deficiency 10/17/2023 Seasonal allergic rhinitis due to pollen 11/15/2023 Encounter for long-term current use of medication 07/05/2024 Class 1 obesity due to excess calories with serious comorbidity and body mass index (BMI) of 32.0 to 32.9 in adult 07/05/2024 Medicare annual wellness visit, subsequent 10/08/2024 Resolved Ambulatory Problems Diagnosis Date Noted Major depressive disorder, recurrent episode, mild (HCC) (CMS/HCC) 10/17/2023 Syncope and collapse 10/17/2023 Candidal skin infection 10/17/2023 Left foot pain 11/15/2023 Past Medical History: Diagnosis Date At standard risk for fall Benign essential hypertension (CMS/HCC) Chronic left shoulder pain Encounter for long-term (current) use of medications MDD (major depressive disorder), recurrent episode, mild (HCC) (CMS/HCC) Mild persistent asthma without complication (CMS/HCC) Neck pain, chronic Obesity with body mass index (BMI) of 30.0 to 39.9 Renal artery stenosis, [place], bilateral (CMS/HCC) Statin declined Past Surgical History: Procedure Laterality Date CT ANGIOGRAM HEART CORONARY 08/07/2022 CT ANGIOGRAM TAVR 08/07/2022 CT ANGIOGRAM HEART CORONARY 01/15/2022 CT ANGIOGRAM TAVR 01/15/2022 HYSTERECTOMY 2004 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 Take with meals. 180 tablet 3 cholecalciferol (Vitamin D-3) 50 MCG (2000 UT) tablet Take 1 tablet (50 mcg) by mouth Daily 90 tablet 3 levothyroxine (Synthroid) 50 MCG tablet Take 1 tablet (50 mcg) by mouth in the morning. Take before meals. 90 tablet 3 losartan (Cozaar) 50 MG tablet Take 1 tablet (50 mg) by mouth Daily 30 tablet 5 meclizine (Antivert) 25 MG tablet Take 1 tablet (25 mg) by mouth 4 (four) times a day as needed for dizziness 60 tablet 2 No current facility-administered medications on file prior to visit. Objective Last Recorded Vitals Vitals: 12/11/24 1349 BP: 159/80 Pulse: 75 ENT Physical Exam Constitutional Appearance: patient appears well-developed, well-nourished and well-groomed, Constitutional comments: [place]-Hallpike - <1sec self-limited vertigo with a single beat of nystagmus Head and Face Appearance: head appears normal and face appears atraumatic; Ear Ear Canals: right ear canal normal; left ear canal normal; Tympanic Membranes: right tympanic membrane normal; left tympanic membrane normal; Nose External Nose: nares patent bilaterally; external nose normal; Internal Nose: septum normal; Oral Cavity/Oropharynx Tongue: normal; Oral mucosa: normal; Hard palate: normal; Soft palate: normal; Tonsils: normal; Neck Neck: neck normal; neck palpation normal; Thyroid: thyroid normal; Respiratory Inspection: breathing unlabored; normal breathing rate; Auscultation: breath sounds are clear; Cardiovascular Inspection: extremities are warm and well perfused; no peripheral edema present; Auscultation: regular rate and rhythm; Assessment/Plan Diagnoses and all orders for this visit: Vertigo - Ambulatory referral to ENT [facility], but her [place]-Hallpike is equivocal at best, but pt took meclizine this morning. I will see he back when she has not taken any meclizine before initiating tx. documented in this encounter [facility] 12-05-2024 History of Presen t illness Narrative History: Pt was referred to ENT because of vertigo. Pt had vertigo years ago and had therapy that worked. Recently the vertigo returned. Pt went back to the same therapist but it took 7 weeks before the therapy helped her vertigo. Shortly after this she had a medical procedure and had to lay on her back. This position caused the vertigo to returned. Pt decided to stop therapy and is using meclizine to help control the vertigo. Pt has not noticed any difficulty hearing. Pt denies tinnitus, otalgia, frequent ear infections, and exposure to loud noise. Otoscopic Exam: Ear canal clear and TM intact AU Pure Tone Audiometry Right Ear: Mild to moderate sensorineural hearing loss above 4K Hz Left Ear: Mild sensorineural hearing loss at 250 Hz and above 4K Hz Speech Audiometry Right SRT = 15 dB and word discrimination score at 50 dBHL = 100% Left SRT = 25 dB and word discrimination score at 50 dBHL = 100% Tympanometry Right Ear: Type A tympanogram Left Ear: Type A tympanogram documented in this encounter [facility] 10-08-2024 History of Presen t illness Narrative Associated Problem(s): Type 2 diabetes mellitus with hyperglycemia, without long-term current use of insulin ([facility]) Not checking BS and due for A1C. Stick to ADA diet and limit carbs. Associated Problem(s): Essential hypertension, benign (CMS/HCC) BP remains elevated and increase losartan. Continue to monitor PRN. Discussed DASH diet. Associated Problem(s): Medicare annual wellness visit, subsequent Due for labs. Discussed proper diet and regular aerobic exercise. Need aerobic exercise 5-6 days a week for 30 minutes at a time. Smaller portions and limit total calories. Tetanus every 10 years. Advised not to smoke. Images from the original note were not included. Subjective Patient ID: Renate Bradford is a 84 y.o. female who presents for Medicare Annual Wellness Visit Subsequent (welllness). Presents for medicare annual wellness visit. Feels well today. Weight up 8 pounds in the past year. Active around house and outside but no regular exercise. Tries to watch diet and eat healthy. Increased fruits and vegetables. Smaller portions and limits snacking. Tries to limit total daily calories. Due for labs. Reports BP remains elevated. BP 134-159 systolic and 81-100 diastolic. Not checking BS away from office. Review of Systems Respiratory: Negative for cough, shortness of breath and wheezing. Cardiovascular: Negative for chest pain and [...] There is no guarding or rebound. Musculoskeletal: General: No swelling or tenderness. Cervical back: Neck supple. Right lower leg: No edema. Left lower leg: No edema. Skin: Findings: No erythema or rash. Neurological: General: No focal deficit present. Mental Status: She is alert and oriented to person, place, and time. Cranial Nerves: No cranial nerve deficit. Motor: No weakness. Gait: Gait normal. Assessment/Plan Problem List Items Addressed This Visit Adult hypothyroidism (CMS/HCC) Relevant Orders TSH T4, free Essential hypertension, benign (CMS/HCC) BP remains elevated and increase losartan. Continue to monitor PRN. Discussed DASH diet. Relevant Medications losartan (Cozaar) 50 MG tablet Other Relevant Orders Basic metabolic panel Type 2 diabetes mellitus with hyperglycemia, without long-term current use of insulin (CMS/HCC) Not checking BS and due for A1C. Stick to ADA diet and limit carbs. Relevant Orders Microalbumin / creatinine, urine ratio Hemoglobin A1c Lipid panel Encounter for long-term current use of medication Relevant Orders CBC and differential Hepatic function panel Class 1 obesity due to excess calories with serious comorbidity and body mass index (BMI) of 32.0 to 32.9 in adult Relevant Orders TSH Medicare annual wellness visit, subsequent - Primary Due for labs. Discussed proper diet and regular aerobic exercise. Need aerobic exercise 5-6 days a week for 30 minutes at a time. Smaller portions and limit total calories. Tetanus every 10 years. Advised not to smoke. documented in this encounter [facility] 09-18-2024 History of Presen t illness Narrative Associated Problem(s): Vertigo Continued symptoms and start meclizine daily in am. Use PRN during the day. Refer to ENT. Associated Problem(s): Essential hypertension, benign (CMS/HCC) BP elevated and potential side effects with norvasc and stop. Add losartan and continue coreg. Monitor BP PRN. Discussed DASH diet. Images from the original note were not included. Subjective Patient ID: Renate Bradfodr is a 84 y.o. female who presents for Follow-up ([facility] er f/u). ER follow up from 08/31 for HTN. Patient has been dealing with vertigo off and on for months. Went to vestibular rehab and seemed to help then symptoms return. Still having symptoms if bend over or roll over in bed. Using meclizine PRN and mild relief. Wasn't feeling well and developed MARCIAL and pressure in head. To ER and BP initially 200/100. Given IV medication and improved. Added norvasc and discharged. Monitoring BP and often elevated. BP 118-152 systolic and 67-93 diastolic. On norvasc in past but stopped because cardiology felt causing vertigo. Continues to have vertigo and frequent symptoms. Stopped driving because feels too unsteady. Review of Systems Respiratory: Negative for cough, shortness of breath and wheezing. Cardiovascular: Negative for chest pain and [...] Assessment/Plan Problem List Items Addressed This Visit Essential hypertension, benign (CMS/HCC) - Primary BP elevated and potential side effects with norvasc and stop. Add losartan and continue coreg. Monitor BP PRN. Discussed DASH diet. Relevant Medications losartan (Cozaar) 25 MG tablet Vertigo Continued symptoms and start meclizine daily in am. Use PRN during the day. Refer to ENT. Relevant Medications meclizine (Antivert) 25 MG tablet Other Relevant Orders Ambulatory referral to ENT documented in this encounter [facility] 07-05-2024 History of Presen t illness Narrative Associated Problem(s): Vertigo Recent symptoms and start meclizine. Refer to vestibular rehab. Associated Problem(s): Type 2 diabetes mellitus with hyperglycemia, without long-term current use of insulin (CMS/HCC) Not checking BS and due for A1C. Stick to ADA diet and limit carbs. Associated Problem(s): Mild persistent asthma, uncomplicated (CMS/HCC) Symptoms controlled with trelegy. Follow with pulmonology. Associated Problem(s): Essential hypertension, benign (CMS/HCC) BP elevated today but previously controlled and monitor PRN. Associated Problem(s): Class 1 obesity due to excess calories with serious comorbidity and body mass index (BMI) of 33.0 to 33.9 in adult Weight loss indicated Associated Problem(s): Adult hypothyroidism (CMS/HCC) No signs of low thyroid and continue medication. Images from the original note were not included. Subjective Patient ID: Renate Bradford is a 83 y.o. female who presents for Dizziness (Started w/ covid not going away). Follow up DM, HTN, asthma, and hypothyroid. Not checking BS away from office. Tries to eat well and stick to ADA diet. Denies signs of elevated BS such as polyuria, polyphagia or polydipsia. Checking BP PRN and typically controlled. BP elevated today but not feeling well. Taking medication daily and tolerating without side effects. C/o severe vertigo. Frequent sensation of motion and room spinning. Symptoms worse when up and moving Severe symptoms if roll over in bed. Not tried OTC. Symptoms started after covid. Prior vestibular rehab helped. Asthma controlled. Taking inhalers daily. Mild SOB with exertion but no cough. Seen by pulmonology and recently had PFTs. No signs of low thyroid. Denies fatigue or change in nails, hair, or skin. Taking medication daily. Dizziness Pertinent negatives include no abdominal pain, chest pain, coughing, nausea or vomiting. Review of Systems Respiratory: Negative for cough, shortness of breath and wheezing. Cardiovascular: Negative for chest pain and palpitations. Gastrointestinal: Negative for abdominal pain, diarrhea, nausea and vomiting. Genitourinary: Negative for dysuria. Neurological: Positive for dizziness. Objective Physical Exam Constitutional: General: She is [...] Assessment/Plan Problem List Items Addressed This Visit Adult hypothyroidism (CMS/HCC) No signs of low thyroid and continue medication. Relevant Orders TSH T4, free T3, free Essential hypertension, benign (CMS/HCC) BP elevated today but previously controlled and monitor PRN. Mild persistent asthma, uncomplicated (CMS/HCC) Symptoms controlled with trelegy. Follow with pulmonology. Type 2 diabetes mellitus with hyperglycemia, without long-term current use of insulin (CMS/HCC) - Primary Not checking BS and due for A1C. Stick to ADA diet and limit carbs. Relevant Orders Albumin, urine, random Hemoglobin A1c Lipid panel Vertigo Recent symptoms and start meclizine. Refer to vestibular rehab. Relevant Medications meclizine (Antivert) 25 MG tablet Encounter for long-term current use of medication Relevant Orders Basic metabolic panel CBC and differential Hepatic function panel Class 1 obesity due to excess calories with serious comorbidity and body mass index (BMI) of 33.0 to 33.9 in adult Weight loss indicated Relevant Orders TSH vv documented in this encounter [facility] 10-17-2023 History of Presen t illness Narrative [...] clotrimazole-betamethasone (Lotrisone) cream documented in this encounter [facility] 03-10-2022 Evaluation note Encounter Date Diagnosis Assessment [...] and her blood pressure is well controlled [id number] Other Evaluation note* Diagnosis Candidal skin infection- Primary Mild persistent asthma, uncomplicated (CMS/HCC) documented in this encounter [facility] HealthcareEvaluation note* Diagnosis Candidal skin infection- Primary Mild persistent asthma, uncomplicated (CMS/HCC) Left foot pain- Primary Pain in soft tissues of limb Essential hypertension, benign (CMS/HCC) Essential hypertension, benign Seasonal allergic rhinitis due to pollen Type 2 diabetes mellitus with hyperglycemia, without long-term current use of insulin (CMS/HCC)- Primary Essential hypertension, benign (CMS/HCC) Essential hypertension, benign Mild persistent asthma, uncomplicated (CMS/HCC) Adult hypothyroidism ([facility]/HCC) Unspecified hypothyroidism Vitamin D deficiency Type 2 diabetes mellitus with hyperglycemia, without long-term current use of insulin (CMS/HCC)- Primary Essential hypertension, benign (CMS/HCC) Essential hypertension, benign Vertigo Dizziness and giddiness Mild persistent asthma, uncomplicated (CMS/HCC) Adult hypothyroidism (CMS/HCC) Unspecified hypothyroidism Encounter for long-term current use of medication Class 1 obesity due to excess calories with serious comorbidity and body mass index (BMI) of 33.0 to 33.9 in adult documented in this encounter [facility] HealthcareEvaluation note* Diagnosis Candidal skin infection- Primary Mild persistent asthma, uncomplicated (CMS/HCC) Left foot pain- Primary Pain in soft tissues of limb Essential hypertension, benign (CMS/HCC) Essential hypertension, benign Seasonal allergic rhinitis due to pollen Type 2 diabetes mellitus with hyperglycemia, without long-term current use of insulin (CMS/HCC)- Primary Essential hypertension, benign (CMS/HCC) Essential hypertension, benign Mild persistent asthma, uncomplicated (CMS/HCC) Adult hypothyroidism (CMS/HCC) Unspecified hypothyroidism Vitamin D deficiency Type 2 diabetes mellitus with hyperglycemia, without long-term current use of insulin ([facility]/HCC)- Primary Essential hypertension, benign (CMS/HCC) Essential hypertension, benign Vertigo Dizziness and giddiness Mild persistent asthma, uncomplicated (CMS/HCC) Adult hypothyroidism (CMS/HCC) Unspecified hypothyroidism Encounter for long-term current use of medication Class 1 obesity due to excess calories with serious comorbidity and body mass index (BMI) of 33.0 to 33.9 in adult Essential hypertension, benign (CMS/HCC)- Primary Essential hypertension, benign Vertigo Dizziness and giddiness documented in this encounter [facility] HealthcareEvaluation note* Diagnosis Candidal skin infection- Primary Mild persistent asthma, uncomplicated (CMS/HCC) Left foot pain- Primary Pain in soft tissues of limb Essential hypertension, benign (CMS/HCC) Essential hypertension, benign Seasonal allergic rhinitis due to pollen Type 2 diabetes mellitus with hyperglycemia, without long-term current use of insulin ([facility]/HCC)- Primary Essential hypertension, benign (CMS/HCC) Essential hypertension, benign Mild persistent asthma, uncomplicated (CMS/HCC) Adult hypothyroidism ([facility]) Unspecified hypothyroidism Vitamin D deficiency Type 2 diabetes mellitus with hyperglycemia, without long-term current use of insulin ([facility])- Primary Essential hypertension, benign (CMS/HCC) Essential hypertension, benign Vertigo Dizziness and giddiness Mild persistent asthma, uncomplicated ([facility]) Adult hypothyroidism ([facility]) Unspecified hypothyroidism Encounter for long-term current use of medication Class 1 obesity due to excess calories with serious comorbidity and body mass index (BMI) of 33.0 to 33.9 in adult Essential hypertension, benign ([facility]/HCC)- Primary Essential hypertension, benign Vertigo Dizziness and giddiness Medicare annual wellness visit, subsequent- Primary Type 2 diabetes mellitus with hyperglycemia, without long-term current use of insulin ([facility]) Adult hypothyroidism ([facility]) Unspecified hypothyroidism Class 1 obesity due to excess calories with serious comorbidity and body mass index (BMI) of 32.0 to 32.9 in adult Encounter for long-term current use of medication Essential hypertension, benign ([facility]/HCC) Essential hypertension, benign documented in this encounter [facility] HealthcareEvaluation note* Diagnosis Candidal skin infection- Primary Mild persistent asthma, uncomplicated (CMS/HCC) Left foot pain- Primary Pain in soft tissues of limb Essential hypertension, benign (CMS/HCC) Essential hypertension, benign Seasonal allergic rhinitis due to pollen Type 2 diabetes mellitus with hyperglycemia, without long-term current use of insulin ([facility])- Primary Essential hypertension, benign (CMS/HCC) Essential hypertension, benign Mild persistent asthma, uncomplicated (CMS/HCC) Adult hypothyroidism ([facility]) Unspecified hypothyroidism Vitamin D deficiency Type 2 diabetes mellitus with hyperglycemia, without long-term current use of insulin ([facility])- Primary Essential hypertension, benign (CMS/HCC) Essential hypertension, benign Vertigo Dizziness and giddiness Mild persistent asthma, uncomplicated ([facility]) Adult hypothyroidism ([facility]) Unspecified hypothyroidism Encounter for long-term current use of medication Class 1 obesity due to excess calories with serious comorbidity and body mass index (BMI) of 33.0 to 33.9 in adult Essential hypertension, benign ([facility]/HCC)- Primary Essential hypertension, benign Vertigo Dizziness and giddiness Medicare annual wellness visit, subsequent- Primary Type 2 diabetes mellitus with hyperglycemia, without long-term current use of insulin ([facility]) Adult hypothyroidism ([facility]) Unspecified hypothyroidism Class 1 obesity due to excess calories with serious comorbidity and body mass index (BMI) of 32.0 to 32.9 in adult Encounter for long-term current use of medication Essential hypertension, benign ([facility]) Essential hypertension, benign Sensorineural hearing loss (SNHL) of both ears- Primary Dizziness Dizziness and giddiness documented in this encounter [facility] HealthcareEvaluation note* Diagnosis Candidal skin infection- Primary Mild persistent asthma, uncomplicated ([facility]) Left foot pain- Primary Pain in soft tissues of limb Essential hypertension, benign ([facility]) Essential hypertension, benign Seasonal allergic rhinitis due to pollen Type 2 diabetes mellitus with hyperglycemia, without long-term current use of insulin ([facility])- Primary Essential hypertension, benign ([facility]) Essential hypertension, benign Mild persistent asthma, uncomplicated ([facility]) Adult hypothyroidism ([facility]) Unspecified hypothyroidism Vitamin D deficiency Type 2 diabetes mellitus with hyperglycemia, without long-term current use of insulin ([facility])- Primary Essential hypertension, benign ([facility]) Essential hypertension, benign Vertigo Dizziness and giddiness Mild persistent asthma, uncomplicated ([facility]) Adult hypothyroidism ([facility]) Unspecified hypothyroidism Encounter for long-term current use of medication Class 1 obesity due to excess calories with serious comorbidity and body mass index (BMI) of 33.0 to 33.9 in adult Essential hypertension, benign ([facility])- Primary Essential hypertension, benign Vertigo Dizziness and giddiness Medicare annual wellness visit, subsequent- Primary Type 2 diabetes mellitus with hyperglycemia, without long-term current use of insulin ([facility]) Adult hypothyroidism ([facility]) Unspecified hypothyroidism Class 1 obesity due to excess calories with serious comorbidity and body mass index (BMI) of 32.0 to 32.9 in adult Encounter for long-term current use of medication Essential hypertension, benign (CMS/HCC) Essential hypertension, benign Vertigo Dizziness and giddiness documented in this encounter [facility] HealthcareEvaluation note* Diagnosis Candidal skin infection- Primary Mild persistent asthma, uncomplicated (CMS/HCC) Left foot pain- Primary Pain in soft tissues of limb Essential hypertension, benign (CMS/HCC) Essential hypertension, benign Seasonal allergic rhinitis due to pollen Type 2 diabetes mellitus with hyperglycemia, without long-term current use of insulin (CMS/HCC)- Primary Essential hypertension, benign (CMS/HCC) Essential hypertension, benign Mild persistent asthma, uncomplicated (CMS/HCC) Adult hypothyroidism ([facility]) Unspecified hypothyroidism Vitamin D deficiency Type 2 diabetes mellitus with hyperglycemia, without long-term current use of insulin ([facility])- Primary Essential hypertension, benign (CMS/HCC) Essential hypertension, benign Vertigo Dizziness and giddiness Mild persistent asthma, uncomplicated (CMS/HCC) Adult hypothyroidism ([facility]) Unspecified hypothyroidism Encounter for long-term current use of medication Class 1 obesity due to excess calories with serious comorbidity and body mass index (BMI) of 33.0 to 33.9 in adult Essential hypertension, benign (CMS/HCC)- Primary Essential hypertension, benign Vertigo Dizziness and giddiness Medicare annual wellness visit, subsequent- Primary Type 2 diabetes mellitus with hyperglycemia, without long-term current use of insulin ([facility]) Adult hypothyroidism ([facility]) Unspecified hypothyroidism Class 1 obesity due to excess calories with serious comorbidity and body mass index (BMI) of 32.0 to 32.9 in adult Encounter for long-term current use of medication Essential hypertension, benign (CMS/HCC) Essential hypertension, benign Dizziness and giddiness- Primary Essential hypertension, benign (CMS/HCC) Essential hypertension, benign documented in this encounter [facility] HealthcareEvaluation note* Diagnosis Candidal skin infection- Primary Mild persistent asthma, uncomplicated (CMS/HCC) Left foot pain- Primary Pain in soft tissues of limb Essential hypertension, benign (CMS/HCC) Essential hypertension, benign Seasonal allergic rhinitis due to pollen Type 2 diabetes mellitus with hyperglycemia, without long-term current use of insulin ([facility])- Primary Essential hypertension, benign (CMS/HCC) Essential hypertension, benign Mild persistent asthma, uncomplicated (CMS/HCC) Adult hypothyroidism ([facility]) Unspecified hypothyroidism Vitamin D deficiency Type 2 diabetes mellitus with hyperglycemia, without long-term current use of insulin ([facility])- Primary Essential hypertension, benign ([facility]) Essential hypertension, benign Vertigo Dizziness and giddiness Mild persistent asthma, uncomplicated ([facility]) Adult hypothyroidism ([facility]) Unspecified hypothyroidism Encounter for long-term current use of medication Class 1 obesity due to excess calories with serious comorbidity and body mass index (BMI) of 33.0 to 33.9 in adult Essential hypertension, benign ([facility])- Primary Essential hypertension, benign Vertigo Dizziness and giddiness Medicare annual wellness visit, subsequent- Primary Type 2 diabetes mellitus with hyperglycemia, without long-term current use of insulin ([facility]) Adult hypothyroidism ([facility]) Unspecified hypothyroidism Class 1 obesity due to excess calories with serious comorbidity and body mass index (BMI) of 32.0 to 32.9 in adult Encounter for long-term current use of medication Essential hypertension, benign ([facility]) Essential hypertension, benign Essential hypertension, benign ([facility]/HCC)- Primary Essential hypertension, benign Non-allergic rhinitis documented in this encounter [facility] HealthcareEvaluation note* Diagnosis Candidal skin infection- Primary Mild persistent asthma, uncomplicated ([facility]) Left foot pain- Primary Pain in soft tissues of limb Essential hypertension, benign ([facility]) Essential hypertension, benign Seasonal allergic rhinitis due to pollen Type 2 diabetes mellitus with hyperglycemia, without long-term current use of insulin ([facility])- Primary Essential hypertension, benign ([facility]) Essential hypertension, benign Mild persistent asthma, uncomplicated ([facility]) Adult hypothyroidism ([facility]) Unspecified hypothyroidism Vitamin D deficiency Type 2 diabetes mellitus with hyperglycemia, without long-term current use of insulin ([facility])- Primary Essential hypertension, benign ([facility]) Essential hypertension, benign Vertigo Dizziness and giddiness Mild persistent asthma, uncomplicated ([facility]) Adult hypothyroidism ([facility]) Unspecified hypothyroidism Encounter for long-term current use of medication Class 1 obesity due to excess calories with serious comorbidity and body mass index (BMI) of 33.0 to 33.9 in adult Essential hypertension, benign ([facility])- Primary Essential hypertension, benign Vertigo Dizziness and giddiness Medicare annual wellness visit, subsequent- Primary Type 2 diabetes mellitus with hyperglycemia, without long-term current use of insulin ([facility]) Adult hypothyroidism ([facility]) Unspecified hypothyroidism Class 1 obesity due to excess calories with serious comorbidity and body mass index (BMI) of 32.0 to 32.9 in adult Encounter for long-term current use of medication Essential hypertension, benign (CMS/HCC) Essential hypertension, benign Essential hypertension, benign (CMS/HCC)- Primary Essential hypertension, benign Non-allergic rhinitis Type 2 diabetes mellitus with hyperglycemia, without long-term current use of insulin (CMS/HCC)- Primary Essential hypertension, benign (CMS/HCC) Essential hypertension, benign Mild persistent asthma, uncomplicated (CMS/HCC) Adult hypothyroidism (CMS/HCC) Unspecified hypothyroidism documented in this encounter [facility] HealthcareEvaluation note* Diagnosis Candidal skin infection- Primary Mild persistent asthma, uncomplicated (HCC) Left foot pain- Primary Pain in soft tissues of limb Essential hypertension, benign Essential hypertension, benign Seasonal allergic rhinitis due to pollen Type 2 diabetes mellitus with hyperglycemia, without long-term current use of insulin (HCC)- Primary Essential hypertension, benign Essential hypertension, benign Mild persistent asthma, uncomplicated (HCC) Adult hypothyroidism Unspecified hypothyroidism Vitamin D deficiency Type 2 diabetes mellitus with hyperglycemia, without long-term current use of insulin (HCC)- Primary Essential hypertension, benign Essential hypertension, benign Vertigo Dizziness and giddiness Mild persistent asthma, uncomplicated (HCC) Adult hypothyroidism Unspecified hypothyroidism Encounter for long-term current use of medication Class 1 obesity due to excess calories with serious comorbidity and body mass index (BMI) of 33.0 to 33.9 in adult Essential hypertension, benign- Primary Essential hypertension, benign Vertigo Dizziness and giddiness Medicare annual wellness visit, subsequent- Primary Type 2 diabetes mellitus with hyperglycemia, without long-term current use of insulin (HCC) Adult hypothyroidism Unspecified hypothyroidism Class 1 obesity due to excess calories with serious comorbidity and body mass index (BMI) of 32.0 to 32.9 in adult Encounter for long-term current use of medication Essential hypertension, benign Essential hypertension, benign Essential hypertension, benign- Primary Essential hypertension, benign Non-allergic rhinitis Type 2 diabetes mellitus with hyperglycemia, without long-term current use of insulin (HCC)- Primary Essential hypertension, benign Essential hypertension, benign Mild persistent asthma, uncomplicated (HCC) Adult hypothyroidism Unspecified hypothyroidism Essential hypertension, benign- Primary Essential hypertension, benign Chronic pain of left wrist documented in this encounter [facility] HealthcareEvaluation note* Diagnosis Candidal skin infection- Primary Mild persistent asthma, uncomplicated (HCC) Left foot pain- Primary Pain in soft tissues of limb Essential hypertension, benign Essential hypertension, benign Seasonal allergic rhinitis due to pollen Type 2 diabetes mellitus with hyperglycemia, without long-term current use of insulin (HCC)- Primary Essential hypertension, benign Essential hypertension, benign Mild persistent asthma, uncomplicated (HCC) Adult hypothyroidism Unspecified hypothyroidism Vitamin D deficiency Type 2 diabetes mellitus with hyperglycemia, without long-term current use of insulin (HCC)- Primary Essential hypertension, benign Essential hypertension, benign Vertigo Dizziness and giddiness Mild persistent asthma, uncomplicated (HCC) Adult hypothyroidism Unspecified hypothyroidism Encounter for long-term current use of medication Class 1 obesity due to excess calories with serious comorbidity and body mass index (BMI) of 33.0 to 33.9 in adult Essential hypertension, benign- Primary Essential hypertension, benign Vertigo Dizziness and giddiness Medicare annual wellness visit, subsequent- Primary Type 2 diabetes mellitus with hyperglycemia, without long-term current use of insulin (HCC) Adult hypothyroidism Unspecified hypothyroidism Class 1 obesity due to excess calories with serious comorbidity and body mass index (BMI) of 32.0 to 32.9 in adult Encounter for long-term current use of medication Essential hypertension, benign Essential hypertension, benign Essential hypertension, benign- Primary Essential hypertension, benign Non-allergic rhinitis Type 2 diabetes mellitus with hyperglycemia, without long-term current use of insulin (HCC)- Primary Essential hypertension, benign Essential hypertension, benign Mild persistent asthma, uncomplicated (HCC) Adult hypothyroidism Unspecified hypothyroidism Essential hypertension, benign- Primary Essential hypertension, benign Chronic pain of left wrist Type 2 diabetes mellitus with hyperglycemia, without long-term current use of insulin (HCC)- Primary Primary osteoarthritis, left wrist DDD (degenerative disc disease), cervical Degeneration of cervical intervertebral disc Degeneration of intervertebral disc of lumbar region with discogenic back pain Mild persistent asthma, uncomplicated (HCC) Postmenopausal Asymptomatic postmenopausal status (age-related) (natural) documented in this encounter [facility] HealthcareHistory general Narrative - Reported* Type Description Date Medical History HYPOTHYROIDISM Medical History HYPERTENSION Medical History VITAMIN D DEFICIENCY Medical History SEASONAL ALLERGIC RHINITIS DUE T O POLLEN Medical History MILD ASTHMA Medical History MDD MAJOR DEPRESSIVE DISORDER Medical History TYPE 2 DIABETES KRISTEN ITUS WITHOUT COMPLICATION WITHOUT LONG-TERM CURRENT USE OF INSULIN Medical History OBESITY Medical History VITAMIN B12 DEFICIENCY Medical History POST CONCUSSION VERTIGO Surgical History HYSTERECTOMY Surgical History RIGHT KNEE REPLACEMENT Surgical History RIGHT ELBOW NERVE Hospitalization History SEE ABOVE Mark43 Other Summary Purpose Family History No Family [...] and content) Reason Comments Rash On chest Reason Comments Dizziness Started w/ covid not going away Reason Comments Follow-up [facility] er f/u Reason Comments Medicare Annual Wellness Visit Subsequen t welllness Reason Comments Vertigo Audio 12/05/24 Specialty Diagnoses / Procedures Referred By Contac t Referred To Contact Otolaryngology Diagnoses Vertigo Procedures [place] OFFICE/OUTPATIENT NEW HIGH MDM 60 MINUTES Ken Reyes MD [address] [place] [address] Phone: tel: fax: Savita Arellano MD [address] [place] [address] Phone: tel: fax: Referral ID Status Reason Start Date Expiration Date V isits Requested Visits Authorized [id number] Closed Specialty Services Required 09/18/2024 03/17/2025 1 1 Reason Comments Vertigo Reason Comments Hypertension Bp running high Reason Comments Follow-up 3m Arm Pain Arthritis pain in le ft arm and wrist Reason Comments Follow-up Losing use of left a rm and hand Reason Comments Arm Pain From wrist to should er blade INFORMATION SOURCE (unrecogn ized section and content) DATE CREATED AUTHOR [facility]/19/2022 [facility] DATE CREATED AUTHOR AUTHOR'S ORGANIZ ATION 09/04/2024 [facility] DATE CREATED AUTHOR AUTHOR'S ORGANIZ ATION 04/11/2025 [facility] EPIC DATE CREATED AUTHOR AUTHOR'S ORGANIZ ATION 04/11/2025 [facility] DATE CREATED AUTHOR AUTHOR'S ORGANIZ ATION 05/04/2025 [facility] Care Teams (unrecognized sec tion and content) Equestrian Trainer Relationship Specialty Start Date End Date Seema Durham MD [address] [place] [phone] PCP - External PCP Family Medicine 02/19/23 Ken Reyes MD [address] [place] [address] PCP - General Family Medicine 10/10/23 Equestrian Trainer Relationship Specialty Start Date End Date Seema Durham MD [address] [place] [phone] PCP - External PCP Family Medicine 02/19/23 Ken Reyes MD [address] [place] [address] PCP - General Family Medicine 10/10/23 Equestrian Trainer Relationship Specialty Start Date End Date Seema Durham MD [address] [place] [address] PCP - External PCP Family Medicine 02/19/23 Ken Reyes MD [address] [place] [phone] PCP - General Family Medicine 10/10/23 Equestrian Trainer Relationship Specialty Start Date End Date Seema Durham MD [address] [phone] PCP - External PCP Family Medicine 02/19/23 Ken Reyes MD [address] [place] [address] PCP - General Family Medicine 10/10/23 Equestrian Trainer Relationship Specialty Start Date End Date Seema Durham MD [address] [place] [address] PCP - External PCP Family Medicine 02/19/23 Ken Reyes MD [address] [place] [address] PCP - General Family Medicine 10/10/23 Equestrian Trainer Relationship Specialty Start Date End Date Seema Durham MD [address] [place] [address] PCP - External PCP Family Medicine 02/19/23 Ken Reyes MD [address] [place] [address] PCP - General Family Medicine 10/10/23 Equestrian Trainer Relationship Specialty Start Date End Date Seema Durham MD [address] [place] [address] PCP - External PCP Family Medicine 02/19/23 Ken Reyes MD [address] [place] [address] PCP - General Family Medicine 10/10/23 Equestrian Trainer Relationship Specialty Start Date End Date Seema Durham MD [address] [phone] PCP - External PCP Family Medicine 02/19/23 Ken Reyes MD [address] [place] [address] PCP - General Family Medicine 10/10/23 Equestrian Trainer Relationship Specialty Start Date End Date Seema Durham MD [address] [place] [address] PCP - External PCP Family Medicine 02/19/23 Ken Reyes MD [address] [place] [phone] PCP - General Family Medicine 10/10/23 Equestrian Trainer Relationship Specialty Start Date End Date Seema Durham MD [address] [place] [address] PCP - External PCP Family Medicine 02/19/23 Ken Reyes MD [address] [place] [address] PCP - General Family Medicine 10/10/23 Equestrian Trainer Relationship Specialty Start Date End Date Seema Durham MD [address] [place] [address] PCP - External PCP Family Medicine 02/19/23 Ken Reyes MD [address] [place] [address] PCP - General Family Medicine 10/10/23 Equestrian Trainer Relationship Specialty Start Date End Date Seema Durham MD [address] [place] [address] PCP - External PCP Family Medicine 02/19/23 Ken Reyes MD [address] [place] [address] PCP - General Family Medicine 10/10/23 Equestrian Trainer Relationship Specialty Start Date End Date Seema Durham MD [address] [place] [address] PCP - External PCP Family Medicine 02/19/23 Ken Reyes MD [address] [place] [address] PCP - General Family Medicine 10/10/23 Equestrian Trainer Relationship Specialty Start Date End Date Seema Durham MD [address] PCP - External PCP Family Medicine 02/19/23 Ken Reyes MD [address] [place] [address] PCP - General Family Medicine 10/10/23 Equestrian Trainer Relationship Specialty Start Date End Date Seema Durham MD [address] PCP - External PCP Family Medicine 02/19/23 Ken Reyes MD [address] [place] [address] PCP - General Family Medicine 10/10/23 Equestrian Trainer Relationship Specialty Start Date End Date Seema Durham MD [address] [place] [address] PCP - External PCP Family Medicine 02/19/23 Ken Reyes MD [address] [place] [address] PCP - General Family Medicine 10/10/23 Equestrian Trainer Relationship Specialty Start Date End Date Seema Durham MD [address] PCP - External PCP Family Medicine 02/19/23 Ken Reyes MD [address] [place] [phone] PCP - General Family Medicine 10/10/23 Equestrian Trainer Relationship Specialty Start Date End Date Seema Durham MD [address] PCP - External PCP Family Medicine 02/19/23 eKn Reyes MD [address] [place] [phone] PCP - General Family Medicine 10/10/23 Equestrian Trainer Relationship Specialty Start Date End Date Seema Durham MD [address] [place] [phone] PCP - External PCP Family Medicine 02/19/23 Ken Reyes MD [address] [place] [phone] PCP - General Family Medicine 10/10/23 Equestrian Trainer Relationship Specialty Start Date End Date Seema Durham MD [address] [place] [phone] PCP - External PCP Family Medicine 02/19/23 Ken Reyes MD [address] [place] [address] PCP - General Family Medicine 10/10/23 Equestrian Trainer Relationship Specialty Start Date End Date Seema Durham MD [address] [place] [address] PCP - External PCP Family Medicine 02/19/23 Ken Reyes MD [address] [place] [address] PCP - General Family [facility] 10/10/23 Equestrian Trainer Relationship Specialty Start Date End Date Seema Durham MD [address] [place] [address] PCP - External PCP Family [facility] 02/19/23 Ken Reyes MD [address] [place] [address] PCP - General Family [facility] 10/10/23 FOR RECORDS PERTAINING TO PATIENTS WHO [...] BE BASED ON THE PRIMARY CLINICAL RECORDS. [facility]. provides no warranty or guarantee of the accuracy or completeness of information in this document.
[2025-06-25 11:13] LABS: Hematocrit 37.0 % (36.0-48.0); Hemoglobin 12.3 g/dL (12.0-16.0); Immature Granulocytes Abs Auto 0.02 10^3/uL (0.00-0.03); Immature Granulocytes Pct Auto 0.3 % (0.0-0.5); Lymphocytes Absolute Auto 1.7 10^3/uL (1.2-3.8); Mean Corpuscular HGB Conc 33.2 g/dL (29.9-35.2); Mean Corpuscular Hemoglobin 27.8 pg (26.7-34.0); Mean Corpuscular Volume 83.5 fL (81.0-99.0); Platelet Count 191 10^3/uL (150-450); Red Blood Count 4.43 10^6/uL (4.20-5.40); White Blood Count 7.2 10^3/uL (4.0-11.0)
[2025-06-25 11:51] LABS: Alanine Aminotransferase 20 U/L (14-59); Albumin Globulin Ratio 0.9; Albumin Level 3.6 g/dL (3.4-5.0); Alkaline Phosphatase 102 U/L (46-116); Anion Gap 13.0; Aspartate Amino Transferase 14 U/L (15-37); Blood Urea Nitrogen 17.0 mg/dL (7.0-18.0); Calcium 8.5 mg/dL (8.5-10.1); Carbon Dioxide 27.8 mmol/L (21.0-32.0); Chloride 103 mmol/L (98-107); Estimated GFR (African America >60 (>=60 mL/min/1.73m^2); Estimated GFR (Non-African Ame >60 (>=60 mL/min/1.73m^2); Globulin 3.9 g/dL; Glucose 122 mg/dL (74-106); Potassium 3.8 mmol/L (3.5-5.1); Sodium 140 mmol/L (136-145); Total Protein 7.5 g/dL (6.4-8.2)
== END 2025-06-25 10:30 | disposition home or self-care (01) ==
LOC: LAB 10:30
PROVIDERS: PCP Family Medicine; Visit Provider Family Medicine
DX: Z79.899 Other long term (current) drug therapy (principal); R10.13 Epigastric pain
CPT/HCPCS: 36415; 80053; 85025

== ENCOUNTER 2025-07-12 08:43 | Outpatient (OUT) | payer MEDICARE, SELFPAY ==
--- OUTSIDE RECORDS SUMMARY | 2024-05-09 10:00 | XMS_ITS ---
Author Organization [facility] [place] Address [address] [place] [address] Care Team Providers Care Lpn Or Medical Assistant Name Role Phone Ken Quach MD Primary Care Provider Unavailab Adolfo Albert Unavailable [phone] REASON FOR VISIT COPD Encounters Encounter Location Date Provider Diagnosis Pulmonary Medicine [address] [address] 05/09/2024 Adolfo Baptiste Plan Of Treatment No Information Progress Notes * SANCHEZ Renate [birth year]DOB:[birth year] (84 yo F)Acc No.[id number]:05/09/2024 UNLOCKED PROGRESS NOTE New Patient Patient: Renate GARDNER :?Adolfo Baptiste DODOB:1940???Age:83 Y ???Sex:FemaleDate:05/09/2024hone:[phone]:[facility] [address]-[id number]:Ken Quach MD Subjective: * Chief Complaints: * 1 . COPD. * Medical History: Objective: * Vitals: Assessment: Plan: * Treatment: * * Electronic signature of Adolfo Baptiste DO on 07/12/2025 at 08:45 AM EDTSign off status: PendingVisit Status:?R/S (Rescheduled) * Provider: David Baptiste DO Date: 0 05/09/2024 Generated for Printing/Faxing/eTransmitting on:?07/12/2025 08:45 AM EDT
--- OUTSIDE RECORDS SUMMARY | 2024-08-22 09:30 | XMS_ITS ---
Author Organization [facility] in [place] Address [address] [place] [address] Care Team Providers Care Pulp Press Tender Name Role Phone Philomena NGUYEN, Ken Primary Care Provider Unavailab Adolfo Albert Unavailable [phone] REASON FOR VISIT 3 Mos F/U COPD Encounters Encounter Location Date Provider Diagnosis Pulmonary Medicine [address] [address] 08/22/2024 Adolfo Baptiste Plan Of Treatment No Information Progress Notes * Renate BRAD[birth year]ORDDOB:[birth year] (84 yo F)Acc No.[id number]:08/22/2024 UNLOCKED PROGRESS NOTE Follow Up Patient: Renate GARDNER :?Adolfo Baptiste, DODOB:1940???Age:83 Y ???Sex:FemaleDate:4Phone:[phone]:[address] [place] [phone]:Ken Quach MD Subjective: * Chief Complaints: * 1 . 3 Mos F/U COPD. * Medical History: Objective: * Vitals: Assessment: Plan: * Treatment: * * Electronic signature of Adolfo Baptiste DO on 07/12/2025 at 08:45 AM EDTSign off status: PendingVisit Status:?CANC (Cancelled) * Provider: David Baptiste DO Date: 1 10/23/2023 Generated for Printing/Faxing/eTransmitting on:?07/12/2025 08:45 AM EDT
--- OUTSIDE RECORDS SUMMARY | 2025-07-12 08:45 | XMS_ITS | Encounter Summary ---
Author Organization [facility] Address [address] [place] [address] Care Team Providers Care Social Media Developer Name Role Phone Ken Quach MD Primary Care Provider [phone] Encounter Details DateTypeDepartmentCare Team (Latest Contact Info)Wzickwcrdks74/20/2025Orders Only [facility] [address] [place] [address] Frank Martines MD [address] [place] [address] Social History Tobacco UseTypesPacks/DayYears UsedDateSmoking Tobacco: FormerCigarettes Smokeless Tobacco: NeverAlcohol UseStandard Drinks/WeekCommentsNot Currently0 (1 standard drink = 0.6 oz pure alcohol)UT Safety & EnvironmentAnswerDate Recorded Fear of Current or Ex-PartnerNot on file11/03/2023Emotionally AbusedNot on file 11/03/2023hysically AbusedNot on file11/03/2023Sexually AbusedNot on file 11/03/2023hysically or Sexually AbusedNot on file11/03/2023CommentsNo Sex and Gender InformationValueDate RecordedSex Assigned at BirthChoose not to nfdbsiex26/21/2025 9:48 PM EDTLegal AynGxdgao09/29/2022 10:31 PM EDTGender IdentityChoose not to vijutnpy41/21/2025 9:48 PM EDTSexual OrientationChoose not to dptwdumn93/21/2025 9:48 PM EDTdocumented as of this encounter Plan of Treatment Not on file documented as of this encounter Procedures Procedure NamePriorityDate/TimeAssociated DiagnosisCommentsCARDIAC DEVICE CHECK - REMOTE - LOOP RECORDER (ILR)Ikfdnnb0607/01/2025 12:00 AM EDTdocumented in this encounter Results * Cardiac device check - Remote loop recorder (ILR) (07/01/2025 12:00 AM EDT) Anatomical RegionLateralityModalityOtherSpecimen (Source)Anatomical Location / LateralityCollection Method / VolumeCollection TimeReceived Time07/01/2025 Narrative Authorizing ProviderResult TypeResult StatusSahakan Martines [facility] [place] IMPLANTABLE CARDIAC DEVICE PROCEDURESFinal Result documented in this encounter Visit Diagnoses Not on filedocumented in this encounter Care Teams Team MemberRelationshipSpecialtyStart DateEnd Date Ken Quach MD [address] [place] [address] PCP - General05/04/22documented as of this encounter
--- OUTSIDE RECORDS SUMMARY | 2025-07-12 08:45 | XMS_ITS | Clinical Summary ---
Author Organization [facility] Address [address] [place] [address] Care Team Providers Care Project Manager Name Role Phone Seema Durham MD Unavailable [phone] Ken Quach MD Primary Care Provider [phone] Allergies Active AllergyReactionsCriticalityNoted YtunPygbqxtkDanhxrycakGwvat08/29/2024 Medications MedicationSigDispense QuantityRefillsLast FilledStart DateEnd DateStatus cholecalciferol (Vitamin D-3) 50 MCG (1999) tablet Indications:Vitamin D deficiencyTake 1 tablet (50 mcg) by mouth Daily 90 tablet 4Active losartan (Cozaar) 50 MG tablet Indications:Essential hypertension, benignTake 1 tablet (50 mg) by mouth in the morning and 1 tablet (50 mg) before bedtime. 60 tablet 5Active NIFEdipine XL (Procardia XL) 30 MG 24 hr tablet Indications:Essential hypertension, benignTake 1 tablet (30 mg) by mouth Daily Do not crush, chew, or split. 30 tablet 5Active levothyroxine (Synthroid, Levoxyl) 50 MCG tablet Indications:Adult hypothyroidismTAKE 1 TABLET BY MOUTH IN THE MORNING BEFORE MEAL 90 tablet 5Active carvedilol (Coreg) 25 MG tablet Indications:Essential hypertension, benignTake 1 tablet by mouth twice daily 180 tablet 5Active atorvastatin (Lipitor) 20 MG tablet Indications:Type 2 diabetes mellitus with hyperglycemia, without long-term current use of insulin (HCC)TAKE 1 TABLET BY MOUTH AT BEDTIME 90 tablet 5Active Lsvcbipxejc-Xbhtqfphp-Lzeqct (Trelegy Ellipta) 100-62.5-25 MCG/ACT aerosol powder InhaleActive meclizine (Antivert) 25 MG tablet Indications:VertigoTAKE 1 TABLET BY MOUTH 4 TIMES DAILY NEEDED FOR DIZZINESS 60 tablet 5Active Active Problems ProblemNoted DateDiagnosed DateDDD (degenerative disc disease), cervical 04/09/2025 Assessment & Plan (04/09/2025 2:37 PM EDT): Pain stable and continue with increased activity. Use OTC PRN. Veizqzslfacoef79/29/2025Primary osteoarthritis, left wrist02/27/2025 Assessment & Plan (04/09/2025 2:37 PM EDT): Pain stable and continue with increased activity. Use OTC PRN. Assessment & Plan (02/27/2025 2:43 PM EDT): Increased pain and bump at base of wrist. Likely OA. Check x-ray. Start prednisone. Use OTC PRN. Calcified granuloma of lung12/12/2024alcified lymph nodes12/12/2024Diastolic hkfbugtgayg63/02/2025Long term (current) use of inhaled mwcwazsg74/02/2025Non- allergic iglvkcwk55/02/2025 Assessment & Plan (12/13/2024 5:09 PM EDT): Continued symptoms and add nasal steroid. Other secondary pulmonary ephjimzzzzhv84/02/2025Medicare annual wellness visit, hatuzqfaux17/27/2025 Assessment & Plan (10/08/2024 2:06 PM EST): Due for labs. Discussed proper diet and regular aerobic exercise. Need aerobic exercise 5-6 days a week for 30 minutes at a time. Smaller portions and limit total calories. Tetanus every 10 years. Advised not to smoke. Encounter for long-term current use of /24/2024Class 1 obesity due to excess calories with serious comorbidity and body mass index (BMI) of 32.0 to 32.9 in adult07/05/2024 Assessment & Plan (07/05/2024 3:21 PM EDT): Weight loss indicated Seasonal allergic rhinitis due to yobymv6511/15/2023 Assessment & Plan (11/15/2023 10:07 AM EST): Symptoms recently worse and resume medication. Adult rlideqqbxqqtyq31/05/2024 Assessment & Plan (01/07/2025 2:30 PM EDT): No signs of low thyroid and continue medication. Assessment & Plan (07/05/2024 3:21 PM EDT): No signs of low thyroid and continue medication. Assessment & Plan (03/01/2024 1:59 PM EDT): No signs of low thyroid and continue medication. Essential hypertension, ryvavc6910/17/2023 Assessment & Plan (02/27/2025 2:43 PM EDT): [...] pain. Monitor PRN. DDD (degenerative disc disease), ywloca5110/17/2023 Assessment & Plan (04/09/2025 2:37 PM EDT): Pain stable and continue with increased activity. Use OTC PRN. Mild persistent asthma, rtfgahjjvsjbx74/05/2024 Assessment & Plan (04/09/2025 2:41 PM EDT): [...] with prednisone. Use albuterol PRN. Renal artery evugkzfo21/05/2024Type 2 diabetes mellitus with hyperglycemia, without long-term current use of nzgnkns0010/17/2023 Assessment & Plan (04/09/2025 2:41 PM EDT): [...] Stick to ADA diet and limit carbs. Pyqisdw3410/17/2023 Assessment & Plan (09/18/2024 12:17 PM EST): Continued symptoms and start meclizine daily in am. Use PRN during the day. Refer to ENT. Assessment & Plan (07/05/2024 3:22 PM EDT): Recent symptoms and start meclizine. Refer to vestibular rehab. Vitamin D tgscfpxesq67/05/2024 Resolved Problems ProblemNoted DateDiagnosed DateResolved DateLeft foot pain Assessment & Plan (11/15/2023 10:05 AM EST): Pain after increased activity and likely OA. Check x-ray. Start prednisone. Ice and elevated PRN. If no improvement will need PT. Major depressive disorder, recurrent episode, mildSyncope and lcbzdakq74andidal skin xnwaycajg00 Assessment & Plan (10/17/2023 10:59 AM EST): Skin appears to be yeast and treat with oral diflucan and cream Encounters DateTypeDepartmentCare HrftDndlzzkqchs30/20/2025Refill [facility] [address] [place] [address] Ken Quach MD Vertigofrom Last 3 Months Family History Medical HistoryRelationNameCommentsDiabetesFatherHeart failureFatherDiabetes MotherHypertensionMotherStrokeMotherRelationNameStatusCommentsFatherDeceased MotherDeceased Social History Tobacco UseTypesPacks/DayYears UsedDateSmoking Tobacco: NeverSmokeless Tobacco: Never Tobacco Cessation:Counseling Given: Not Answered Alcohol UseStandard Drinks/WeekCommentsNever0 (1 standard drink = 0.6 oz pure alcohol)B1300 Health LiteracyAnswerDate RecordedHow often do you need to have someone help you when you read instructions, pamphlets, or other written material from your doctor or pharmacy?Never02/28/2024Social Connection and Isolation PanelAnswerDate RecordedIn a typical week, how many times do you talk on the phone with family, friends, or neighbors?More than three times a week 02/28/2024How often do you get together with friends or relatives?More than three times a week02/28/2024How often do you attend presybeterian or sikh services?More than 4 times per year02/28/2024o you belong to any clubs or organizations such as presybeterian groups, unions, fraternal or athletic groups, or school groups?Yes02/28/2024How often do you attend meetings of the clubs or organizations you belong to?More than 4 times per year02/28/2024re you , , , , never , or living with a partner? 02/28/2024UDIT-CAnswerDate RecordedQ1: How often do you have a drink containing alcohol?Never02/28/2024Q2: How many drinks containing alcohol do you have on a typical day when you are drinking?Patient does not drink02/28/2024Q3: How often do you have six or more drinks on one occasion?Never02/28/2024Overall Financial Resource Strain (CARDIA)AnswerDate RecordedHow hard is it for you to pay for the very basics like food, housing, medical care, and heating?Not hard at all 02/28/2024HQ-2AnswerDate RecordedPatient Health Questionnaire-2 Score0 10/08/2024[facility] [place] [facility] Occup[facility] - Occupational Stress QuestionnaireAnswerDate RecordedDo you feel stress - tense, restless, nervous, or anxious, or unable to sleep at night because yourmind is troubled all the time - these days?Not at all02/28/2024Exercise Vital SignAnswerDate RecordedOn average, how many days per week do you engage in moderate to strenuous exercise (like a brisk walk)?3 days02/28/2024On average, how many minutes do you engage in exercise at this level?20 min02/28/2024Hunger Vital SignAnswerDate Recorded Within the past 12 months, you worried that your food would run out before you got the money to buymore.Never true02/28/2024Within the past 12 months, the food you bought just didn't last and you didn't have money to get more.Never true 02/28/2024RAPARE - TransportationAnswerDate RecordedIn the past 12 months, has lack of transportation kept you from medical appointments or from getting medications?No02/28/2024In the past 12 months, has lack of transportation kept you from meetings, work, or from getting things needed for daily living?No 02/28/2024Housing Stability Vital SignAnswerDate RecordedIn the last 12 months, was there a time when you were not able to pay the mortgage or rent on time?No 02/28/2024Number of Times Moved in the Last YearNot on file02/28/2024t any time in the past 12 months, were you homeless or living in a usp (including now)? No02/28/2024CommentsUnknownSex and Gender InformationValueDate Recorded Sex Assigned at BirthNot on fileLegal QcyPyeucs55/15/2023 6:36 PM EDTGender IdentityNot on fileSexual OrientationNot on file Last Filed Vital Signs Vital SignReadingTime TakenCommentsBlood Vqwjejea780/7807 1:56 PM EDT Fpbuf327804/09/2025 1:56 PM AIYJyubocwjtkn41.2 ??C (97.1 ??F)04/09/2025 1:56 PM EDTRespiratory Bpnp985604/09/2025 1:56 PM EDTOxygen Cdveopdkul96%04/09/2025 1:56 PM EDTInhaled Oxygen Concentration--Upvsub59.8 kg (176 lb)04/09/2025 1:56 PM EDT Lciyqz747.9 cm (5' 1 )04/09/2025 1:56 PM EDTBody Mass Index33.25004/09/2025 1:56 PM EDT Plan of Treatment Health MaintenanceDue DateLast DoneCommentsInfluenza Vaccine (#1)05/13/2025 07/31/2023, 06/20/2019, 08/01/2017, Additional history existsPneumococcal Vaccine: 65+ XpgetUddceilig70/01/2023, 11/01/2016 Insurance Care Teams Team MemberRelationshipSpecialtyStart DateEnd Seema Durham MD [address] [place] [address] PCP - External PCPFamily Medicine02/19/23 Ken Quach MD [address] [place] [address] PCP - GeneralFamily Medicine10/10/23
--- NOTE | 2025-07-12 08:46 | US_ITS ---
The [address] [address] Patient Name: YESI BRADFORD MRN: [id number] date: 1940 Sex: F Assigned Patient Location: US Current Patient Location: US Accession/Order Number: [id number] Exam Date: 07/12/2025 08:50 Report Date: 07/12/2025 10:58 At the request of: DILIP REYES MD Procedure: US right upper quadrant LIMITED RIGHT UPPER QUADRANT ABDOMINAL ULTRASOUND CLINICAL HISTORY: Epigastric Pain and heartburn COMPARISON: CT 02/02/2022 The gallbladder is not definitely seen and there are clips at the gallbladder fossa on the comparison suggesting prior cholecystectomy. No intra- or extrahepatic biliary dilatation is evident. The common duct measures 2 - 3 mm. The liver is normal in echogenicity. No intrahepatic masses are seen. There is appropriate hepatopetal flow within the main portal vein. The pancreas shows no significant sonographic abnormality. Evaluation of the right kidney reveals no hydronephrosis or fluid within De Jesus's pouch. US/US right upper quadrant IMPRESSION: PRIOR CHOLECYSTECTOMY. NO RIGHT UPPER QUADRANT ABNORMALITIES. Impression dictated by: Kaia Wills M.D. 07/12/2025 10:58 AM Dictation Location: [place] [address] Electronically authenticated by: [id number] Y Date: 07/12/2025 10:58
--- OUTSIDE RECORDS SUMMARY | 2025-07-12 08:46 | XMS_ITS | Encounter Summary ---
Author Organization [facility] Address [address] [place] [address] Care Team Providers Care Lozenge Maker Helper Name Role Phone Seema Durham MD Unavailable [phone] Ken Quach MD Primary Care Provider [phone] Encounter Details DateTypeDepartmentCare Team (Latest Contact Info)Tsjxkxwcqtx91/15/2024Clinisync Result Encounter [facility] Department Unsolicited Provider, Generic External Data Social History Tobacco UseTypesPacks/DayYears UsedDateSmoking Tobacco: NeverSmokeless Tobacco: [id number] Health LiteracyAnswerDate RecordedHow often do you need [...] times a week02/28/2024How often do you attend tenriism or restorationism services?More than 4 times per year4Do you belong to any clubs or organizations such as tenriism groups, unions, fraternal or athletic groups, or school groups?Yes02/28/2024How often do you attend meetings of the clubs or organizations you belong to?More than 4 times per year4Are you , , , , never , [...] at all 02/28/2024HQ-2AnswerDate RecordedPatient Health Questionnaire-2 Score0 10/08/2024[facility] - Occupational Stress QuestionnaireAnswerDate [...] or living in a fdc (including now)? No4CommentsUnknownSex and Gender InformationValueDate Recorded Sex Assigned at BirthNot on fileLegal AfrTbsspj54/15/2023 6:36 PM EDTGender IdentityNot on fileSexual OrientationNot on filedocumented as of this encounter Functional Status * Over the past 2 weeks, how often have you been bothered by any of the following problems?QuestionAnswerDate of AssessmentAuthorLittle interest or pleasure in doing thingsNot at all10/08/2024 1:00 PM Arina Forman MA Feeling down, depressed, or hopelessNot at all10/08/2024 1:00 PM Arina Forman MAPatient Health Questionnaire-2 [id number] 1:00 PM Arina Forman MA * QuestionAnswerDate of AssessmentAuthorTrouble falling or staying asleep, or sleeping too muchNot at all10/08/2024 1:00 PM Arina Forman MAFeeling tired or having little energyNot at all10/08/2024 1:00 PM Arina Forman MA Poor appetite or overeatingNot at all10/08/2024 1:00 PM Arina Forman MA Feeling bad about yourself - or that you are a failure or have let yourself or your family downNot at all10/08/2024 1:00 PM Arina Forman MATrouble concentrating on things, such as reading the newspaper or watching television Not at all10/08/2024 1:00 PM Arina Forman MAMoving or speaking so slowly that other people could have noticed? Or the opposite - being so fidgety or restless that you have been moving around a lot more than usual.Not at all 10/08/2024 1:00 PM Arina Forman MAThoughts that you would be better off or hurting yourself in some wayNot at all10/08/2024 1:00 PM Arina Forman MAPatient Health Questionnaire-9 [id number] 1:00 PM Arina Forman MA documented as of this encounter Plan of Treatment Not on file documented as of this encounter Procedures Procedure NamePriorityDate/TimeAssociated DiagnosisCommentsRT PULMONARY FUNCTION TEST06/26/2024 12:54 PM EDT documented in this encounter Results * RT PULMONARY FUNCTION TEST (06/26/2024 12:54 PM EDT)Anatomical Region LateralityModalityOtherSpecimen (Source)Anatomical Location / Laterality Collection Method / VolumeCollection TimeReceived Time06/26/2024 12:54 PM EDT Narrative 06/26/2024 2:34 PM EDT [facility] ?[address] ? [place] [address] ? Respiratory Report ? Signed ? Patient: RENATE BRADFORD ?MR#: [id number] ?? : 1940 ?Acct:[id number] ?? Age/Sex: 83 / F ?ADM Date: 06/26/24 ?? Loc: CARD ? Attending Dr: Adolfo Baptiste D.O. ? Ordering Physician: Adolfo Baptiste D.O. ?? Date of Service: 06/26/24 ?? Procedure(s): RT pulmonary function test ?? Accession Number(s): [id number] ? cc: ?[facility] ? Test Date: ?2024-06-26 ?? Pat Name: ? RENATE BRADFORD ?Department: ? Room: ? - ?? Gender: ? Female ? Animator: ? : ?1940 ? Requested By: Adolfo Baptiste ?? Order Number: [id number] ?Reading MD: ?? Adolfo Baptiste ? Interpretive Statements ?? Pulmonary function testing was completed according to ATS criteria. Findings ?? were considered accurate and reproducible, with exception of DLCO which did ?? not meet ATS standards. ? Spirometry (based on pre-bronchodilator values): ?? -FEV1/FVC: Reduced @ 58% ?? -FEV1: Moderately reduced @ 62% ?? -FVC: Reduced @ 79% ?? -There is no significant bronchodilator response. ? Lung volumes by plethysmography (based on pre-bronchodilator values): ?? -RV: Increased @ 149% ?? -TLC: High normal @ 119% ? Diffusion capacity: ?? -DLCO: Mild-moderate reduction @ 67% when corrected for Hb 11.9g/dL ? Flow-volume loop: ?? -Moderate obstructive pattern ? Impressions: ?? -Spirometry suggests moderate obstruction. An elevated RV suggests air ?? trapping. There is a mild-moderately reduced diffusion capacity. 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 ??Clinical correlation required. ? Electronically Signed On 06-26-2024 14:34:07 EDT by Adolfo Baptiste ? Dictated By: ?Adolfo Baptiste D.O. ? Signed By: ?06/26/24 1434 ?06/26/24 1434 ? DD/ 1254 ? TD/TT: ? Investor Relations Manager: Procedure Note Radiology, Radiologist, MD - 06/26/2024 [place] [address] Respiratory Report Signed Patient: RENATE BRADFORD JMR#: [id number] : 1940Acct:[id number] Age/Sex: 83 / FADM Date: 06/26/24 Loc: CARD Attending Dr: Adolfo Baptiste D.O. Ordering Physician: Adolfo Baptiste D.O. Date of Service: 06/26/24 Procedure(s): RT pulmonary function test Accession Number(s): [id number] cc: [facility] Test Date: 2024-06-26 Pat Name: RENATE BRADFORD Department: Room: - Gender: Female Animator: : 1940 Requested By: Adolfo Baptiste Order Number: [id number] Reading MD: Adolfo Baptiste Interpretive Statements Pulmonary [...] By:06/26/24 1434 06/26/24 1434 DD/ 1254 TD/TT: Investor Relations Manager: Authorizing ProviderResult TypeResult StatusGeneric External Data Provider [facility] IMAGINGFinal Result documented in this encounter Visit Diagnoses Not on filedocumented in this encounter Care Teams Team MemberRelationshipSpecialtyStart DateEnd Date Seema Durham MD [address] [place] [id number] PCP - External PCPFamily Medicine02/19/23 Ken Quach MD [address] [place] [phone] PCP - GeneralFamily Medicine10/10/23documented as of this encounter
--- OUTSIDE RECORDS SUMMARY | 2025-07-12 08:46 | XMS_ITS | CCD ---
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 Name Role Phone Chandler Quezada Unavailable JORGE A MOHAMAD Admitting Unavailable CONG JULESAMAD Attending Unavailable NADERER, DR KEN Hughes Primary [...] Unavailable NADERER, DR KEN Hughes Admitting Unavailable NADEREYaritza, DR KEN Hughes Attending Unavailable NADEREYaritza, DR KEN Hughes Primary Care Unavailable NADERER, DR KEN Hughes Consulting Unavailable Herminio NGUYEN, Seema Hughes Unavailable [phone] Ken Roman MD Primary Care Provider KEN REYES Primary Care Unavailable JASMEET MILLS Attending Unavailable KEN REYES Attending Unavailable VANDANA ALEXANDER Attending Unavailable NADEREKEN Vigil Referring Unavailable MARVAMIKYLEE George Attending Unavailable NADERER, KEN Referring Unavailable TIMMIKYLEE George Attending Unavailable NADERER, KEN Attending Unavailable NADERER, [...] Referring Unavailable NADERER, KEN Primary Care Unavailable Naderer , Ken Primary Care Provider Ken Reyes MD Attending Provider Adelso AVILA Attending Unavailable BARBARA, JODI Referring Unavailable BARBARA, OJDI Referring Unavailable BARBARA, JODI Referring Unavailable BRITTANIE, ALEXSANDRA Referring Unavailable BRITTANIE, ALEXSANDRA Referring Unavailable BRITTANIE, ALEXSANDRA Referring Unavailable BARBARA, JODI Referring Unavailable BARBARA, JODI Referring Unavailable BARBARA, JODI Referring Unavailable BARBARA, JODI Referring Unavailable BARBARA, JODI Referring Unavailable Herminio NGUYEN, Seema Hughes Unavailable Ken Reyes MD Primary Care Provider Aicha Alvarado LPN Unavailable Unavailable Allergies Allergy ClassificationReported Allergen(s)Allergy TypeDate of OnsetReaction(s) Facility (2 sources)atorvastatin; Translations: [ATORVASTATIN]Drug [id number] [facility] (2 sources)Lisinopril; Translations: [LISINOPRIL]Drug Qbxhmfq39-35-9188[facility]mgonSouth[facility] (17 sources)atorvastatinDrug Vjacoih94-63-6801OcekuiqzLAFX Healthcare (20 sources)LisinoprilPropensity to adverse spnsglitd25-42-4564DeuinRJXK Healthcare Medications Current Medications MedicationDrug Class(es)DatesSig (Normalized)Sig (Original)[id number] 200 actuat albuterol 0.09 mg/actuat metered dose inhaler (5 sources)beta2-Adrenergic AgonistStart: 55-76-9170bzby 2 puff(s) by inhalation every four hours for wheezingalbuterol HFA (Ventolin HFA) 90 mcg/act inhaler Indications: Mild persistent asthma, uncomplicated (CMS/HCC) Inhale 2 puffs every 4 (four) hours if needed for shortness of breath or wheezing 8.5 g 3 0 10/17/2023 ActiveStart: 67-93-3157gtqw 2 puff(s) by inhalation every four hours for wheezingalbuterol HFA (Ventolin HFA) 90 mcg/act inhaler Indications: Mild persistent asthma, uncomplicated (CMS/HCC) Inhale 2 puffs every 4 (four) hours if needed for shortness of breath or wheezing 8.5 g 3 10/17/2023 Active End: 67-83-0235altu 2 puff(s) by inhalation every four hours for wheezing albuterol HFA (Ventolin HFA) 90 mcg/act inhaler Inhale 2 puffs every 4 (four) hours if needed for shortness of breath or wheezing 0 10/17/2023 Discontinued (Reorder)alendronic acid 70 mg oral tablet (1 source)BisphosphonateStart: 61-88-3126ftla 1 tablet by mouth every week Alendronate (Fosamax) 70 mg tablet Active 70 MG PO every week June 18, 2025 12:00am Complieswith drug therapyamLODIPine 5 mg oral tablet (4 sources)Dihydropyridine Calcium Channel BlockerStart: 09-01-2024 End: 53-97-7466clwb 1 tablet by mouth once dailyamLODIPine (Norvasc) 5 MG tablet Take 5 mg by mouth Daily 09/01/2024 09/18/2024 Discontinuedtake 1 tablet by mouth every twenty-four hoursamLODIPine Besylate 10 MG 1 tablet Orally Once a day Activeatorvastatin 20 mg oral tablet (20 sources)HMG-CoA Reductase InhibitorStart: 29-86-1633noku 1 tablet by mouth once daily at bedtimeAtorvastatin 20 mg tablet Active 20 MG PO Daily at bedtime June 12, 2025 12:00am Complies with drug therapyStart: 33-34-0128nled 1 tablet by mouth at bedtimeatorvastatin (Lipitor) 20 MG tablet Indications: Type 2 diabetes mellitus with hyperglycemia, without long-term current use of insulin (HCC) TAKE 1 TABLET BY MOUTH AT BEDTIME 90 tablet 03/08/2025 ActiveStart: 62-29-0761mcnr 1 tablet by mouth at bedtimeatorvastatin (Lipitor) 20 MG tablet Indications: Type 2 diabetes mellitus with hyperglycemia, without long-term current use of insulin (HCC) Take 1 tablet (20 mg) by mouth at bedtime 90 tablet 3 03/01/2024 ActiveStart: 90-81-0538rgql 1 tablet by mouth at bedtime atorvastatin (Lipitor) 20 MG tablet Take 20 mg by mouth at bedtime 0 05/04/2023 Activebetamethasone 0.5 mg/ml / clotrimazole 10 mg/ml topical cream (2 sources)Azole Antifungal, CorticosteroidStart: 25-19-6226urpsetfanbdt- betamethasone (Lotrisone) cream Indications: Candidal skin infection Apply topically 2(two) times a day 60 g 0 10/17/2023 ActiveStart: 10-17-2023 clotrimazole-betamethasone (Lotrisone) cream Indications: Candidal skin infection Apply topically 2(two) times a day 60 g 0 10/17/2023 Activecarvedilol 25 mg oral tablet (20 sources)alpha-Adrenergic Joao, beta-Adrenergic BlockerStart: 06-12-2025 take 1 tablet by mouth twice daily at mealtimeCarvedilol 25 mg tablet Active 25 MG PO Twice daily June 12, 2025 12:00am must administer with a meal/food Complies with drug therapyStart: 62-39-3770ipjk 1 tablet by mouth twice daily carvedilol (Coreg) 25 MG tablet Indications: Essential hypertension, benign Take 1 tablet by mouth twice daily 180 tablet 03/08/2025 ActiveStart: 40-11-7973sbmx 1 tablet by mouth in the morningcarvedilol (Coreg) 25 MG tablet Indications: Essential hypertension, benign Take 1 tablet (25 mg) by mouth in the morning and 1 tablet (25 mg) in the evening. Take with meals. 180 tablet 3 03/01/2024ctive take 1 tablet by mouth in the morningcarvedilol (Coreg) 25 MG tablet Take 1 tablet by mouth in the morning and 1 tablet in the evening. Take with meals. 0 Activecetirizine hydrochloride 10 mg oral tablet (3 sources)Histamine-1 Receptor Antagonisttake 1 tablet by mouth in the morning cetirizine (ZyrTEC) 10 MG tablet Take 1 tablet by mouth in the morning. 0 Active cholecalciferol 0.05 mg oral tablet (20 sources)Vitamin DStart: 95-70-8859hmfe 1 tablet by mouth once daily Cholecalciferol (Vitamin D3) 50 mcg (2,000 unit) tablet Active 50 MCG PO Daily June 12, 2025 12:00am Complies with drug therapytake 1 tablet by mouth in the morningcholecalciferol (Vitamin D-3) 50 MCG (2000 UT) tablet Take 1 tablet by mouth in the morning. 0 Activefluconazole 200 mg oral tablet (2 sources)Azole AntifungalStart: 10-17-2023 End: 45-04-1040edur 1 tablet by mouth in the morningfluconazole (Diflucan) 200 MG tablet Indications: Candidal skin infection Take 1 tablet (200 mg) bymouth in the morning for 14 days. 14 tablet 0 10/17/2023 10/31/2023 ActiveFLUoxetine 10 mg oral capsule (1 source)Serotonin Reuptake Inhibitortake 1 capsule by mouth every twenty-four hoursFLUoxetine HCl 10 MG 1 capsule Orally Once a day Activefluticasone propionate 0.05 mg/actuat metered dose nasal spray (3 sources)Corticosteroidtake 2 spray(s) nasal route in the morningfluticasone (Flonase) 50 MCG/ACT nasal spray Administer 2 sprays into each nostril in the morning. Shake gently. Before first use, prime pump. After use, clean tip and replace cap.. 0 ZfcxhsVcvbcxhxovh-Sisyjmchr-Egoamqqj (4 sources)Anticholinergic, Corticosteroid, beta2-Adrenergic AgonistStart: 40-59-9605Vsuarsxxrvh-Umeclidin-Vilanter (Trelegy Ellipta) 100-62.5-25 mcg blister with device Active 1 INH INHALATION Daily June 12, 2025 12:00am Complies with drug dzyaqgjYndfgmwucvr-Hljprydad-Eobwvn (Trelegy Ellipta) 100-62.5-25 MCG/ACT aerosol powder Inhale ActivehydroCHLOROthiazide 25 mg oral tablet (1 source)Thiazide Diuretictake 1 tablet by mouth every twenty-four hours hydroCHLOROthiazide 25 MG 1 tablet in the morning Orally Once a day Active levothyroxine sodium 0.05 mg oral tablet (20 sources)l-ThyroxineStart: 04-66-6486sujq 1 tablet by mouth once daily Levothyroxine 50 mcg tablet Active 50 MCG PO Daily June 12, 2025 12:00am Complies with drug therapyStart: 30-30-7891glgb 1 tablet by mouth before mealtimelevothyroxine (Synthroid, Levoxyl) 50 MCG tablet Indications: Adult hypothyroidism TAKE 1 TABLET BYMOUTH IN THE MORNING BEFORE MEAL 90 tablet 03/08/2025 ActiveStart: 08-92-2741zxdh 1 tablet by mouth before mealtime levothyroxine (Synthroid) 50 MCG tablet Indications: Adult hypothyroidism Take 1 tablet (50 mcg) bymouth in the morning. Take before meals. 90 tablet 3 03/01/2024 Activetake 1 tablet by mouth before mealtimelevothyroxine (Synthroid, Levoxyl) 50 MCG tablet Take 1 tablet by mouth in the morning. Take beforemeals. 0 Activetake 1 tablet by mouth once daily in the morningLevothyroxine Sodium 50 MCG 1 tablet in the morning on an empty stomach Orally Once a day Active losartan potassium 50 mg oral tablet (20 sources)Angiotensin 2 Receptor BlockerStart: 31-36-0254kmfp 1 tablet by mouth twice dailyLosartan 50 mg tablet Active 50 MG PO Twice daily June 12, 2025 12:00am Complies with drug therapyStart: 10-08-2024 End: 33-87-9541dkqo 1 tablet by mouth in the morninglosartan (Cozaar) 50 MG tablet Indications: Essential hypertension, benign Take 1 tablet (50 mg) bymouth in the morning and 1 tablet (50 mg) before bedtime. 60 tablet 5 12/13/2024 ActiveStart: 09-18-2024 End: 90-31-9433qjqu 1 tablet by mouth once dailylosartan (Cozaar) 25 MG tablet Indications: Essential hypertension, benign (CMS/HCC) Take 1 tablet (25 mg) by mouth Daily 30 tablet 5 09/18/2024 10/08/2024 Discontinued (Reorder)meclizine hydrochloride 25 mg oral tablet (20 sources)AntiemeticStart: 36-82-6212yubp 1 tablet by mouth four times daily as neededMeclizine 25 mg tablet Active 25 MG PO Four times daily as needed June 12, 2025 12:00am Complies with drug therapyStart: 80-61-7154zmtr 1 tablet by mouth four times daily as needed for dizzinessmeclizine (Antivert) 25 MG tablet Indications: Vertigo TAKE 1 TABLET BY MOUTH 4 TIMES DAILY NEEDED FOR DIZZINESS 60 tablet 04/01/2025 ActiveStart: 63-93-1779tmyv 1 tablet by mouth four times daily as needed for dizzinessmeclizine (Antivert) 25 MG tablet Indications: Vertigo TAKE 1 TABLET BY MOUTH 4 TIMES DAILY NEEDED FOR DIZZINESS 60 tablet 02/11/2025 ActiveStart: 07-05-2024 End: 41-62-4782dxqt 1 tablet by mouth four times daily as needed for dizziness meclizine (Antivert) 25 MG tablet Indications: Vertigo Take 1 tablet (25 mg) by mouth 4 (four) times a day as needed for dizziness 60 tablet 2 09/18/2024 Active montelukast 10 mg oral tablet (4 sources)Leukotriene Receptor Antagonisttake 1 tablet by mouth at bedtime montelukast (Singulair) 10 MG tablet Take 1 tablet by mouth at bedtime 0 Active omeprazole 40 mg delayed release oral capsule (1 source)Proton Pump InhibitorStart: 66-17-0251ffsf 1 capsule by mouth once dailyOmeprazole 40 mg capsule,delayed release(DR/EC) Active 40 MG PO Daily June 25, 2025 12:00amComplies with drug therapypredniSONE 50 mg oral tablet (4 sources)Start: 02-27-2025 End: 47-96-6792gceu 1 tablet by mouth once dailypredniSONE (Deltasone) 50 MG tablet Indications: Chronic pain of left wrist Take 1 tablet (50 mg) by mouth Daily for 6 days 6 tablet 02/27/2025 03/05/2025 ActiveStart: 10-17-2023 End: 92-08-6845bvqt 1 tablet by mouth in the morningpredniSONE (Deltasone) 50 MG tablet Indications: Mild persistent asthma, uncomplicated (CMS/HCC) Take 1 tablet (50 mg) by mouth in the morning for 6 days. 6 tablet 0 10/17/2023 10/23/2023 ActiveTrelegy Ellipta 200-62.5-25 MCG/ACT aerosol powder (7 sources)Start: 02-02-2024 End: 94-29-3761jjuz 1 puff(s) by inhalation once dailyTrelegy Ellipta 200-62.5-25 MCG/ACT aerosol powder INHALE 1 PUFF ONCE DAILY 02/02/2024 09/18/2024 DiscontinuedStart: 05-28-8280jkas 1 puff(s) by inhalation once daily Trelegy Ellipta 200-62.5-25 MCG/ACT aerosol powder INHALE 1 PUFF ONCE DAILY 02/02/2024 Active Completed/Discontinued Medications MedicationDrug Class(es)DatesSig (Normalized)Sig (Original)24 hr NIFEdipine 30 mg extended release oral tablet (7 sources)Dihydropyridine Calcium Channel BlockerStart: 06-12-2025 End: 15-58-2686eqgf 1 tablet by mouth once dailyNifedipine 30 mg tablet extended release Discontinued 30 MG PO Daily June 12, 2025 12:00am June 25, 2025 9:22amStart: 50-05-0334xkja 1 tablet by mouth once dailyNIFEdipine XL (Procardia XL) 30 MG 24 hr tablet Indications: Essential hypertension, benign Take 1 tablet (30 mg) by mouth Daily Do not crush, chew, or split. 30 tablet 2 02/27/2025 Active Problems Active Problems Problem ClassificationProblemDateDocumented DateEpisodic/ChronicAbdominal pain (2 sources)Epigastric pain; Translations: [Epigastric pain]52-73-4075Trhcdsvc Anxiety disorders (1 source)AnxietyOnset: 49-12-8698IogjzcjEptmne (20 sources)Uncomplicated mild persistent asthma; Translations: [Mild persistent asthma, uncomplicated]Onset: 503741-30-5996GbcsxbnHftkczdvdv associated with dizziness or vertigo (1 source)Meniere's disease, bilateral; Translations: [Meniere's disease, bilateral]Onset: 71-72-8304HalrxtkAgkdezvx, dementia, and amnestic and other cognitive disorders (1 source)Postconcussional syndrome; Translations: [POSTCONCUSSIONAL SYNDROME] Onset: 26-64-5566EtnenkoJswvnezg mellitus with complications (20 sources)Type 2 diabetes mellitus; Translations: [Type 2 diabetes mellitus with hyperglycemia]Onset: 281094-95-5708RugkidpNlnptgoh mellitus without complication (1 source)Type 2 diabetes mellitus without complications; Translations: [TYPE 2 DM WITHOUT COMPLICATIONS]Onset: 41-01-9659WwjyzdaXapkgsdkgy disorders (2 sources)Gastroesophageal reflux disease without esophagitis; Translations: [Gastro-esophageal reflux disease without esophagitis]36-28-3139RjjgykaWkvkfvgpq hypertension (20 sources)Essential hypertension; Translations: [Essential (primary) hypertension]Onset: 823731-19-6363OcpaiehXcgmkiig; including migraine (1 source)HeadacheOnset: 75-60-4850EdytqnkgXkxwxnve; including migraine (1 source)Headache; including migraine; Translations: [Headache, unspecified] Onset: 56-67-4193Inbce valve disorders (1 source)Rheumatic tricuspid insufficiency; Translations: [RHEUMATIC TRICUSPID INSUFFICIENCY]Onset: 11-52-4269BlxnobtKzrpburrgdlu with complications and secondary hypertension (6 sources)Secondary hypertension; Translations: [Secondary hypertension, unspecified]Onset: 02-02-2022 Resolved: 37-48-2687BnhgcxcWwdkuhpruzm deficiencies (20 sources)Vitamin D deficiency, unspecified; Translations: [Vitamin D deficiency]Onset: 28-86-5648SzwvjqsCfyndytgp or stenosis of precerebral arteries (1 source)Occlusion and stenosis of right carotid artery; Translations: [OCCLUSION AND STENOSIS RT CAROTID ART]Onset: 65-05-6829EwuyuxqBzifqibqfbhixn (12 sources)Osteoarthritis of joint of left wrist; Translations: [Primary osteoarthritis, left wrist]Onset: 139844-41-3021YwhqtaqRsukgwlxihst (1 source)Osteoporosis; Translations: [Age-related osteoporosis without current pathological fracture]67-70-3334TwjcuywHkqaf and ill-defined heart disease (20 sources)Diastolic dysfunction; Translations: [Other ill-defined heart diseases]Onset: 129304-06-8597NrhmccrXdrex circulatory disease (1 source)Elevated blood-pressure reading, without diagnosis of hypertension; Translations: [Elevated blood-pressure reading, without diagnosis of hypertension]Onset: 61-93-2533BkjcszjuNnfyq diseases of veins and lymphatics (20 sources)Calcified lymph nodes; Translations: [Other specified noninfective disorders of lymphatic vessels and lymph nodes]Onset: 083427-74-8683 ChronicOther ear and sense organ disorders (1 source)Sensorineural hearing loss, bilateral; Translations: [Sensorineural hearing loss, bilateral]51-71-8631AgusrnkKvxdd nervous system disorders (1 source)Other chronic pain; Translations: [Other chronic pain]Onset: 03-79-6792PjwkiapDmtio non-traumatic joint disorders (5 sources)Chronic pain of left upper limb; Translations: [Pain in left wrist] Onset: 856399-42-7624MozlfbddCyfzf non-traumatic joint disorders (1 source)Pain in left wrist; Translations: [Pain in left wrist]Onset: 01-88-4257KuroxfbbZmmcj nutritional; endocrine; and metabolic disorders (1 source)Obesity, unspecified; Translations: [OBESITY UNSPECIFIED]Onset: 78-35-1876MtrprnmDobxb nutritional; endocrine; and metabolic disorders (20 sources)Obesity caused by energy imbalance; Translations: [Class 1 obesity due to excess calories with serious comorbidity and body mass index (BMI) of 33.0 to 33.9 in adult]Onset: 277291-49-5242CnsjzxhKqpkg nutritional; endocrine; and metabolic disorders (1 source)Other obesity due to excess calories; Translations: [Other obesity due to excess calories]Onset: 28-72-6192GwzniasXalny screening for suspected conditions (not mental disorders or infectious disease) (4 sources)Abnormal electrocardiogram [ECG] [EKG]; Translations: [ABNORMAL ELECTROCARDIOGRAM]Onset: 14-95-1445HfwxxcgcAopeo upper respiratory disease (20 sources)Allergic rhinitis due to pollen; Translations: [Allergic rhinitis due to pollen]Onset: 228327-95-3690BeljhwlMyjnn upper respiratory disease (20 sources)Non-allergic rhinitis; Translations: [Chronic rhinitis]Onset: 065282-24-4742MhgvnnnVmojsoywnc and visceral atherosclerosis (20 sources)Bilateral renal artery stenosis; Translations: [Atherosclerosis of renal artery]Onset: 03-10-2022 Resolved: 17-15-9408UfbmpqgTvgoqzkxq heart disease (20 sources)Secondary pulmonary hypertension; Translations: [Other secondary pulmonary hypertension]Onset: 812740-40-9061CndbyqeDpeaeaygwwp; intervertebral disc disorders; other back problems (20 sources)Degeneration of lumbar intervertebral disc; Translations: [Other intervertebral disc degeneration, lumbar region]Onset: ChronicThyroid disorders (20 sources)Hypothyroidism, unspecified; Translations: [Hypothyroidism]Onset: 31-93-9102DfclafcSnulberruapd (3 sources)CONTACT W/AND (SUSP) EXPOS COVID-19; Translations: [CONTACT W/AND (SUSP) EXPOS COVID-19]Onset: 33-42-8863Ftxfujoilccv (1 source)Head Pressure, AnixetyOnset: 72-78-9904Bdctnmlrofnu (1 source)Obesity, class 1; Translations: [Obesity, class 1]Onset: 10-10-2024 Past or Other Problems Problem ClassificationProblemDateDocumented DateEpisodic/ChronicCardiac dysrhythmias (2 sources)Palpitations; Translations: [Palpitations]Onset: 27-65-6642Qtdqrymu Conditions associated with dizziness or vertigo (20 sources)Vertigo; Translations: [Dizziness and giddiness]Onset: 10-17-2023 Resolved: 458287-86-1780BbtapnpxGlxhwwlc or abnormal glucose tolerance complicating ; childbirth; or the puerperium (1 source)Personal history of gestational diabetes; Translations: [Personal history of gestational diabetes]Onset: 95-11-2512DtaxtircXfap disorders (20 sources)Recurrent major depressive episodes, mild ; Translations: [Major depressive disorder, recurrent, mild]Onset: 10-17-2023 Resolved: 034839-54-1912OmtfvmcFczp disorders (20 sources)Mood disordersOnset: 986492-61-4530Qdjtybj (20 sources)Candidiasis of skin; Translations: [Candidiasis of skin and nail] Onset: 10-17-2023 Resolved: 180649-30-3752JwmwbvmqImzjc aftercare (2 sources)Other chcf (current) drug therapy; Translations: [OTH LONG-TERM CURRENT DRUG THERAPY]Onset: 67-46-1723CxlojjriFdmwl aftercare (20 sources)Long-term current use of drug therapy; Translations: [Other chcf (current) drug therapy]Onset: 150762-66-2932FrphfdhqEexvq aftercare (20 sources)Long-term current use of inhaled steroid; Translations: [prison (current) use of inhaled steroids]Onset: 899248-58-6415AjfxxlfoIsylt connective tissue disease (20 sources)Pain in left foot; Translations: [Pain in left foot]Onset: 11-15-2023 Resolved: 213165-63-8350CovdmkfmGpqxg lower respiratory disease (20 sources)Calcified granuloma of lung; Translations: [Other disorders of lung] Onset: 044214-17-1263XutrjnvzVcidxpfh codes; unclassified (4 sources)Disorientation, unspecified; Translations: [DISORIENTATION UNSPECIFIED]Onset: 46-00-4711OcrpgxueKsqmrmsv codes; unclassified (12 sources)Postmenopausal state; Translations: [Asymptomatic menopausal state] Onset: 068344-50-5934FdpjkiewAgqxjbu (20 sources)Syncope and collapse; Translations: [Syncope and collapse]Onset: 06-18-2022 Resolved: 837535-21-9049RohttkfnZtyacosboaen (1 source)CONTACT W/AND (SUSP) EXPOS COVID-19; Translations: [CONTACT W/AND (SUSP) EXPOS COVID-19]Onset: 09-28-2021 Results Test NameValueInterpretationReference RangeFacilityOrders Onlyon 07-01-2025 Orders [id number] Renate Bradford 1940 F Date Provider Department Center 07/01/2025 IS[facility]IAH [facility]GR[facility] Family History Problem Relation Age of Onset Stroke Mother Family Status - Relation Status Age at MotherNormalUniversity of Brownfield Regional Medical CenterOrders Onlyon 98-15-2797Vifgam [id number] Renate Bradford 1940 F Date Provider Department Center 04/30/2025 ISAIAH NEGRON [facility] Family History Problem Relation Age of Onset Stroke Mother Family Status - Relation Status Age at MotherNormalUniversity of Brownfield Regional Medical CenterHEMOGLOBIN A1Con 04-09-2025 Glucose [Mass/Vol]128 mg/dLNoHighland District HospitalComment on above: Performed By: #### HA1C #### [facility] ([facility]) [address] [place] [address] MERWhS2o (Bld) [Mass fraction]6.1 %High4.4-5.6ProSt. David'S Medical CenterComment on above:Result Comment: ADA Guidelines Result HgbA1c Normal : less than 5.7 % Prediabetes : 5.7 % to 6.4 % Diabetes : > 6.4 % Use with caution in patients with abnormal hemoglobin variants as the half-life of red blood cells and in vivo glycation rates are affected.Performed By: #### HA1C #### [facility] ([facility]) [address] [place] [address] RTEMsW6k (Bld) [Mass fraction]on 64-97-7075Shvagmz glucose Estimated from glycated hemoglobin (Bld) [Mass/Vol]128 mg/dLMOUNTAIN VIEW HOSPITAL Healthcare Comment on above: PERFORMED [address],[place] [address] Interpretation and review of laboratory resultsAbCritical access hospitalHemoglobin A1con 67-08-7628HwM2v (Bld) [Mass fraction]6.1 %High4.4 - 5.6 %[facility] HealthcareComment on above:ADA Guidelines Result HgbA1c Normal : less than 5.7 % Prediabetes : 5.7 % to 6.4 % Diabetes : > 6.4 % Use with caution in patients with abnormal hemoglobin variants as the half-life of red blood cells and in vivo glycation rates are affected. XR WRIST LT 2 VWSon 90-88-1120RZ WRIST LT 2 VWSXR WRIST LT 2 VWS XR WRIST LT 2 VWS Clinical history:Chronic pain of left wrist Comparison: None. Findings: There is mild first carpometacarpal radiocarpal joint degenerative change. No acute process fracture or dislocation. Osteopenia. Impression: Degenerative changes, mild with osteopenia. No definitive acute process. Finalized by Adelso Fisher MD on 03/01/2025 5:16 AMNormalCleveland Clinic Lutheran HospitalAuditory function testson 67-21-6825Lqvhb Ear: Mild to moderate sensorineural hearing loss above 4K Hz Left Ear: Mild sensorineural hearing loss at 250 Hz and above 4K Hz [facility] HealthcareBASIC METABOLIC PANLon 87-23-8275Pccuf gap [Moles/Vol]8 mmol/LNormal5-15[facility] HospitalComment on above: Performed By: #### THYR, BMP, 08772-2, LIVR, CBCA, HA1C #### [facility] ([id number]) [address] [place], [place] [address]Pdnbcxq [Mass/Vol]8.6 mg/dLNormal8.5-10.5PTriHealth Bethesda North HospitalComment on above:Performed By: #### THYR, BMP, 81056-0, LIVR, CBCA, HA1C #### [facility] ([id number]) [address], [address] [place], [place] [address]Mnxwqroy [Moles/Vol]105 mmol/UZxdmgp58-173MknIfxhwpSt. David'S Medical CenterComment on above:Performed By: #### THYR, BMP, 15793-8, LIVR, CBCA, HA1C #### [facility] ([id number]) [address], [address] [place], [place] [address]UH9 [Moles/Vol]29 mmol/STtmcpl54-82NnfSwobdcTriHealth Bethesda North Hospital Comment on above:Performed By: #### THYR, BMP, 14404-4, LIVR, CBCA, HA1C #### [facility] [facility] ([id number]) [address], [address] [place], [place] [address]Pkmetattfl [Mass/Vol]0.76 mg/dLNormal0.40-1.00ProSt. David'S Medical CenterComment on above:Result Comment: METHOD TRACEABLE TO IDMS STANDARD Performed By: #### THYR, BMP, 78479-7, LIVR, CBCA, HA1C #### [facility] ([id number]) [address], [address] [place], [place] [address]EWE/1.73 sq M.predicted among non-blacks MDRD (S/P/Bld) [Vol rate/Area]77 mL/min/{1.73_m2}Normal>59ProSt. David'S Medical CenterComment on above:Result Comment: Reported eGFR is based on the CKD-EPI 2020 equation that does not use a race coefficient.Performed By: #### THYYaritza, BMP, 50953-6, LIVR, CBCA, HA1C #### [facility] ([id number]) [address] [address] [place], [place] [address]Iptwigz [Mass/Vol]105 mg/hXEnqq48-50CjaWmfsncSt. David'S Medical Center Comment on above:Performed By: #### THYYaritza, BMP, 39004-0, LIVR, CBCA, HA1C #### [facility] ([id number]) [address] [address] [place], [place] [address]Yppyvofsk [Moles/Vol]3.6 mmol/LNormal3.5-5.0ProSt. David'S Medical CenterComment on above:Performed By: #### THYR, BMP, 45140-2, LIVR, CBCA, HA1C #### [facility] ([id number]) [address], [address] [place], [place] [address]Ltivet [Moles/Vol]142 mmol/ZJxyphg336-403SocFwmnlz [facility] HospitalComment on above:Performed By: #### THYR, BMP, 08517-0, LIVR, CBCA, HA1C #### [facility] ([id number]) [address], [address] [place], [place] [address]Qpps nitrogen [Mass/Vol]17 mg/dLNormal5-27ProMedica [facility] Regional Medical CenterComment on above:Performed By: #### LAURYN RAY, 27574-3, LIVR, CBCA, HA1C #### [facility] ([id number]) [address], [address] [place], [place] [address]Pewyw metabolic 1998 panelon 16-08-0895Ofrec gap [Moles/Vol]8 mmol/L5 - 15 mmol/LNOMS HealthcareCalcium [Mass/Vol]8.6 mg/dL8.5 - 10.5 mg/dL NOMS HealthcareChloride [Moles/Vol]105 mmol/L98 - 109 mmol/LNOMS HealthcareCO2 [Moles/Vol]29 mmol/L22 - 32 mmol/LNOMS HealthcareCreatine [Mass/Vol]0.76 mg/dL 0.40 - 1.00 mg/dLMOUNTAIN VIEW HOSPITAL HealthcareComment on above:METHOD TRACEABLE TO IDMS STANDARDGFR/1.73 sq M.predicted among non-blacks MDRD (S/P/Bld) [Vol rate/Area] 77 mL/min/{1.73_m2}- [facility] HealthcareComment on above: Reported eGFR is based on the CKD-EPI 2020 equation that does not use a race coefficient. PERFORMED AT [facility] [address] [place] [address] [address] [facility],[place] [address] Glucose [Mass/Vol]105 mg/sUYqmq30 - 99 mg/dLNOSD HealthcarePotassium [Moles/Vol] 3.6 mmol/L3.5 - 5.0 mmol/LNOMS HealthcareSodium [Moles/Vol]142 mmol/L134 - 146 mmol/LNOMS HealthcareUrea nitrogen [Mass/Vol]17 mg/dL5 - 27 mg/dLNOSD Healthcare CBC AND AUTO DIFFon 80-75-5830MPBJZVEL BASOPHIL0.0 X10E9/LNormal0.0-0.2ProMedica [facility] Regional Medical CenterComment on above:Performed By: #### LAURYN RAY, 56709-6, LIVR, CBCA, HA1C #### [facility] ([id number]) [address], [address] [place], [place] [address]KIYMCJNC NEUTROPHIL3.4 X10E9/LNormal1.5-6.6ProSt. David'S Medical CenterComment on above:Performed By: #### THYR, BMP, 63286-8, LIVR, CBCA, HA1C #### [facility] ([id number]) [address], [address] [place], [place] [address]Rmjtcficy/100 WBC (Bld)0.7 %NormalCleveland Clinic Lutheran Hospital Comment on above:Performed By: #### THYR, BMP, 71604-6, LIVR, CBCA, HA1C #### [facility] ([id number]) [address], [address] [place], [place] [address]Fsuyuxbbfrp (Bld) [#/Vol]0.3 10*3/uLNormal0.0-0.4C[facility] Luther[facility] HospitalComment on above:Performed By: #### THYR, BMP, 81510-0, LIVR, CBCA, HA1C #### [facility] ([id number]) [address], [address] [place], [place] [address]Elecfsmeqou/100 WBC (Bld)5.3 %NormalCleveland Clinic Lutheran Hospital Comment on above:Performed By: #### THYR, BMP, 81517-5, LIVR, CBCA, HA1C #### [facility] ([id number]) [address], [address] [place], [place] [address]Mwdbedgfbao distribution width (RBC) [Ratio]14.4 %Normal 11.5-15.0ProSt. David'S Medical CenterComment on above:Performed By: #### THYR, BMP, 18163-3, LIVR, CBCA, HA1C #### [facility] ([id number]) [address], [address] [place], [place] [address]Yahrafeabu (Bld) [Volume fraction]37.1 %Xyjpnf75-74FbpPvhvnuSt. David'S Medical CenterComment on above:Performed By: #### THYR, BMP, 32842-1, LIVR, CBCA, HA1C #### [facility] ([id number]) [address], [address] [place], [place] [address]Ojienfjyaa (Bld) [Mass/Vol]12.2 g/oIQnxokw41.7-15.5PTriHealth Bethesda North HospitalComment on above:Performed By: #### THYR, BMP, 61757-6, LIVR, CBCA, HA1C #### [facility] ([id number]) [address], [address] [place], [place] [address]Rgtkdsksigs (Bld) [#/Vol]1.6 10*3/uLNormal1.0-3.5PTriHealth Bethesda North HospitalComment on above:Performed By: #### THYR, BMP, 85238-2, LIVR, CBCA, HA1C #### [facility] ([id number]) [address], [address] [place], [place] [address]Aqvazyphafl/100 WBC (Bld)27.2 %NormalCleveland Clinic Lutheran Hospital Comment on above:Performed By: #### THYR, BMP, 20198-1, LIVR, CBCA, HA1C #### [facility] ([id number]) [address], [address] [place], [place] [address]HXM (RBC) [Entitic mass]27.7 xdJlqtgn86-17VfhCxbzieSt. David'S Medical CenterComment on above:Performed By: #### THYR, BMP, 93457-0, LIVR, CBCA, HA1C #### [facility] ([id number]) [address], [address] [place], [place] [address]LIVP (RBC) [Mass/Vol]32.8 g/pXWedntj89-04TetVmjvnlSt. David'S Medical CenterComment on above:Performed By: #### THYR, BMP, 78030-6, LIVR, CBCA, HA1C #### [facility] ([id number]) [address], [address] [place], [place] [address]XGS (RBC) [Entitic vol]85 cXBspzse03-750VtxRfduktCleveland Clinic Lutheran HospitalComment on above:Performed By: #### THYR, BMP, 83446-1, LIVR, CBCA, HA1C #### [facility] ([id number]) [address], [address] [place], [place] [address]Ktbotuxhv (Bld) [#/Vol]0.5 10*3/uLNormal0-0.9[facility] HospitalComment on above:Performed By: #### THYR, BMP, 74837-0, LIVR, CBCA, HA1C #### [facility] ([id number]) [address], [address] [place], [place] [address]Afcndciwa/100 WBC (Bld)8.9 %[facility] Comment on above:Performed By: #### THYR, BMP, 51101-7, LIVR, CBCA, HA1C #### [facility] ([id number]) [address], [address] [place], [place] [address]Qqtleebpnnm/100 WBC (Bld)57.9 %[facility] Comment on above:Performed By: #### THYR, BMP, 43245-7, LIVR, CBCA, HA1C #### [facility] ([id number]) [address] [place], [place] [address]Rjerkcvk mean volume (Bld) [Entitic vol]9.0 fLNormal7-12 [facility] HospitalComment on above:Performed By: #### THYR, BMP, 85857- 1, LIVR, CBCA, HA1C #### [facility] ([id number]) [address], [address] [place], [place] [address]Zwckzikxq (Bld) [#/Vol]202 10*3/rRItglbu793-070CbaQynfxi [facility] HospitalComment on above:Performed By: #### THYYaritza, LAURYN, 89870-5, LIVR, CBCA, HA1C #### [facility] ([id number]) [address], [facility] [address] [place], [place] [address]EHF COUNT4.38 X10E12/LNormal3.80-5.20[facility] Comment on above:Performed By: #### THYYaritza, LAURYN, 06104-1, LIVR, CBCA, HA1C #### [facility] ([id number]) [address], [address] [address]NRY (Bld) [#/Vol]5.9 10*3/uLNormal4.0-11.0ProSt. David'S Medical CenterComment on above:Performed By: #### THYYaritza, LAURYN, 45123-4, LIVR, CBCA, HA1C #### [facility] ([id number]) [address], [facility] [address] [place], [place] [address]CKF A1C (GLYCO-HGB)on 81-00-0261Vwilxky [Mass/Vol]123 mg/dL NormalProSt. David'S Medical CenterComment on above:Performed By: #### THYR, LAURYN, 80885-8, LIVR, CBCA, HA1C #### [facility] ([id number]) [address] [place], [place] [address]NcO6h (Bld) [Mass fraction]5.9 %High4.4-5.6ProSt. David'S Medical CenterComment on above:Result Comment: NOTE ADA Guidelines Result HgbA1c Normal : less than 5.7 % Prediabetes : 5.7 % to 6.4 % Diabetes : > 6.4 % Use with caution in patients with abnormal hemoglobin variants as the half-life of red blood cells and in vivo glycation rates are affected.Performed By: #### LAURYN RAY, 25776-1, LIVYaritza, CBCSaul, ALISHA #### [facility] ([id number]) [address], [address] [place], [place] [address]Bqhloum function 2000 panelon 57-84-7521Ingyyje [Mass/Vol]3.9 g/dL3.2 - 5.3 g/dLNOMS HealthcareALP [Catalytic activity/Vol]78 U/L39 - 130 U/L NOM[facility] HealthcareALT No additional P-5'-P [Catalytic activity/Vol]11 U/L0 - 31 U/L NOMS HealthcareAST [Catalytic activity/Vol]17 U/L0 - 41 U/LNOMS Healthcare Bilirubin [Mass/Vol]0.6 mg/dL0.3 - 1.2 mg/dLNOMS HealthcareBilirubin.direct [Mass/Vol]0.1 mg/dL0.0 - 0.4 mg/dLNOMS HealthcareProtein [Mass/Vol]6.9 g/dL6.0 - 8.0 g/dLNOMS HealthcareComment on above:PERFORMED AT [facility] [address],[place], [place] [address]VKXLN PANELon 93-71-6931Suwbaxs [Mass/Vol] 3.9 g/dLNormal3.2-5.3PCentennial Peaks Hospital HospitalComment on above:Performed By: #### LAURYN RAY, 01507-5, LIVYaritza, CBCA, ALISHA #### [facility] ([id number]) [address] [place], [place] [address]TLV [Catalytic activity/Vol]78 U/LHrjgqn56-777WqgLynlcf Bell HospitalComment on above:Performed By: #### LAURYN RAY, 06486-2, LIVR, CBCA, HA1C #### [facility] ([id number]) [address], [address] [place], [place] [address]XZO [Catalytic activity/Vol]11 U/LNormal0-31PTriHealth Bethesda North HospitalComment on above:Performed By: #### THYR, BMP, 12601-2, LIVR, CBCA, HA1C #### [facility] ([id number]) [address], [address] [place], [place] [address]PHQ [Catalytic activity/Vol]17 U/LNormal0-41ProSt. David'S Medical CenterComment on above:Performed By: #### THYR, BMP, 67701-7, LIVR, CBCA, HA1C #### [facility] ([id number]) [address], [address] [place], [place] [address]Hseoahafz [Mass/Vol]0.6 mg/dLNormal0.3-1.2PTriHealth Bethesda North HospitalComment on above:Performed By: #### THYR, BMP, 09487-0, LIVR, CBCA, HA1C #### [facility] ([id number]) [address] [place], [place] [address]Yucgeelaz.direct [Mass/Vol]0.1 mg/dLNormal0.0-0.4ProSt. David'S Medical CenterComment on above:Performed By: #### THYR, BMP, 93101-5, LIVR, CBCA, HA1C #### [facility] ([id number]) [address] [place], [place] [address]Cxjjeuh [Mass/Vol]6.9 g/dLNormal6.0-8.0ProSt. David'S Medical CenterComment on above:Performed By: #### THYR, BMP, 61957-8, LIVR, CBCA, HA1C #### [facility] ([id number]) [address] [place], [place] [address]Dhtec 1996 panelon 61-92-7107Himoniyyrbs [Mass/Vol]114 mg/dLLow 150 - 200 mg/dLNOSD HealthcareCholesterol in HDL [Mass/Vol]48 mg/dL39 - PINF mg/dLNOSD HealthcareComment on above: HDL <40 mg/dL - High Risk HDL > or = 40mg/dL- Desirable HDL >60 mg/dL - Negative Risk Cholesterol in HDL/Total Cholesterol [Mass ratio]2.4 {ratio}1.0 - 5.0[facility] HealthcareComment on above:PERFORMED AT [address],[place], [place] [address]Rbrcjjtarfj in LDL [Mass/Vol]53 mg/dLNINF - 130 mg/dL [facility] HealthcareComment on above: LDL <100 mg/dL - Desirable LDL >160 mg/dL - High Risk Cholesterol in VLDL [Mass/Vol]13 mg/dL0 - 30 mg/dLNOSD HealthcareTriglyceride [Mass/Vol]65 mg/dL27 - 150 mg/dLNOSD HealthcareCholesterol [Mass/Vol]114 mg/dL Equ861-504OqeTucugbSt. David'S Medical CenterComment on above:Performed By: #### LAURYN RAY, 21891-9, LIVR, CBCA, HA1C #### [facility] ([id number]) [facility].[address] [address]Oxssukxzpwk in HDL [Mass/Vol]48 mg/dLNormal>39ProSt. David'S Medical CenterComment on above:Result Comment: HDL <40 mg/dL - High Risk HDL > or = 40mg/dL- Desirable HDL >60 mg/dL - Negative Risk Performed By: #### THYR, LAURYN, 94705-3, LIVR, CBCA, HA1C #### [facility] ([id number]) [address] [place] [address], [address] [place], [place] [address]Xfyzarxczjk in LDL [Mass/Vol]53 mg/dLNormal<130ProSt. David'S Medical CenterComment on above:Result Comment: LDL <100 mg/dL - Desirable LDL >160 mg/dL - High Risk Performed By: #### THYR, BMP, 45118-5, LIVR, CBCA, HA1C #### [facility] ([id number]) [address], [facility] [address] [place], [place] [address]Rldysmnfhmf in VLDL [Mass/Vol]13 mg/dLNormal0-30ProSt. David'S Medical CenterComment on above:Performed By: #### THYR, BMP, 64667-0, LIVR, CBCA, HA1C #### [facility] ([id number]) [address], [facility] [address] [place], [place] [address]RHBGNTUNUDF:HDL2.6Zcwfgq9.0-5.0ProSt. David'S Medical CenterComment on above:Performed By: #### THYR, BMP, 97333-7, LIVR, CBCA, HA1C #### [facility] ([id number]) [address], [facility] [address] [place], [place] [address]Khzaqrpprhej [Mass/Vol]65 mg/fUIutzfu05-187GcuJfnouf [facility] HospitalComment on above:Performed By: #### THYR, BMP, 29757-3, LIVR, CBCA, HA1C #### [facility] ([id number]) [address] [address]BGLWVFPFKXYA - ALBUMIN:CREATININE URINE RATIOon 10-10-2024 ALB/CREAT RATIO8.7 mg/g creatNormal0.0-30.0ProSt. David'S Medical CenterComment on above:Performed By: #### MALBU #### [facility] ([id number]) [address] [place] [address] [address] [place], [place] [address]Jdedqko DL <= 20 mg/L (U) [Mass/Vol]1.4 mg/dLNormal0.0-1.9 ProMMountains Community HospitalComment on above:Performed By: #### MALBU #### [facility] ([id number]) [address] [place] [address]INSQK DLXXR513.37 mg/dLNormalProSt. David'S Medical CenterComment on above:Performed By: #### MALBU #### [facility] ([id number]) [address] [place] [address]Jj Panel Informationon 39-08-0108Ctbjazkjoqqkxy and review of laboratory resultsAbnormFort Memorial HospitalTHYROID PROFILEon 63-26-0708Ijpa T4 [Mass/Vol]0.91 ng/dLNormal0.61-1.60[facility] Comment on above:Performed By: #### THYR, BMP, 59016-0, LIVR, CBCA, HA1C #### [facility] ([id number]) [address] [place] [address]SFS8.78 uIU/mLHigh0.49-4.67[facility] HospitalComment on above:Performed By: #### THYR, BMP, 79779-9, LIVR, CBCA, HA1C #### [facility] ([id number]) [address] [place] [address] [place] [address]POY AND AUTO DIFFon 10-93-0257BOLNTAVC BASOPHIL0.1 X10E9/LNormal 0.0-0.2ProMedica Peace Harbor HospitalComment on above:Performed By: #### CBCA, CMP, 59786-9, 53063-1 #### [facility] ([id number]) [address] [place], [place] [address]TAVMHKCW NEUTROPHIL6.5 X10E9/LNormal1.5-6.6ProMetrohealth Parma Medical CenterComment on above:Performed By: #### MARGIE REYES, , 73585-6 #### [facility] ([id number]) [address] [facility] [place], [place] [address]Rjklaiuwp/100 WBC (Bld)0.6 %NormalMarietta Osteopathic Clinic Comment on above:Performed By: #### CBCMARGIE Hughes, , 58848-7 #### [facility] ([id number]) [address] [facility] [place], [place] [address]Dsuabyhhcfo (Bld) [#/Vol]0.2 10*3/uLNormal0.0-0.4M[facility] Osteopathic ClinicComment on above:Performed By: #### MARGIE REYES, , 50060-3 #### [facility] ([id number]) [address] [facility] [place], [place] [address]Zodqogzlbku/100 WBC (Bld)2.4 %NormalMarietta Osteopathic Clinic Comment on above:Performed By: #### MARGIE REYES, , 90977-7 #### [facility] ([id number]) [address] [facility] [place], [place] [address]Dyvhndqnrvl distribution width (RBC) [Ratio]14.2 %Normal 11.5-15.0M[facility] Osteopathic ClinicComment on above:Performed By: #### MARGIE REYES, , 68686-0 #### [facility] ([id number]) [address] [facility] [place], [place] [address]Zcavapmauh (Bld) [Volume fraction]40.6 %Ouuwod66-35RnpPlhvduMetrohealth Parma Medical CenterComment on above:Performed By: #### MARGIE REYES, , 38335-2 #### [facility] ([id number]) [address] [place], [place] [address]Ixpxhprmxp (Bld) [Mass/Vol]13.5 g/iVTrxsvf12.7-15.5ProMedUpper Valley Medical CenterComment on above:Performed By: #### CBCSaul, CMP, 92754-4, 36007-0 #### [facility] ([id number]) [address] [place], [place] [address]Laohzovreks (Bld) [#/Vol]1.8 10*3/uLNormal1.0-3.5PKettering Health PrebleComment on above:Performed By: #### CBCSaul, CMP, 52143-0, 38092-5 #### [facility] ([id number]) [address] [facility] [place], [place] [address]Hhxszugnjjz/100 WBC (Bld)19.7 %NormalProMetrohealth Parma Medical Center Comment on above:Performed By: #### ERIC, CMP, 23108-7, 75976-7 #### [facility] ([id number]) [address] [place], [place] [address]RQO (RBC) [Entitic mass]28.0 yvTmvecj16-96CxhUbsrkkMetrohealth Parma Medical CenterComment on above:Performed By: #### CBCSaul, CMP, , 28935-6 #### [facility] ([id number]) [address] [place], [place] [address]EAJY (RBC) [Mass/Vol]33.3 g/iVBycxev98-47FkrBbzcspMetrohealth Parma Medical CenterComment on above:Performed By: #### CBCSaul, CMP, 84060-9, 95652-6 #### [facility] ([id number]) [address] [place], [place] [address]PLF (RBC) [Entitic vol]84 uWDdwhlf77-905CzuCftdcy Baypark HospitalComment on above:Performed By: #### CBCA, CMP, 49909-1, 75329-9 #### [facility] ([id number]) [address] [place], [place] [address]Zifsdtlhu (Bld) [#/Vol]0.6 10*3/uLNormal0-0.9M[facility] Osteopathic ClinicComment on above:Performed By: #### CBCA, CMP, 63715-7, 05602-2 #### [facility] ([id number]) [address] [place], [place] [address]Jhklzjirs/100 WBC (Bld)7.0 %NormalMarietta Osteopathic Clinic Comment on above:Performed By: #### CBCA, CMP, 02207-2, 35044-3 #### [facility] ([id number]) [address] [place], [place] [address]Wsesjlnrbat/100 WBC (Bld)70.3 %NormalMarietta Osteopathic Clinic Comment on above:Performed By: #### CBCA, CMP, 95866-3, 66098-7 #### [facility] ([id number]) [address] [place], [place] [address]Cmmoxgau mean volume (Bld) [Entitic vol]8.7 fLNormal7-12 ProMedicSt. Mary's Medical Center, Ironton CampusComment on above:Performed By: #### CBCA, CMP, - 9, 61641-0 #### [facility] ([id number]) [address] [place], [place] [address]Sozkgwalu (Bld) [#/Vol]215 10*3/zWZyfdbj678-068WbpDcfhhfMarietta Osteopathic ClinicComment on above:Performed By: #### CBCA, CMP, 92678-0, 04576-3 #### [facility] ([id number]) [address] [place], [place] [address]HNU COUNT4.83 X10E12/LNormal3.80-5.20[facility] Comment on above:Performed By: #### CBCA, CMP, 88783-9, 51482-7 #### [facility] ([id number]) [address] [place], [place] [address]QKG (Bld) [#/Vol]9.2 10*3/uLNormal4.0-11.0M[facility] Osteopathic ClinicComment on above:Performed By: #### CBCA, CMP, 07415-5, 04148-0 #### [facility] ([id number]) [address] [place], [place] [address]XTCBNYBAVNWQE METABOLIC PANELon 99-04-6809Bwkquis [Mass/Vol]4.5 g/dLNormal3.2-5.3[facility] HospitalComment on above:Performed By: #### MARGIE REYES, 45059-3, 17590-8 #### [facility] ([id number]) [address] [place], [place] [address]CBJ [Catalytic activity/Vol]89 U/GPyipig27-925IghPzfyvaMetrohealth Parma Medical CenterComment on above:Performed By: #### MARGIE REYES, 05740-7, 28071-9 #### [facility] ([id number]) [address] [place], [place] [address]RYS [Catalytic activity/Vol]15 U/LNormal0-31ProMedUpper Valley Medical CenterComment on above:Performed By: #### MARGIE REYES, 27663-4, 63706-0 #### [facility] ([id number]) [address] [place], [place] [address]Kjkyc gap [Moles/Vol]10 mmol/LNormal5-15ProRegency Hospital [facility] HospitalComment on above:Performed By: #### MARGIE REYES, 60092-8, 48233-7 #### [facility] ([id number]) [address] [place], [place] [address]BOH [Catalytic activity/Vol]22 U/LNormal0-41ProRegency Hospital [facility] HospitalComment on above:Performed By: #### MARGIE REYES, 60315-9, 10408-1 #### [facility] ([id number]) [address] [place], [place] [address]Sktveageh [Mass/Vol]1.0 mg/dLNormal0.3-1.2ProMedWayne HealthCare Main Campus HospitalComment on above:Performed By: #### MARGIE REYES, 84855-1, 97669-9 #### [facility] ([id number]) [address] [place], [place] [address]Knzsbao [Mass/Vol]9.3 mg/dLNormal8.5-10.5PKettering Health PrebleComment on above:Performed By: #### MARGIE REYES, 23229-4, 51306-0 #### [facility] ([id number]) [address] [place], [place] [address]Djivkqvy [Moles/Vol]102 mmol/KTzhnaq85-795RtzUuaxtkMetrohealth Parma Medical CenterComment on above:Performed By: #### MARGIE REYES, 62997-5, 32842-0 #### [facility] ([id number]) [address] [place], [place] [address]BM5 [Moles/Vol]25 mmol/SMsvbwj42-24UoeCulgfnKettering Health Preble Comment on above:Performed By: #### MARGIE REYES, , 24689-9 #### [facility] ([id number]) [address] [place], [place] [address]Zftnzmkchv [Mass/Vol]0.69 mg/dLNormal0.40-1.00M[facility] Osteopathic ClinicComment on above:Result Comment: METHOD TRACEABLE TO IDMS STANDARD Performed By: #### MARGIE REYES, , 71741-5 #### [facility] ([id number]) [address] [place], [place] [address]EEY/1.73 sq M.predicted among non-blacks MDRD (S/P/Bld) [Vol rate/Area]86 mL/min/{1.73_m2}Normal>59ProMetrohealth Parma Medical CenterComment on above:Result Comment: Reported eGFR is based on the CKD-EPI 2021 equation that does not use a race coefficient.Performed By: #### MARGIE REYES, 69709-4, 60497-9 #### [facility] ([id number]) [address] [place], [place] [address]Lxvrhch [Mass/Vol]119 mg/mFEpin83-04OsdQqtfduMarietta Osteopathic Clinic Comment on above:Performed By: #### MARGIE REYES, 26704-1, 66761-3 #### [facility] ([id number]) [address] [place], [place] [address]Dninqwdjk [Moles/Vol]3.9 mmol/LNormal3.5-5.0ProMetrohealth Parma Medical CenterComment on above:Performed By: #### MARGIE REYES, 61637-6, 84786-4 #### [facility] ([id number]) [address] [facility] [place], [place] [address]Qfffosa [Mass/Vol]8.1 g/dLHigh6.0-8.0ProMetrohealth Parma Medical Center Comment on above:Performed By: #### MARGIE REYES, 49044-7, 66081-6 #### [facility] ([id number]) [address] [facility] [place], [place] [address]Gutwax [Moles/Vol]137 mmol/HPnxner828-659ZlrKembob Baypark HospitalComment on above:Performed By: #### MARGIE REYES, 71932-5, 77553-2 #### [facility] ([id number]) [address] [facility] [place], [place] [address]Kwco nitrogen [Mass/Vol]13 mg/dLNormal5-27ProMetrohealth Parma Medical CenterComment on above:Performed By: #### [facility], 70547-9, 22086-5 #### [facility] ([id number]) [address] [place], [place] [address]GZ BRAIN WO CONTon 35-02-6694HZ BRAIN WO CONTCT BRAIN WO CONT HISTORY: An 83-year-old female [...] by Scottie Parr MD on 08/31/2024 8:43 PMNormalProMedica Honorhealth [facility] HospitalMAGNESIUMon 43-90-3137Xqaubnwjp [Mass/Vol]2.1 mg/dLNormal1.8-2.6 [facility] HospitalComment on above:Performed By: #### CBCA, CMP, 93861- 9, 83999-1 #### [facility] ([id number]) [address] [facility] [place], [place] [address]Rxkguyga I.cardiac High sensitivity method [Mass/Vol]on HOUR TROP I, HIGH SENSITIVITY9 ng/LNormal<16Pro[facility] HospitalComment on above:Performed By: #### 52602-3 #### [facility] ([id number]) [address] [facility] [place], [place] [address]FYMABBHX I, HIGH SENSITIVITY8 ng/LNormal<16[facility] HospitalComment on above:Performed By: #### CBCA, CMP, 02663-9, 28207-8 #### [facility] ([id number]) [address] [facility] [facility] [place], [place] [address]VQ PULMONARY FUNCTION TESTon 66-77-6295[place]Kinmundy, [place] [address] Respiratory Report Signed Patient: RENATE BRADFORD MR#: [id number] : 1940 Acct:[id number] Age/Sex: 83 / F ADM Date: 06/26/24 Loc: CARD Attending Dr: Adolfo Baptiste D.O. Ordering Physician: Adolfo Bpatiste D.O. Date of Service: 06/26/24 Procedure(s): RT pulmonary function test Accession Number(s): [id number] cc: [facility] Test Date: 2024-06-26 Pat Name: RENATE BRADFORD Department: Room: - Gender: Female Mobile Ui Developer: : 1940 Requested By: Adolfo Baptiste Order Number: [id number] Reading MD: Adolfo Baptiste Interpretive Statements Pulmonary [...] 06/26/24 1434 06/26/24 1434 DD/ 1254 TD/TT: Custodial Operations Manager:TBHRadiology, Radiologist, - 06/26/2024 [place] [address] Respiratory Report Signed Patient: RENATE BRADFORD MR#: [id number] : 1940 Acct:[id number] Age/Sex: 83 / F ADM Date: 06/26/24 Loc: CARD Attending Dr: Adolfo Baptiste D.O. Ordering Physician: Adolfo Baptiste D.O. Date of Service: 06/26/24 Procedure(s): RT pulmonary function test Accession Number(s): [id number] cc: [facility] Test Date: 2024-06-26 Pat Name: RENATE BRADFORD Department: Room: - Gender: Female Mobile Ui Developer: : 1940 Requested By: Adolfo Baptiste Order Number: [id number] Reading MD: Adolfo Baptiste Interpretive Statements Pulmonary [...] 06/26/24 1434 06/26/24 1434 DD/ 1254 TD/TT: Custodial Operations Manager: [facility] Study observation (narrative)[facility] PULMONARY FUNCTION TESTOrdered By: Radiologist Radiology on 69-88-2740UGIFCox Monett Work Phone: aLL CBC WITH AUTO DIFFon 54-05-4827RHOMHFYSV ABSOLUTE AUTO0.0NOMercy Hospital St. LouisBasophils/100 WBC (Bld)0.4 %0.2 - 2.0 %[facility] Eosinophils/100 WBC (Bld)5.7 %0.9 - 7.0 %[facility] MonettErythrocyte distribution width (RBC) [Ratio]13.8 %11.0 - 15.0 %[facility] MonettHematocrit (Bld) [Volume fraction]36.4 %36.0 - 48.0 %[facility]ettHemoglobin (Bld) [Mass/Vol]11.9 g/dL Low12.0 - 16.0 g/dLCox MonettIMMATURE GRANULOCYTES ABS AUTO0.01NOMercy Hospital St. LouisImmature granulocytes/100 WBC (Bld)0.1 %0.0 - 0.5 %[facility] Interpretation and review of laboratory resultsAbnormalNOMercy Hospital St. Louis LYMPHOCYTES ABSOLUTE AUTO1.8NOMercy Hospital St. LouisLymphocytes/100 WBC (Bld)24.0 %20.5 - 60.0 %[facility] CenterH (RBC) [Entitic mass]27.5 pg26.7 - 34.0 pgNOUniversity HospitalHC (RBC) [Mass/Vol]32.7 g/dL29.9 - 35.2 g/dLExcelsior Springs Medical CenterV (RBC) [Entitic vol]84.1 fL81.0 - 99.0 fLMOUNTAIN VIEW HOSPITAL HealthcareMONOCYTES ABSOLUTE AUTO0.7NOSD HealthcareMonocytes/100 WBC (Bld)8.9 %1.7 - 12.0 %[facility] HealthcareNEUTROPHILS ABSOLUTE AUTO4.7NOSD HealthcareNeutrophils/100 WBC (Bld)60.9 %43.0 - 75.0 %[facility] HealthcarePlatelet mean volume (Bld) [Entitic vol]10.3 fL9.5 - 13.5 fLCox MonettTBH EO #0.4NOMS [facility] HospitalTB FYA826KXRF [facility] HospitalTBH RBC4.33NOMercy Hospital St. LouisTB WBC7.7NOMercy Hospital St. LouisCLINISYNCNOMS HealthcareXR FOOT LT MIN 3Von 75-72-0213[address] [address] XRay Report Signed Patient: RENATE BRADFORD MR#: [id number] : 1940 Acct:[id number] Age/Sex: 83 / F ADM Date: 03/22/24 Loc: EC Attending Dr: Marjan Mak Ordering Physician: Marjan Mak Date of Service: 03/22/24 Procedure(s): XR foot LT min 3V Accession Number(s): [id number] cc: Marjan Mak; Ken Reyes M.D. [address] [address] Patient Name: RENATE BRADFORD MRN: [id number] date: 1940 Sex: F Assigned Patient Location: EC Current Patient Location: Accession/Order Number: [id number] Exam Date: 03/22/2024 10:00 Report Date: 03/23/2024 07:57 At the request of: MARJAN MAK Procedure: XR foot LT min 3V PROCEDURE: [...] with hallux valgus Electronically authenticated by: JASMEET STEWART Date: 03/23/2024 07:57 Dictated By: Jasmeet Stewart M.D. Signed By: 03/23/24 08 DD/ 0757 TD/TT: Custodial Operations Manager:DAVONHRadiology, Radiologist, - 03/23/2024 [place] [address] XRay Report Signed Patient: RENATE BRADFORD MR#: [id number] : 1940 Acct:[id number] Age/Sex: 83 / F ADM Date: 03/22/24 Loc: EC Attending Dr: Marjan Mak Ordering Physician: Marjan Mak Date of Service: 03/22/24 Procedure(s): XR foot LT min 3V Accession Number(s): [id number] cc: Marjan Mak; Ken Reyes M.D. The [place] [id number] Patient Name: RENATE BRADFORD MRN: [id number] date: 1940 Sex: F Assigned Patient Location: Current Patient Location: Accession/Order Number: [id number] Exam Date: 03/22/2024 10:00 Report Date: 03/23/2024 07:57 At the request of: MARJAN MAK Procedure: XR foot LT min 3V PROCEDURE: [...] with hallux valgus Electronically authenticated by: JASMEET STEWART Date: 03/23/2024 07:57 Dictated By: Jasmeet Stewart M.D. Signed By: 03/23/24 0800 DD/ 0757 TD/TT: Custodial Operations Manager: CRISTY HealthcareRadiology Study observation (narrative)[facility] HealthcareXR FOOT LT MIN 3VOrdered By: Radiologist Radiology on 35-41-6052IWKM Healthcare Work Phone: XR FOOT LT MIN 3Von 67-09-3350[place]wKinmundy, [place] [address] XRay Report Signed Patient: RENATE BRADFORD MR#: [id number] : 1940 Acct:[id number] Age/Sex: 83 / F ADM Date: 01/26/24 Loc: Attending Dr: Marjan Mak Ordering Physician: Marjan Mak Date of Service: 01/26/24 Procedure(s): XR foot LT min 3V Accession Number(s): [id number] cc: Marjan Mak; Ken Reyes M.D. [place] [id number] Patient Name: RENATE BRADFORD MRN: [id number] date: 1940 Sex: F Assigned Patient Location: Current Patient Location: Accession/Order Number: [id number] Exam Date: 01/26/2024 09:59 Report Date: 01/27/2024 06:35 At the request of: MARJAN MAK Procedure: XR foot LT min 3V PROCEDURE: [...] of third metatarsal fracture. Electronically authenticated by: KYAW WAHL Date: 01/27/2024 06:35 Dictated By: Kyaw Wahl M.D. Signed By: 01/27/24 0638 DD/ 0635 TD/TT: Custodial Operations Manager:TBHRadiology, Radiologist, MD - 01/27/2024 [place] [address] XRay Report Signed Patient: RENATE BRADFORD MR#: [id number] : 1940 Acct:[id number] Age/Sex: 83 / F ADM Date: 01/26/24 Loc: Attending Dr: Marjan Mak Ordering Physician: Marjan Mak Date of Service: 01/26/24 Procedure(s): XR foot LT min 3V Accession Number(s): [id number] cc: Marjan aMk; Ken Reyes M.D. The [address] [address] Patient Name: RENATE BRADFORD MRN: [id number] date: 1940 Sex: F Assigned Patient Location: Current Patient Location: Accession/Order Number: [id number] Exam Date: 01/26/2024 09:59 Report Date: 01/27/2024 06:35 At the request of: MARJAN MAK Procedure: XR foot LT min 3V PROCEDURE: [...] of third metatarsal fracture. Electronically authenticated by: KYAW WAHL Date: 01/27/2024 06:35 Dictated By: Kyaw Wahl M.D. Signed By: 01/27/2438 DD/ TD/TT: Custodial Operations Manager: CRISTY HealthcareRadiology Study observation (narrative)[facility] AT DANVERSHunter HealthcareXR FOOT LT MIN 3VOrdered By: Radiologist Radiology on 91-09-4812BIKW Healthcare Work Phone: XR FOOT LT MIN 3Von 69-44-7071EttKinmundy, [place] [address] XRay Report Signed Patient: RENTAE BRADFORD MR#: [id number] : 1940 Acct:[id number] Age/Sex: 83 / F ADM Date: 12/29/23 Loc: Attending Dr: Marjan Mak Ordering Physician: Marjan Mak Date of Service: 12/29/23 Procedure(s): XR foot LT min 3V Accession Number(s): [id number] cc: Marjan Mak; Ken Reyes M.D. [place] [id number] Patient Name: RENATE BRADFORD MRN: [id number] date: 1940 Sex: F Assigned Patient Location: Current Patient Location: Accession/Order Number: [id number] Exam Date: 12/29/2023 09:58 Report Date: 12/30/2023 07:18 At the request of: MARJAN MAK Procedure: XR foot LT min 3V PROCEDURE: [...] third metatarsal neck fracture. Electronically authenticated by: KYAW WAHL Date: 12/30/2023 07:18 Dictated By: Kyaw Wahl M.D. Signed By: 12/30/23719 DD/ 7 TD/TT: Custodial Operations Manager:DAVONHRadiology, Radiologist, - 12/30/2023 [place] [address] XRay Report Signed Patient: RENATE BRADFORD MR#: [id number] : 1940 Acct:[id number] Age/Sex: 83 / F ADM Date: 12/29/23 Loc: Attending Dr: Marjan Mak Ordering Physician: Marjan Mak Date of Service: 12/29/23 Procedure(s): XR foot LT min 3V Accession Number(s): [id number] cc: Marjan Mak; Ken Reyes M.D. The [place] [address] Patient Name: RENATE BRADFORD MRN: [id number] date: 1940 Sex: F Assigned Patient Location: Current Patient Location: Accession/Order Number: [id number] Exam Date: 12/29/2023 09:58 Report Date: 12/30/2023 07:18 At the request of: MARJAN MAK Procedure: XR foot LT min 3V PROCEDURE: [...] third metatarsal neck fracture. Electronically authenticated by: KYAW WAHL Date: 12/30/2023 07:18 Dictated By: Kyaw Wahl M.D. Signed By: 12/30/23719 DD/ 7 TD/TT: Custodial Operations Manager: CRISTY HealthcareRadiology Study observation (narrative)[facility] HealthcareXR FOOT LT MIN 3VOrdered By: Radiologist Radiology on 80-04-4620QEKP Healthcare Work Phone: XR FOOT LT MIN 3Von 59-97-6865AtkLind[place] [address] XRay Report Signed Patient: RENATE BRADFORD MR#: [id number] : 1940 Acct:[id number] Age/Sex: 83 / F ADM Date: 12/08/23 Loc: EC Attending Dr: Marjan Mak Ordering Physician: Marjan Mak Date of Service: 12/08/23 Procedure(s): XR foot LT min 3V Accession Number(s): [id number] cc: Marjan Mak; Ken Reyes M.D. [place] [id number] Patient Name: RENATE BRADFORD MRN: [id number] date: 1940 Sex: F Assigned Patient Location: Current Patient Location: Accession/Order Number: [id number] Exam Date: 12/08/2023 13:45 Report Date: 12/09/2023 07:08 At the request of: MARJAN MAK Procedure: XR foot LT min 3V PROCEDURE: [...] involving third metatarsal fracture. Electronically authenticated by: KYAW WAHL Date: 12/09/2023 07:08 Dictated By: Kyaw Wahl M.D. Signed By: 12/09/23710 DD/ 7 TD/TT: Custodial Operations Manager:TBHRadiology, Radiologist, - 12/09/[address] [address] XRay Report Signed Patient: RENATE BRADFORD MR#: [id number] : 1940 Acct:[id number] Age/Sex: 83 / F ADM Date: 12/08/23 Loc: EC Attending Dr: Marjan Mak Ordering Physician: Marjan Mak Date of Service: 12/08/23 Procedure(s): XR foot LT min 3V Accession Number(s): [id number] cc: Marjan Mak; Ken Reyes M.D. The [place] [id number] Patient Name: RENATE BRADFROD MRN: [id number] date: 1940 Sex: F Assigned Patient Location: Current Patient Location: Accession/Order Number: [id number] Exam Date: 12/08/2023 13:45 Report Date: 12/09/2023 07:08 At the request of: MARJAN MAK Procedure: XR foot LT min 3V PROCEDURE: [...] involving third metatarsal fracture. Electronically authenticated by: KYAW WAHL Date: 12/09/2023 07:08 Dictated By: Kyaw Wahl M.D. Signed By: 12/09/2311 DD/ TD/TT: Custodial Operations Manager: CRISTY HealthcareRadiology Study observation (narrative)[facility] HealthcareXR FOOT LT MIN 3VOrdered By: Radiologist Radiology on 39-28-5202RQSA Healthcare Work Phone: XR FOOT LT MIN 3Von 01-21-8056Jif [address] [address] XRay Report Signed Patient: RENATE BRADFORD MR#: [id number] : 1940 Acct:[id number] Age/Sex: 83 / F ADM Date: 11/15/23 Loc: RAD Attending Dr: Ken Reyes M.D. Ordering Physician: Ken Ryees M.D. Date of Service: 11/15/23 Procedure(s): XR foot LT min 3V Accession Number(s): [id number] cc: Ken Reyes M.D. The [address] [id number] Patient Name: RENATE BRADFORD MRN: [id number] date: 1940 Sex: F Assigned Patient Location: [facility] Current Patient Location: [facility] Accession/Order Number: [id number] Exam Date: 11/15/2023 10:40 Report Date: 11/15/2023 11:13 At the request of: KEN REYES Procedure: XR foot LT min 3V [...] the third metatarsal Electronically authenticated by: JASMEET STEWART Date: 11/15/2023 11:13 Dictated By: Jasmeet Stewart M.D. Signed By: 11/15/23 1115 DD/ 1113 TD/TT: Custodial Operations Manager:TBHRadiology, Radiologist, MD - 11/15/[address] [address] XRay Report Signed Patient: RENATE BRADFORD MR#: [id number] : 1940 Acct:[id number] Age/Sex: 83 / F ADM Date: 11/15/23 Loc: RAD Attending Dr: Ken Reyes M.D. Ordering Physician: Ken Reyes M.D. Date of Service: 11/15/23 Procedure(s): XR foot LT min 3V Accession Number(s): [id number] cc: Ken Reyes M.D. [place] [address] Patient Name: RENATE BRADFORD MRN: [id number] date: 1940 Sex: F Assigned Patient Location: [facility] Current Patient Location: [facility] Accession/Order Number: [id number] Exam Date: 11/15/2023 10:40 Report Date: 11/15/2023 11:13 At the request of: KEN REYES Procedure: XR foot LT min 3V [...] the third metatarsal Electronically authenticated by: JASMEET STEWART Date: 11/15/2023 11:13 Dictated By: Jasmeet Stewart M.D. Signed By: 11/15/23 1115 DD/ 1113 TD/TT: Custodial Operations Manager: [facility] HealthcareRadiology Study observation (narrative)[facility] HealthcareXR FOOT LT MIN 3VOrdered By: Radiologist Radiology on 32-46-7204SY[facility] Work Phone: ECHOCARDIO M/2D COMPLETEon 92-57-6417BJWQLNZRYP M/2D COMPLETEPatient: RENATE BRADFORD Exam Date: 06/16/2022 : 1940 Gender:F Ordering : LUCI JULES Admission #: [id number] Family : DR KEN Savage TYLEREZEKIEL . Order #: [id number] CLICK HERE TO VIEW EXAM ECHOCARDIOGRAM REPORT [...] by: Monet Walter M.D. on 06/16/2022 at 14:58[facility] STRESS/REST MULTIon 68-95-1170WL STRESS/REST MULTIPatient: RENATE BRADFORD Exam Date: 06/16/2022 : 1940 Gender:F Ordering : LUCI JULES Admission #: [id number] Family : Order #: [id number] CLICK HERE TO VIEW EXAM RADIOLOGY REPORT [...] secondary to EKG changes Dictated by: Jasmeet Stewart MD on 06/16/2022 at 12:51 Approved by: Jasmeet Stewart MD on 06/16/2022 at 12:52[facility] CAROTID ART BILon 62-95-0868KR CAROTID ART BILEXAMINATION: US CAROTID ART LIZ HISTORY: Syncope and collapse COMPARISON: No relevant [...] >70 >225 >4.0 Electronically authenticated by: JASMEET STEWART Date: 2022-06-16 16:04NormACMC Healthcare SystemFREE T3on 92-02-2760JKOA T31.97 pg/mlLCritically low2.18-3.[address] [facility] CampusComment on above:Performed By: #### TSH, FT3 #### [facility] [address] [place], [place] [address] Dr. Dina BabcockHowei 89-59-0620DCP3.842 uIU/mLNormal0.358-3.740The [facility] CampusComment on above:Performed By: #### TSH, FT3 #### [facility] [address] [place] [address] Dr. Dina GilbertCT ABDOMEN W CONon 07-65-7908GP ABDOMEN W CONEXAMINATION: CT ABDOMEN W CON HISTORY: Secondary hypertension [...] Electronically authenticated by: KYAW WAHL Date: 2022-02-02 10:40[facility] HospitalPROF CHEM 8 (BAS METB)on 29-77-6541Oimqx gap [Moles/Vol]11.7 mmol/LNormalMedina HospitalComment on above:Performed By: #### BMP #### [facility] [address] [place] [address] Dr. Dina GilbertCalcium [Mass/Vol]8.8 mg/dLNormal8.5-10.1The [facility] Comment on above:Performed By: #### BMP #### [facility] [address] [place] [address] Dr. Dina GilbertChloride [Moles/Vol]97 mmol/LCritically uqb38-712YgzMedina HospitalComment on above:Performed By: #### BMP #### [facility] [address] [place] [address] Dr. Dina GilbertCO2 [Moles/Vol]31.4 mmol/XUtuxok39.0-32.0The [facility] Comment on above:Performed By: #### BMP #### [facility] [address] [place] [address] Dr. Dina GilbertCreatinine [Mass/Vol]0.84 mg/dLNormal0.55-1.02The [facility] CampusComment on above:Performed By: #### BMP #### [facility] [address] [place] [address] Dr. Dina ZieglerGFR-AF MICRONESIAN>60Normal>=60The [facility] CampusComment on above:Performed By: #### BMP #### [facility] [address] [place] [address] Dr. Dina ZieglerGFR-NON AF MICRONESIAN>60Normal>=60The [facility] CampusComment on above:Performed By: #### BMP #### [facility] [address] [place] [address] Dr. Dina GilbertGlucose [Mass/Vol]126 mg/dLCritically fopv42-675Wpf [facility] CampusComment on above:Performed By: #### BMP #### [facility] [address] [place] [address] [address] Dina GilbertPotassium [Moles/Vol]4.1 mmol/LNormal3.5-5.1[facility] Comment on above:Performed By: #### BMP #### [facility] [address] [place] [address] [address] Dina GilbertSodium [Moles/Vol]136 mmol/BMpvgwu745-540WsrMedina Hospital Comment on above:Performed By: #### BMP #### [facility] [address] [place] [address] [address] Dina GilbertUrea nitrogen [Mass/Vol]23.0 mg/dLCritically high7.0-18.0Medina HospitalComment on above:Performed By: #### BMP #### [facility] [address] [place] [address] Dr. Dina Uribe nitrogen/Creatinine [Mass ratio]27.3 mg/mgNormalThe St. [facility] CampusComment on above:Performed By: #### BMP #### [facility] [address] [place] [address] Dr. Dina GilbertMRI BRAIN WO CONon 67-56-3664XXG BRAIN WO CONEXAMINATION: MRI BRAIN WO CON, 01/21/2022 8:23 AM EDT HISTORY: [...] changes are favored Electronically authenticated by: JASMEET STEWART Date: 2022-01-21 09:[address] [place] [address] AUTO DIFFon 19-78-4896OIVU #0.0 103/ulNormal0.0-0.1The [facility] CampusComment on above:Performed By: #### TSH, FT3 #### [facility] [address] [place] [address] Dr. Dina GilbertBasophils/100 WBC (Bld)0.3 %Normal0.2-2.0[facility] Comment on above:Performed By: #### TSH, FT3 #### [facility] [address] [place] [address] Dr. Dina Starkey #0.3 103/ulNormal0.0-0.7The [facility] CampusComment on above: Performed By: #### TSH, FT3 #### [facility] [address] [place] [address] Dr. Dina Zieglerosinophils/100 WBC (Bld)3.6 %Normal0.9-7.0[facility] Comment on above:Performed By: #### TSH, FT3 #### [facility] [address] [place] [address] Dr. Dina Zieglerrythrocyte distribution width (RBC) [Ratio]13.2 %Ueadan12.0-15.[address] [facility] CampusComment on above:Performed By: #### TSH, FT3 #### [facility] [address] [place] [address] Dr. Dina GilbertHematocrit (Bld) [Volume fraction]37.5 %Mnpxys93.0-48.0The [facility] CampusComment on above:Performed By: #### TSH, FT3 #### [facility] [address] [place] [address] Dr. Dina GilbertHemoglobin (Bld) [Mass/Vol]12.1 g/kYJyankx96.0-16.0The [facility] CampusComment on above:Performed By: #### TSH, FT3 #### [facility] [address] [place] [address] Dr. Dina Gleason #0.01 10e3/ulNormal0.00-0.03The [facility] CampusComment on above:Performed By: #### TSH, FT3 #### [facility] [address] [place] [address] Dr. Dina Gleason %0.1 %Normal0.0-0.5The [facility] CampusComment on above: Performed By: #### TSH, FT3 #### [facility] [address] [place] [address] Dr. Dina Jay #1.8 103/ulNormal1.2-3.8The [facility] CampusComment on above:Performed By: #### TSH, FT3 #### [facility] [address] [place] [address] Dr. Dina Israelhocytes/100 WBC (Bld)24.6 %Itllqu33.5-60.0The [facility] CampusComment on above:Performed By: #### TSH, FT3 #### [facility] [address] [place] [address] Dr. Dina JonesUAL DIFF REQNONormalThe St. [facility] CampusComment on above: Performed By: #### TSH, FT3 #### [facility] [address] [place] [address] Dr. Dina Ceja (RBC) [Entitic mass]28.1 pfYitcsk75.7-34.0The [facility] CampusComment on above:Performed By: #### TSH, FT3 #### [facility] [address] [place] [address] Dr. Dina Madsen (RBC) [Mass/Vol]32.3 g/dHFizhyi81.9-35.2The [facility] CampusComment on above:Performed By: #### TSH, FT3 #### [facility] [address] [place] [address] Dr. Dina MadsenV (RBC) [Entitic vol]87.0 eTLkzamy79.0-99.0The [facility] Hospital - Akronment on above:Performed By: #### TSH, FT3 #### [facility] [address] [place] [address] Dr. Dina Sherman #0.6 103/ulNormal0.3-0.8The [facility] CampusComment on above:Performed By: #### TSH, FT3 #### [facility] [address] [place] [address] Dr. Dina Simmonsocytes/100 WBC (Bld)8.0 %Normal1.7-12.0The [facility] Comment on above:Performed By: #### TSH, FT3 #### [facility] [address] [place] [address] Dr. Dina Cowan #4.5 103/ulNormal1.4-6.5The [facility] - Akronment on above:Performed By: #### TSH, FT3 #### [facility] [address] [place] [address] Dr. Dina De La Pazutrophils/100 WBC (Bld)63.4 %Alecsc19.0-75.0The [facility] on above:Performed By: #### TSH, FT3 #### [facility] [address] [place] [address] Dr. Dina Vasquezlet mean volume (Bld) [Entitic vol]10.1 fLNormal9.5-13.5The [facility] - Akronment on above:Performed By: #### TSH, FT3 #### [facility] [address] [place] [address] Dr. Dina GilbertPLT219 103/anDvlnqb875-439Jtf [facility] on above: Performed By: #### TSH, FT3 #### [facility] [address] [place] [address] Dr. Dina GilbertRBC4.31 106/ulNormal4.20-5.40The Christopher HospitalComment on above:Performed By: #### TSH, FT3 #### [facility] [address] [place] [address] [address] Dina GilbertWBC7.2 103/ulNormal4.0-11.0The [facility] CampusComment on above: Performed By: #### TSH, FT3 #### [facility] [address] [place] [address] [address] Dina GilbertGLYCOHEMOGLOBIN A1Con 29-56-9509ACL RECOMMENDATIONADA THERAPEUTIC TARGET 6.0 - 7.0 ACTION SUGGESTED > 7.0NoAshtabula County Medical CenterComment on above:Performed By: #### A1C #### [facility] [address] [place] [address] Dr. Dina GilbertGlucose [Mass/Vol]131 mg/dLNoAshtabula County Medical CenterComment on above:Performed By: #### A1C #### [facility] [address] [place] [address] Dr. Dina GilbertHbA1c (Bld) [Mass fraction]6.2 %Critically high<=6.0The [facility] CampusComment on above:Performed By: #### A1C #### [facility] [address] [place] [address] Dr. Dina GilbertLIPID PROFILEon 68-93-7588CELZ-HDL RATIO NORMSEE [facility] Bing, MD, Cancer CenterComment on above:Result Comment: 3.3 - 4.4 LOW RISK 4.4 - 7.1 AVERAGE RISK 7.1 - 11.0 MODERATE RISK >11.0 HIGH RISKPerformed By: #### TSH, FT3 #### [facility] [address] [place] [address] Dr. Dina GilbertCholesterol [Mass/Vol]193 mg/dLNormal<=200[facility] Comment on above:Performed By: #### TSH, FT3 #### [facility] [address] [place] [address] Dr. Dina GilbertCholesterol in HDL [Mass/Vol]53 mg/dLCincinnati Shriners Hospital Comment on above:Performed By: #### TSH, FT3 #### [facility] [address] [place] [address] Dr. Dina GilbertCholesterol in LDL [Mass/Vol]114.8 mg/dLWood [facility] Hospital on above:Performed By: #### TSH, FT3 #### [facility] [address] [place] [address] Dr. Dina Butts.total/Cholesterol in HDL [Mass ratio]3.6 {ratio} NormalThe St. [facility] CampusComment on above:Performed By: #### TSH, FT3 #### [facility] [address] [place] [address] Dr. Dina Nj NORMAL> or = 60 mg/dl - LOW CARDIOVASCULAR RISK <40 mg/dl - HIGH CARDIOVASCULAR RISKWood [facility] on above:Performed By: #### TSH, FT3 #### [facility] [address] [place] [address] Dr. Dina Jurado CALC NORMALSEE BELOWCincinnati Shriners HospitalComment on above:Result Comment: <100 mg/dl OPTIMAL 100 - 129 mg/dl NEAR OR ABOVE OPTIMAL 130 - 159 mg/dl BORDERLINE HIGH 160 - 189 mg/dl HIGH >190 mg/dl VERY HIGH Performed By: #### TSH, FT3 #### [facility] [address] [place] [address] Dr. Dina GilbertTriglyceride [Mass/Vol]126 mg/dLNormal<=150[facility] Comment on above:Performed By: #### TSH, FT3 #### [facility] [address] [place] [address] Dr. Dina MaldonadoLDL CALC25.2 mg/dLNoAshtabula County Medical CenterComment on above: Performed By: #### TSH, FT3 #### [facility] [address] [place] [address] Dr. Dina Zavala PROFILEon 53-53-7434Yzsjvfa [Mass/Vol]3.6 g/dLNormal3.5-5.[address] [facility] CampusCombeaumont hospital on above:Performed By: #### TSH, FT3 #### [facility] [address] [address] [address] Dina GilbertAlbumin/Globulin [Mass ratio]1.0 {ratio}NormalThe St. [facility] CampusComment on above:Performed By: #### TSH, FT3 #### [facility] [address] [address] [address] Dina SmallP [Catalytic activity/Vol]80 U/AFxcyol49-617Tva [facility] CampusComment on above:Performed By: #### TSH, FT3 #### [facility] [address] [address] [address] Dina SmallT [Catalytic activity/Vol]16 U/LNormal9-52The [facility] Comment on above:Performed By: #### TSH, FT3 #### [facility] [address] [place] [address] Dr. Dina GilbertAST [Catalytic activity/Vol]11 U/LCritically dcl91-71Irh [facility] CampusComment on above:Performed By: #### TSH, FT3 #### [facility] [address] [place] [address] Dr. Dina CastilloI, CONJUGATED0.0 mg/dLNormal0.0-0.3TC[facility] Comment on above:Performed By: #### TSH, FT3 #### [facility] [address] [place] [address] Dr. Dina Castilloirubin [Mass/Vol]0.3 mg/dLNormal0.2-1.3TC[facility] Comment on above:Performed By: #### TSH, FT3 #### [facility] [address] [place] [address] Dr. Dina GilbertGlobulin (S) [Mass/Vol]3.6 g/dLNormalThe St[facility] CampusComment on above:Performed By: #### TSH, FT3 #### [facility] [address] [address] [address] Dina GilbertProtein [Mass/Vol]7.2 g/dLNormal6.1-8.2[facility] Comment on above:Performed By: #### TSH, FT3 #### [facility] [address] [place] [address] Dr. Dina GilbertPROF CHEM 8 (BAS METB)on 40-01-3805Jxkgf gap [Moles/Vol]9.5 mmol/LNormalThe St[facility] CampusComment on above:Performed By: #### TSH, FT3 #### [facility] [address] [place] [address] Dr. Dina GilbertCalcium [Mass/Vol]8.5 mg/dLNormal8.4-10.2The [facility] Comment on above:Performed By: #### TSH, FT3 #### [facility] [address] [place] [address] Dr. Dina GilbertChloride [Moles/Vol]101 mmol/TMryvqn84-760Vxx [facility] Comment on above:Performed By: #### TSH, FT3 #### [facility] [address] [place] [address] Dr. Dina GilbertCO2 [Moles/Vol]29.7 mmol/YSumspd51.0-30.0The [facility] Comment on above:Performed By: #### TSH, FT3 #### [facility] [address] [place] [address] Dr. Dina GilbertCreatinine [Mass/Vol]0.74 mg/dLNormal0.52-1.04The [facility] CampusComment on above:Performed By: #### TSH, FT3 #### [facility] [address] [place] [address] Dr. Dina ZieglerGFR-AF MICRONESIAN>60Normal>=60The [facility] CampusComment on above:Performed By: #### TSH, FT3 #### [facility] [address] [place] [address] Dr. Dina ZieglerGFR-NON AF MICRONESIAN>60Normal>=60The [facility] CampusComment on above:Performed By: #### TSH, FT3 #### [facility] [address] [place] [address] Dr. Dina GilbertGlucose [Mass/Vol]130 mg/dLCritically hzoi78-961Bdd St[facility] CampusComment on above:Performed By: #### TSH, FT3 #### [facility] [address] [address] [address] Dina GilbertPotassium [Moles/Vol]4.2 mmol/LNormal3.4-5.0[facility] Comment on above:Performed By: #### TSH, FT3 #### [facility] [address] [address] [address] Dina GilbertSodium [Moles/Vol]136 mmol/LCritically ukw419-648Ttj [facility] CampusComment on above:Performed By: #### TSH, FT3 #### [facility] [address] [place] [address] Dr. Dina GilbertUrea nitrogen [Mass/Vol]10.0 mg/dLNormal7.0-17.0The [facility] CampusComment on above:Performed By: #### TSH, FT3 #### [facility] [address] [place] [address] Dr. Dina Uribe nitrogen/Creatinine [Mass ratio]13.5 mg/mgNoAshtabula County Medical CenterComment on above:Performed By: #### TSH, FT3 #### [facility] [address] [place] [address] Dr. Dian BabcockHowei 71-22-5604BJU0.232 uIU/mLCritically high0.470-4.680The [facility] CampusComment on above:Performed By: #### TSH, FT3 #### [facility] [address] [place] [address] Dr. Dina Kendrick RANGESEE BELOWCincinnati Shriners HospitalComment on above: Result Comment: <0.34 UIU/ml HYPERTHYROID 0.34-5.60 UIU/ml EUTHYROID >5.60 UIU/ml HYPOTHYROIDPerformed By: #### TSH, FT3 #### [facility] [address] [place] [address] Dr. Dina GilbertVITAMIN D 25 OHon 25-23-7487SLK D 25-OH90.4 ng/mLNormalMedina HospitalComment on above:Performed By: #### TSH, FT3 #### [facility] [address] [place] [address] Dr. Dina Neil RANGESSEE BELOWNormalThMercy Health Defiance HospitalComment on above: Result Comment: <20 ng/mL Vit D deficient 20 - <30 ng/mL Vit D insufficient 30 - 100 ng/mL Vit D sufficient >100 ng/mL Potential ToxicityPerformed By: #### TSH, FT3 #### [facility] [address] [place] [address] Dr. Dina GilbertCovid-19 PCR ([facility]VDP[facility])on 39-81-2570SWMG-CoV-2 (COVID-19) RNA OBED+probe Ql (Unsp spec)Not detectedNormalNOT DETECTEDMedina Hospital Comment on above:Result Comment: This test is not yet approved or cleared by the [place] FDA. When there are no FDA-approved or cleared tests available, and other criteria are met, FDA can make tests available under an emergency access mechanism called an Emergency Use Authorization (EUA). The EUA for this test is supported by the Emergency Registrar of Health and Human Service's (HHS's) declaration that circumstances exist to justify the emergency use of in vitro diagnostics for the detection and/or diagnosis of the virus that causes COVID- 19. This EUA will remain in effect (meaning [...] of clinical signs and symptoms consistent with SARS-CoV-2.Performed By: #### CVDTBH #### [facility] [address] [place] [address] Dr. Dina Gilbert Vital Signs Date TimeVital SignValuePerforming YjmksshywEuvryehu38-79-3388 09:20-0400Body .94 cmKen Reyes MD Work Phone: [phone] [place], [place] 7101810-14-2025 09:20-0400 Body mass index (BMI) [Ratio]33 kg/m2Ken Reyes MD Work Phone: [phone])[address] [place], [place] 7101810-14-2025 09:20-0400 Body rmlvutnudhj04.1 [degF]Ken Reyes MD Work Phone: [phone])[address] [place], [place] 7101810-14-2025 09:20-0400 Body hfjrun81.37 kgKen Reyes MD Work Phone: [phone])[address] [place], [place] 7101810-14-2025 09:20-0400 Diastolic blood zoxfglmx69 mm[Hg]Ken Reyes MD Work Phone: 1(568)[address] [place], [place] 7101810-14-2025 09:20-0400 Heart rate83 /minKen Reyes MD Work Phone: [phone])[address] [place], [place] 7101810-14-2025 09:20-0400 Respiratory rate20 /minKen Reyes MD Work Phone: [phone])[address] [place], [place] 7101810-14-2025 09:20-0400 SaO2% (BldA) [Mass fraction]97 %Ken Reyes MD Work Phone: 1(868)[address]10-14-2025 09:20-0400 Systolic blood xmzpsniy423 mm[Hg]Ken Reyes MD Work Phone: [phone])[address] [place], [place] 7101807-29-2025 13:56-0400 Body .9 cmKen Reyes MD Work Phone: [phone] [place], [place] [address]Vrvtgaajoi01-38-9856 13:56-0400Body mass index (BMI) [Ratio]33.25 kg/m2Ken Reyes MD Work Phone: [facility]ettKygregyjdk95-93-4143 13:56-0400Body temperature 97.11 [degF]Ken Reyes MD Work Phone: [facility]ettTtdarmqbpz11-37-6790 13:56-0400Body zklcyp47.83 kgKen Reyes MD Work Phone: [facility]ettHmtisseixu04-20-7495 13:56-0400Diastolic blood ozeqqfje05 mm[Hg]Ken Reyes MD Work Phone: [facility] MonettHginophsal83-55-5636 13:56-0400Heart rate82 /min Ken Reyes MD Work Phone: [facility]ettLzmnmiseju31-99-0906 13:56-0400Respiratory rate18 /minKen Reyes MD Work Phone: [facility]ettKmxtfcfqyi92-10-8861 13:56-2598ZlW9% (BldA) [Mass fraction]96 %Ken Reyes MD Work Phone: [facility]ettHzbpbluogi68-29-1178 13:56-0400Systolic blood wusvjekj980 mm[Hg]Ken Reyes MD Work Phone: [facility] MonettAuhaytzvli18-74-1606 13:53-0400Body .9 cmKen Reyes MD Work Phone: [facility]ettZubezwxjad03-91-2263 13:53-0400Body mass index (BMI) [Ratio]33.82 kg/m2Ken Reyes MD Work Phone: [facility]ettZtajzzxvoe25-90-4484 13:53-0400Body temperature 97.11 [degF]Ken Reyes MD Work Phone: [facility]ettUocubpuziw32-09-8171 13:53-0400Body oamaia46.19 kgKen Reyes MD Work Phone: [facility]ettNzsjpyvtqo69-78-7807 13:53-0400Diastolic blood ruwzplkz75 mm[Hg]Ken Reyes MD Work Phone: [facility]ettSudpngfgvq04-90-7401 13:53-0400Heart rate82 /min Ken Reyes MD Work Phone: [facility]ettFdcoazhmuo42-08-7093 13:53-0400Respiratory rate20 /minKen Reyes MD Work Phone: [facility]ettHggavieich02-09-2541 13:53-0113SpH5% (BldA) [Mass fraction]95 %Ken Reyes MD Work Phone: [facility]ettZllujimkoi70-79-7005 13:53-0400Systolic blood bhxfawpy860 mm[Hg]Ken Reyes MD Work Phone: [facility]ettSjltcvjrqw42-86-4171 13:52-0400Body vuwoqo082.9 cmKen Reyes MD Work Phone: [facility]ettVdeefgjrra86-51-8231 13:52-0400Body mass index (BMI) [Ratio]33.07 kg/m2Ken Reyes MD Work Phone: [facility]ettMcjeudgulq64-90-6252 13:52-0400Body temperature 97.3 [degF]Ken Reyes MD Work Phone: [facility]ettRamgmdkbza09-53-7480 13:52-0400Body xztoep40.38 kgKen Reyes MD Work Phone: [facility]ettMpgvnbsfrm06-69-7919 13:52-0400Diastolic blood pavqaklk61 mm[Hg]Ken Reyes MD Work Phone: [facility]ettRjrqaimdce78-40-2653 13:52-0400Heart rate85 /min Ken Reyes MD Work Phone: [facility]ettOivbzvpswd37-23-2674 13:52-0400Respiratory rate20 /minKen Reyes MD Work Phone: [facility]ettBdrltzmmxd41-81-6521 13:52-3753WwR8% (BldA) [Mass fraction]96 %Ken Reyes MD Work Phone: [facility]ettRaftgnnawi57-78-5218 13:52-0400Systolic blood uaywgjuk959 mm[Hg]Ken Reyes MD Work Phone: [facility]ettFjqxrezfnl77-43-0754 14:09-0400Body xzwlup724.9 cmKen Reyes MD Work Phone: [facility]ettCjhsfcyywp06-06-6322 14:09-0400Body mass index (BMI) [Ratio]32.69 kg/m2Ken Reyes MD Work Phone: [facility]ettDoicjvqvyo36-39-3152 14:09-0400Body temperature 97.11 [degF]Ken Reyes MD Work Phone: [facility]ettXfjptfgecy24-09-5822 14:09-0400Body bbhlga19.47 kgKen Reyes MD Work Phone: [facility]ettXhzgjcafaw71-10-3671 14:09-0400Diastolic blood voodraem14 mm[Hg]Ken Reyes MD Work Phone: [facility]ettPwukyeybnb38-60-3136 14:09-0400Heart rate56 /min Ken Reyes MD Work Phone: [facility]ettRrhqkuvbga94-13-4955 14:09-0400Respiratory rate20 /minKen Reyes MD Work Phone: [facility]ettTptgyqqxen41-22-6315 14:09-4484IzD1% (BldA) [Mass fraction]97 %Ken Reyes MD Work Phone: [facility]ettMkafurucug96-36-3935 14:09-0400Systolic blood aokuczmb985 mm[Hg]Ken Reyes MD Work Phone: [facility]ettKgaskhevnb01-47-9370 14:45-0400Body ckeyia516.9 Guido Peguero MD Work Phone: [facility]ettHyeuoqmdso45-30-2136 14:45-0400Body mass index (BMI) [Ratio]33.25 kg/g7QncjsaKylee Peguero MD Work Phone: noMer[facility] St[facility] LouisThrfsqlxir73-55-2949 14:45-0400Body yfwkqb61.83 kgKylee Peguero MD Work Phone: noMer[facility] St. LouisEnioakeuzb16-00-6118 14:45-0400Diastolic blood kdowaaar475 mm[Hg]Kylee Peguero MD Work Phone: [facility]ettOimqwalsgd50-88-6031 14:45-0400Heart rate88 /min Kylee Pegueor MD Work Phone: [facility]ettFvblbzmyys73-19-9511 14:45-0400Systolic blood rymmozru431 mm[Hg]Kylee Peguero MD Work Phone: [facility]ettXcwakkgekd18-78-1786 13:49-0400Body sdpsic707.9 cmKylee Peguero MD Work Phone: [facility]ettAkmnepgtyw25-66-7363 13:49-0400Body mass index (BMI) [Ratio]33.25 kg/c7FqudnvKylee Peguero MD Work Phone: [facility]ettKwdhabnwfz37-64-2922 13:49-0400Body htfgoc92.83 kgKylee Peguero MD Work Phone: [facility]ettGjrjjseeix28-38-5574 13:49-0400Diastolic blood gixfizsi97 mm[Hg]Kylee Peguero MD Work Phone: [facility]ettMepdmvwiga37-59-3381 13:49-0400Heart rate75 /min Kylee Peguero MD Work Phone: [facility]ettClmeziaofn57-28-6008 13:49-0400Systolic blood ivkgqssj951 mm[Hg]Kylee Peguero MD Work Phone: [facility]ettDevgdmuhcd11-21-1792 13:34-0500Body ikhphy637.9 cmKen Reyes MD Work Phone: [facility]ettVxcliaoldu81-33-4001 13:34-0500Body mass index (BMI) [Ratio]32.69 kg/m2Ken Reyes MD Work Phone: [facility]ettZfnutbdipr33-79-7678 13:34-0500Body temperature 97.11 [degF]Ken Reyes MD Work Phone: [facility]ettBztcpejfyx95-52-1352 13:34-0500Body bjoftq40.47 kgKen Reyes MD Work Phone: [facility]ettWyointpflo34-38-5511 13:34-0500Diastolic blood bzilgguw57 mm[Hg]Ken Reyes MD Work Phone: [facility]ettKxxaswusvi86-63-9053 13:34-0500Heart rate87 /min Ken Reyes MD Work Phone: [facility]ettKlreaopsyv09-93-9242 13:34-0500Respiratory rate22 /minKen Reyes MD Work Phone: [facility]ettQtzeitccmt04-71-0520 13:34-7378OxW4% (BldA) [Mass fraction]97 %Ken Reyes MD Work Phone: [facility]ettFoqthfzfxq65-22-5746 13:34-0500Systolic blood gwwuzqas906 mm[Hg]Ken Reyes MD Work Phone: [facility]ettUxsyuxttli11-10-6506 11:54-0500Body efnqnr768.9 cmKen Reyes MD Work Phone: [facility]ettTadvysiefb60-16-2178 11:54-0500Body mass index (BMI) [Ratio]32.31 kg/m2Ken Reyes MD Work Phone: [facility]ettNzqxbrtwsm16-79-1537 11:54-0500Body temperature 96.01 [degF]Ken Reyes MD Work Phone: [facility]ettZewixjuqbg92-15-2501 11:54-0500Body infrjy43.56 kgKen Reyes MD Work Phone: [facility] MonettWhahupyutc68-52-9357 11:54-0500Diastolic blood muselhjs30 mm[Hg]Ken Reyes MD Work Phone: [facility] MonettAmiosupxfm23-32-5729 11:54-0500Heart rate86 /min Ken Reyes MD Work Phone: [facility]ettKilkrmttzm36-61-2577 11:54-0500Respiratory rate20 /minKen Reyes MD Work Phone: [facility]ettCjzrslgxnk31-22-3394 11:54-6975ChL8% (BldA) [Mass fraction]97 %Ken Reyes MD Work Phone: 1(997)616-[address] [place], [place] [address]Dmcafpubxl85-57-6730 11:54-0500Systolic blood dvsvnyln936 mm[Hg]Ken Reyes MD Work Phone: 1(825)[address]2543[address] [place], [place] [address]Apwrgmryzj28-13-4387 14:54-0400Body nyyopb195.9 cmKen Reyes MD Work Phone: 1(689)435589[address] [place], [place] [address]Hbhqmgobyb97-72-1224 14:54-0400Body mass index (BMI) [Ratio]33.25 kg/m2Ken Reyes MD Work Phone: [phone])[address] [place], [place] [address]Dpzmneknzp67-23-2930 14:54-0400Body temperature 97.3 [degF]Ken Reyes MD Work Phone: [phone] [place], [place] [address]Vuagxdswbq00-18-9041 14:54-0400Body ykcibc33.83 kgKen Reyes MD Work Phone: [facility]ettUhkikwuexc78-18-4979 14:54-0400Diastolic blood wxowsoij34 mm[Hg]Ken Reyes MD Work Phone: 1(744)883-[address] [place], [place] [address]Gonuegxupt47-87-0061 14:54-0400Heart rate88 /min Ken Reyes MD Work Phone: [facility]ettVmahigjeyb86-33-5399 14:54-0400Respiratory rate22 /minKen Reyes MD Work Phone: [facility]ettLwjqidxwua90-19-3166 14:54-9862GsL7% (BldA) [Mass fraction]95 %Ken Reyes MD Work Phone: [facility]ettUkpxlmficl91-17-3177 14:54-0400Systolic blood cezitelf610 mm[Hg]Ken Reyes MD Work Phone: [facility]ettDrtggmtyaq07-62-6272 10:19-0500Body srrdey727.9 cmKen Reyes MD Work Phone: [phone]02-05-2024 10:19-0500Body mass index (BMI) [Ratio]31.18 kg/m2Ken Reyes MD Work Phone: [facility]ettMndcyngsnw26-33-5161 10:19-0500Body temperature 97.3 [degF]Ken Reyes MD Work Phone: [facility] MonettAorgrwcjzi05-49-2382 10:19-050Body kofjzl98.84 kgKen Reyes MD Work Phone: [facility] MonettEcinoceolj87-07-4619 10:19-0500Diastolic blood ykzhnepu67 mm[Hg]Ken Reyes MD Work Phone: [facility]ettUwpwmmtaec27-62-9144 10:19-0500Heart rate87 /min Ken Reyes MD Work Phone: [facility]ettXgzrdlavxf70-49-8005 10:0266AqT6% (BldA) [Mass fraction]98 %Ken Reyes MD Work Phone: noMer[facility] St. LouisJwangfuqrm57-33-5694 10:19-0500Systolic blood vhzylfoj128 mm[Hg]Ken Reyes MD Work Phone: [facility]ettNxhxvisodq46-50-2527 17:00-0400Body lsholp529.94 Evelin Felicityhunter Other [employer] Other 06-29-2022 17:00-0400Body mass index (BMI) [Ratio] 32.46 kg/m2Chandler Pilar Other [employer] Other 06-29-2022 17:00-0400Body rsyqmnuvddr63.3 [degF]Chandelr Felicityhunter Other [employer] Other 06-29-2022 17:00-0400Body eevdgy10.93 kgChandler Pilar Other [employer] Other 06-29-2022 17:00-0400Diastolic blood epfadzxs10 mm[Hg] Chandler Quezada Other [facility] [employer] Other 06-29-2022 17:00-0400Respiratory rate20 /minChandler Quezada Other [facility] [employer] Other 06-29-2022 17:00-9440ZxL1% (BldA) [Mass fraction]99 % Chandler Quezada Other [facility] [employer] Other 06-29-2022 17:00-0400Systolic blood pqduflxf332 mm[Hg] Chandler Quezada Other [facility] [employer] Other Encounters Encounter DateEncounter TypeCare ProviderFacilityStart: 02-79-0832jbxvdqctdl Adelso Vigil NILJuwanFacility:[facility] CenterueStart: 79-00-2994hglrhrvalrGZOYCEast [facility] Regional Hospitaltart: 69-07-7603sqzeszxppwQsnxlek NILL Facility:[facility]tart: 06-25-2025 End: 73-62-9172dycuiicmliAhek Naderer MD Work Phone: [facility] Work Phone: Start: 06-25-2025 End: 79-01-7951Szkqhyd encounter procedureKen Reyes MDMurphy Army Hospital [facility] [place] Work Phone: Start: 82-31-8188lrhuifwmiyZZMNROhioHealth Marion General Hospitaltart: 85-09-4653cxwzooreieODDG NADERESelect Medical Specialty Hospital - Columbustart: 04-09-2025 End: 21-29-7148Xdntsu flowsheetKen Reyes MD Work Phone: NOMS CWM FMStart: 04-09-2025 End: 41-29-7320Fqquhr Margret Reyes MD Work Phone: NOWF CWM FMStart: 04-09-2025 End: 09-68-9296Voqbtalq Result EncounterKen Reyes MD Work Phone: noms External Department UnsolicitedStart: 04-09-2025 End: 24-37-1305Nnbavj outpatient visit 25 minutesKen Reyes MD Work Phone: NOCE CWM FMComment on above:Type 2 diabetes mellitus with hyperglycemia, without long-term current use of insulin (HCC) (Primary Dx); Primary osteoarthritis, left wrist; DDD (degenerative disc disease), cervical; Degeneration of intervertebral disc of lumbar region with discogenic back pain; Mild persistent asthma, uncomplicated (HCC); PostmenopausalStart: 04-09-2025 End: 13-01-9918flwbaqcwpkNLPG NADERERNot AvailableStart: 31-19-1819jioeulsjtg [facility] Hospitaltart: 02-27-2025 End: 12-39-6910ufogepyhhyGQFR NADERESelect Medical Specialty Hospital - Columbustart: 02-27-2025 End: 69-34-2446Qpzzqq Margret Reyes MD Work Phone: NOMG CWM FMStart: 02-27-2025 End: 06-68-6155Gupbiz Margret Reyes MD Work Phone: NOWD CWM FMStart: 02-27-2025 End: 49-21-5613Kskbfj outpatient visit 15 minutesKen Reyes MD Work Phone: NOWN CWM FMComment on above:Essential hypertension, benign (Primary Dx); Chronic pain of left wristStart: 02-27-2025 End: 68-45-3857sgmjjcvteuMGSE NADERERNot AvailableStart: 99-48-8112dmujmrzuqnrenee MonacoCleveland Clinic Foundationtart: 01-07-2025 End: 32-91-6039Bnbslv Margret Reyes MD Work Phone: NOVY CWM FMStart: 01-07-2025 End: 48-83-8970Uvqxja Margret Reyes MD Work Phone: NOJK CWM FMStart: 01-07-2025 End: 52-99-1705Tmuflx outpatient visit 25 minutesKen Reyes MD Work Phone: NOYX CWM FMComment on above:Type 2 diabetes mellitus with hyperglycemia, without long-term current use of insulin (CMS/HCC) (Primary Dx); Essential hypertension, benign (CMS/HCC); Mild persistent asthma, uncomplicated (CMS/HCC); Adult hypothyroidism (CMS/HCC)Start: 01-07-2025 End: 71-33-7195pffdkotetlFXPJ NADERERNot AvailableStart: 12-13-2024 End: 87-17-7318Phcyyt outpatient visit 15 minutesKen Reyes MD Work Phone: noms CWM FMComment on above:Essential hypertension, benign (CMS/HCC) (Primary Dx); Non-allergic rhinitisStart: 12-13-2024 End: 01-96-2930glpnzoputsJFAK NADERERNot AvailableStart: 12-12-2024 End: 49-74-6627Fpvgtf outpatient visit 15 minutesKylee Peguero MD Work Phone: NOMS CI ENTComment on above:Dizziness and giddiness (Primary Dx); Essential hypertension, benign (CMS/HCC)Start: 12-12-2024 End: 95-03-1275xuvikphzqdXKUFIY H Cecilio AvailableStart: 12-12-2024 End: 19-87-5976Avwktc Yuri Peguero MD Work Phone: NOMS CI ENTStart: 12-12-2024 End: 70-49-2946Ynhcrp Yuri Peguero MD Work Phone: noMS CI ENTStart: 12-11-2024 End: 65-05-9984Zrlgwu Yuri Peguero MD Work Phone: NOMS CI ENTStart: 12-11-2024 End: 60-70-6312Qnaqlv Yrui Peguero MD Work Phone: NOMS CI ENTStart: 12-11-2024 End: 31-62-4712Vlkrwa outpatient new 45 minutesKyele Peguero MD Work Phone: NOMS CI ENTComment on above:VertigoStart: 12-11-2024 End: 71-08-9532phyijmjealSZKFQI H TIMMISNot AvailableStart: 12-05-2024 End: 64-84-0758Uftswp flowsheetNahomyfidel Saul [employer] Work Phone: noMS CI AUDStart: 12-05-2024 End: 84-80-9673Euhobc flowsheetNahomyLifeWave [facility] [employer] Work Phone: [facility] CI AUDStart: 12-05-2024 End: 18-65-1352Jxuqnwki SupportDekindred hospital [facility] [employer] Work Phone: noMS CI AUDComment on above:Sensorineural hearing loss (SNHL) of both ears (Primary Dx); DizzinessStart: 26-94-5769elwmkabskkRFBLChildren's Hospital for Rehabilitationtart: 10-10-2024 End: 76-69-2295Kpzmpijv Result EncounterKen Reyes MD Work Phone: [facility] External Department UnsolicitedStart: 10-10-2024 End: 63-96-9755Tszudzxm Result EncounterKen Reyes MD Work Phone: [facility] External Department UnsolicitedStart: 10-10-2024 ambulatorySouth[facility] Health Centertart: 10-10-2024 End: 87-91-0074wyfcccpdgeHDGNUC Healthtart: 10-08-2024 End: 97-85-8508cxomnhuspuSFDMAdalberto Mckinnon [facility] Centertart: 10-08-2024 End: 27-53-8988Zbbcpp Margret Reyes MD Work Phone: [facility] CWM FMStart: 10-08-2024 End: 67-13-8237Pfrrnl Margret Reyes MD Work Phone: [facility] CWM FMStart: 10-08-2024 End: 37-16-1663Xmqsifz encounter procedureKen Reyes MD Work Phone: [facility] Work Phone: Start: 10-08-2024 End: 23-28-4016Pfzkva follow up visit related to original Kian Reyes MD Work Phone: [facility] CWM FMComment on above:Medicare annual wellness visit, subsequent (Primary Dx); Type 2 diabetes mellitus with hyperglycemia, without long-term current use of insulin (CMS/HCC); Adult hypothyroidism (CMS/HCC); Class 1 obesity due to excess calories with serious comorbidity and body mass index (BMI) of 32.0 to 32.9 in adult; Encounter for long-term current use of medication; Essential hypertension, benign (CMS/HCC)Start: 10-08-2024 End: 96-00-9651rrmutfgfbwAFKB NADERERNot AvailableStart: 09-18-2024 End: 93-70-0044Pbidjp Margret Reyes MD Work Phone: NOIL CWM FMStart: 09-18-2024 End: 50-11-1115Dcoukv Margret Reyes MD Work Phone: noms CWM FMStart: 09-18-2024 End: 13-08-9934Yctpee outpatient visit 25 minutesKen Reyes MD Work Phone: noms CWM FMComment on above:Essential hypertension, benign (CMS/HCC) (Primary Dx); VertigoStart: 09-18-2024 End: 17-78-6274oxbfsogqerGCQI NADERERNot AvailableStart: 12-20-2024 End: 63-46-2706Csldisvre department patient visitCoshocton Regional Medical Centertart: 04-53-0506pfhpyqftjdRNANTuscarawas Hospitaltart: 52-37-7570avrywzckzrWRIUSelect [facility] Start: 50-20-0724ntqnmwfxleJESKLakeHealth TriPoint Medical Centertart: 48-22-0076bqgmndzllfOLOMTuscarawas Hospitaltart: 10-34-9367lqyijxwnukGOBZTuscarawas Hospitaltart: 70-64-1659cbeweguvnzELGRLakeHealth TriPoint Medical Centertart: 07-17-2024 ambulatorySouthwest General Health Centertart: 07-05-2024 End: 87-68-1161Jdeqgt outpatient visit 25 minutesKen Reyes MD Work Phone: NOAX CW FMComment on above:Type 2 diabetes mellitus with hyperglycemia, without long-term current use of insulin (CMS/HCC) (Primary Dx); Essential hypertension, benign (CMS/HCC); Vertigo; Mild persistent asthma, uncomplicated (CMS/HCC); Adult hypothyroidism (CMS/HCC); Encounter for long-term current use of medication; Class 1 obesity due to excess calories with serious comorbidity and body mass index (BMI) of 33.0 to 33.9 in adultStart: 07-05-2024 End: 26-64-5412gerzswbnejZGAE Shoshana AvailableStart: 07-05-2024 End: 80-03-5732Lsajytsesar Reyes MD Work Phone: NOMS CWM FMStart: 07-05-2024 End: 82-92-9507Bloshasesar Reyes MD Work Phone: NOMS CWM FMStart: 06-26-2024 End: 40-17-5888Swednpvck Result EncounterGeneric External Data ProviderNOMS External Department UnsolicitedStart: 06-26-2024 End: 52-36-5308Onumrgltt Result EncounterGeneric External Data ProviderNOMS External Department UnsolicitedStart: 05-31-2024 End: 49-60-5107Qpejysxqq Result EncounterGeneric External Data ProviderNOMS External Department UnsolicitedStart: 05-31-2024 End: 21-46-5291Jwczldtzt Result EncounterGeneric External Data ProviderNOMS External Department UnsolicitedStart: 03-23-2024 End: 82-28-3134Clxwwwlkn Result EncounterGeneric External Data ProviderNOMS External Department UnsolicitedStart: 03-23-2024 End: 68-76-9441Mgjhsszdo Result EncounterGeneric External Data ProviderNOMS External Department UnsolicitedStart: 01-27-2024 End: 72-90-7082Phksfcuid Result EncounterGeneric External Data ProviderNOMS External Department UnsolicitedStart: 01-27-2024 End: 89-51-8706Xgfxrjafg Result EncounterGeneric External Data ProviderNOMS External Department UnsolicitedStart: 12-30-2023 End: 46-78-6899Aukumjtyq Result EncounterGeneric External Data ProviderNOMS External Department UnsolicitedStart: 12-30-2023 End: 79-21-5559Pxtjwlikm Result EncounterGeneric External Data ProviderNOMS External Department UnsolicitedStart: 12-09-2023 End: 05-08-4040Aiicbdgch Result EncounterGeneric External Data ProviderNOMS External Department UnsolicitedStart: 12-09-2023 End: 19-36-0767Zkbqxqznr Result EncounterGeneric External Data ProviderNOMS External Department UnsolicitedStart: 11-15-2023 End: 21-82-1244Bssspbyfu Result EncounterKen Reyes MD Work Phone: noms External Department UnsolicitedStart: 11-15-2023 End: 34-31-2720Grnuruvja Result EncounterKen Reyes MD Work Phone: noms External Department UnsolicitedStart: 10-17-2023 Bamboo Margret Reyes MD Work Phone: noms [facility] FMStart: 33-97-0528Ndcasl flowsheetKen Reyes MD Work Phone: noms CWM FMStart: 10-17-2023 End: 34-28-0280Npmepv outpatient visit 15 minutesKen Reyes MD Work Phone: noms CWM FMComment on above:Candidal skin infection (Primary Dx); Mild persistent asthma, uncomplicated (CMS/HCC)Start: 06-16-2022 End: 47-37-2498oqsgfsplqjUIOZFPB ALGHOTHANIFacility:R8Lbgmk: 03-10-2022 End: 17-42-7397oorlzhwejzQqyf USEREADY Other [facility] [employer] Other Start: 98-57-1951Oxdvag outpatient new 30 minutesAzakin HillmanhousFPG NephrologyStart: 03-01-2022 End: 81-80-9034gidvkuermuXQAIUR H FAWWADFacility:V2Qbrno: 02-02-2022 End: 06-06-3166aqkggjodylGXBUBH H FAWWADFacility:K6Ptzpp: 01-21-2022 End: 18-69-6163cwgqmugpasTCKJIA H FAWWADFacility:S2Xjbgb: 10-22-2021 End: 63-87-8900kmesjewghlHC KEN Hughes NADERERFacility:U1Ujpup: 09-28-2021 End: 00-21-1623zhqnvjktbhRC KEN Hughes NADERERFacility:H1 Procedures DateProcedureProcedure DetailPerforming ClinicianStart: 75-06-4561Azxmhavfgc glycosylated r8tPfowKen Reyes MD Work Phone: Start: 98-44-2319JJIOFPNO FUNCTION TESTSDearti Alexander CCC-A Work Phone: start: 98-26-3671Zmzgp metabolic panel calcium total Ken Reyes MD Work Phone: Start: 62-74-0728Dxndr panelKen Reyes MD Work Phone: Start: 99-11-6644TB PULMONARY FUNCTION TESTGeneric External Data ProviderStart: 05-73-5969RLA CBC WITH AUTO DIFFGeneric External Data ProviderStart: 84-77-8073JR FOOT LT MIN 3VGeneric External Data Provider Start: 88-21-2204YN FOOT LT MIN 3VGeneric External Data ProviderStart: 46-79-9869JA FOOT LT MIN 3VGeneric External Data ProviderStart: 97-94-1361CU FOOT LT MIN 3VGeneric External Data ProviderStart: 71-67-0709HE FOOT LT MIN 3V Ken Reyes MD Work Phone: Plan of Treatment DateCare ActivityDetailAuthorStart: 10-14-2025 End: 43-40-2894Xgtslfx encounter zosdcygsw63/02/2026 1:00 PM EST Office Visit [facility] [address] [place] [phone] Ken Reyes MD [address] [place] [phone] N[facility] FMStart: 86-04-6008Teofd screening for proteinDiabetes: Urine Protein ScreeningNOSD HealthcareStart: 01-27-2026Medicare Annual Wellness (AWV) Medicare Annual Wellness (AWV)[facility] HealthcareStart: 10-24-2025Medicare Annual Wellness (AWV)Medicare Annual Wellness (AWV)[facility] HealthcareStart: 05-13-2025 Influenza vaccinationNOSD HealthcareStart: 04-09-2025 End: 95-25-7966JHE Skeletal system Views for bone densityDEXA bone density Imaging Routine Postmenopausal Expected: 04/09/2025, Expires: 04/09/2026NOSD HealthcareComment on above:Expected: 04/09/2025, Expires: 04/09/2026Start: 84-90-5563Ladsbeelsz A1c measurementDiabetes: Hemoglobin W7ALIFJ Healthcare Start: 04-09-2025 End: 49-25-5162Cuqrmvhxvx A1c/Hemoglobin.total in BloodHemoglobin A1c Lab Routine Type 2 diabetes mellitus with hyperglycemia, without long-term current use of insulin (HCC) Expected: 04/09/2025 (Approximate), Expires: 04/09/2026[facility] Work Phone: Comment on above:Expected: 04/09/2025 (Approximate), Expires: 04/09/2026Start: 04-09-2025 End: 03-25-6974Roxwsya encounter procedureNOMS CWM FMComment on above:Arrived Start: 04-08-2025 End: 79-59-2206Rnbbbvo encounter wkhofqyna97/28/2025 1:15 PM EDT Office Visit [facility] [address] [place] [phone] Ken Reyes MD [address] [place] [phone] NOMS CWM FMStart: 02-27-2025 End: 52-68-2143ZI Wrist - left 2 ViewsXR wrist 1 or 2 views left Imaging Routine Chronic pain of left wrist Expected: 02/27/2025, Expires: 02/27/2026[facility] Work Phone: Comment on above:Expected: 02/27/2025, Expires: 02/27/2026Start: 02-27-2025 End: 88-59-1780Ubkzwoq encounter zbfetnjvb84/18/2025 1:45 PM EDT Office Visit [facility] [address] [place] [phone] Ken Reyes MD [address] [place] [phone] ArrivedNOMS CWM FMComment on above:ArrivedStart: 01-07-2025 End: 34-47-1404Mswycxc encounter procedureNOMS CWM FMComment on above:Arrived Start: 12-12-2024 End: 85-51-3531Cateuxm encounter ohhxtzdlt80/02/2025 3:00 PM EDT Office Visit [facility] [address] [place] [address] [place] [phone] Kylee Peguero MD [address] [facility] [address] [place] [address] ArrivedNOMS CI ENTComment on above:ArrivedStart: 12-11-2024 End: 74-35-4452Hvvmrdv encounter procedureNOMS CI ENTComment on above:Vertigo Start: 12-05-2024 End: 30-10-9126Exvpajek SupportNOMS CI AUDComment on above:ArrivedStart: 10-08-2024 End: 47-46-3513Pbtup metabolic 1998 panel - Serum or PlasmaBasic metabolic panel Lab Routine Essential hypertension, benign (CMS/HCC) Expected: 10/08/2024 (Will roximate), Expires: 10/08/2025NOMS HealthcareComment on above:Expected: 10/08/2024 (Approximate), Expires: 10/08/2025Start: 10-08-2024 End: 36-89-3752GBG W Auto Differential panel - BloodCBC and differential Lab Routine Encounter for long-term current use of medication Expected: 10/08/2024 (Approximate), Expires: 10/08/2025NOMS HealthcareComment on above:Expected: 10/08/2024 (Approximate), Expires: 10/08/2025Start: 10-08-2024 End: 03-44-6206Jwcbrymugn A1c/Hemoglobin.total in BloodHemoglobin A1c Lab Routine Type 2 diabetes mellitus with hyperglycemia, without long-term current use of insulin (CMS/HCC) Expected: 10/08/2024 (Approximate), Expires: 10/08/2025 NOMS HealthcareComment on above:Expected: 10/08/2024 (Approximate), Expires: 10/08/2025Start: 10-08-2024 End: 85-96-0225Fmgouwx function 2000 panel - Serum or PlasmaHepatic function panel Lab Routine Encounter for long-term current use of medication Expected: 10/08/2024 (Approximate), Expires: 10/08/2025NOMS HealthcareComment on above: Expected: 10/08/2024 (Approximate), Expires: 10/08/2025Start: 10-08-2024 End: 76-92-9527Fvspp 1996 panel - Serum or PlasmaLipid panel Lab Routine Type 2 diabetes mellitus with hyperglycemia, without long-term current use of insulin ([facility]) Expected: 10/08/2024 (Approximate), Expires: 10/08/2025[facility] Healthcare Comment on above:Expected: 10/08/2024 (Approximate), Expires: 10/08/2025Start: 10-08-2024 End: 56-50-2380Vcsmixpfqwqx/Creatinine panel in random UrineMicroalbumin / creatinine, urine ratio Lab Routine Type 2 diabetes mellitus with hyperglycemia, without long-term current use of insulin ([facility]) Expected: 10/08/2024 (Approximate), Expires: 10/08/2025[facility] Work Phone: Comment on above:Expected: 10/08/2024 (Approximate), Expires: 10/08/2025Start: 10-08-2024 End: 80-81-0046Nnyraxdixcr [Units/volume] in Serum or PlasmaTSH Lab Routine Adult hypothyroidism ([facility]) Class 1 obesity due to excess calories with serious comorbidity and body mass index (BMI) of 32.0 to 32.9 in adult Expected: 10/08/2024 (Approximate), Expires: 10/08/2025[facility] HealthcareComment on above: Expected: 10/08/2024 (Approximate), Expires: 10/08/2025Start: 10-08-2024 End: 31-26-0618Ewhmdbqtz (T4) free [Mass/volume] in Serum or PlasmaT4, free Lab Routine Adult hypothyroidism ([facility]) Expected: 10/08/2024 (Approximate), Expires: 10/08/2025[facility] HealthcareComment on above:Expected: 10/08/2024 (Approximate), Expires: 10/08/2025Start: 10-08-2024 End: 91-07-8565Pcdgrpr encounter procedureNOMS [place] FMComment on above:Arrived Start: 09-18-2024 End: 53-89-8432Fufhkak encounter hbdjkjvaz22/07/2025 11:45 AM EST Office Visit [facility] [place] [facility] [address] [place] [address] Ken Reyes MD [address] [place] [phone] [facility] FMComment on above:ArrivedStart: 08-21-2024 End: 33-52-8327Eabkepu encounter qxobxahxb35/10/2024 9:45 AM EST Office Visit [facility] [place] [facility] [address] [place] [address] Ken Reyes MD [address] [place] [phone] [facility]OM[facility] FMStart: 07-05-2024 End: 37-26-1688Nulpghf encounter smjchsiph67/24/2024 2:30 PM EDT Office Visit [facility] [address] [place] [address] Ken Reyes MD [address] [place] [phone] [facility] FMComment on above:ArrivedStart: 07-05-2024 End: 35-08-6309Xcprufu, urine, randomAlbumin, urine, random Lab Routine Type 2 diabetes mellitus with hyperglycemia, without long-term current use of insulin ([facility]) Expected: 07/05/2024 (Approximate), Expires: 07/05/2025[facility] Healthcare Work Phone: Comment on above:Expected: 07/05/2024 (Approximate), Expires: 07/05/2025Start: 07-05-2024 End: 34-77-2056Bkche metabolic 1998 panel - Serum or PlasmaBasic metabolic panel Lab Routine Encounter for long-term current use of medication Expected: 2023 (Approximate), Expires: 07/05/2025[facility] HealthcareComment on above:Expected: 07/05/2024 (Approximate), Expires: 07/05/2025Start: 07-05-2024 End: 75-95-0203QBY W Auto Differential panel - BloodCBC and differential Lab Routine Encounter for long-term current use of medication Expected: 07/05/2024 (Approximate), Expires: 07/05/2025[facility] HealthcareComment on above:Expected: 07/05/2024 (Approximate), Expires: 07/05/2025Start: 07-05-2024 End: 41-58-3424Jvmnhauqgw A1c/Hemoglobin.total in BloodHemoglobin A1c Lab Routine Type 2 diabetes mellitus with hyperglycemia, without long-term current use of insulin (CMS/HCC) Expected: 07/05/2024 (Approximate), Expires: 07/05/2025 NOMS HealthcareComment on above:Expected: 07/05/2024 (Approximate), Expires: 07/05/2025Start: 07-05-2024 End: 37-68-4153Hfulzrg function 2000 panel - Serum or PlasmaHepatic function panel Lab Routine Encounter for long-term current use of medication Expected: 07/05/2024 (Approximate), Expires: 07/05/2025[facility] HealthcareComment on above: Expected: 07/05/2024 (Approximate), Expires: 07/05/2025Start: 07-05-2024 End: 53-30-8713Cyocf 1996 panel - Serum or PlasmaLipid panel Lab Routine Type 2 diabetes mellitus with hyperglycemia, without long-term current use of insulin (CMS/HCC) Expected: 07/05/2024 (Approximate), Expires: 07/05/2025[facility] Healthcare Comment on above:Expected: 07/05/2024 (Approximate), Expires: 07/05/2025Start: 07-05-2024 End: 92-38-8238Fnkmuqweepn [Units/volume] in Serum or PlasmaTSH Lab Routine Adult hypothyroidism (CMS/HCC) Class 1 obesity due to excess calories with serious comorbidity and body mass index (BMI) of 33.0 to 33.9 in adult Expected: 07/05/2024 (Approximate), Expires: 07/05/2025[facility] HealthcareComment on above: Expected: 07/05/2024 (Approximate), Expires: 07/05/2025Start: 07-05-2024 End: 36-24-3251Qaurjzrij (T4) free [Mass/volume] in Serum or PlasmaT4, free Lab Routine Adult hypothyroidism (CMS/HCC) Expected: 07/05/2024 (Approximate), Expires: 07/05/2025[facility] HealthcareComment on above:Expected: 07/05/2024 (Approximate), Expires: 07/05/2025Start: 07-05-2024 End: 41-68-0665Wgjeaqwyhromjkho (T3) Free [Mass/volume] in Serum or PlasmaT3, free Lab Routine Adult hypothyroidism (CMS/HCC) Expected: 07/05/2024 (Approximate), Expires: 07/05/2025[facility] HealthcareComment on above:Expected: 07/05/2024 (Approximate), Expires: 07/05/2025Start: 49-59-6931Qsfbp screening for proteinDiabetes: Urine Protein ScreeningNOSD HealthcareStart: 05-13-2024 Influenza vaccinationInfluenza Vaccine (#1)[facility]OMS HealthcareStart: 11-21-2023 End: 30-97-3368Imoikdd encounter awtpoxzyw02/11/2024 10:00 AM EDT [facility] [address] [place] [phone] Ken Reyes MD [address] [place] [phone] [facility] FMStart: 10-17-2023 End: 67-28-6107Fnfctrc encounter qxqerubak45/05/2024 10:15 AM EST Office Visit [facility] [place] [address] [place] [phone] Ken Reyes MD [address] [place] [phone] [facility]TA[facility] FMComment on above:ArrivedStart: 36-53-5634Qpkph screening for proteinDiabetes: Urine Protein ScreeningNOSD HealthcareStart: 1949 Glaucoma screeningDiabetes: Retinopathy ScreeningNOSD HealthcareStart: 28-78-6089Kufrmkvywn A1c measurementDiabetes: Hemoglobin X3ULMZOCox [facility] Start: 01-05-1940Medicare Annual Wellness (AWV)Medicare Annual Wellness (AWV) [facility] HealthcareComprehensive metabolic 2000 panel - Serum or PlasmaC[facility] Clinic [facility] HospitalUS [facility]adderV[facility] Immunizations Immunization DateImmunizationNotesCare YmecxywfZvviqfgq79-40-7392lqlcsykdc virus vaccine, unspecified formulationGeneric ProviderNOMercy Hospital St[facility] Payers DatePayer CategoryPayerPolicy [id number] 2023Medicare (Managed Care)[id number] 2005Medicare [id number] [id number] 2.16.840.1.14294[id number] 2.16.840.1.138255.3.579.2.593 [id number] 2.16.840.1.108824.3.57[id number] 2.16.840.1.373073.3.579.2.2[id number] 2.16.840.1.121163.3.57[id number] 2.16.840.1.233257.3.579.2.59002-82-7628Spwvjyt2148604 2.16.840.1.791676.3.579.2.[id number] 2.16.840.1.073324.3.579.2.027361-34-6995Uoodzqb54358928 2.16.840.1.587594.3.579.2.1[id number] 2.16.840.1.580302.3.579.2.430582-33-0704Tsstrzh5570324 2.16.840.1.123441.3.579.2.828742-19-6456Ncbolky2242855 2.16.840.1.838592.3.579.2.429942-28-0306Vrbncoy5006204 2.16.840.1.047048.3.579.2.302511-74-8717Ytmynix7802964 2.16.840.1.045112.3.579.2.263831-02-6228Ayzfroo8589651 2.16840.1.371451.3.579.2.059900-27-3399Mgznglr0527642 2.16.840.1.541704.3.579.2.998892-21-2474Gjhtlrd4912450 2.16.840.1.268587.3.579.2.810874-22-5165Zbnfxav4786272 2.16.840.1.449866.3.579.2.69[id number] 2.16.840.1.869029.3.579.2.120390-86-3859Rnafpzg661792662 2.16.840.1.477649.3.579.2.041160-77-0314Htpdsue765925716 2.16.840.1.837067.3.579.2.602532-13-1779Uisnlns212590449 2.16.840.1.302118.3.579.2.153873-19-1940Qhfsayx29391009 2..840.1.120524.3.579.2.106568-44-3819Frzhphl27692693 2..840.1.262928.3.579.2.148277-64-1926Gkhwsjj96212094 2..840.1.676986.3.5[id number] Social History DateTypeDetailFacilityUnknown if ever smokedRio Grande City [employer] Other Start: 10-10-2023 End: 89-17-5902Glf [facility] [employer] Other Start: 02-89-4527Dnrxkkw smoking status NHISNever smoked tobaccoNOMS HealthcareStart: 05-13-8832Yeocpvw use and exposureSmokeless tobacco non-userNOMS HealthcareStart: 10-10-2023 End: 80-65-0055Wbpkius of Social functionNOMS HealthcareStart: 43-26-5053Doh Assigned At BirthNot on fileNOMS HealthcareStart: 04-91-3913Wam often do you need to have someone help you when you read instructions, pamphlets, or other written material from your doctor or pharmacy [SILS]NeverNOMS HealthcareDo you belong to any clubs or organizations such as episcopalian groups, unions, fraternal or athletic groups, or school groups?YesNOMS HealthcareAre you now , , , , never or living with a partner?WidowedNOMS HealthcareHow often to you have a drink containing alcohol?NeverN[facility]S Healthcare Do you feel stress - tense, restless, nervous, or anxious, or unable to sleep at night because yourmind is troubled all the time - these days [OSQ]Not at all [facility](I/We) worried whether (my/our) food would run out before (I/we) got money to buy more.Never trueNOMS HealthcareIn the past 12 months, was there a time when you were not able to pay the mortgage or rent on time?NoNOMS HealthcareStart: 12-11-2024 End: 27-67-9709Vzuckhjxv beverage intakeLifetime non-drinker (finding)[facility] HealthcareStart: 03-32-1127Nishmho smoking status NHISEx-smoker (finding) [facility] CenterexFemale (finding)[facility] Centertart: 30-99-2504Skq Assigned At [facility] Functional Status GoqkZqytbpybaxAuivtfWmdyrrtd50-23-9643Qzrxyng Health Questionnaire 2 item (PHQ- 2) [Reported][facility]ettXmnaddvebu65-90-2069Mxmxv score [AUDIT-C]0 02/28/2024 9:53 AM EDT [facility] CenterHvbrwftbzr74-95-5389Mfz often do you have a drink containing alcohol?Never 02/28/2024 9:53 AM EDT [facility], Generic [facility] CenterMfsnatsuty03-95-1622Teabezmewc statusPatient does not drink 02/28/2024 9:53 AM EDT Mychart, Generic Patient does not drinkCox MonettJfmbpumozc96-82-4598Ote often do you have 6 or more drinks on 1 occasion?Never 02/28/2024 9:53 AM EDT [facility], Generic [facility] Clinical Notes 03-10-2022 to 04-09-2025 Note Date & SjwvFllpZicyysof40-24-6028 History of Present illness Narrative* Ken Reyes MD - 04/09/2025 2:41 PM EDTAssociated Problem(s): Mild persistent asthma, uncomplicated (HCC) Symptoms controlled with trelegy. Follow with pulmonology. * Ken Reyes MD - 04/09/2025 2:41 PM EDTAssociated Problem(s): Type 2 diabetes mellitus with hyperglycemia, without long-term current use of insulin (HCC) Reports BS controlled and due for A1C. Stick to ADA diet and limit carbs. * Ken Reyes MD - 04/09/2025 2:37 PM EDTAssociated Problem(s): Primary osteoarthritis, left wrist Pain stable and continue with increased activity. Use OTC PRN. * Ken Reyes MD - 04/09/2025 2:37 PM EDTAssociated Problem(s): DDD (degenerative disc disease), lumbar Pain stable and continue with increased activity. Use OTC PRN. * Ken Reyes MD - 04/09/2025 2:37 PM EDTAssociated Problem(s): DDD (degenerative disc disease), cervical Pain stable and continue with increased activity. Use OTC PRN. * Ken Reyes MD - 04/09/2025 2:00 PM EDT Images from the original note were not [...] Orders DEXA bone density documented in this encounterCox MonettDdafzfmtqi36-50-2855 History of Present illness Narrative* Ken Reyes MD - 02/27/2025 2:43 PM EDTAssociated Problem(s): Essential hypertension, benign BP elevated and add procardia. Continue to monitor PRN. Discussed DASH diet. * Ken Reyes MD - 02/27/2025 2:43 PM EDTAssociated Problem(s): Chronic pain of left wrist Increased pain and bump at base of wrist. Likely OA. Check x-ray. Start prednisone. Use OTC PRN. * Ken Reyes MD - 02/27/2025 1:45 PM EDT Images from the original note were not [...] bump over wrist at base of thumb. Verytender with touch or bump. Pain to lift [...] or 2 views left documented in this encounterCox MonettNyhxcsvpor12-99-3539 History of Present illness Narrative* Ken Reyes MD - 01/07/2025 2:30 PM EDTAssociated Problem(s): Type 2 diabetes mellitus with hyperglycemia, without long-term current use of insulin (CMS/HCC) Not checking BS but last A1C 5.9. Stick to ADA diet and limit carbs. * Ken Reyes MD - 01/07/2025 2:30 PM EDTAssociated Problem(s): Mild persistent asthma, uncomplicated (CMS/HCC) Symptoms controlled with trelegy. Follow with pulmonology. * Ken Reyes MD - 01/07/2025 2:30 PM EDTAssociated Problem(s): Essential hypertension, benign (CMS/HCC) BP slowly improving and continue medication. Continue to monitor PRN. Discussed DASH diet. * Ken Reyes MD - 01/07/2025 2:30 PM EDTAssociated Problem(s): Adult hypothyroidism (CMS/HCC) No signs of low thyroid and continue medication. * Ken Reyes MD - 01/07/2025 1:45 PM EDT Images from the original note were not included. Subjective Patient ID: Renate Bradford is a 84 y.o. female who presents for Follow-up (3m/) and Arm Pain (Arthritis pain in left arm and wrist). Follow up DM, HTN, asthma, and hypothyroid. Not checking BS away from office. Tries to eat well andstick to ADA diet. Denies signs of elevated BS such as polyuria, polyphagia or polydipsia. Last A1C5.9. Checking BP PRN and improving. BP elevated today at 156/80. Typically 130-150 at home with diastolic in 70-80s. Taking medication daily and tolerating without side effects. Asthma controlled. Taking inhalers daily. Mild SOB with exertion but no cough. Seen by pulmonology and recently had PFTs.No signs of low thyroid. Denies fatigue or [...] diet and limit carbs. documented in this encounterCox [id number] History of Present illness Narrative* Ken Reyes MD - 12/13/2024 5:09 PM EDTAssociated Problem(s): Non- allergic rhinitis Continued symptoms and add nasal steroid. * Ken Reyes MD - 12/13/2024 5:09 PM EDTAssociated Problem(s): Essential hypertension, benign (CMS/HCC) BP elevated and increase losartan to BID. Continue to monitor PRN. Discussed DASH diet. * Ken Reyes MD - 12/13/2024 2:30 PM EDT Images from the original note were not [...] and add nasal steroid. documented in this encounterCox [id number] History of Present illness Narrative* Kylee Peguero MD - 12/12/2024 3:00 PM EDT Subjective Patient ID: Renate Bradford is a 84 y.o. female who presents for Vertigo F/U for [place]-Hallpike after stopping meclizine Family History Problem Relation Name Age of Onset Hypertension Mother Stroke Mother Diabetes Mother Heart failure Father Diabetes Father Active Ambulatory Problems Diagnosis Date Noted Adult hypothyroidism (CMS/HCC) 10/17/2023 Essential hypertension, benign (CMS/HCC) 10/17/2023 DDD (degenerative disc disease), lumbar 10/17/2023 Mild persistent asthma, uncomplicated (CMS/HCC) 10/17/2023 Renal artery stenosis ([facility]/HCC) 10/17/2023 Type 2 diabetes mellitus with hyperglycemia, [...] Calcified lymph nodes 12/12/2024 Diastolic dysfunction 12/12/2024 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 Take beforemeals. 90 tablet 3 losartan (Cozaar) 50 MG tablet Take 1 tablet (50 mg) by mouth Daily 30 tablet 5 meclizine (Antivert) 25 MG tablet Take 1 tablet (25 mg) by mouth 4 (four) times a day as needed fordizziness 60 tablet 2 No current facility-administered medications on file prior to visit. Objective Last Recorded Vitals Vitals: 12/12/24 1445 BP: (!) 239/79 Pulse: 88 ENT Physical Exam Constitutional Appearance: patient appears well-developed, well-nourished and well-groomed, Communication/Voice: communication appropriate for developmental age; vocal quality normal; Constitutional comments: [place]pike negative. Assessment/Plan Diagnoses and all orders for this visit: Dizziness and giddiness Essential hypertension, benign (CMS/HCC) Clyde Hallpike negative. Given instructions for Hernandez-Darhoff exercises. F/U if recurs. Will have Sergio Dacosta evaluate if recurs as well. BP 220/100 today. Pt to contact Dr Reyes for tx. documented in this encounterCox [id number] History of Present illness Narrative* Kylee Peguero MD - 12/11/2024 2:00 PM EDT Subjective Patient ID: Renate Bradford is a 84 y.o. female who presents for Vertigo (Audio 12/05/24) Pt reports when she rolls to the RT in bed she gets vertigo. Pt has had a couple months. Had similar spells in the past. Had 7 weeks vest rehab at [facility]. 12/05 audio shows liz mild SNHL that is a bit asymmetric [...] of 30.0 to 39.9 Renal artery stenosis, [place], bilateral (CMS/HCC) Statin declined Past Surgical History: [...] tablet 3 cholecalciferol (Vitamin D-3) 50 MCG (1999 UT) tablet Take 1 tablet (50 mcg) by mouth Daily 90 tablet 3 levothyroxine (Synthroid) 50 MCG tablet Take 1 tablet (50 mcg) by mouth in the morning. Take beforemeals. 90 tablet 3 losartan (Cozaar) 50 MG tablet Take 1 tablet (50 mg) by mouth Daily 30 tablet 5 meclizine (Antivert) 25 MG tablet Take 1 tablet (25 mg) by mouth 4 (four) times a day as needed fordizziness 60 tablet 2 No current facility-administered medications on file prior to visit. Objective Last Recorded Vitals Vitals: 12/11/24 1349 BP: 159/80 Pulse: 75 ENT Physical Exam Constitutional Appearance: patient appears well-developed, well-nourished and well-groomed, Constitutional comments: Clyde-Hallpike - <1sec self-limited vertigo with a single [...] and her description of her tx at [facility] are c/w BPPV, but her [place]- Hallpike is equivocalat best, but pt took meclizine this morning. I will see he back when she has not taken any meclizine before initiating tx. documented in this encounterCox [id number] History of Present illness Narrative* Vandana Alexander, CCC-A - 12/05/2024 1:00 PM EDT History: Pt was referred to ENT because [...] Ear: Type A tympanogram documented in this encounterCox [id number] History of Present illness Narrative* Ken Reyes MD - 10/08/2024 2:06 PM ESTAssociated Problem(s): Type 2 diabetes mellitus with hyperglycemia, without long-term current use of insulin ([facility]) Not checking BS and due for A1C. Stick to ADA diet and limit carbs. * Ken Reyes MD - 10/08/2024 2:06 PM ESTAssociated Problem(s): Essential hypertension, benign ([facility]) BP remains elevated and increase losartan. Continue to monitor PRN. Discussed DASH diet. * Ken Reyes MD - 10/08/2024 2:06 PM ESTAssociated Problem(s): Medicare annual wellness visit, subsequent Due for labs. Discussed proper diet and regular aerobic exercise. Need aerobic exercise 5-6 days a week for 30 minutes at a time. Smaller portions and limit total calories. Tetanus every 10 years. Advised not to smoke. * Ken Reyes MD - 10/08/2024 1:30 PM EST Images from the original note were not included. Subjective Patient ID: Renate Bradford is a 84 y.o. female who presents for Medicare Annual Wellness Visit Subsequent (welllness). Presents for medicare annual wellness visit. Feels well today. Weight up 8 pounds in the past year.Active around house and outside but no regular exercise. Tries to watch diet and eat healthy. Increased fruits and vegetables. Smaller portions and limits snacking. Tries to limit total daily calories. Due for labs. Reports BP remains elevated. BP 134-159 systolic and 81-100 diastolic. Not checkingBS away from office. Review of Systems Respiratory: [...] Advised not to smoke. documented in this encounterCox [id number] History of Present illness Narrative* Ken Reyes MD - 09/18/2024 12:17 PM ESTAssociated Problem(s): Vertigo Continued symptoms and start meclizine daily in am. Use PRN during the day. Refer to ENT. * Ken Reyes MD - 09/18/2024 12:16 PM ESTAssociated Problem(s): Essential hypertension, benign (CMS/HCC) BP elevated and potential side effects with norvasc and stop. Add losartan and continue coreg. Monitor BP PRN. Discussed DASH diet. * Ken Reyes MD - 09/18/2024 11:45 AM EST Images from the original note were not included. Subjective Patient ID: Renate Bradford is a 84 y.o. female who presents for Follow-up ([facility] [place] f/u). ER follow up from 08/31 for [...] Ambulatory referral to ENT documented in this encounterCox [id number] History of Present illness Narrative* Ken Reyes MD - 07/05/2024 3:22 PM EDTAssociated Problem(s): Vertigo Recent symptoms and start meclizine. Refer to vestibular rehab. * Ken Reyes MD - 07/05/2024 3:22 PM EDTAssociated Problem(s): Type 2 diabetes mellitus with hyperglycemia, without long-term current use of insulin (CMS/HCC) Not checking BS and due for A1C. Stick to ADA diet and limit carbs. * Ken Reyes MD - 07/05/2024 3:22 PM EDTAssociated Problem(s): Mild persistent asthma, uncomplicated (CMS/HCC) Symptoms controlled with trelegy. Follow with pulmonology. * Ken Reyes MD - 07/05/2024 3:22 PM EDTAssociated Problem(s): Essential hypertension, benign (CMS/HCC) BP elevated today but previously controlled and monitor PRN. * Ken Reyes MD - 07/05/2024 3:21 PM EDTAssociated Problem(s): Class 1 obesity due to excess calories with serious comorbidity and body mass index (BMI) of 33.0 to 33.9 in adult Weight loss indicated * Ken Reyes MD - 07/05/2024 3:21 PM EDTAssociated Problem(s): Adult hypothyroidism (CMS/HCC) No signs of low thyroid and continue medication. * Ken Reyes MD - 07/05/2024 2:30 PM EDT Images from the original note were not included. Subjective Patient ID: Renate Bradford is a 83 y.o. female who presents for Dizziness (Started w/ covid not going away). Follow up DM, HTN, asthma, and hypothyroid. Not checking BS away from office. Tries to eat well andstick to ADA diet. Denies signs of elevated BS such as polyuria, polyphagia or polydipsia. CheckingBP PRN and typically controlled. BP elevated today but not feeling well. Taking medication daily and tolerating without side effects. C/o severe vertigo. Frequent sensation of motion and room spinning. Symptoms worse when up and moving Severe symptoms if roll over in bed. Not tried OTC. Symptoms started after covid. Prior vestibular rehab helped. Asthma controlled. Taking inhalers daily. Mild SOBwith exertion but no cough. Seen by pulmonology [...] adult Weight loss indicated Relevant Orders TSH * GURPREET LITTLEJOHN - 07/05/2024 2:30 PM EDT vv documented in this encounterCox [id number] History of Present illness Narrative* Ken Reyes MD - 10/17/2023 11:00 AM ESTAssociated Problem(s): Mild persistent asthma, uncomplicated (CMS/HCC) Increased SOB and treat with prednisone. Use albuterol PRN. * Ken Reyes MD - 10/17/2023 10:59 AM ESTAssociated Problem(s): Candidal skin infection Skin appears to be yeast and treat with oral diflucan and cream * Ken Reyes MD - 10/17/2023 10:15 AM EST Subjective Patient ID: Renate Bradford is a [...] tablet clotrimazole-betamethasone (Lotrisone) cream documented in this encounterCox [id number] Evaluation note* Encounter Date Diagnosis Assessment Notes Treatment Notes Treatment Clinical Notes Feb, Secondary hypertension (ICD-10 - I15.9) [...] to continue monitoring blood pressure at home Feb,ilateral renal artery stenosis (ICD-10 - I70.1)This was evident by CT IV contrast of pelvis and abdomen. There is no need for angioplasty as of now since her creatinine is stable and her blood pressure is well controlled [employer] Other Evaluation note* Diagnosis Candidal skin infection- Primary Mild persistent asthma, uncomplicated (CMS/HCC) documented in this encounter [facility] HealthcareEvaluation note* Diagnosis Candidal skin infection- Primary Mild persistent asthma, uncomplicated (CMS/HCC) Left foot pain- Primary Pain in soft tissues of limb Essential hypertension, benign (CMS/HCC) Essential hypertension, benign Seasonal allergic rhinitis due to pollen Type 2 diabetes mellitus with hyperglycemia, without long-term current use of insulin ([facility])- Primary Essential hypertension, benign (CMS/HCC) Essential hypertension, benign Mild persistent asthma, uncomplicated (CMS/HCC) Adult hypothyroidism ([facility]/HCC) Unspecified hypothyroidism Vitamin D deficiency Type 2 diabetes mellitus with hyperglycemia, without long-term current use of insulin ([facility]/HCC)- Primary Essential hypertension, benign (CMS/HCC) Essential hypertension, benign Vertigo Dizziness and giddiness Mild persistent asthma, uncomplicated (CMS/HCC) Adult hypothyroidism (CMS/HCC) Unspecified hypothyroidism Encounter for long-term current use of medication Class 1 obesity due to excess calories with serious comorbidity and body mass index (BMI) of 33.0 to 33.9 in adult documented in this encounter [facility] HealthcareEvaluation note* Diagnosis Candidal skin infection- Primary Mild persistent asthma, uncomplicated (CMS/HCC) Left foot pain- Primary Pain in soft tissues of limb Essential hypertension, benign (CMS/HCC) Essential hypertension, benign Seasonal allergic rhinitis due to pollen Type 2 diabetes mellitus with hyperglycemia, without long-term current use of insulin ([facility]/HCC)- Primary Essential hypertension, benign ([facility]/HCC) Essential hypertension, benign Mild persistent asthma, uncomplicated ([facility]) Adult hypothyroidism ([facility]) Unspecified hypothyroidism Vitamin D deficiency Type 2 diabetes mellitus with hyperglycemia, without long-term current use of insulin ([facility])- Primary Essential hypertension, benign ([facility]/HCC) Essential hypertension, benign Vertigo Dizziness and giddiness Mild persistent asthma, uncomplicated ([facility]) Adult hypothyroidism ([facility]) Unspecified hypothyroidism Encounter for long-term current use of medication Class 1 obesity due to excess calories with serious comorbidity and body mass index (BMI) of 33.0 to 33.9 in adult Essential hypertension, benign ([facility]/HCC)- Primary Essential hypertension, benign Vertigo Dizziness and giddiness documented in this encounter [facility] HealthcareEvaluation note* Diagnosis Candidal skin infection- Primary Mild persistent asthma, uncomplicated ([facility]) Left foot pain- Primary Pain in soft tissues of limb Essential hypertension, benign ([facility]) Essential hypertension, benign Seasonal allergic rhinitis due to pollen Type 2 diabetes mellitus with hyperglycemia, without long-term current use of insulin ([facility])- Primary Essential hypertension, benign ([facility]) Essential hypertension, benign Mild persistent asthma, uncomplicated ([facility]) Adult hypothyroidism ([facility]) Unspecified hypothyroidism Vitamin D deficiency Type 2 diabetes mellitus with hyperglycemia, without long-term current use of insulin ([facility])- Primary Essential hypertension, benign ([facility]) Essential hypertension, benign Vertigo Dizziness and giddiness Mild persistent asthma, uncomplicated ([facility]) Adult hypothyroidism ([facility]) Unspecified hypothyroidism Encounter for long-term current use of medication Class 1 obesity due to excess calories with serious comorbidity and body mass index (BMI) of 33.0 to 33.9 in adult Essential hypertension, benign ([facility]/HCC)- Primary Essential hypertension, benign Vertigo Dizziness and giddiness Medicare annual wellness visit, subsequent- Primary Type 2 diabetes mellitus with hyperglycemia, without long-term current use of insulin ([facility]) Adult hypothyroidism ([facility]) Unspecified hypothyroidism Class 1 obesity due to excess calories with serious comorbidity and body mass index (BMI) of 32.0 to 32.9 in adult Encounter for long-term current use of medication Essential hypertension, benign ([facility]) Essential hypertension, benign documented in this encounter [facility] HealthcareEvaluation note* Diagnosis Candidal skin infection- Primary Mild persistent asthma, uncomplicated (CMS/HCC) Left foot pain- Primary Pain in soft tissues of limb Essential hypertension, benign (CMS/HCC) Essential hypertension, benign Seasonal allergic rhinitis due to pollen Type 2 diabetes mellitus with hyperglycemia, without long-term current use of insulin (CMS/HCC)- Primary Essential hypertension, benign (CMS/HCC) Essential hypertension, benign Mild persistent asthma, uncomplicated (CMS/HCC) Adult hypothyroidism ([facility]/HCC) Unspecified hypothyroidism Vitamin D deficiency Type 2 diabetes mellitus with hyperglycemia, without long-term current use of insulin (CMS/HCC)- Primary Essential hypertension, benign (CMS/HCC) Essential hypertension, benign Vertigo Dizziness and giddiness Mild persistent asthma, uncomplicated (CMS/HCC) Adult hypothyroidism ([facility]/HCC) Unspecified hypothyroidism Encounter for long-term current use of medication Class 1 obesity due to excess calories with serious comorbidity and body mass index (BMI) of 33.0 to 33.9 in adult Essential hypertension, benign (CMS/HCC)- Primary Essential hypertension, benign Vertigo Dizziness and giddiness Medicare annual wellness visit, subsequent- Primary Type 2 diabetes mellitus with hyperglycemia, without long-term current use of insulin ([facility]) Adult hypothyroidism ([facility]) Unspecified hypothyroidism Class 1 obesity due to excess calories with serious comorbidity and body mass index (BMI) of 32.0 to 32.9 in adult Encounter for long-term current use of medication Essential hypertension, benign (CMS/HCC) Essential hypertension, benign Sensorineural hearing loss (SNHL) [...] Mild persistent asthma, uncomplicated (CMS/HCC) Adult hypothyroidism ([facility]/HCC) Unspecified hypothyroidism Vitamin D deficiency Type 2 diabetes mellitus with hyperglycemia, without long-term current use of insulin ([facility])- Primary Essential hypertension, benign (CMS/HCC) Essential hypertension, benign Vertigo Dizziness and giddiness Mild persistent asthma, uncomplicated (CMS/HCC) Adult hypothyroidism ([facility]) Unspecified hypothyroidism Encounter for long-term current use of medication Class 1 obesity due to excess calories with serious comorbidity and body mass index (BMI) of 33.0 to 33.9 in adult Essential hypertension, benign ([facility])- Primary Essential hypertension, benign Vertigo Dizziness and giddiness Medicare annual wellness visit, subsequent- Primary Type 2 diabetes mellitus with hyperglycemia, without long-term current use of insulin ([facility]) Adult hypothyroidism ([facility]) Unspecified hypothyroidism Class 1 obesity due to excess calories with serious comorbidity and body mass index (BMI) of 32.0 to 32.9 in adult Encounter for long-term current use of medication Essential hypertension, benign ([facility]/HCC) Essential hypertension, benign Vertigo Dizziness and giddiness documented in this encounter [facility]Evaluation note* Diagnosis Candidal skin infection- Primary Mild persistent asthma, uncomplicated ([facility]) Left foot pain- Primary Pain in soft tissues of limb Essential hypertension, benign ([facility]) Essential hypertension, benign Seasonal allergic rhinitis due to pollen Type 2 diabetes mellitus with hyperglycemia, without long-term current use of insulin ([facility])- Primary Essential hypertension, benign ([facility]/HCC) Essential hypertension, benign Mild persistent asthma, uncomplicated ([facility]) Adult hypothyroidism ([facility]) Unspecified hypothyroidism Vitamin D deficiency Type 2 diabetes mellitus with hyperglycemia, without long-term current use of insulin ([facility])- Primary Essential hypertension, benign (CMS/HCC) Essential hypertension, benign Vertigo Dizziness and giddiness Mild persistent asthma, uncomplicated ([facility]) Adult hypothyroidism ([facility]) Unspecified hypothyroidism Encounter for long-term current use of medication Class 1 obesity due to excess calories with serious comorbidity and body mass index (BMI) of 33.0 to 33.9 in adult Essential hypertension, benign ([facility]/HCC)- Primary Essential hypertension, benign Vertigo Dizziness and giddiness Medicare annual wellness visit, subsequent- Primary Type 2 diabetes mellitus with hyperglycemia, without long-term current use of insulin ([facility]) Adult hypothyroidism ([facility]) Unspecified hypothyroidism Class 1 obesity due to excess calories with serious comorbidity and body mass index (BMI) of 32.0 to 32.9 in adult Encounter for long-term current use of medication Essential hypertension, benign (CMS/[facility]) Essential hypertension, benign Dizziness and giddiness- Primary Essential hypertension, benign ([facility]) Essential hypertension, benign documented in this encounter [facility]* [...] Mild persistent asthma, uncomplicated (CMS/HCC) Adult hypothyroidism ([facility]/HCC) Unspecified hypothyroidism Vitamin D deficiency Type 2 diabetes mellitus with hyperglycemia, without long-term current use of insulin ([facility])- Primary Essential hypertension, benign (CMS/HCC) Essential hypertension, benign Vertigo Dizziness and giddiness Mild persistent asthma, uncomplicated (CMS/HCC) Adult hypothyroidism ([facility]) Unspecified hypothyroidism Encounter for long-term current use of medication Class 1 obesity due to excess calories with serious comorbidity and body mass index (BMI) of 33.0 to 33.9 in adult Essential hypertension, benign (CMS/HCC)- Primary Essential hypertension, benign Vertigo Dizziness and giddiness Medicare annual wellness visit, subsequent- Primary Type 2 diabetes mellitus with hyperglycemia, without long-term current use of insulin ([facility]) Adult hypothyroidism ([facility]) Unspecified hypothyroidism Class 1 obesity due to excess calories with serious comorbidity and body mass index (BMI) of 32.0 to 32.9 in adult Encounter for long-term current use of medication Essential hypertension, benign (CMS/HCC) Essential hypertension, benign Essential hypertension, benign (CMS/HCC)- Primary Essential hypertension, benign Non-allergic rhinitis documented in this encounter [facility] HealthcareEvaluation note* Diagnosis Candidal skin infection- Primary Mild persistent asthma, uncomplicated (CMS/HCC) Left foot pain- Primary Pain in soft tissues of limb Essential hypertension, benign (CMS/HCC) Essential hypertension, benign Seasonal allergic rhinitis due to pollen Type 2 diabetes mellitus with hyperglycemia, without long-term current use of insulin ([facility]/HCC)- Primary Essential hypertension, benign (CMS/HCC) Essential hypertension, benign Mild persistent asthma, uncomplicated (CMS/HCC) Adult hypothyroidism ([facility]) Unspecified hypothyroidism Vitamin D deficiency Type 2 diabetes mellitus with hyperglycemia, without long-term current use of insulin ([facility])- Primary Essential hypertension, benign (CMS/HCC) Essential hypertension, benign Vertigo Dizziness and giddiness Mild persistent asthma, uncomplicated (CMS/HCC) Adult hypothyroidism ([facility]/HCC) Unspecified hypothyroidism Encounter for long-term current use of medication Class 1 obesity due to excess calories with serious comorbidity and body mass index (BMI) of 33.0 to 33.9 in adult Essential hypertension, benign (CMS/HCC)- Primary Essential hypertension, benign Vertigo Dizziness and giddiness Medicare annual wellness visit, subsequent- Primary Type 2 diabetes mellitus with hyperglycemia, without long-term current use of insulin ([facility]) Adult hypothyroidism ([facility]) Unspecified hypothyroidism Class 1 obesity due to excess calories with serious comorbidity and body mass index (BMI) of 32.0 to 32.9 in adult Encounter for long-term current use of medication Essential hypertension, benign (CMS/HCC) Essential hypertension, benign Essential hypertension, benign ([facility])- Primary Essential hypertension, benign Non-allergic rhinitis Type 2 diabetes mellitus with hyperglycemia, without long-term current use of insulin ([facility])- Primary Essential hypertension, benign ([facility]/HCC) Essential hypertension, benign Mild persistent asthma, uncomplicated ([facility]) Adult hypothyroidism ([facility]) Unspecified hypothyroidism documented in this encounter [facility] HealthcareEvaluation note* Diagnosis Candidal skin infection- Primary Mild persistent asthma, uncomplicated ([facility]) Left foot pain- Primary Pain in soft tissues of limb Essential hypertension, benign Essential hypertension, benign Seasonal allergic rhinitis due to pollen Type 2 diabetes mellitus with hyperglycemia, without long-term current use of insulin ([facility])- Primary Essential hypertension, benign Essential hypertension, benign Mild persistent asthma, uncomplicated (HCC) Adult hypothyroidism Unspecified hypothyroidism Vitamin D deficiency Type 2 diabetes mellitus with hyperglycemia, without long-term current use of insulin ([facility])- Primary Essential hypertension, benign Essential hypertension, benign [...] of left wrist documented in this encounter [facility] HealthcareEvaluation note* Diagnosis Candidal skin infection- Primary [...] status (age-related) (natural) documented in this encounter [facility] HealthcareEvaluation note* Diagnosis Onset Date Resolution Status Admit Date Epigastric pain acuteOctober 2024 9:08amGERD without esophagitisacuteOctober 2024 9:08amMild persistent asthma, uncomplicatedacuteOctober 2024 9:08am [facility] Work Phone: History general Narrative - Reported* Type Description Date Medical History HYPOTHYROIDISM Medical HistoryHYPERTENSIONMedical HistoryVITAMIN D DEFICIENCYMedical History SEASONAL ALLERGIC RHINITIS DUE TO POLLENMedical HistoryMILD ASTHMAMedical HistoryMDD MAJOR DEPRESSIVE DISORDERMedical HistoryTYPE 2 DIABETES MELLITUS WITHOUT COMPLICATION WITHOUT LONG-TERM CURRENT USE OF INSULINMedical History OBESITYMedical HistoryVITAMIN B12 DEFICIENCYMedical HistoryPOST CONCUSSION VERTIGOSurgical HistoryHYSTERECTOMYSurgical HistoryRIGHT KNEE REPLACEMENT Surgical HistoryRIGHT ELBOW NERVEHospitalization HistorySEE ABOVE Shopitize Other Reason for referral (narrative)No reason for referral information availableTuscarawas Hospital Work Phone: Summary Purpose Family History Relationship Condition Age at Onset Recorded Date/T quentin brother Malignant neoplasm Unknown Diabetes mellitusUnknownHypertensionUnknownDeceasedUnknowndaughterHypertension UnknownfatherDiabetes mellitusUnknownmotherDeceasedUnknownHistory of stroke UnknownsonSudden infant syndromeUnknownsisterHypertensionUnknownMalignant neoplasmUnknown Advance Directives Advance Directive Response Recorded Date/ Time Advance Directives No June 12, 2025 11:10am Chief Complaint and Reason for Visit Chief Complaint Admit Date Shortness of Breath June 25, 2025 9 :08am Reason for Visit Admit Date Epigastric pain June 25, 2025 9 :08am GERD without esophagitis June 25, 025 9:08am Mild persistent asthma, uncomplicated Oc tober 2024 9:08am Additional Source Comments REASON FOR VISIT (unrecogniz ed section and content) ReasonCommentsRashOn chestReasonCommentsDizzinessStarted w/ covid not going away ReasonCommentsFollow-up[facility] er f/uReasonCommentsMedicare Annual Wellness Visit SubsequentwelllnessReasonCommentsVertigoAudio 12/05/24SpecialtyDiagnoses / ProceduresReferred By ContactReferred To ContactOtolaryngology Diagnoses Vertigo Procedures MS OFFICE/OUTPATIENT [facility] 60 MINUTES Ken Reyes MD [address] [place] [address] Phone: tel: fax: Kylee Peguero MD [address] [address] Phone: tel: fax: Referral IDStatusReasonStart DateExpiration DateVisits RequestedVisits [id number] Specialty Services Required [id number]zuaRnkfmeaiLrgdpkfizkjkHt running high ReasonCommentsFollow-on5yRhr PainArthritis pain in left arm and wristReason CommentsFollow-upLosing use of left arm and handReasonCommentsArm PainFrom wrist to shoulder blade INFORMATION SOURCE (unrecogn ized section and content) DATE CREATED AUTHOR 06/19/2022 [facility] DATE CREATED AUTHOR AUTHOR'S ORGANIZ ATION 09/04/2024 [facility] DATE CREATED AUTHOR AUTHOR'S ORGANIZ ATION 04/11/2025 [facility] DATE CREATED AUTHOR AUTHOR'S ORGANIZ ATION 04/11/2025 [facility] DATE CREATED AUTHOR AUTHOR'S ORGANIZ ATION 07/04/2025 [facility] DATE CREATED AUTHOR AUTHOR'S ORGANIZ ATION 07/06/2025 [facility] Care Teams (unrecognized sec tion and content) Team MemberRelationshipSpecialtyStart DateEnd Date Seema Durham MD [address] [place] [address] PCP - External PCPFamily Medicine02/19/23 Ken Reyes MD [address] [place] [address] PCP - GeneralFamily Medicine10/10/23Team MemberRelationshipSpecialtyStart [facility] Seema Durham MD [address] [place] [address] PCP - External PCPFamily Medicine02/19/23 Ken Reyes MD [address] [place] [address] PCP - GeneralFamily Medicine10/10/23Team MemberRelationshipSpecialtyStart [facility] Seema Durham MD [address] [place] [address] PCP - External PCPFamily Medicine02/19/23 Ken Reyes MD [address] [place] [address] PCP - GeneralFamily Medicine10/10/23Team MemberRelationshipSpecialtyStart [facility] Date Seema Durham MD [address] [place] [address] PCP - External PCPFamily Medicine02/19/23 Ken Reyes MD [address] [place] [address] PCP - GeneralFamily Medicine10/10/23Team MemberRelationshipSpecialtyStart [facility] Seema Durham MD [address] [place] [address] PCP - External PCPFamily Medicine02/19/23 Ken Reyes MD [address] [place] [address] PCP - GeneralFamily Medicine10/10/23Team MemberRelationshipSpecialtyStart DateEnd Date Seema Durham MD [address] [place] [address] PCP - External PCPFamily Medicine02/19/23 Ken Reyes MD [address] [place] [address] PCP - GeneralFamily Medicine10/10/23Team MemberRelationshipSpecialtyStart DateEnd Date Seema Durham MD [address] [place] [address] PCP - External PCPFamily Medicine02/19/23 Ken Reyes MD [address] [place] [address] PCP - GeneralFamily Medicine10/10/23Team MemberRelationshipSpecialtyStart End Date Seema Durham MD [address] [place] [address] PCP - External PCPFamily Medicine02/19/23 Ken Reyes MD [address] [place] [address] PCP - GeneralFamily Medicine10/10/23Team MemberRelationshipSpecialtyStart DateEnd [facility] Seema Durham MD [address] [place] [address] PCP - External PCPFamily Medicine02/19/23 Ken Reyes MD [address] [place] [address] PCP - GeneralFamily Medicine10/10/23Team MemberRelationshipSpecialtyStart DateEnd [facility] Seema Durham MD [address] [place] [address] PCP - External PCPFamily Medicine02/19/23 Ken Reyes MD [address] [place] [address] PCP - GeneralFamily Medicine10/10/23Team MemberRelationshipSpecialtyStart DateEnd [facility] Seema Durham MD [address] [place] [address] PCP - External PCPFamily Medicine02/19/23 Ken Reyes MD [address] [place] [address] PCP - GeneralFamily Medicine10/10/23Team MemberRelationshipSpecialtyStart DateEnd [facility] Seema Durham MD [address] [place] [address] PCP - External PCPFamily Medicine02/19/23 Ken Reyes MD [address] [place] [address] PCP - GeneralFamily Medicine10/10/23Team MemberRelationshipSpecialtyStart End Seema Durham MD [address] [place] [address] PCP - External PCPFamily Medicine02/19/23 Ken Reyes MD [address] [place] [address] PCP - GeneralFamily Medicine10/10/23Team MemberRelationshipSpecialtyStart End Seema Durham MD [address] [place] [address] PCP - External PCPFamily Medicine02/19/23 Ken Reyes MD [address] [place] [address] PCP - GeneralFamily Medicine10/10/23Team MemberRelationshipSpecialtyStart End Seema Durham MD [address] [place] [address] PCP - External PCPFamily Medicine02/19/23 Ken Reyes MD [address] [place] [address] PCP - GeneralFamily Medicine10/10/23Team MemberRelationshipSpecialtyStart End [facility] Seema Durham MD [address] [place] [address] PCP - External PCPFamily Medicine02/19/23 Ken Reyes MD [address] [place] [address] PCP - GeneralFamily Medicine10/10/23Team MemberRelationshipSpecialtyStart DateEnd [facility] Seema Durham MD [address] [place] [address] PCP - External PCPFamily Medicine02/19/23 Ken Reyes MD [address] [place] [address] PCP - GeneralFamily Medicine10/10/23Team MemberRelationshipSpecialtyStart DateEnd [facility] Seema Durham MD [address] [place] [address] PCP - External PCPFamily Medicine02/19/23 Ken Reyes MD [address] [place] [address] PCP - GeneralFamily Medicine10/10/23Team MemberRelationshipSpecialtyStart End [facility] Seema Durham MD [address] [place] [address] PCP - External PCPFamily Medicine02/19/23 Ken Reyes MD [address] [place] [address] PCP - GeneralFamily Medicine10/10/23Team MemberRelationshipSpecialtyStart DateEnd Date Semea Durham MD [address] [place] [address] PCP - External PCPFamily Medicine02/19/23 Ken Ryees MD [address] [place] [place] [address] PCP - GeneralFamily Medicine10/10/23Team MemberRelationshipSpecialtyStart DateEnd Date Seema Durham MD [address] [place] [address] PCP - External PCPFamily Medicine02/19/23 Ken Reyes MD [address] [place] [address] PCP - Generalmily Medicine10/10/23Team MemberRelationshipSpecialtyStart End Date Seema Durham MD [address] [place] [address] PCP - External PCPFamily Medicine02/19/23 Ken Reyes MD [address] [place] [address] PCP - GeneralFamily Medicine10/10/23 Team Status: Active Member Role Status Dates Ken Reyes MD Primary Care Provider Active Team Status: Inactive Member Role Status Dates Kne Reyes MD Primary Care Provider Active S tart: June 25, 2025 End: June 25, 2025[facility] Reyes MDAttending ProviderActiveStart: June 25, 2025 End: June 25, 2025Team MemberRelationshipSpecialtyStart DateEnd Date Seema Durham MD [address] [place] [address] PCP - External PCPFamily Medicine02/19/23 Ken Reyes MD [address] [place] [address] PCP - GeneralFamily Medicine10/10/23 Aicha Alvarado LPN Licensed Practical Nursemily MedicineTeam MemberRelationship SpecialtyStart DateEnd Date Seema Durham MD [address] [place] [address] PCP - External PCPFamily Medicine02/19/23 Ken Reyes MD [address] [place] [address] PCP - GeneralFamily Medicine10/10/23Team MemberRelationshipSpecialtyStart DateEnd Date Seema Durham MD [address] [place] [phone] PCP - External PCPFamily Medicine02/19/23 Ken Reyes MD [address] [place] [address] PCP - GeneralFamily Medicine10/10/23 Goals (unrecognized section and content) Goals may be documented in a n alternate section FOR RECORDS PERTAINING TO PATIENTS WHO ARE [...] BE BASED ON THE PRIMARY CLINICAL RECORDS. [facility]. provides no warranty or guarantee of the accuracy or completeness of information in this document.
--- OUTSIDE RECORDS SUMMARY | 2025-07-12 08:46 | XMS_ITS | Encounter Summary ---
Author Organization [facility] Address [address] [place] [address] Care Team Providers Care Rabbler Name Role Phone Seema Durham MD Unavailable [phone] Dilip Reyes MD Primary Care Provider [phone] Aicha Alvarado LPN Unavailable Unavailable Encounter Details DateTypeDepartmentCare Team (Latest Contact Info)Gjmffelgenl81/05/2024Clinisync Result Encounter [facility] External Department Unsolicited Dilip Reyes MD [address] [facility] [place] [address] Social History Tobacco UseTypesPacks/DayYears UsedDateSmoking Tobacco: NeverSmokeless Tobacco: [id number] Health LiteracyAnswerDate RecordedHow often do you need [...] times a week02/28/2024How often do you attend christian or advent services?More than 4 times per year4Do you belong to any clubs or organizations such as christian groups, unions, fraternal or athletic groups, or [...] at all 02/28/2024HQ-2AnswerDate RecordedPatient Health Questionnaire-2 Score0 10/08/2024[facility] - Occupational Stress QuestionnaireAnswerDate [...] were you homeless or living in a penitentiary (including now)? No02/28/2024CommentsUnknownSex and Gender InformationValueDate Recorded Sex Assigned at BirthNot on fileLegal NffSqzfmf69/15/2023 6:36 PM EDTGender IdentityNot on fileSexual OrientationNot on filedocumented as of this encounter Functional Status * AUDIT-C ScoreAnswerDate of KcrqtbtwjfFfndoo647/18/2024 9:53 AM Cleo Generic * Q1: How often do you have a drink containing alcohol?AnswerDate of Assessment SanqblOhpbp43/18/2024 9:53 AM Cleo Generic * Q2: How many drinks containing alcohol do you have on a typical day when you are drinking?AnswerDate of AssessmentAuthorPatient does not drink02/28/2024 9:53 AM Cleo Generic * Q3: How often do you have six or more drinks on one occasion?AnswerDate of MnynxlazfxJwkkqiQooyb86/18/2024 9:53 AM Cleo Generic * Over the past 2 weeks, how often have you been bothered by any of the following problems?QuestionAnswerDate of AssessmentAuthorLittle interest or pleasure in doing thingsNot at all10/08/2024 1:00 PM Arina Forman MA Feeling down, depressed, or hopelessNot at all10/08/2024 1:00 PM Arina Forman MAPatient Health Questionnaire-2 Ynmyn855 1:00 PM Arina Forman MA * QuestionAnswerDate [...] television Not at all10/08/2024 1:00 PM Arina Forman, MAMoving or speaking so slowly that other people could have noticed? Or the opposite - being so fidgety or restless that you have been moving around a lot more than usual.Not at all 10/08/2024 1:00 PM Arina Forman MAThoughts that you would be better off or hurting yourself in some wayNot at all10/08/2024 1:00 PM Arina Forman MAPatient Health Questionnaire-9 Ojowp828 1:00 PM Arina Forman MA documented as of this encounter Plan of Treatment Not on file documented as of this encounter Procedures Procedure NamePriorityDate/TimeAssociated DiagnosisCommentsXR FOOT LT MIN 3V 11/15/2023 11:13 AM EST documented in this encounter Results * XR FOOT LT MIN 3V (11/15/2023 11:13 AM EST)Anatomical RegionLateralityModality OtherSpecimen (Source)Anatomical Location / LateralityCollection Method / VolumeCollection TimeReceived Time11/15/2023 11:13 AM EST Narrative 11/15/2023 11:15 AM EST [facility] ?[address] ? [place] [address] ?XRay Report ? Signed ? Patient: RENATE BRADFORD ?MR#: [id number] ?? : 1940 ?Acct:[id number] ?? Age/Sex: 83 / F ?ADM Date: 11/15/23 ?? Loc: RAD ? Attending Dr: Dilip Reyes M.D. ? Ordering Physician: Dilip Reyes M.D. ?? Date of Service: 11/15/23 ?? Procedure(s): XR foot LT min 3V ?? Accession Number(s): [id number] ? cc: Dilip Reyes M.D. ? [facility] ? [address] ? [place] [address] ? Patient Name: ?? RENATE BRADFORD ? MRN: [facility]:[id number] ? date: 1940 ?Sex: F ?? Assigned Patient Location: RAD ?? Current Patient Location: RAD ?? Accession/Order Number: [id number] ?? Exam Date: 11/15/2023 ??10:40 ?Report Date: 11/15/2023 ??11:13 ? At the request of: ?? DILIP ??NADERER ? Procedure: ??XR foot LT min 3V ? PROCEDURE: XR foot LT min 3V ? COMPARISON: None. ? HISTORY: Left Foot Pain M79.672 ? FINDINGS: ?? BONES:Lucency and cortical discontinuity identified along the distal diaphysis ? of the third metatarsal best seen on image #3. No additional fracture or ?? dislocation. Mild enthesopathic spurring plantar calcaneus ?? SOFT TISSUES:Negative. No visible soft tissue swelling. ?? EFFUSION:None visible. ?? OTHER: Vascular calcifications. ? Call results initiated through operations ? XR/XR foot LT min 3V ?? IMPRESSION: ? Acute extra-articular fracture neck of the third metatarsal ? Electronically authenticated by: JASMEET ??SILVINA ?? Date: 11/15/2023 ??11:13 ? Dictated By: ?Jasmeet Cool M.D. ? Signed By: ?11/15/23 1115 ? DD/ 1113 ? TD/TT: ? Improvement Auditor: Procedure Note Radiology, Radiologist, - 11/15/[address] [address] XRay Report Signed Patient: RENATE BRADFORD R#: [id number] : 1940Acct:[id number] Age/Sex: 83 / FADM Date: 11/15/23 Loc: RAD Attending Dr: Dilip Reyes M.D. Ordering Physician: Dilip Reyes M.D. Date of Service: 11/15/23 Procedure(s): XR foot LT min 3V Accession Number(s): [id number] cc: Dilip Reyes M.D. The [address] [address] Patient Name: RENATE BRADFORD MRN: [id number] date: 1940 Sex: F Assigned Patient [facility]: [facility] Current Patient Location: RAD Accession/Order Number: [id number] Exam Date: 11/15/2023 10:40 Report Date: 11/15/2023 [...] M.D. Signed By:11/15/23 1115 DD/ 1113 TD/TT: Improvement Auditor: Authorizing ProviderResult TypeResult StatusMarc Philomena MDCLINISYNC IMAGING Final Result documented in this encounter Visit Diagnoses Not on filedocumented in this encounter Care Teams Team MemberRelationshipSpecialtyStart DateEnd Date Seema Durham MD [address] [place] [address] PCP - External PCPFamily Medicine02/19/23 Dilip Reyes MD [address] [place] [address] PCP - GeneralFamily Medicine10/10/23 Aicha Alvarado LPN Licensed Practical NurseFamily Medicinedocumented as of this encounter
--- OUTSIDE RECORDS SUMMARY | 2025-07-12 08:46 | XMS_ITS | Patient Health Record ---
Author Organization [facility] [place] Address [address] [place] [address] Care Team Providers Care Dredge Deckhand Name Role Phone Ken Quach MD Primary Care Provider Unavailab ly Adolfo Baptiste Unavailable [phone] Allergies Allergen (clinical drug ingredient) Drug/Non Drug Allergy documented on EMR Reaction Allergy Type Onset Date Status atorvastatin Lipitor Diarrhea Drug Allergy ActivelisinoprilLisinoprilCoughDrug AllergyActive Reason For Referral No Information Medications Medication SIG (Take, Route, Frequency, Duration) Notes Start Date End Date Status Synthroid 50 MCG Oral; Duration: 90 Days ActiveTrelegy Ellipta 100-62.5-25 MCG/ACT 1 puff Inhalation Once a day; Duration: 30 days Rinse after use 05/16/2024ctiveLevothyroxine Sodium 50 MCGOral; Duration: 90 DaysActive Carvedilol 25 MGOral; Duration: 90 DaysActiveAlbuterol Sulfate HFA 108 (90 Base) MCG/ACTInhalation; Duration: 16 DaysActiveAtorvastatin Calcium 20 MGOral; Duration: 90 DaysActive Immunizations Vaccine Route Administration Date Status Comme nts Arexvy Unknown 07/31/2023 Administered Flu, Fluzone High-Dose (8731-6443) (29474) 65 yrs+Uaylfay1607/31/2023dministered Pneumococcal (Prevnar 20)Jwtides9108/12/2023dministeredSpikevax Moderna Syringe Pre-Filled 50 mcg/0.5 dTVjmclba06/01/2023dministeredTdap (Boostrix)Unknown 2AdministeredZOSTER (SHINGLES) VACCINE (HZV)Dwbelwh7203/19/2024 Administered Social History Tobacco Use: Social History Observation Description Date Details (start date - stop date) Former Smoker NA - NA Tobacco Control (Standard) Question Answer Notes Tobacco use: Former smoker How long has it been since you last smoked?Greater than 10 yearsAdditional Findings: Tobacco dsi-rgssHv-znfiy cigarette smoker (1-9/day) Problems Problem Type SNOMED Code ICD Code Onset Dates Problem Status W/U Status Risk Notes Problem Obesity (178378495) Obesity, unspecified (E66.9) ActiveconfirmedProblemUncomplicated moderate persistent asthma (360147455) Moderate persistent asthma, uncomplicated (J45.40)ActiveconfirmedProblemLong- term current use of inhaled steroid (359057555)custodial (current) use of inhaled steroids (Z79.51)ActiveconfirmedProblemDiabetes mellitus type 2 (disorder) (50526774)DM2 (diabetes mellitus, type 2) (E11.9)Activeconfirmed ProblemNon-allergic rhinitis (939458802728)Nonallergic rhinitis (J31.0)Active confirmedProblemCalcified granuloma of lung (96819587709930474)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)ActiveconfirmedProblemSecondary pulmonary hypertension (52799209)Other secondary pulmonary hypertension (I27.29)ActiveconfirmedProblem Calcified lymph nodes (055246351)Calcified lymph nodes (I89.8)Activeconfirmed ProblemDiastolic dysfunction (7729864)Diastolic dysfunction (I51.89)Active confirmedProblemBody mass index 30.00 to 34.99 (339233710450687)Body mass index [BMI] 32.0-32.9, adult (Z68.32)Activeconfirmed Encounters Encounter Location Date Provider Diagnosis [facility] [place] [address] [place] [address] 08/15/2024 Adolfo Baptiste Plan Of Treatment Pending Test Test Name Order Date XR foot LT min 3V 12/09/2023 Insurance Providers Payer Name Payer Address Payer Phone Subscriber Number Group Number Insured Name Patient Relationship to Insured Coverage Start Date Coverage End Date [employer] ADV PLAN [address] [place] [address] [id number] [id number] Self - patient is the insured 4 Medical (General) History Medical History History ICD Code Moderate persistent asthma, uncomplicate d J45.40 Other secondary pulmonary hypertension I 27.29 Calcified granuloma of lung J84.10 Calcified lymph nodes I89.8 Nonallergic rhinitis J31.0 DM2 (diabetes mellitus, type 2) E11.9 HTN (hypertension) I10 Diastolic dysfunction I51.89 Nonsustained ventricular tachycardia I47 .29 QT prolongation I45.81 HLD (hyperlipidemia) E78.5 Hypothyroidism E03.9 Vitamin D deficiency E55.9 Surgical History Surgery Date(Month/Year) hysterectomy nerve graftLoop Recorder Implant
--- OUTSIDE RECORDS SUMMARY | 2025-07-12 08:46 | XMS_ITS | Encounter Summary ---
Author Organization [facility] Address [address] [place] [address] Care Team Providers Care Plastic Installer Name Role Phone Seema Durham MD Unavailable [phone] Ken Quach MD Primary Care Provider [phone] Encounter Details DateTypeDepartmentCare Team (Latest Contact Info)Ielxnuwzoew80/17/2024Clinisync Result Encounter [facility] External Department Unsolicited Provider, Generic External Data Social History Tobacco UseTypesPacks/DayYears UsedDateSmoking Tobacco: NeverSmokeless Tobacco: [id number] Health LiteracyAnswerDate RecordedHow often do you need [...] times a week02/28/2024How often do you attend mandaen or adventist services?More than 4 times per year4Do you belong to any clubs or organizations such as mandaen groups, unions, fraternal or athletic groups, or [...] at all 02/28/2024HQ-2AnswerDate RecordedPatient Health Questionnaire-2 Score0 10/08/2024[facility] [place] [facility] Occup[facility] - Occupational Stress QuestionnaireAnswerDate [...] were you homeless or living in a mcfp (including now)? No4CommentsUnknownSex and Gender InformationValueDate Recorded Sex Assigned at BirthNot on fileLegal NvjWtvpqn01/15/2023 6:36 PM EDTGender IdentityNot on fileSexual OrientationNot on filedocumented as of this encounter Functional Status * AUDIT-C ScoreAnswerDate of SgrkavmyuiAkwfgs741/18/2024 9:53 AM Yuval Gallo * Q1: How often do you have a drink containing alcohol?AnswerDate of Assessment GevxllIdpod82/18/2024 9:53 AM Yuval Gallo * Q2: How many drinks containing alcohol do you have on a typical day when you are drinking?AnswerDate of AssessmentAuthorPatient does not drink02/28/2024 9:53 AM Yuval Gallo * Q3: How often do you have six or more drinks on one occasion?AnswerDate of VfgqharwpdOrfmmcIptrq84/18/2024 9:53 AM Yuval Gallo * Over the past 2 weeks, how often have you been bothered by any of the following problems?QuestionAnswerDate of AssessmentAuthorLittle interest or pleasure in doing thingsNot at all10/08/2024 1:00 PM Arina Forman MA Feeling down, depressed, or hopelessNot at all10/08/2024 1:00 PM Arina Forman MAPatient Health Questionnaire-2 Tyaes505 1:00 PM Arina Forman MA * QuestionAnswerDate [...] usual.Not at all 10/08/2024 1:00 PM Arina Forman, MAThoughts that you would be better off or hurting yourself in some wayNot at all10/08/2024 1:00 PM Arina Forman, MAPatient Health Questionnaire-9 Uqeoz689 1:00 PM Arina Forman MA documented as of this encounter Plan of Treatment Not on file documented as of this encounter Procedures Procedure NamePriorityDate/TimeAssociated DiagnosisCommentsXR FOOT LT MIN 3V 01/27/2024 6:35 AM EDT documented in this encounter Results * XR FOOT LT MIN 3V (01/27/2024 6:35 AM EDT)Anatomical RegionLateralityModality OtherSpecimen (Source)Anatomical Location / LateralityCollection Method / VolumeCollection TimeReceived Time01/27/2024 6:35 AM EDT Narrative 01/27/2024 6:38 AM EDT [facility] ?[address] ? [place] [address] ?XRay Report ? Signed ? Patient: RENATE BRADFORD ?MR#: [id number] ?? : 1940 ?Acct:[id number] ?? Age/Sex: 83 / F ?ADM Date: 01/26/24 ?? Loc: EC ? Attending Dr: Lizbet Milian ? Ordering Physician: Lizbet Milian ?? Date of Service: 01/26/24 ?? Procedure(s): XR foot LT min 3V ?? Accession Number(s): [id number] ? cc: Lizbet Milian; Ken Quach M.D. ? [facility] ? [address] ? [place] [address] ? Patient Name: ?? RENATE BRADFORD ? MRN: [id number] ? date: 1940 ?Sex: F ?? Assigned Patient Location: EC ?? Current Patient Location: ? Accession/Order Number: [id number] ?? Exam Date: 01/26/2024 ??09:59 ?Report Date: 01/27/2024 ??06:35 ? At the request of: ?? LIZBET ??RUKHSANA ? Procedure: ??XR foot LT min 3V ? PROCEDURE: XR foot LT min 3V ? HISTORY: LEFT FOOT PAIN ; follow-up third metatarsal stress fracture ? COMPARISON: XR foot left 12/29/2023 ? FINDINGS: ?? BONES:Increasing callus formation along margin of distal third metatarsal and ?? increasing density of the fracture line. Normal alignment is maintained. ?? Grossly stable multifocal mild degenerative joint disease. ?? SOFT TISSUES:No visible soft tissue swelling. ?? EFFUSION:None visible. ?? OTHER: Negative. ? XR/XR foot LT min 3V ?? IMPRESSION: ? 1. Stable alignment and ongoing bone healing of third metatarsal fracture. ? Electronically authenticated by: OMI ??VISH ?? Date: 01/27/2024 ??06:35 ? Dictated By: ?Omi Gamboa M.D. ? Signed By: ?01/27/2438 ? DD/ 0635 ? TD/TT: ? Sander Machine: Procedure Note Radiology, Radiologist, MD - 01/27/2024 [place] [address] XRay Report Signed Patient: RENATE BRADFORD JMR#: [id number] : 1940Acct:[id number] Age/Sex: 83 / FADM Date: 01/26/24 Loc: EC Attending Dr: Lizbet Milian Ordering Physician: Lzibet Milian Date of Service: 01/26/24 Procedure(s): XR foot LT min 3V Accession Number(s): [id number] cc: Lizbet Milian; Ken Quach M.D. The [address] [address] Patient Name: RENATE BRADFORD MRN: [id number] date: 1940 Sex: F Assigned Patient Location: EC Current Patient Location: Accession/Order Number: [id number] Exam Date: 01/26/2024 09:59 Report Date: 01/27/2024 [...] Omi Gamboa M.D. Signed By:01/27/2438 DD/ TD/TT: Sander Machine: Authorizing ProviderResult TypeResult StatusGeneric External Data Provider CLINISYNC IMAGINGFinal Result documented in this encounter Visit Diagnoses Not on filedocumented in this encounter Care Teams Team MemberRelationshipSpecialtyStart DateEnd Date Seema Durham MD [address] [place] [phone] PCP - External PCPFamily Medicine02/19/23 Ken Quach MD [address] [place] [phone] PCP - GeneralFamily Medicine10/10/23documented as of this encounter
--- OUTSIDE RECORDS SUMMARY | 2025-07-12 08:46 | XMS_ITS | Encounter Summary ---
Author Organization [facility] Address [address] [place] [address] Care Team Providers Care Rn Referral Name Role Phone Seema Durham MD Unavailable Ken Quach MD Primary Care Provider [phone] Aicha Alvarado LPN Unavailable Unavailable Encounter Details DateTypeDepartmentCare Team (Latest Contact Info)Dxvseybmejp19/29/2024Clinisync Result Encounter [facility] External Department Unsolicited Provider, Generic External Data Social History Tobacco UseTypesPacks/DayYears UsedDateSmoking Tobacco: NeverSmokeless Tobacco: [id number] Health LiteracyAnswerDate RecordedHow often do you need [...] times a week02/28/2024How often do you attend alevism or alevism services?More than 4 times per year02/28/2024o you belong to any clubs or organizations such as alevism groups, unions, fraternal or athletic groups, or [...] at all 02/28/2024HQ-2AnswerDate RecordedPatient Health Questionnaire-2 Score0 10/08/2024[facility] [place] of Occupational Health - Occupational Stress QuestionnaireAnswerDate [...] or living in a alf (including now)? No4CommentsUnknownSex and Gender InformationValueDate Recorded Sex Assigned at BirthNot on fileLegal OmhYklwzp99/15/2023 6:36 PM EDTGender IdentityNot on fileSexual OrientationNot on filedocumented as of this encounter Functional Status * AUDIT-C ScoreAnswerDate of TqphbywxcxVlyzmw752/18/2024 9:53 AM Yuval Gallo * Q1: How often do you have a drink containing alcohol?AnswerDate of Assessment WixalsXvdjp31/18/2024 9:53 AM Cleo Generic * Q2: How many drinks containing alcohol do you have on a typical day when you are drinking?AnswerDate of AssessmentAuthorPatient does not drink02/28/2024 9:53 AM Cleo Generic * Q3: How often do you have six or more drinks on one occasion?AnswerDate of KrqbtvlxytWlwlflUgyrq97/18/2024 9:53 AM Yuval Gallo * Over the past 2 weeks, how often have you been bothered by any of the following problems?QuestionAnswerDate of AssessmentAuthorLittle interest or pleasure in doing thingsNot at all10/08/2024 1:00 PM Arina Forman MA Feeling down, depressed, or hopelessNot at all10/08/2024 1:00 PM Arina Forman MAPatient Health Questionnaire-2 Ynrwa587 1:00 PM Arina Forman MA * QuestionAnswerDate [...] your family downNot at all10/08/2024 1:00 PM ESTMeyer, Arina, MATrouble concentrating on things, such as reading [...] 1:00 PM Arina Forman MAPatient Health Questionnaire-9 Nejqv135 1:00 PM Arina Forman MA documented as of this encounter Plan of Treatment Not on file documented as of this encounter Procedures Procedure NamePriorityDate/TimeAssociated DiagnosisCommentsXR FOOT LT MIN 3V 12/09/2023 7:08 AM EDT documented in this encounter Results * XR FOOT LT MIN 3V (12/09/2023 7:08 AM EDT)Anatomical RegionLateralityModality OtherSpecimen (Source)Anatomical Location / LateralityCollection Method / VolumeCollection TimeReceived Time12/09/2023 7:08 AM EDT Narrative 12/09/2023 7:11 AM EDT [facility] ?[address] ? [place] [address] ?XRay Report ? Signed ? Patient: RENATE BRADFORD ?MR#: [id number] ?? : 1940 ?Acct:[id number] ?? Age/Sex: 83 / F ?ADM Date: 12/08/23 ?? Loc: EC ? Attending Dr: Lizbet Milian ? Ordering Physician: Lizbet Milian ?? Date of Service: 12/08/23 ?? Procedure(s): XR foot LT min 3V ?? Accession Number(s): [id number] ? cc: Lizbet Milian; Ken Quach M.D. ? [facility] ? [address] ? [place] [address] ? Patient Name: ?? RENATE BRADFORD ? MRN: [facility]:[id number] ? date: 1940 ?Sex: F ?? Assigned Patient Location: EC ?? Current Patient Location: ? Accession/Order Number: [id number] ?? Exam Date: 12/08/2023 ??13:45 ?Report Date: 12/09/2023 ??07:08 ? At the request of: ?? LIZBET ??RUKHSANA ? Procedure: ??XR foot LT min 3V ? PROCEDURE: XR foot LT min 3V ? HISTORY: LEFT FOOT PAIN ? COMPARISON: XR foot left 11/15/2023 ? FINDINGS: ?? BONES:Subacute fracture involving the neck of the third metatarsal with callus ? formation along the margins. Relatively normal alignment is maintained. Mild ?? degenerative changes of the first metatarsophalangeal joint. Small calcaneal ?? plantar spur and mild flattening of plantar arch. ?? SOFT TISSUES:No visible soft tissue swelling. ?? EFFUSION:None visible. ?? OTHER: Negative. ? XR/XR foot LT min 3V ?? IMPRESSION: ? 1. Stable alignment and ongoing changes of early bone healing involving third ?? metatarsal fracture. ? Electronically authenticated by: OMI ??VISH ?? Date: 12/09/2023 ??07:08 ? Dictated By: ?Omi Gamboa M.D. ? Signed By: ?12/09/23 0711 ? DD/ 0708 ? TD/TT: ? Shafting Cleaner: Procedure Note Radiology, Radiologist, - 12/09/[address] [address] XRay Report Signed Patient: RENATE BRADFORD R#: [id number] : 1940Acct:[id number] Age/Sex: 83 / FADM Date: 12/08/23 Loc: EC Attending Dr: Lizbet Milian Ordering Physician: Lizbet Milian Date of Service: 12/08/23 Procedure(s): XR foot LT min 3V Accession Number(s): [id number] cc: Lizbet Milian; Ken Quach M.D. The [address] [address] Patient Name: RENATE BRADFORD MRN: [id number] date: 1940 Sex: F Assigned Patient Location: EC Current Patient Location: Accession/Order Number: [id number] Exam Date: 12/08/2023 13:45 Report Date: 12/09/2023 07:08 At the request of: LIZBETLEXIE MILIAN Procedure: XR foot LT min 3V [...] 07:08 Dictated By: Omi Gamboa M.D. Signed By:12/09/2311 DD/ TD/TT: Shafting Cleaner: Authorizing ProviderResult TypeResult StatusGeneric External Data Provider CLINISYNC IMAGINGFinal Result documented in this encounter Visit Diagnoses Not on filedocumented in this encounter Care Teams Team MemberRelationshipSpecialtyStart DateEnd Date Seema Durham MD [address] [place] [address] PCP - External PCPFamily Medicine02/19/23 Ken Quach MD [address] [place] [phone] PCP - GeneralFamily Medicine10/10/23 Aicha Alvarado LPN Licensed Practical NurseFamily Medicinedocumented as of this encounter
--- OUTSIDE RECORDS SUMMARY | 2025-07-12 08:46 | XMS_ITS | Clinical Summary ---
Author Organization [facility] Address [address] [place] [address] Care Team Providers Care Embedded Software Test Engineer Name Role Phone Ken Quach MD Primary Care Provider [phone] Allergies Active AllergyReactionsCriticalityNoted IaiuYwzfqgpwOwjpdgkbvywd81/23/2022 Vsmdednmvh68/23/2022 Medications MedicationSigDispense QuantityRefillsLast FilledStart DateEnd DateStatus amLODIPine (Norvasc) 5 mg tablet Take by mouth 1 (one) time each day.Active aspirin 81 mg EC tablet Take 81 mg by mouth in the morning.Active carvedilol (Coreg) 25 mg tablet Take by mouth in the morning.Active FLUoxetine (PROzac) 10 mg capsule Take 10 mg by mouth in the morning.Active hydroCHLOROthiazide (HYDRODiuril) 25 mg tablet Take 25 mg by mouth in the morning.Active levothyroxine (Synthroid, Levoxyl) 50 mcg tablet Take 50 mcg by mouth before breakfast.Active montelukast (Singulair) 10 mg tablet Take 10 mg by mouth at bedtime.Active cholecalciferol, vitamin D3, (VITAMIN D3 ORAL) Take 125 mg by mouth.Active albuterol 90 mcg/actuation inhaler Inhale 1-2 puffs every 6 (six) hours if needed.10/11/2022ctive albuterol 2.5 mg /3 mL (0.083 %) nebulizer solution 10/12/2022ctive aspirin 81 mg chewable tablet Indications:Coronary artery disease, unspecified vessel or lesion type, unspecified whether angina present, unspecified whether [place] or transplanted heartCHEW ONE TABLET BY MOUTH DAILY 90 tablet ctive atorvastatin (Lipitor) 20 mg tablet Indications:Hyperlipidemia, unspecified hyperlipidemia typeTake 1 tablet (20 mg) by mouth at bedtime. 90 tablet ctive cetirizine (ZyrTEC) 10 mg tablet Take 1 tablet by mouth in the morning.Active clotrimazole-betamethasone (Lotrisone) cream Apply topically twice a day.10/17/2023ctive fluticasone (Flonase) 50 mcg/actuation nasal spray 2 sprays in the morning.Active Active Problems ProblemNoted DateDiagnosed DateLeft foot pain11/15/2023 Overview (05/02/2024): Last Assessment & Plan: Pain after increased activity and likely OA. Check x-ray. Start prednisone. Ice and elevated PRN. If no improvement will need PT. Candidal skin icqkuqptj65 Overview (11/08/2023): Last Assessment & Plan: Skin appears to be yeast and treat with oral diflucan and cream Major depressive disorder, recurrent episode, mildenal artery afmlmobi74Vitamin D Pleuritic chest pain08/18/2022 Overview (08/18/2022): Labs Reviewed CBC WITH AUTO [...] F/U with PCP Encounter for loop recorder check08/18/2022 Assessment & Plan (08/18/2022 3:16 PM EST): Loop recorder site well healed Message sent to Device nurse Servando Gonzalez RN at [facility] to see if there are any transmissions or concerns for this pt. 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 States at home b/p is 110-120/60-70 Renal function normal at recent ED evaluation Zsmrkco5405/04/2022 Assessment & Plan (08/18/2022 3:16 PM EST): No syncope since last visit Mild persistent xnskkv705487Vpmyfsc96/23/2022yncope and vxeeomsu06/23/2022 Degeneration of intervertebral disc04/07/20223311Vvmxkvxjunggho81/27/2022Major depressive uzqtiswq08/27/2022Type 2 diabetes gppbnsjo48/27/2022Hypertensive ptesqlbr47/27/7810Pnzipnjlqgqgqgo05/27/2022hronic seasonal allergic rhinitis 4Pulmonary tdihxfldf324Pulmonary infiltrate in right lung on CXR Encounters DateTypeDepartmentCare ThklTvkwuyfltpm41/20/2025Orders Only [facility] [address] [place] [address] Frank Martines MD 06/17/2025 11:00 AM EDTAncillary Procedure [facility] [address] [place], [place] [address] [place] [address] Awareness of gsoyxueelo45/19/2025 1:30 PM EDTAncillary Procedure [facility] [address] [place] [address] Awareness of bavwtvdjpp46/19/2025Orders Only [facility] [address] [place] [address] Frank Martines MD from Last 3 Months Immunizations ImmunizationAdministration DatesNext DueInfluenza Whole06/21/2012Influenza, injectable, quadrivalent, preservative free06/20/2019,07/14/2015Influenza, seasonal, lpkyqagyvy14/20/2017Pneumococcal Conjugate PCV 13011/01/2016Tdap 12/31/2021 Family History Medical HistoryRelationNameCommentsStrokeMotherRelationNameStatusCommentsMother Social History Tobacco UseTypesPacks/DayYears UsedDateSmoking Tobacco: FormerCigarettes Smokeless Tobacco: NeverAlcohol UseStandard Drinks/WeekCommentsNot Currently0 (1 standard drink = 0.6 oz pure alcohol)MS Safety & EnvironmentAnswerDate Recorded Fear of Current or Ex-PartnerNot on file11/03/2023Emotionally AbusedNot on file 11/03/2023hysically AbusedNot on file11/03/2023Sexually AbusedNot on file 11/03/2023hysically or Sexually AbusedNot on file11/03/2023CommentsNo Sex and Gender InformationValueDate RecordedSex Assigned at BirthChoose not to pvcsoqcz55/21/2025 9:48 PM EDTLegal OzdVjbzrv42/29/2022 10:31 PM EDTGender IdentityChoose not to qautkzfh45/21/2025 9:48 PM EDTSexual OrientationChoose not to dddahhhe48/21/2025 9:48 PM EDT Last Filed Vital Signs Vital SignReadingTime TakenCommentsBlood Hgizafrd122/8911/09/2022 11:08 AM EST Dugdj332111/09/2022 11:08 AM ESTTemperature--Respiratory Mvaf421309/18/2021 2:38 PM ESTOxygen Nfxdoaahgm32%07/19/2022 2:38 PM ESTInhaled Oxygen Concentration-- Zouydd22.3 kg (170 lb 6.4 oz)11/09/2022 11:08 AM FIWLcbfbb998.9 cm (5' 1 ) 11/09/2022 11:08 AM ESTBody Mass Index32. 11:08 AM EST Plan of Treatment Health MaintenanceDue DateLast DoneCommentsMedicare Annual Wellness (AWV) 1940Diabetes: Retinopathy Fvvoltkel16/05/1950Depression Screening 1951Zoster Vaccines (1 of 2)1989Fall Risk Goyycinjs23/05/2005 Pneumococcal Vaccine: 50+ Years (2 of 2 - PPSV23, PCV20, or PCV21)12/27/2016 11/01/2016COVID-19 Vaccine (1 - season)2025Influenza Vaccine (#1) /05/2019, 08/01/2017, 07/14/2015, Additional history existsDiabetes: Hemoglobin A1C5004/09/2025, 10/10/2024Diabetes: Urine Protein Screening 601/dult Fdnzvkv56/HIB VaccinesAged OutNo longer eligible based on patient's age to complete this topicHPV VaccinesAged OutNo longer eligible based on patient's age to complete this topicIPV Vaccines Aged OutNo longer eligible based on patient's age to complete this topic Meningococcal B VaccineAged OutNo longer eligible based on patient's age to complete this topicMeningococcal VaccineAged OutNo longer eligible based on patient's age to complete this topicRotavirus VaccinesAged OutNo longer eligible based on patient's age to complete this topic Medical Devices ImplantedTypeAreaManufacturerDevice IdentifierShelf Expiration DateModel / Serial / LotMonitor,Cardiac,Mobile,Luxdx - [id number] - [id number] Implanted:Qty: 1 on 07/19/2022 by Deepak Baker [facility] CenterImplantable Loop RecorderBoston [id number]/03/2024 [id number] / [id number] / Procedures Procedure NamePriorityDate/TimeAssociated DiagnosisCommentsCARDIAC DEVICE CHECK CHECK - FVFOTJCidlowq71/23/2025 2:57 PM EDT Awareness of heartbeats CARDIAC DEVICE CHECK - REMOTE - LOOP RECORDER (ILR)Fqxqrcg1607/01/2025 12:00 AM EDTCARDIAC DEVICE CHECK CHECK - UCGJCQGqmwzhy02/21/2025 3:08 PM EDT Awareness of heartbeats CARDIAC DEVICE CHECK - REMOTE - LOOP RECORDER (ILR)Vfzviff5204/30/2025 12:00 AM EDTfrom Last 3 Months Results * CARDIAC DEVICE CHECK - REMOTE - LOOP RECORDER (ILR) (07/04/2025 2:57 PM EDT) Only the most recent of2 resultswithin the time period is included. Specimen (Source)Anatomical Location / LateralityCollection Method / Volume Collection TimeReceived Time Narrative Authorizing ProviderResult TypeResult StatusBlair Jovita [facility] [place] C[place]IAC DEVICE PROCEDURESFinal ResultPerforming OrganizationAddressCity/State/ZIP Code Phone Number CPACS * Cardiac device check - Remote loop recorder (ILR) (07/01/2025 12:00 AM EDT) Only the most recent of2 resultswithin the time period is included. Anatomical RegionLateralityModalityOtherSpecimen (Source)Anatomical Location / LateralityCollection Method / VolumeCollection TimeReceived Time07/01/2025 Narrative Authorizing ProviderResult TypeResult StatusFrank Martines [facility] [place] IMPL[place] CARDIAC DEVICE PROCEDURESFinal Result from Last 3 Months Insurance Care Teams Team MemberRelationshipSpecialtyStart DateEnd Date Ken Quach MD [address] [place] [address] PCP - General05/04/22
--- OUTSIDE RECORDS SUMMARY | 2025-07-12 08:46 | XMS_ITS | Encounter Summary ---
Author Organization [facility] Address [address] [place] [address] Care Team Providers Care Coffee Shop Attendant Name Role Phone Seema Durham MD Unavailable [phone] Ken Quach MD Primary Care Provider [phone] Encounter Details DateTypeDepartmentCare Team (Latest Contact Info)Ttjiexlelwm21/12/2024Clinisync Result Encounter [facility] External Department Unsolicited Provider, Generic External Data Social History Tobacco UseTypesPacks/DayYears UsedDateSmoking Tobacco: NeverSmokeless Tobacco: [id number] Health LiteracyAnswerDate RecordedHow often do you need [...] times a week02/28/2024How often do you attend anabaptist or evangelical services?More than 4 times per year4Do you belong to any clubs or organizations such as anabaptist groups, unions, fraternal or athletic groups, or [...] at all 02/28/2024HQ-2AnswerDate RecordedPatient Health Questionnaire-2 Score0 10/08/2024[facility] [place] [facility] Occup[facility] - Occupational Stress QuestionnaireAnswerDate [...] living in a group home (including now)? No4CommentsUnknownSex and Gender InformationValueDate Recorded Sex Assigned at BirthNot on fileLegal PqzYogcjd93/15/2023 6:36 PM EDTGender IdentityNot on fileSexual OrientationNot on filedocumented as of this encounter Functional Status * Over the past 2 weeks, how often have you been bothered by any of the following problems?QuestionAnswerDate of AssessmentAuthorLittle interest or pleasure in doing thingsNot at all10/08/2024 1:00 PM Arina Forman MA Feeling down, depressed, or hopelessNot at all10/08/2024 1:00 PM Arina Forman MAPatient Health Questionnaire-2 Pudfs623 1:00 PM Arina Forman MA * QuestionAnswerDate [...] 1:00 PM Arina Forman MAPatient Health Questionnaire-9 Qbhfv393 1:00 PM Arina Forman MA documented as of this encounter Plan of Treatment Not on file documented as of this encounter Procedures Procedure NamePriorityDate/TimeAssociated DiagnosisCommentsXR FOOT LT MIN 3V 03/23/2024 7:57 AM EDT documented in this encounter Results * XR FOOT LT MIN 3V (03/23/2024 7:57 AM EDT)Anatomical RegionLateralityModality OtherSpecimen (Source)Anatomical Location / LateralityCollection Method / VolumeCollection TimeReceived Time03/23/2024 7:57 AM EDT Narrative 03/23/2024 8:00 AM EDT [facility] ?[address] ? [place] [address] ?XRay Report ? Signed ? Patient: RENATE BRADFORD ?MR#: [id number] ?? : 1940 ?Acct:[id number] ?? Age/Sex: 83 / F ?ADM Date: 03/22/24 ?? Loc: EC ? Attending Dr: Lizbet Milian ? Ordering Physician: Lizbet Milian ?? Date of Service: 03/22/24 ?? Procedure(s): XR foot LT min 3V ?? Accession Number(s): [id number] ? cc: Lizbet Milian; Ken Quach M.D. ? [facility] ? [address] ? [place] [address] ? Patient Name: ?? RENATE BRADFORD ? MRN: [facility]:[id number] ? date: 1940 ?Sex: F ?? Assigned Patient Location: EC ?? Current Patient Location: ? Accession/Order Number: [id number] ?? Exam Date: 03/22/2024 ??10:00 ?Report Date: 03/23/2024 ??07:57 ? At the request of: ?? LIZBET ??RUKHSANA ? Procedure: ??XR foot LT min 3V ? PROCEDURE: XR foot LT min 3V ? COMPARISON: 01/26/2024 ? HISTORY: LEFT FOOT PAIN ? FINDINGS: ?? BONES:No acute fracture or dislocation. Hallux valgus. Moderate degenerative ?? changes with joint space narrowing marginal osteophyte formation. Plantar ?? enthesopathic spurring of the calcaneus ?? SOFT TISSUES:Negative. No visible soft tissue swelling. ?? EFFUSION:None visible. ?? OTHER: Negative. ? XR/XR foot LT min 3V ?? IMPRESSION: ? Moderate degenerative changes with hallux valgus ? Electronically authenticated by: JASMEET ??SILVINA ?? Date: 03/23/2024 ??07:57 ? Dictated By: ?Jasmeet Cool M.D. ? Signed By: ?03/23/24 0800 ? DD/ 0757 ? TD/TT: ? Car Retarder Operator: Procedure Note Radiology, Radiologist, MD - 03/23/2024 [place] [address] XRay Report Signed Patient: RENATE BRADFORD JMR#: [id number] : 1940Acct:[id number] Age/Sex: 83 / FADM Date: 03/22/24 Loc: Attending Dr: Lizbet Milian Ordering Physician: Lizbet Milian Date of Service: 03/22/24 Procedure(s): XR foot LT min 3V Accession Number(s): [id number] cc: Lizbet Milian; Ken Quach M.D. The [place] [id number] Patient Name: RENATE BRADFORD MRN: [id number] date: 1940 Sex: F Assigned Patient Location: Current Patient Location: Accession/Order Number: [id number] Exam Date: 03/22/2024 10:00 Report Date: 03/23/2024 [...] M.D. Signed By:03/23/24 0800 DD/ 0757 TD/TT: Car Retarder Operator: Authorizing ProviderResult TypeResult StatusGeneric External Data Provider CLINISYNC IMAGINGFinal Result documented in this encounter Visit Diagnoses Not on filedocumented in this encounter Care Teams Team MemberRelationshipSpecialtyStart DateEnd Date Seema Durham MD [address] [place] [phone] PCP - External PCPFamily Medicine02/19/23 Ken Quach MD [address] [place] [address] PCP - GeneralFamily Medicine10/10/23documented as of this encounter
--- OUTSIDE RECORDS SUMMARY | 2025-07-12 08:46 | XMS_ITS | Encounter Summary ---
Author Organization [facility] Address [address] [place] [address] Care Team Providers Care Post Anesthesia Care Unit Nurse Name Role Phone Seema Durham MD Unavailable [phone] Ken Quach MD Primary Care Provider [phone] Aicha Alvarado LPN Unavailable Unavailable Encounter Details DateTypeDepartmentCare Team (Latest Contact Info)Vjduhvfvsgv68/19/2024Clinisync Result Encounter [facility] External Department Unsolicited Provider, Generic External Data Social History Tobacco UseTypesPacks/DayYears UsedDateSmoking Tobacco: NeverSmokeless Tobacco: [id number] Health LiteracyAnswerDate RecordedHow often do you need [...] times a week02/28/2024How often do you attend pentecostal or scientologist services?More than 4 times per year02/28/2024o you belong to any clubs or organizations such as pentecostal groups, unions, fraternal or athletic groups, or [...] at all 02/28/2024HQ-2AnswerDate RecordedPatient Health Questionnaire-2 Score0 10/08/2024[facility] [place] [facility] Occupational Health - Occupational Stress QuestionnaireAnswerDate [...] were you homeless or living in a long term (including now)? No4CommentsUnknownSex and Gender InformationValueDate Recorded Sex Assigned at BirthNot on fileLegal IdwHqknql06/15/2023 6:36 PM EDTGender IdentityNot on fileSexual OrientationNot on filedocumented as of this encounter Functional Status * AUDIT-C ScoreAnswerDate of NwqzvzpwezSsmgmx770/18/2024 9:53 AM Yuval Gallo * Q1: How often do you have a drink containing alcohol?AnswerDate of Assessment TbagxcUjcxz60/18/2024 9:53 AM Cleo Generic * Q2: How many drinks containing alcohol do you have on a typical day when you are drinking?AnswerDate of AssessmentAuthorPatient does not drink02/28/2024 9:53 AM Cleo Generic * Q3: How often do you have six or more drinks on one occasion?AnswerDate of DskhtkmorrNwfwmgWxuew39/18/2024 9:53 AM Yuval Gallo * Over the past 2 weeks, how often have you been bothered by any of the following problems?QuestionAnswerDate of AssessmentAuthorLittle interest or pleasure in doing thingsNot at all10/08/2024 1:00 PM Arina Forman MA Feeling down, depressed, or hopelessNot at all10/08/2024 1:00 PM Arina Forman MAPatient Health Questionnaire-2 Pfeby557 1:00 PM Arina Forman MA * QuestionAnswerDate [...] 1:00 PM Arina Forman MAPatient Health Questionnaire-9 Szviy941 1:00 PM Arina Forman MA documented as of this encounter Plan of Treatment Not on file documented as of this encounter Procedures Procedure NamePriorityDate/TimeAssociated DiagnosisCommentsXR FOOT LT MIN 3V 12/30/2023 7:18 AM EDT documented in this encounter Results * XR FOOT LT MIN 3V (12/30/2023 7:18 AM EDT)Anatomical RegionLateralityModality OtherSpecimen (Source)Anatomical Location / LateralityCollection Method / VolumeCollection TimeReceived Time12/30/2023 7:18 AM EDT Narrative 12/30/2023 7:20 AM EDT [facility] ?[address] ? [place] [address] ?XRay Report ? Signed ? Patient: RENATE BRADFORD ?MR#: [id number] ?? : 1940 ?Acct:[id number] ?? Age/Sex: 83 / F ?ADM Date: 12/29/23 ?? Loc: EC ? Attending Dr: Lizbet Milian ? Ordering Physician: Lizbet Milian ?? Date of Service: 12/29/23 ?? Procedure(s): XR foot LT min 3V ?? Accession Number(s): [id number] ? cc: Lizbet Milian; Ken Quach M.D. ? [facility] ? [address] ? [place] [address] ? Patient Name: ?? RENATE BRADFORD ? MRN: [facility]:[id number] ? date: 1940 ?Sex: F ?? Assigned Patient Location: EC ?? Current Patient Location: ? Accession/Order Number: [id number] ?? Exam Date: 12/29/2023 ??09:58 ?Report Date: 12/30/2023 ??07:18 ? At the request of: ?? LIZBET ??RUKHSANA ? Procedure: ??XR foot LT min 3V ? PROCEDURE: XR foot LT min 3V ? HISTORY: LEFT FOOT PAIN ; recent third metatarsal stress fracture ? COMPARISON: XR foot left 12/08/2023 ? FINDINGS: ?? BONES:Stable alignment and increasing callus formation involving prior ?? fracture ?? of the third metatarsal neck. Multifocal mild degenerative joint disease. ?? SOFT TISSUES:No visible soft tissue swelling. ?? EFFUSION:None visible. ?? OTHER: Negative. ? XR/XR foot LT min 3V ?? IMPRESSION: ? 1. Stable alignment and ongoing bone healing of third metatarsal neck ?? fracture. ? Electronically authenticated by: OMI ??VISH ?? Date: 12/30/2023 ??07:18 ? Dictated By: ?Omi Gamboa M.D. ? Signed By: ?12/30/2320 ? DD/ 0718 ? TD/TT: ? Lime Vat Tender: Procedure Note Radiology, Radiologist, - 12/30/[address] [address] XRay Report Signed Patient: RENATE BRADFORD JMR#: [id number] : 1940Acct:[id number] Age/Sex: 83 / FADM Date: 12/29/23 Loc: EC Attending Dr: Libzet Milian Ordering Physician: Lizbet Milian Date of Service: 12/29/23 Procedure(s): XR foot LT min 3V Accession Number(s): [id number] cc: Lizbet Milian; Ken Quach M.D. The [address] [address] Patient Name: RENATE BRADFORD MRN: [id number] date: 1940 Sex: F Assigned Patient Location: EC Current Patient Location: Accession/Order Number: [id number] Exam Date: 12/29/2023 09:58 Report Date: 12/30/2023 [...] Gamboa M.D. Signed By:12/30/23719 DD/ 7 TD/TT: Lime Vat Tender: Authorizing ProviderResult TypeResult StatusGeneric External Data Provider CLIN[facility]NC IMAGINGFinal Result documented in this encounter Visit Diagnoses Not on filedocumented in this encounter Care Teams Team MemberRelationshipSpecialtyStart DateEnd Date Seema Durham MD [address] [place] [phone] PCP - External PCPFamily Medicine02/19/23 Ken Quach MD [address] [place] [phone] PCP - GeneralFamily Medicine10/10/23 Aicha Alvarado LPN Licensed Practical NurseFamily Medicinedocumented as of this encounter
--- OUTSIDE RECORDS SUMMARY | 2025-07-12 08:46 | XMS_ITS | Clinical Summary ---
Author Organization [facility] Address [id number] [address] [place] [address] Care Team Providers Care Comb Capper Name Role Phone Ken Quach MD Primary Care Provider [phone] Allergies No known active allergies Medications MedicationSigDispense QuantityRefillsLast FilledStart DateEnd DateStatus albuterol (PROVENTIL HFA;VENTOLIN HFA) 90 mcg/actuation inhaler Inhale 2 puffs every 6 (six) hours as needed for wheezing.Active montelukast (SINGULAIR) 10 mg tablet Indications:Mild intermittent asthma without complicationTake 1 tablet (10 mg total) by mouth nightly. 30 tablet Active levothyroxine (SYNTHROID, LEVOTHROID) 50 MCG tablet Take 1 tablet (50 mcg total) by mouth in the morning.Active aspirin 81 mg Take 1 tablet (81 mg total) by mouth in the morning.Active FLUoxetine (PROzac) 10 mg capsule Take 1 capsule (10 mg total) by mouth in the morning.Active atorvastatin (LIPITOR) 20 mg tablet Take 1 tablet (20 mg total) by mouth in the morning.Active docusate sodium (COLACE) 100 mg capsule Take 1 capsule (100 mg total) by mouth every 12 (twelve) hours. 20 capsule 08/07/2022ctive ibuprofen (MOTRIN) 600 mg tablet Take 1 tablet (600 mg total) by mouth every 6 (six) hours as needed for pain. 30 tablet 08/07/2022ctive carvediloL (COREG) 25 mg tablet Take 1 tablet (25 mg total) by mouth every morning before breakfast.Active albuterol (PROVENTIL HFA;VENTOLIN HFA) 90 mcg/actuation inhaler Indications:BronchitisInhale 1-2 puffs every 6 (six) hours as needed for wheezing. With spacer and instruct 18 g 10/11/2022ctive benzonatate (TESSALON PERLES) 100 mg capsule Take 2 capsules (200 mg total) by mouth 3 (three) times a day as needed for cough. 21 capsule 10/11/2022ctive Active Problems ProblemNoted DateDiagnosed DateChronic seasonal allergic /29/2018 Pulmonary cewuchfgb39/29/2018Mild intermittent asthma without complication 12/08/2017Pulmonary infiltrate in right lung on CXR12/08/2017 Immunizations ImmunizationAdministration DatesNext BwvOiwy3912/31/2021 Family History Medical HistoryRelationNameCommentsDiabetesFatherHeart diseaseFatherHypertension FatherDiabetesMotherHypertensionMotherRelationNameStatusCommentsFatherDeceased MotherDeceased Social History Tobacco UseTypesPacks/DayYears UsedDateSmoking Tobacco: FormerSmokeless Tobacco: Never Tobacco Cessation:Counseling Given: Not Answered Alcohol UseStandard Drinks/WeekCommentsNo0 (1 standard drink = 0.6 oz pure alcohol)ChildcareAnswerDate BcmphonePeqlzkxjbJmfazea81/12/2019EmploymentAnswer Date NzejwodyTkndgdgxqqIhuupna66/12/2019Hunger ScreeningAnswerDate Recorded Within the past 12 months we worried whether our food would run out before we got money to buy more.Never True08/31/2024Within the past 12 months the food we bought just didn't last and we didn't have money to get more.Never True 4Purpose - LifeAnswerDate RecordedPurpose and direction in lifeUnknown 1CommentsNoSex and Gender InformationValueDate RecordedSex Assigned at BirthNot on fileLegal LwmTvzxgt95/06/2015 11:33 AM EDTGender IdentityNot on fileSexual OrientationNot on file Last Filed Vital Signs Vital SignReadingTime TakenCommentsBlood Wcqapyfr914/8608/31/2024 9:45 PM EST Bltct691008/31/2024 9:15 PM LSNVrictxrvsha23.7 ??C (98.1 ??F)08/31/2024 5:50 PM ESTRespiratory Bdof370411/01/2023 9:15 PM ESTOxygen Vqsaqsnnkz04%08/31/2024 9:45 PM ESTInhaled Oxygen Concentration--Kuazvq76.1 kg (170 lb)08/31/2024 5:50 PM EST Mdbwid995.9 cm (5' 1 )08/31/2024 5:50 PM ESTBody Mass Index32.12111/01/2023 5:50 PM EST Plan of Treatment Health MaintenanceDue DateLast DoneCommentsDepression Tkhqgpifn11/05/1952Fall Risk Efgdjzdoh41/05/2005COVID-19 Vaccine ( season)2025 08/12/2023, 07/09/2021, 10/23/2020, Additional history existsInfluenza Vaccine , 06/20/2019, 08/01/2017, Additional history existsTobacco Nytfuatbo08/4DTaP,Tdap and Td Vaccines (2 - Td or Tdap) /Zoster (Shingles) LdquttvFybeantow25/08/2024, 01/22/2021 Medical Devices Not on file Insurance Care Teams Team MemberRelationshipSpecialtyStart DateEnd Date Ken Quach MD [address] [place] [phone] [facility]04/09/25
== END 2025-07-12 08:44 | disposition home or self-care (01) ==
LOC: US 08:43
PROVIDERS: PCP Family Medicine; Visit Provider Family Medicine
DX: Z79.899 Other long term (current) drug therapy (principal); R10.13 Epigastric pain
CPT/HCPCS: 76705